=== PATIENT | female | born 1985 ===

== ENCOUNTER 2020-09-16 08:00 | Outpatient (REF) | payer OTHER, SELFPAY ==
[2020-09-17 09:10] LABS: CT PCR NOT DETECTED (Not Detect.); NG PCR NOT DETECTED (Not Detect.)
[2020-09-17 10:28] LABS: BV Int Neg Control Negative (Negative); BV Int Pos Control Positive (Positive)
== END 2020-09-16 08:01 | disposition home or self-care (01) ==
LOC: HO.LAB 08:00
PROVIDERS: Visit Provider Obstetrics & Gynecology
DX: R10.2 Pelvic and perineal pain (principal); Z79.899 Other long term (current) drug therapy
CPT/HCPCS: 81002; 81025; 87480; 87491; 87510; 87591; 87660; 99212

== ENCOUNTER 2020-09-26 11:10 | Outpatient (REF) | payer OTHER, SELFPAY ==
--- NOTE | 2020-09-26 11:16 | US_ITS ---
EXAMINATION: PELVIC ULTRASOUND. CLINICAL INFORMATION: Pelvic and perineal pain COMPARISON: Prior pelvic ultrasound May 2019 and May 2018 TECHNIQUE: Transabdominal and transvaginal pelvic ultrasound performed. FINDINGS: Uterus: 6.55 x 4.4 cm. Endometrial thickness 1.7 cm slightly irregular perhaps related to reported ablation 2 small cystic areas which appear to be communicating with the endometrial canal. 2 x 2 x 2.3 cm with a volume of 8.8 mm. Left ovary: 3 x 1.5 x 2.1 cm with a volume of 4.9 mm. Small amount of fluid anterior to the uterus uncertain significance. This is not seen previously US/US pelvic complete IMPRESSION: Slight irregularity of the endometrial canal with adjacent cystic areas. These changes may be related to the reported recent ablation of uncertain clinical significance Small amount of fluid anterior to the uterus of uncertain significance
--- NOTE | 2020-09-26 11:16 | US_ITS ---
EXAMINATION: PELVIC ULTRASOUND. CLINICAL INFORMATION: Pelvic and perineal pain COMPARISON: Prior pelvic ultrasound May 2019 and May 2018 TECHNIQUE: Transabdominal and transvaginal pelvic ultrasound performed. FINDINGS: Uterus: 6.55 x 4.4 cm. Endometrial thickness 1.7 cm slightly irregular perhaps related to reported ablation 2 small cystic areas which appear to be communicating with the endometrial canal. 2 x 2 x 2.3 cm with a volume of 8.8 mm. Left ovary: 3 x 1.5 x 2.1 cm with a volume of 4.9 mm. Small amount of fluid anterior to the uterus uncertain significance. This is not seen previously US/US transvaginal IMPRESSION: Slight irregularity of the endometrial canal with adjacent cystic areas. These changes may be related to the reported recent ablation of uncertain clinical significance Small amount of fluid anterior to the uterus of uncertain significance
== END 2020-09-26 11:11 | disposition home or self-care (01) ==
LOC: HO.US 11:10
PROVIDERS: Visit Provider Obstetrics & Gynecology
DX: R10.2 Pelvic and perineal pain (principal)
CPT/HCPCS: 76830; 76856

== ENCOUNTER → 2020-10-07 11:46 | Outpatient (BNVA) | payer OTHER, SELFPAY | PROVIDERS: Visit Provider Obstetrics & Gynecology | DX: Z76.89 Persons encountering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 in other specified circumstances (principal) ==

== ENCOUNTER 2020-11-20 14:56 | Emergency (ER) | payer OTHER, SELFPAY ==
[2020-11-20 15:37] VITALS: BP 138/73; PULSE 90; RESP 18; TEMP 36; O2SAT 100; BMI 32.5
[2020-11-20 17:37] VITALS: BP 105/63; PULSE 83; RESP 16; O2SAT 100
--- NOTE | 2020-11-20 17:39 | PC.NURSE ---
patient reports 2 weeks of left rib pain, denies injury. states the pain is worse after eating, sometimes radiates to left shoulder. heart palpitations. denies n/v/d/. skin pwd. resp even and non labored. speaking in full, clear sentences. lungs clear throughout. awaiting initial physician eval
--- NOTE | 2020-11-20 17:47 | XR_ITS ---
EXAMINATION: XR RIBS, LEFT CLINICAL INFORMATION: Left-sided rib pain. COMPARISON: None TECHNIQUE: Frontal view of chest 3 views of the left ribs were obtained. FINDINGS: Lungs are clear. No consolidation, pneumothorax, or pleural effusion. The cardiomediastinal silhouette and pulmonary vasculature are normal. Osseous structures are unremarkable. Ribs are intact. No fractures are identified. XR/XR ribs LT min 3V w CXR1V IMPRESSION: Unremarkable examination.
--- NOTE | 2020-11-20 17:48 | ED.GENADULT ---
HPI - General Adult General Chief complaint: Abdominal Pain Stated complaint: left sided pain Time Seen by Provider: 11/20/20 17:42 Source: patient Mode of arrival: ambulatory Limitations: no limitations History of Present Illness HPI narrative: 35 y/o female presenting with intermittent left sided rib pain for the last 3 weeks. She denies trauma. She denies injury. She states it is worse when she eats candy or drinks alcohol. When the pain occurs it is painful for her to lift her left arm. She denies SOB, cough, fever, chills, abdominal pain, N/V/D. MD complaint: left sided rib pain Onset (ago): week(s) (3) Location: chest and back Radiation: non-radiation Severity: moderate Quality: aching Pain Consistency: intermittent Relieving factors: rest Exacerbating factors: eating and movement Associated symptoms: denies other symptoms Treatments prior to arrival: none Related Data Previous Rx's Medication Instructions Recorded albuterol sulfate 90 mcg/actuation 1 puff INHALATION Q4H PRN 30 Days 08/30/20 aerosol inhaler #8.5 g albuterol sulfate 90 mcg/actuation 2 puff INHALATION Q6H PRN 30 Days 08/30/20 aerosol inhaler #8.5 g cetirizine 10 mg tablet 10 mg PO DAILY 90 Days #90 tab 08/30/20 diphenhydramine HCl 25 mg capsule 25 mg PO BEDTIME PRN 90 Days #90 08/30/20 cap fluticasone 232mcg-salmeterol 1 inh INHALATION Q12H 30 Days #1 ea 08/30/20 14mcg/actuation breath act,powder sensor fluticasone propionate 50 1 spray INTRANASAL DAILY 30 Days 08/30/20 mcg/actuation nasal #9.9 ml spray,suspension ketotifen fumarate 0.025 % (0.035 1 drp OPHTHALMIC (EYE) BID PRN 30 08/30/20 %) eye drops Days #5 ml hydroxyzine HCl 25 mg tablet 25 mg PO TID PRN 30 Days #90 tab 11/07/20 lidocaine [Lidoderm] 1 patch TOPICAL DAILY #15 ea 11/20/20 naproxen 500 mg PO BID PRN #20 tab 11/20/20 Allergies Allergy/AdvReac Type Severity Reaction Status Date / Time morphine [MORPHINE] Allergy Unknown ITCHY Verified 10/07/20 11:47 ENVIRONMENTAL ALLERGIES Allergy Unknown unknown Uncoded 09/16/20 08:16 Review of Systems Review of Systems: Constitutional: No Fever, No Chills ENT/Mouth: No sore throat, No Rhinorrhea, No Swallowing Difficulty Eyes: No Eye Pain, No Swelling, No Redness Cardiovascular: + Chest Pain, No SOB, No Orthopnea, No Edema Respiratory: No Cough, No Sputum, No Wheezing, No dyspnea Gastrointestinal: No Nausea, No Vomiting, No Diarrhea, + abdominal Pain (left flank) Musculoskeletal: No joint pain, No Myalgias Skin: No Skin Lesions, No rash Neuro: No Weakness, No Numbness, No Dizziness, No Headache PMFSH Past Medical History Medical History Allergic rhinitis Constipation Depression Gestational diabetes Surgical History H/O bilateral salpingectomy H/O laparoscopy Family History Family History Father Diabetes HTN (hypertension) Mother Depression Chronic mental illness Maternal Grandmother HTN (hypertension) Paternal Grandmother Alzheimer disease Social History Social History Alcohol intake: never Smoking Status: Never smoker Use of substances other than those prescribed or required for medical reasons: No Advance Directives: No Advance Directives Information Provided: No Sexual orientation: Straight/Heterosexual Gender identity: female Physical Exam Vital Signs: Vital Signs: Last Vital Signs Temp 96.8 F 11/20/20 15:37 Pulse 83 11/20/20 17:37 Resp 16 11/20/20 17:37 BP 105/63 11/20/20 17:37 Pulse Ox 100 11/20/20 17:37 Body Mass Index 32.5 Appearance: Alert. Oriented X3. No acute distress. Eyes: Pupils equal, round and reactive to light. ENT: Pharynx normal. Neck: Normal inspection. Neck supple. CVS: Normal heart rate and rhythm. Pulses normal. Respiratory: No respiratory distress. Breath sounds normal. Lateral lower ribs are tender. Abdomen: Soft and nontender. +BS x4 Skin: Skin warm and dry. Normal skin color. Normal skin turgor. No rashes. Extremities: No lower extremity edema. Negataive Homans signs Neuro: Oriented X 3. No motor deficit. No sensory deficit. Course Course Course Narrative: 35 yo female presenting with left sided rib pain intermittently for the last 3 weeks. Tender left lower ribs laterally without abd tenderness. Possible costochondritis, will get CXR to r/o PNA, PTX. Doubt PE, PERC score 0. No ACS risk factors and pain is re-producible on exam. VSS, no hypoxia. No urinary symptoms. Reevaluation(s) Reevaluation #1: CXR negative. Will treat for costochondritis. Discharge Plan Discharge Clinical Impression: Acute costochondritis Patient Disposition: Home, Self-Care Instructions: Costochondritis (ED) Additional Instructions: Your x-ray today was normal. Your vital signs are normal. Your exam is consistent with inflammation of the muscles in between your ribs. Take the prescribed medications as directed. Follow up with your doctor this week. If you develop worsening pain, shortness of breath, chest pain, abdominal pain or any other concerning symptom, come back to the ER for further evaluation. Prescriptions: New lidocaine [Lidoderm] 5 % adhesive patch,medicated 1 patch topical DAILY Qty: 15 RF: 0 naproxen 500 mg tablet 500 mg PO BID PRN (Reason: pain) Qty: 20 RF: 0 No Action albuterol sulfate 90 mcg/actuation HFA aerosol inhaler 1 puff inhalation Q4H PRN (Reason: shortness of breath or wheezing) 30 Days Qty: 8.5 RF: 5 ketotifen fumarate [Alaway] 0.025 % (0.035 %) drops 1 drp ophthalmic (eye) BID PRN (Reason: allergy symptoms) 30 Days Qty: 5 RF: 6 diphenhydramine HCl [Benadryl] 25 mg capsule 25 mg PO BEDTIME PRN (Reason: sleep) 90 Days Qty: 90 RF: 1 albuterol sulfate [ProAir HFA] 90 mcg/actuation HFA aerosol inhaler 2 puff inhalation Q6H PRN (Reason: shortness of breath or wheezing) 30 Days Qty: 8.5 RF: 6 fluticasone propionate 50 mcg/actuation spray,suspension 1 spray intranasal DAILY 30 Days Qty: 9.9 RF: 6 cetirizine 10 mg tablet 10 mg PO DAILY 90 Days Qty: 90 RF: 1 AirDuo Digihaler 232-14 mcg/actuation aero powdr breath act w/sensor 1 inh inhalation Q12H 30 Days Qty: 1 RF: 6 hydroxyzine HCl 25 mg tablet 25 mg PO TID PRN (Reason: anxiety) 30 Days Qty: 90 RF: 1
== END 2020-11-20 19:29 | disposition home or self-care (01) ==
PROVIDERS: Emergency Provider Internal Medicine
DX: M94.0 Chondrocostal junction syndrome [Tietze] (principal); R07.81 Pleurodynia; M79.602 Pain in left arm; Z79.899 Other long term (current) drug therapy
CPT/HCPCS: 71101; 99283; 99284

== ENCOUNTER 2020-11-21 10:32 | Outpatient (REF) | payer OTHER, SELFPAY ==
[2020-11-21 14:53] LABS: Alanine Aminotransferase 15 U/L (0-31); Albumin Level 4.3 g/dL (3.5-5.0); Alkaline Phosphatase 46 U/L (39-117); Amylase 78 U/L (28-100); Aspartate Amino Transferase 12 U/L (5-31); Bilirubin Direct < 0.2 mg/dL (0.0-0.5); Bilirubin Total 0.4 mg/dL (0.0-1.0); Lipase 32 U/L (8-78); Total Protein 7.4 g/dL (6.5-8.0)
== END 2020-11-21 10:33 | disposition home or self-care (01) ==
LOC: HO.WFDLDS 10:32
PROVIDERS: Visit Provider Hospitalist
DX: R10.9 Unspecified abdominal pain (principal)
CPT/HCPCS: 36415; 80076; 82150; 83690

== ENCOUNTER 2020-11-29 10:30 | Outpatient (REF) | payer OTHER, SELFPAY ==
[2020-11-30 12:26] LABS: BV Int Neg Control Negative (Negative); BV Int Pos Control Positive (Positive)
[2020-11-30 12:52] LABS: C. trachomatis RNA TMA NOT DETECTED (NOT DETECTED); N. gonorrhoeae RNA TMA NOT DETECTED (NOT DETECTED)
== END 2020-11-29 10:31 | disposition home or self-care (01) ==
LOC: HO.LAB 10:30
PROVIDERS: PCP Hospitalist; Visit Provider Obstetrics & Gynecology
DX: Z12.4 Encounter for screening for malignant neoplasm of cervix (principal); N93.0 Postcoital and contact bleeding; B96.89 Other specified bacterial agents as the cause of diseases classified elsewhere; N76.0 Acute vaginitis
CPT/HCPCS: 87480; 87491; 87510; 87591; 87660; 88141; 88142; 88305; 99212

== ENCOUNTER 2020-12-11 13:50 | Outpatient (REF) | payer OTHER, SELFPAY ==
[2020-12-12 10:27] LABS: C. trachomatis RNA TMA NOT DETECTED (NOT DETECTED); N. gonorrhoeae RNA TMA NOT DETECTED (NOT DETECTED)
== END 2020-12-11 13:51 | disposition home or self-care (01) ==
LOC: HO.LAB 13:50
PROVIDERS: Visit Provider Obstetrics & Gynecology
DX: B37.3 Candidiasis of vulva and vagina (principal); R10.2 Pelvic and perineal pain
CPT/HCPCS: 36415; 87491; 87591

== ENCOUNTER 2020-12-17 15:32 | Outpatient (REF) | payer OTHER, SELFPAY ==
[2020-12-19 17:07] LABS: HPV mRNA E6/E7 rflx Not Detected (Not Detected)
== END 2020-12-17 15:33 | disposition home or self-care (01) ==
LOC: HO.LAB 15:32
PROVIDERS: PCP Hospitalist; Visit Provider Obstetrics & Gynecology
DX: R87.615 Unsatisfactory cytologic smear of cervix (principal); N93.0 Postcoital and contact bleeding
CPT/HCPCS: 36415; 87624; 88142; 99212

== ENCOUNTER 2021-01-24 14:29 | Outpatient (REF) | payer OTHER, SELFPAY ==
[2021-01-24 15:32] LABS: Anion Gap 10 (12-20); Blood Urea Nitrogen 16 mg/dL (9-16); Calcium 9.2 mg/dL (8.4-10.2); Carbon Dioxide 29 mmol/L (22-29); Chloride 104 mmol/L (96-108); Estimated Glomerular Filt Rate > 60; Glucose Fasting 69 mg/dL (60-99); Potassium 4.4 mmol/L (3.3-5.1); Rheumatoid Factor < 15.0 IU/mL (<15.0); Sodium 139 mmol/L (135-145)
[2021-01-24 16:03] LABS: Erythrocyte Sedimentation Rate 12 MM/HR (0-20)
[2021-01-25 13:14] LABS: Vitamin B12 566 pg/mL (200-900)
[2021-01-27 21:11] LABS: CRP High Sensitivity 2.1 mg/L
[2021-01-29 01:27] LABS: VITAMIN D (1,25 OH) D3 51 pg/mL; Vit D (1,25-Dihydroxy) Total 51 pg/mL (18-72); Vitamin D (1,25 OH) D2 <8 pg/mL
== END 2021-01-24 14:30 | disposition home or self-care (01) ==
LOC: HO.LAB 14:29
PROVIDERS: PCP Hospitalist; Visit Provider Hospitalist
DX: Z00.00 Encounter for general adult medical examination without abnormal findings (principal); M19.90 Unspecified osteoarthritis, unspecified site; M06.9 Rheumatoid arthritis, unspecified; R41.3 Other amnesia
CPT/HCPCS: 36415; 80048; 82607; 82652; 82746; 85652; 86141; 86431

== ENCOUNTER 2021-02-06 10:37 | Outpatient (REF) | payer OTHER, SELFPAY ==
--- NOTE | ~2021-02-06 | XR_ITS ---
EXAMINATION: XR FOOT, RIGHT XR FOOT, LEFT CLINICAL INFORMATION: Bilateral pain. M25.50 COMPARISON: None TECHNIQUE: Each foot is imaged in 3 views. There are a total of 6 views. FINDINGS: Right: There is no fracture, dislocation, destructive process. Bony mineralization appears normal. There is no periarticular demineralization. Subtalar joint is unremarkable. No visible ankle, capsular effusion. The retrocalcaneal recess is preserved. There is borderline posterior calcaneal spur. The midfoot and MTP joints show no narrowing or erosive change. The interphalangeal joints show no subchondral sclerosis or erosive changes. Left: There is no fracture, dislocation, destructive process. Bony mineralization appears normal. There is no periarticular demineralization. Subtalar joint is unremarkable. No visible ankle, capsular effusion. The retrocalcaneal recess is preserved. The midfoot and MTP joints show no narrowing or erosive change. The interphalangeal joints show no subchondral sclerosis or erosive changes. XR/XR foot LT 2V IMPRESSION: 1. No focal joint narrowing or erosive change. 2. Borderline right posterior calcaneal spur.
--- NOTE | ~2021-02-06 | XR_ITS ---
EXAMINATION: XR HAND WRIST, RIGHT XR HAND WRIST, LEFT CLINICAL INFORMATION: Bilateral pain. M25.50 COMPARISON: Bilateral radiographs hand wrist 08/04/2010 TECHNIQUE: Each hand and wrist are imaged in 3 large [id number] images to include both areas. A navicular view is also included on each side. There are a total of 4 views each side. FINDINGS: Right: There is normal bony mineralization. No fracture, dislocation, destructive process. The ulnar variance is neutral. The pronator quadratus fat pad is normal. The carpus shows no joint narrowing or erosive change or chondrocalcinosis. The MCP and interphalangeal joints are unremarkable. No focal joint narrowing or erosive change. Left: There is normal bony mineralization. No fracture, dislocation, destructive process. The ulnar variance is neutral. The pronator quadratus fat pad is normal. The carpus shows no joint narrowing or erosive change or chondrocalcinosis. The MCP and interphalangeal joints are unremarkable. No focal joint narrowing or erosive change. XR/XR hand wrist LT IMPRESSION: Unremarkable bilateral hands/wrists.
--- NOTE | ~2021-02-06 | XR_ITS ---
EXAMINATION: XR HAND WRIST, RIGHT XR HAND WRIST, LEFT CLINICAL INFORMATION: Bilateral pain. M25.50 COMPARISON: Bilateral radiographs hand wrist 08/04/2010 TECHNIQUE: Each hand and wrist are imaged in 3 large [id number] images to include both areas. A navicular view is also included on each side. There are a total of 4 views each side. FINDINGS: Right: There is normal bony mineralization. No fracture, dislocation, destructive process. The ulnar variance is neutral. The pronator quadratus fat pad is normal. The carpus shows no joint narrowing or erosive change or chondrocalcinosis. The MCP and interphalangeal joints are unremarkable. No focal joint narrowing or erosive change. Left: There is normal bony mineralization. No fracture, dislocation, destructive process. The ulnar variance is neutral. The pronator quadratus fat pad is normal. The carpus shows no joint narrowing or erosive change or chondrocalcinosis. The MCP and interphalangeal joints are unremarkable. No focal joint narrowing or erosive change. XR/XR hand wrist RT IMPRESSION: Unremarkable bilateral hands/wrists.
--- NOTE | ~2021-02-06 | XR_ITS ---
EXAMINATION: XR FOOT, RIGHT XR FOOT, LEFT CLINICAL INFORMATION: Bilateral pain. M25.50 COMPARISON: None TECHNIQUE: Each foot is imaged in 3 views. There are a total of 6 views. FINDINGS: Right: There is no fracture, dislocation, destructive process. Bony mineralization appears normal. There is no periarticular demineralization. Subtalar joint is unremarkable. No visible ankle, capsular effusion. The retrocalcaneal recess is preserved. There is borderline posterior calcaneal spur. The midfoot and MTP joints show no narrowing or erosive change. The interphalangeal joints show no subchondral sclerosis or erosive changes. Left: There is no fracture, dislocation, destructive process. Bony mineralization appears normal. There is no periarticular demineralization. Subtalar joint is unremarkable. No visible ankle, capsular effusion. The retrocalcaneal recess is preserved. The midfoot and MTP joints show no narrowing or erosive change. The interphalangeal joints show no subchondral sclerosis or erosive changes. XR/XR foot RT 2V IMPRESSION: 1. No focal joint narrowing or erosive change. 2. Borderline right posterior calcaneal spur.
[2021-02-06 12:25] LABS: MANUAL DIFF FLAG NO
[2021-02-06 12:32] LABS: Basophils Percent Auto 0.7 % (0-2); Eosinophils Absolute Auto 0.1 X10*3/uL (0.0-0.4); Eosinophils Percent Auto 1.6 % (0-4); Hematocrit 39.5 % (37-47); Hemoglobin 12.8 g/dl (12.0-16.0); Imm Gran Abs Auto 0.01 X10*3/uL (0.00-0.03); Imm Gran Pct Auto 0.2 % (0.0-0.4); Lymphocytes Absolute Auto 1.7 X10*3/uL (1.2-4.9); Lymphocytes Percent Auto 27.3 % (20-40); Mean Corpuscular HGB Conc 32.4 g/dl (31.0-35.0); Mean Corpuscular Hemoglobin 29.8 pg (27.0-33.0); Mean Corpuscular Volume 92.1 fL (80-98); Mean Platelet Volume 10.9 fL (9.4-12.3); Monocytes Absolute Auto 0.4 X10*3/uL (0.1-1.2); Monocytes Percent Auto 6.5 % (2-11); Neutrophils Absolute Auto 3.9 X10*3/uL (2.0-8.3); Neutrophils Percent Auto 63.7 % (45-73); Platelet Count 245 X10*3/uL (160-400); Red Blood Count 4.29 X10*6/uL (4.20-5.50); Red Cell Distribution Width 13.1 % (11.0-16.0); White Blood Count 6.2 X10*3/uL (4.8-10.8)
[2021-02-06 12:51] LABS: Alanine Aminotransferase 13 U/L (0-31); Albumin Level 4.4 g/dL (3.5-5.0); Alkaline Phosphatase 46 U/L (39-117); Anion Gap 13 (12-20); Aspartate Amino Transferase 14 U/L (5-31); Bilirubin Total 0.4 mg/dL (0.0-1.0); Blood Urea Nitrogen 20 mg/dL (9-16); C Reactive Protein 0.36 mg/dL (< or = 0.50); Calcium 9.2 mg/dL (8.4-10.2); Carbon Dioxide 25 mmol/L (22-29); Chloride 104 mmol/L (96-108); Estimated Glomerular Filt Rate > 60; Glucose Random 85 mg/dL (60-115); Potassium 4.5 mmol/L (3.3-5.1); Rheumatoid Factor < 15.0 IU/mL (<15.0); Sodium 137 mmol/L (135-145); Total Protein 7.5 g/dL (6.5-8.0)
[2021-02-06 13:34] LABS: Erythrocyte Sedimentation Rate 16 MM/HR (0-20)
[2021-02-07 04:59] LABS: HBS Num1 54.88 mIU/mL (0-7.99); HBc Num1 0.09 S/CO (0.00-0.79); Hepatitis A Antibody IgM 0.14 Index (0-0.79); Hepatitis B Core Antibody Nonreactive (Nonreactive); ~HepC Num1 0.08 S/CO (0.00-0.79); ~Hepatitis A Antibody IgM Nonreactive (Nonreactive); ~Hepatitis B Surface Antibody REACTIVE (Nonreactive); ~Hepatitis C Antibody Nonreactive (Nonreactive)
[2021-02-07 05:03] LABS: HBsAGNum1 0.15 S/CO (0.00-0.99); Hepatitis B Surface Antigen Negative (Negative)
[2021-02-07 12:12] LABS: Antibody to SS-A Antigen <1.0 NEG AI (<1.0 NEG); Antibody to SS-B Antigen <1.0 NEG AI (<1.0 NEG)
[2021-02-07 13:21] LABS: Anti Nuclear Antibody Screen NEGATIVE (NEGATIVE)
[2021-02-07 22:17] LABS: Cyclic Citrullinated Peptide <16 UNITS
== END 2021-02-06 10:38 | disposition home or self-care (01) ==
LOC: HO.LAB 10:37
PROVIDERS: PCP Internal Medicine; Visit Provider Student in an Organized Health Care Education/Training Program
DX: M25.50 Pain in unspecified joint (principal); M65.4 Radial styloid tenosynovitis [de Quervain]; J30.9 Allergic rhinitis, unspecified; Z88.5 Allergy status to narcotic agent; Z90.79 Acquired absence of other genital organ(s); Z90.722 Acquired absence of ovaries, bilateral; Z79.899 Other long term (current) drug therapy
CPT/HCPCS: 36415; 73110; 73130; 73620; 80053; 85025; 85652; 86038; 86039; 86140; 86200; 86235; 86431; 86704; 86706; 86709; 86803; 87340; 99202

== ENCOUNTER → 2021-02-27 09:29 | Outpatient (BNVA) | payer OTHER, SELFPAY | PROVIDERS: PCP Hospitalist; Visit Provider Student in an Organized Health Care Education/Training Program | DX: M25.50 Pain in unspecified joint (principal) | CPT/HCPCS: 99212 ==

== ENCOUNTER 2021-04-25 09:08 | Outpatient (REF) | payer OTHER, SELFPAY ==
[2021-04-25 10:36] LABS: Glucose Urine UA NEG (NEG); Leukocyte Esterase Urine NEG (NEG); Nitrite Urine NEG (NEG); Specific Gravity - Urine >= 1.030 (1.005-1.025); Urine Blood 3+ (NEG); Urine Ketones NEG (NEG); Urine Protein NEG (NEG-TRACE)
[2021-04-25 10:39] LABS: Appearance Urine CLEAR; Color Urine YELLOW
[2021-04-25 11:24] LABS: Bacteria Urine TRACE /LPF; Mucus Urine 1+ /LPF; Squamous Epithelial Cell Urine 2+ /LPF
[2021-04-25 11:47] LABS: Alanine Aminotransferase 9 U/L (0-31); Albumin Level 4.2 g/dL (3.5-5.0); Alkaline Phosphatase 49 U/L (39-117); Anion Gap 10 (12-20); Aspartate Amino Transferase 12 U/L (5-31); Bilirubin Total 0.4 mg/dL (0.0-1.0); Blood Urea Nitrogen 17 mg/dL (9-16); Calcium 9.1 mg/dL (8.4-10.2); Carbon Dioxide 27 mmol/L (22-29); Chloride 106 mmol/L (96-108); Estimated Glomerular Filt Rate > 60; Glucose Fasting 89 mg/dL (60-99); Potassium 4.3 mmol/L (3.3-5.1); Sodium 139 mmol/L (135-145); Total Protein 7.3 g/dL (6.5-8.0)
[2021-04-25 12:09] LABS: TSH reflex Free T4 1.01 uIU/mL (0.32-4.0)
[2021-05-02 15:26] LABS: Chlorpropamide None Detected; Glimepiride None Detected; Glipizide None Detected; Glyburide None Detected; Nateglinide None Detected; Pioglitazone None Detected; Repaglinide None Detected; Rosiglitazone None Detected; Tolazamide None Detected; Tolbutamide None Detected
== END 2021-04-25 09:09 | disposition home or self-care (01) ==
LOC: HO.WFDLDS 09:08
PROVIDERS: Visit Provider Family Medicine
DX: Z00.00 Encounter for general adult medical examination without abnormal findings (principal); E16.2 Hypoglycemia, unspecified
CPT/HCPCS: 36415; 80053; 80337; 81001; 84443

== ENCOUNTER 2021-06-04 13:40 | Outpatient (REF) | payer OTHER, SELFPAY ==
[2021-06-04 16:49] LABS: Urine Cytology See Pathology rpt
== END 2021-06-04 13:41 | disposition home or self-care (01) ==
LOC: HO.LNP 13:40
PROVIDERS: PCP Internal Medicine
DX: R31.29 Other microscopic hematuria (principal)
CPT/HCPCS: 88112; 99202

== ENCOUNTER → 2021-07-23 14:15 | Outpatient (BNVA) | payer OTHER, SELFPAY | PROVIDERS: PCP Internal Medicine; Referring Provider Family Medicine; Visit Provider Internal Medicine | DX: E16.2 Hypoglycemia, unspecified (principal); E55.9 Vitamin D deficiency, unspecified | CPT/HCPCS: 99202 ==

== ENCOUNTER 2021-07-25 09:09 | Outpatient (REF) | payer OTHER, SELFPAY ==
[2021-07-25 09:57] LABS: Glucose Fasting 97 mg/dL (60-99)
[2021-07-25 10:03] LABS: Alanine Aminotransferase 13 U/L (0-31); Albumin Level 4.6 g/dL (3.5-5.0); Alkaline Phosphatase 56 U/L (39-117); Anion Gap 11 (12-20); Aspartate Amino Transferase 12 U/L (5-31); Bilirubin Direct 0.2 mg/dL (0.0-0.5); Bilirubin Total 0.6 mg/dL (0.0-1.0); Blood Urea Nitrogen 20 mg/dL (9-16); Calcium 9.9 mg/dL (8.4-10.2); Carbon Dioxide 28 mmol/L (22-29); Chloride 105 mmol/L (96-108); Estimated Glomerular Filt Rate > 60; Glucose Fasting 99 mg/dL (60-99); Potassium 4.4 mmol/L (3.3-5.1); Sodium 140 mmol/L (135-145)
[2021-07-25 10:23] LABS: Free T4 (Free Thyroxine) 1.42 ng/dL (0.71-1.85); Vitamin D 25-OH Total 20.1 ng/mL (>30)
[2021-07-25 11:48] LABS: Glucose 1 Hour 111 mg/dL
[2021-07-25 12:11] LABS: Glucose 2 Hour 107 mg/dL
[2021-07-25 13:27] LABS: Glucose 3 Hour 83 mg/dL
[2021-07-25 15:07] LABS: Glucose 4 Hour 57 mg/dL
[2021-07-28 18:42] LABS: DHEA Sulfate 136 mcg/dL (23-266); Insulin Level Total 11.8 uIU/mL
[2021-07-28 22:52] LABS: Adrenocorticotropic Hormone 9 pg/mL (6-50)
[2021-07-30 03:42] LABS: Beta-Hydroxybutyrate 0.07 mmol/L
[2021-07-30 09:12] LABS: C Peptide 2.19 ng/mL (0.80-3.85)
[2021-07-31 03:57] LABS: Proinsulin 5.5 pmol/L (< OR = 18.8)
[2021-08-02 01:22] LABS: Insulin Auto Antibody <0.4 U/mL (<0.4)
[2021-08-04 14:21] LABS: Insulin Growth Factor 2 644 ng/mL (267-616)
[2021-08-06 07:20] LABS: Chlorpropamide None Detected; Glimepiride None Detected; Glipizide None Detected; Glyburide None Detected; Nateglinide None Detected; Pioglitazone None Detected; Repaglinide None Detected; Rosiglitazone None Detected; Tolazamide None Detected; Tolbutamide None Detected
== END 2021-07-25 09:10 | disposition home or self-care (01) ==
LOC: HO.LAB 09:09
PROVIDERS: PCP Internal Medicine; Visit Provider Internal Medicine
DX: E16.2 Hypoglycemia, unspecified (principal); E55.9 Vitamin D deficiency, unspecified
CPT/HCPCS: 36415; 80048; 80076; 80337; 82010; 82024; 82306; 82533; 82627; 82952; 83525; 83789; 84206; 84439; 84443; 84681; 86337

== ENCOUNTER 2021-09-08 12:31 | Outpatient (REF) | payer OTHER, SELFPAY ==
[2021-09-08 13:59] LABS: Hematocrit 41.1 % (37-47); Hemoglobin 13.3 g/dl (12.0-16.0); Mean Corpuscular HGB Conc 32.4 g/dl (31.0-35.0); Mean Corpuscular Volume 92.6 fL (80-98); Mean Platelet Volume 11.7 fL (9.4-12.3); Platelet Count 274 X10*3/uL (160-400); Red Blood Count 4.44 X10*6/uL (4.20-5.50); White Blood Count 7.9 X10*3/uL (4.8-10.8)
[2021-09-08 14:42] LABS: TSH reflex Free T4 1.03 uIU/mL (0.32-4.0)
[2021-09-14 13:11] LABS: Vitamin D 25-OH, D2 5 ng/mL; Vitamin D 25-OH, D3 16 ng/mL; Vitamin D 25-OH, Total 21 ng/mL (30-100)
== END 2021-09-08 12:32 | disposition home or self-care (01) ==
LOC: HO.WFDLDS 12:31
PROVIDERS: Visit Provider Hospitalist
DX: E55.9 Vitamin D deficiency, unspecified (principal); R53.83 Other fatigue
CPT/HCPCS: 36415; 82306; 84443; 85027

== ENCOUNTER → 2021-09-15 08:34 | Outpatient (BNVA) | payer OTHER, SELFPAY | PROVIDERS: PCP Hospitalist; Visit Provider Internal Medicine ==

== ENCOUNTER → 2021-09-17 10:38 | Outpatient (BNVA) | payer OTHER, SELFPAY | PROVIDERS: PCP Hospitalist; Visit Provider Dietitian, Registered | DX: E66.9 Obesity, unspecified (principal); E16.2 Hypoglycemia, unspecified; Z68.32 Body mass index [BMI] 32.0-32.9, adult | CPT/HCPCS: 97802 ==

== ENCOUNTER → 2021-09-24 09:00 | Outpatient (BNVA) | payer OTHER, SELFPAY | PROVIDERS: PCP Hospitalist; Visit Provider Nurse Practitioner Family | DX: M25.50 Pain in unspecified joint (principal); M79.7 Fibromyalgia | CPT/HCPCS: 99212 ==

== ENCOUNTER 2021-12-24 09:18 | Emergency (ER) | payer OTHER, SELFPAY ==
[2021-12-24 09:27] VITALS: BP 107/66; PULSE 73; RESP 19; TEMP 36.6; O2SAT 98; BMI 32.2
--- NOTE | 2021-12-24 10:39 | ED_ITS ---
HPI - General Adult General Chief complaint: Extremity Injury, Lower Stated complaint: L HIP PAIN Time Seen by Provider: 12/24/21 10:12 History of Present Illness HPI narrative: Patient complains of left-sided low back pain without injury without radiation no numbness weakness or tingling no fall no changes to bowel or bladder no burning with urination Related Data Previous Rx's Medication Instructions Recorded pseudoephedrine HCl 30 mg tablet 60 mg PO Q6H PRN 30 Days #24 tab 08/18/21 glucose 4 gram chewable tablet 4 g PO Q15M 30 Days #50 tab 09/05/21 cholecalciferol (vitamin D3) 50 50 mcg PO DAILY 30 Days #30 cap 09/15/21 mcg (2,000 unit) capsule ketotifen fumarate 0.025 % (0.035 1 drp OPHTHALMIC (EYE) BID PRN 30 09/19/21 %) eye drops (Alaway) Days #5 ml fluticasone propionate 50 1 spray INTRANASAL DAILY #16 ml 10/01/21 mcg/actuation nasal spray,suspension cetirizine 10 mg tablet 10 mg PO DAILY 30 Days #30 tab 10/07/21 diphenhydramine HCl 25 mg capsule 25 mg PO BEDTIME PRN 30 Days #30 10/07/21 (Banophen) cap ProAir HFA 90 mcg/actuation 2 puff INHALATION Q6H PRN 30 Days 10/28/21 aerosol inhaler (albuterol sulfate) #8.5 g NS fluticasone 100 mcg-salmeterol 50 1 inh INHALATION BID 30 Days #60 ea 10/28/21 mcg/dose blistr powdr for inhalation (Advair Diskus) naproxen 500 mg tablet 500 mg PO Q12H PRN 30 Days #60 tab 10/28/21 hydroxyzine HCl 25 mg tablet 25 mg PO TID PRN #90 tab 11/17/21 sodium chloride 0.65 % nasal spray 2 spray INTRANASAL Q2H PRN #88 ml 12/01/21 aerosol (Saline Nasal) cyclobenzaprine 5 mg tablet 5 mg PO TID PRN #14 tab 12/24/21 lidocaine 5 % topical patch 1 patch TOPICAL DAILY #15 ea 12/24/21 oxycodone 5 mg tablet 5 mg PO Q6H PRN #10 tab 12/24/21 Allergies Allergy/AdvReac Type Severity Reaction Status Date / Time morphine [MORPHINE] Allergy Intermediate ITCHY Verified 09/24/21 14:35 ENVIRONMENTAL ALLERGIES Allergy Mild congestion Uncoded 09/24/21 09:20 Review of Systems Review of Systems: Positive for left-sided low back pain Negatives are no fever no chills no dizziness weakness no headache no neck pain no chest pain no abdominal pain no numbness weakness or tingling no radiation of pain no changes to bowel or bladder no dysuria no frequency no incontinence Yes all other systems are reviewed and are negative [facility] Past Medical History Source: nursing notes reviewed Medical History Allergic rhinitis Constipation De Quervain's tenosynovitis Depression Gestational diabetes Microscopic hematuria Vitamin D deficiency Surgical History H/O bilateral salpingectomy H/O laparoscopy Family History Family History Father Diabetes HTN (hypertension) Mother Depression Chronic mental illness Diabetes Maternal Grandmother HTN (hypertension) Paternal Grandmother Alzheimer disease Social History Social History Alcohol intake: current Alcohol intake frequency: holidays/special occasions only Patient Tobacco Use Status: Never used Tobacco e-Cigarette/Vaping Use: Never Used Sexual orientation: Straight/Heterosexual Gender identity: Female Physical Exam Vital Signs: Vital Signs: Last Vital Signs Temp 98 F 12/24/21 09:27 Pulse 73 12/24/21 09:27 Resp 19 12/24/21 09:27 BP 107/66 12/24/21 09:27 Pulse Ox 98 12/24/21 09:27 BMI result Body Mass Index 32.2 General appearance is no acute distress Head is normocephalic atraumatic Neck is supple nontender Respiratory no distress Abdomen soft nontender The back had left lower lumbar and gluteal tenderness there is no midline tenderness, skin was normal there was no CVA tenderness Extremities full range of motion x4 Neuro no focal motor or sensory deficits, gait balance are normal patient can walk on toes walk on heels and swelling Course Course Course Narrative: Well-appearing patient without neurologic deficit, no changes to bowel or bladder is discharged Discharge Plan Discharge Clinical Impression: Low back pain Patient Disposition: Home, Self-Care Additional Instructions: Your pain is likely from irritation of muscles or soft tissue in the left side of her low back, the hip had a full range of motion and pain is not likely to be from the hip Use medications as directed, you have Tylenol and Motrin at home so use them and if they are not helpful you can add a narcotic or the muscle relaxer Return any time if worse Follow with primary doctor for physical therapy and further evaluation as the pain has been there months Prescriptions: New lidocaine 5 % adhesive patch,medicated 1 patch topical DAILY Qty: 15 0RF Rx Instructions: leave on most painful area for up to 12 hrs cyclobenzaprine 5 mg tablet 5 mg PO TID PRN (Reason: muscle spasm) Qty: 14 0RF Rx Instructions: This medication may cause drowsiness so no driving for 8 hours after taking oxycodone 5 mg tablet 5 mg PO Q6H PRN (Reason: pain) Qty: 10 0RF Rx Instructions: Narcotic, no driving for 6 hours after taking this medication No Action pseudoephedrine HCl 30 mg tablet 60 mg PO Q6H PRN (Reason: nasal congestion) 30 Days Qty: 24 9RF glucose 4 gram tablet,chewable 4 g PO Q15M 30 Days Qty: 50 3RF ketotifen fumarate [Alaway] 0.025 % (0.035 %) drops 1 drp ophthalmic (eye) BID PRN (Reason: allergy symptoms) 30 Days Qty: 5 6RF Rx Instructions: administer at least 8 hours apart fluticasone propionate 50 mcg/actuation spray,suspension 1 spray intranasal DAILY Qty: 16 6RF diphenhydramine HCl [Banophen] 25 mg capsule 25 mg PO BEDTIME PRN (Reason: for insomnia) 30 Days Qty: 30 5RF cetirizine 10 mg tablet 10 mg PO DAILY 30 Days Qty: 30 5RF fluticasone propion-salmeterol [Advair Diskus] 100-50 mcg/dose blister with device 1 inh inhalation BID 30 Days Qty: 60 1RF albuterol sulfate [ProAir HFA] 90 mcg/actuation HFA aerosol inhaler 2 puff inhalation Q6H PRN (Reason: shortness of breath or wheezing) 30 Days Qty: 8.5 6RF naproxen 500 mg tablet 500 mg PO Q12H PRN (Reason: pain) 30 Days Qty: 60 1RF hydroxyzine HCl 25 mg tablet 25 mg PO TID PRN (Reason: for anxiety) Qty: 90 1RF Saline Nasal 0.65 % aerosol,spray 2 spray intranasal Q2H PRN (Reason: dry nasal passages) Qty: 88 2RF cholecalciferol (vitamin D3) 50 mcg (2,000 unit) capsule 50 mcg PO DAILY 30 Days Qty: 30 11RF Stand Alone Forms: Work/School Release Interventions: ED Discharge Assessment Last Done: 12/24/21 10:50 Discharge Date/Time: 12/24/21 10:51
== END 2021-12-24 10:51 | disposition home or self-care (01) ==
PROVIDERS: Emergency Provider Emergency Medicine; PCP Hospitalist
DX: M54.50 Low back pain, unspecified (principal)
CPT/HCPCS: 99283

== ENCOUNTER 2022-01-30 09:44 | Outpatient (REF) | payer OTHER, SELFPAY ==
[2022-01-30 11:58] LABS: Anion Gap 10 (12-20); Blood Urea Nitrogen 21 mg/dL (9-16); Calcium 9.7 mg/dL (8.4-10.2); Carbon Dioxide 28 mmol/L (22-29); Chloride 104 mmol/L (96-108); Estimated Glomerular Filt Rate > 60; Glucose Random 91 mg/dL (60-115); Potassium 4.4 mmol/L (3.3-5.1); Sodium 138 mmol/L (135-145)
== END 2022-01-30 09:45 | disposition home or self-care (01) ==
LOC: CF 09:44
PROVIDERS: PCP Hospitalist; Visit Provider Obstetrics & Gynecology
DX: Z01.411 Encounter for gynecological examination (general) (routine) with abnormal findings (principal); N93.0 Postcoital and contact bleeding; Z98.51 Tubal ligation status; M25.552 Pain in left hip; M54.42 Lumbago with sciatica, left side
CPT/HCPCS: 36415; 57500; 80048; 87491; 87591; 88305

== ENCOUNTER 2022-01-30 11:08 | Outpatient (REF) | payer OTHER, SELFPAY ==
[2022-01-30 16:51] LABS: CT PCR NOT DETECTED (Not Detect.); NG PCR NOT DETECTED (Not Detect.)
== END 2022-01-30 11:09 | disposition home or self-care (01) ==
LOC: HO.LAB 11:08
PROVIDERS: Visit Provider Obstetrics & Gynecology
DX: N93.0 Postcoital and contact bleeding (principal)
CPT/HCPCS: 87491; 87591; 88305

== ENCOUNTER → 2022-02-16 11:48 | Outpatient (BNVA) | payer OTHER, SELFPAY | PROVIDERS: Visit Provider Obstetrics & Gynecology | DX: N93.0 Postcoital and contact bleeding (principal) | CPT/HCPCS: 99212 ==

== ENCOUNTER 2022-03-14 10:39 | Outpatient (REF) | payer OTHER, SELFPAY ==
[2022-03-14 12:06] LABS: Alanine Aminotransferase 11 U/L (0-31); Albumin Level 4.2 g/dL (3.5-5.0); Alkaline Phosphatase 48 U/L (39-117); Anion Gap 12 (12-20); Aspartate Amino Transferase 12 U/L (5-31); Bilirubin Total 0.6 mg/dL (0.0-1.0); Blood Urea Nitrogen 22 mg/dL (9-16); Calcium 9.6 mg/dL (8.4-10.2); Carbon Dioxide 25 mmol/L (22-29); Chloride 106 mmol/L (96-108); Estimated Glomerular Filt Rate > 60; Glucose Random 82 mg/dL (60-115); Potassium 4.3 mmol/L (3.3-5.1); Sodium 139 mmol/L (135-145); Total Protein 7.3 g/dL (6.5-8.0)
[2022-03-14 12:28] LABS: Vitamin D 25-OH Total 15.5 ng/mL (>30)
== END 2022-03-14 10:40 | disposition home or self-care (01) ==
LOC: HO.LAB 10:39
PROVIDERS: PCP Hospitalist; Visit Provider Internal Medicine
DX: E16.2 Hypoglycemia, unspecified (principal); E55.9 Vitamin D deficiency, unspecified
CPT/HCPCS: 36415; 80053; 82306

== ENCOUNTER → 2022-03-16 08:27 | Outpatient (BNVA) | payer OTHER, SELFPAY | PROVIDERS: PCP Hospitalist; Visit Provider Internal Medicine | DX: Z13.89 Encounter for screening for other disorder (principal) ==

== ENCOUNTER → 2022-08-13 12:56 | Outpatient (BNVA) | payer OTHER, SELFPAY | PROVIDERS: PCP Hospitalist; Visit Provider Dietitian, Registered | DX: E16.2 Hypoglycemia, unspecified (principal); E66.9 Obesity, unspecified; Z71.3 Dietary counseling and surveillance | CPT/HCPCS: 97803 ==

== ENCOUNTER 2022-08-17 09:17 | Outpatient (REF) | payer OTHER, SELFPAY ==
[2022-08-17 10:05] LABS: Alanine Aminotransferase 14 U/L (0-31); Albumin Level 4.3 g/dL (3.5-5.0); Alkaline Phosphatase 47 U/L (39-117); Anion Gap 15 (12-20); Aspartate Amino Transferase 15 U/L (5-31); Bilirubin Total 0.4 mg/dL (0.0-1.0); Blood Urea Nitrogen 19 mg/dL (9-16); Calcium 9.3 mg/dL (8.4-10.2); Carbon Dioxide 26 mmol/L (22-29); Chloride 103 mmol/L (96-108); Estimated Glomerular Filt Rate > 60; Glucose Random 100 mg/dL (60-115); Potassium 4.1 mmol/L (3.3-5.1); Sodium 140 mmol/L (135-145); Total Protein 7.5 g/dL (6.5-8.0)
[2022-08-17 10:27] LABS: Vitamin D 25-OH Total 19.8 ng/mL (>30)
== END 2022-08-17 09:18 | disposition home or self-care (01) ==
LOC: HO.LAB 09:17
PROVIDERS: PCP Hospitalist; Visit Provider Internal Medicine
DX: E55.9 Vitamin D deficiency, unspecified (principal); E16.2 Hypoglycemia, unspecified
CPT/HCPCS: 36415; 80053; 82306

== ENCOUNTER 2022-08-20 12:31 | Outpatient (REF) | payer OTHER, SELFPAY ==
[2022-08-20 13:19] LABS: Influenza A PCR NEGATIVE (Negative); Influenza B PCR NEGATIVE (Negative); Resp Syncy Virus RNA Qual PCR NEGATIVE (Negative); SARS COV2 PCR INHOUSE NEGATIVE (Negative)
== END 2022-08-20 12:32 | disposition home or self-care (01) ==
LOC: HO.LNP 12:31
PROVIDERS: Visit Provider Internal Medicine
DX: Z20.822 Contact with and (suspected) exposure to COVID-19 (principal); R09.89 Other specified symptoms and signs involving the circulatory and respiratory systems
CPT/HCPCS: 0241U

== ENCOUNTER 2022-09-17 08:22 | Outpatient (REF) | payer OTHER, SELFPAY | END 2022-09-17 08:23 | disposition home or self-care (01) | LOC: HO.LNP 08:22 | PROVIDERS: PCP Hospitalist; Visit Provider Obstetrics & Gynecology | DX: N93.9 Abnormal uterine and vaginal bleeding, unspecified (principal) | CPT/HCPCS: 99212 ==

== ENCOUNTER 2022-09-17 09:06 | Outpatient (REF) | payer OTHER, SELFPAY ==
[2022-09-17 09:51] LABS: Hematocrit 38.4 % (37.0-47.0); Hemoglobin 12.5 g/dl (12.0-16.0); Mean Corpuscular HGB Conc 32.6 g/dl (31.0-35.0); Mean Corpuscular Hemoglobin 29.9 pg (27.0-33.0); Mean Corpuscular Volume 91.9 fL (80.0-98.0); Platelet Count 233 X10*3/uL (160-400); Red Blood Count 4.18 X10*6/uL (4.20-5.50); Red Cell Distribution Width 13.2 % (11.0-16.0); White Blood Count 5.4 X10*3/uL (4.8-10.8)
[2022-09-17 09:52] LABS: Hematocrit 39.4 % (37.0-47.0); Hemoglobin 12.6 g/dl (12.0-16.0); Mean Corpuscular Hemoglobin 29.6 pg (27.0-33.0); Mean Corpuscular Volume 92.5 fL (80.0-98.0); Mean Platelet Volume 10.8 fL (9.4-12.3); Platelet Count 235 X10*3/uL (160-400); Red Blood Count 4.26 X10*6/uL (4.20-5.50); Red Cell Distribution Width 13.2 % (11.0-16.0); White Blood Count 5.6 X10*3/uL (4.8-10.8)
[2022-09-17 10:21] LABS: Alanine Aminotransferase 15 U/L (0-31); Albumin Level 4.3 g/dL (3.5-5.0); Alkaline Phosphatase 47 U/L (39-117); Anion Gap 16 (12-20); Aspartate Amino Transferase 12 U/L (5-31); Bilirubin Total 0.2 mg/dL (0.0-1.0); Blood Urea Nitrogen 16 mg/dL (9-16); Calcium 9.4 mg/dL (8.4-10.2); Carbon Dioxide 25 mmol/L (22-29); Chloride 105 mmol/L (96-108); Estimated Glomerular Filt Rate > 60; Glucose Random 94 mg/dL (60-115); Potassium 4.6 mmol/L (3.3-5.1); Sodium 141 mmol/L (135-145); Total Protein 7.3 g/dL (6.5-8.0)
[2022-09-17 10:37] LABS: TSH reflex Free T4 0.71 uIU/mL (0.32-4.0)
[2022-09-17 10:39] LABS: HCG Quantitative < 2 mIU/mL; TSH reflex Free T4 0.75 uIU/mL (0.32-4.0)
[2022-09-17 12:14] LABS: CT PCR NOT DETECTED (Not Detect.); NG PCR NOT DETECTED (Not Detect.)
== END 2022-09-17 09:07 | disposition home or self-care (01) ==
LOC: HO.LAB 09:06
PROVIDERS: Absent Provider Obstetrics & Gynecology; PCP Hospitalist; Visit Provider Hospitalist
DX: Z00.00 Encounter for general adult medical examination without abnormal findings (principal); N93.9 Abnormal uterine and vaginal bleeding, unspecified
CPT/HCPCS: 36415; 80053; 84443; 84702; 85027; 87491; 87591

== ENCOUNTER 2022-09-23 12:03 | Outpatient (REF) | payer OTHER, SELFPAY ==
--- NOTE | ~2022-09-23 | XR_ITS ---
EXAMINATION: XR ABDOMEN KUB CLINICAL INDICATION: Constipation. COMPARISON: 04/27/2014 abdominal radiographs. TECHNIQUE: AP view of the abdomen. FINDINGS: There is a nonobstructive bowel gas pattern. Mild gas and stool are seen within the colon distally to the rectum. No radiopaque renal calculi. The osseous structures are unremarkable. XR/XR KUB IMPRESSION: Nonobstructive bowel gas pattern. Mild colonic stool burden.
== END 2022-09-23 12:04 | disposition home or self-care (01) ==
LOC: HO.XRAY 12:03
PROVIDERS: PCP Hospitalist; Visit Provider Hospitalist
DX: K59.00 Constipation, unspecified (principal)
CPT/HCPCS: 74018; 87086

== ENCOUNTER 2022-09-23 13:40 | Outpatient (REF) | payer OTHER, SELFPAY | END 2022-09-23 13:41 | disposition home or self-care (01) | LOC: HO.LNP 13:40 | PROVIDERS: Visit Provider Hospitalist | DX: Z13.89 Encounter for screening for other disorder (principal) | CPT/HCPCS: 87086 ==

== ENCOUNTER → 2022-11-03 09:44 | Outpatient (BNVA) | payer OTHER, SELFPAY | PROVIDERS: PCP Hospitalist; Visit Provider Dietitian, Registered | DX: E16.2 Hypoglycemia, unspecified (principal); E66.9 Obesity, unspecified | CPT/HCPCS: 97803 ==

== ENCOUNTER 2022-12-02 09:16 | Outpatient (REF) | payer OTHER, SELFPAY | END 2022-12-02 09:17 | disposition home or self-care (01) | LOC: HO.LNP 09:16 | PROVIDERS: PCP Hospitalist; Visit Provider Obstetrics & Gynecology | DX: N93.9 Abnormal uterine and vaginal bleeding, unspecified (principal) | CPT/HCPCS: 58100; 88305 ==

== ENCOUNTER 2022-12-04 09:16 | Outpatient (REF) | payer OTHER, SELFPAY ==
[2022-12-04 12:10] LABS: C Reactive Protein 0.12 mg/dL (< or = 0.50)
[2022-12-04 12:29] LABS: Erythrocyte Sedimentation Rate 12 MM/HR (0-20)
== END 2022-12-04 09:17 | disposition home or self-care (01) ==
LOC: HO.LAB 09:16
PROVIDERS: PCP Hospitalist; Visit Provider Nurse Practitioner Family
DX: M25.50 Pain in unspecified joint (principal); M79.7 Fibromyalgia; M79.674 Pain in right toe(s); M79.675 Pain in left toe(s)
CPT/HCPCS: 36415; 85652; 86140; 99212

== ENCOUNTER 2022-12-25 10:24 | Outpatient (REF) | payer OTHER, SELFPAY ==
--- NOTE | ~2022-12-25 | US_ITS ---
EXAMINATION: US PELVIS COMPLETE CLINICAL INFORMATION: Abnormal uterine and vaginal bleeding COMPARISON: Pelvic ultrasound 09/26/2020 TECHNIQUE: Transabdominal and transvaginal imaging was performed. FINDINGS: The uterus is of normal size and echogenicity measuring 7.8 x 3.7 x 4.8 cm. A regular homogeneous endometrium is identified measuring 0.5 cm. Few echogenic shadowing foci compatible calcification seen in the cervix. Heterogeneous myometrium with a subendometrial cyst in the uterus measuring 0.9 cm, which can be seen in the setting of adenomyosis. Both ovaries are of normal size and echogenicity. The right measures 3.2 x 1.3 x 1.9 cm for a volume of 4.1 mL. The left measures 2.7 x 1.4 x 1.8 cm for a volume of 3.5 mL. Few peripheral echogenic foci in the bilateral ovaries may reflect adnexal vascular calcifications. Prominent left adnexal vessels. There is small physiologic volume simple pelvic free fluid. Urethra is prominent. US/US pelvic and transvaginal IMPRESSION: Heterogeneous myometrium with a subendometrial cyst in the uterus measuring 0.9 cm, which can be seen in the setting of adenomyosis. Prominent left adnexal vessels which could be seen in the setting of pelvic venous congestion syndrome if clinical history is appropriate. Urethra appears prominent of uncertain, of uncertain clinical significance. Recommend correlation with clinical symptoms, if any clinical concern for obstructive etiology, a contrast-enhanced MR pelvis or urologic evaluation could be obtained.
== END 2022-12-25 10:25 | disposition home or self-care (01) ==
LOC: HO.US 10:24
PROVIDERS: Visit Provider Obstetrics & Gynecology
DX: N93.9 Abnormal uterine and vaginal bleeding, unspecified (principal)
CPT/HCPCS: 76830; 76856

== ENCOUNTER → 2023-01-07 13:14 | Outpatient (BNVA) | payer OTHER, SELFPAY | PROVIDERS: Visit Provider Obstetrics & Gynecology | DX: N93.9 Abnormal uterine and vaginal bleeding, unspecified (principal); N84.0 Polyp of corpus uteri | CPT/HCPCS: 99212 ==

== ENCOUNTER 2023-01-20 14:38 | Outpatient (REF) | payer OTHER, SELFPAY ==
[2023-01-20 16:23] LABS: Urine Cytology See Pathology rpt
== END 2023-01-20 14:39 | disposition home or self-care (01) ==
LOC: HO.LAB 14:38
PROVIDERS: PCP Hospitalist; Visit Provider Urology
DX: Z13.89 Encounter for screening for other disorder (principal); R31.29 Other microscopic hematuria
CPT/HCPCS: 51798; 88112; 99202

== ENCOUNTER 2023-01-22 09:43 | Day surgery (SDC) | payer OTHER, SELFPAY ==
[2023-01-18 20:33] VITALS: BMI 30.9
--- NOTE | 2023-01-21 11:09 | HO.ANESPROP2 ---
HPI - Anesthesia Eval Consult details Narrative: 37yo F for D&C Hysteroscopy, poss polypectomy, poss myomectomy and ECC PMFSH Active Problems Active Problems: All Active Problems (Updated 01/20/23 @ 16:28 by Beena Fatima MD) Disorder of urethra (Acute) Asthma, mild intermittent, well-controlled (Acute) Seasonal allergies (Acute) Anxiety (Acute) Female pelvic pain (Acute) PCB (post coital bleeding) (Acute) Left lateral abdominal pain (Acute) Bacterial vaginal infection (Acute) Costochondritis (Acute) Unsatisfactory cervical Papanicolaou smear (Acute) Anxiety and depression (Acute) Generalized arthritis (Acute) Memory impairment (Acute) Elevated rheumatoid factor (Acute) Herpes simplex type 1 infection (Acute) Lumbar radiculopathy (Acute) Hypoglycemia (Acute) Fatigue (Acute) Obesity (Acute) Fibromyalgia (Acute) Left hip pain (Acute) Trochanteric bursitis, left hip (Acute) Low back pain with left-sided sciatica (Acute) Well woman exam (Acute) Acute pharyngitis (Acute) Normal physical exam (Acute) DM type 2, controlled, with complication (Acute) Abnormal uterine bleeding (AUB) (Acute) Dilation of urethra (Acute) Pelvic congestion syndrome (Acute) Constipation (Acute) Vitamin D deficiency (Acute) Microscopic hematuria (Acute) Past Medical History Medical History Allergic rhinitis Constipation De Quervain's tenosynovitis Depression Fibromyalgia Gestational diabetes Hypoglycemia Iron deficiency Microscopic hematuria Migraine headache Vitamin D deficiency Family History Family History Father Diabetes HTN (hypertension) Mother Depression Chronic mental illness Diabetes Maternal Grandmother HTN (hypertension) Paternal Grandmother Alzheimer disease Other No family history of mental disorder Surgical History Surgical History H/O bilateral salpingectomy H/O laparoscopy History of endometrial ablation Social History Social History Alcohol intake: current Alcohol intake frequency: holidays/special occasions only Patient Tobacco Use Status: Never used Tobacco e-Cigarette/Vaping Use: Never Used Second Hand Smoke Exposure: No service: No Current occupational exposures/hazards: No Sexual orientation: Straight/Heterosexual Gender identity: Female Cognitive needs: No Hearing needs: No Vision needs: No Meds Allergies Allergy/AdvReac Type Severity Reaction Status Date / Time morphine [MORPHINE] Allergy Intermediate ITCHY Verified 02/01/23 10:19 oxycodone [From Percocet] Allergy Intermediate rash,upset Verified 02/01/23 10:19 stomach ENVIRONMENTAL ALLERGIES Allergy Mild congestion Uncoded 02/01/23 10:19 Home Medications Medication Instructions Recorded Confirmed Last Taken Type duloxetine 60 mg capsule,delayed 60 mg PO QAM 05/27/22 01/20/23 Unknown History release Exam Exam Date and Time: January 21, 2023 1109 Height,Weight and Vital Signs: Height 5 ft 4 in Weight 81.647 kg Pertinent Lab Results Pertinent Lab Results: Laboratory Tests 09/17/22 09/17/22 09:19 09:19 WBC 5.6 Hgb 12.6 Hct 39.4 Plt Count 235 Sodium 141 Potassium 4.6 Chloride 105 Carbon Dioxide 25 BUN 16 Creatinine 0.71 Assessment and Plan Assessment Anesthesia Assessment: Chart Reviewed
[2023-01-22] VITALS (9 sets, daily range): BP systolic 104–122; BP diastolic 41–66; PULSE 61–79; RESP 14–18; TEMP 36.1–36.9; O2SAT 95–100; BMI 30.9
[2023-01-22 10:09] LABS: UPreg QC Valid YES; Urine Pregnancy NEGATIVE (NEGATIVE)
[2023-01-22] MEDS: Lactated Ringers 1,000 ML 100 ML IVCONT (10:26)
--- NOTE | 2023-01-22 10:49 | HO.ANESPROP2 ---
HPI - Anesthesia Eval Consult details Narrative: vinicio BAY Active Problems Active Problems: All Active Problems (Updated 01/20/23 @ 16:28 by Beena Fatima MD) Disorder of urethra (Acute) Asthma, mild intermittent, well-controlled (Acute) Seasonal allergies (Acute) Anxiety (Acute) Female pelvic pain (Acute) PCB (post coital bleeding) (Acute) Left lateral abdominal pain (Acute) Bacterial vaginal infection (Acute) Costochondritis (Acute) Unsatisfactory cervical Papanicolaou smear (Acute) Anxiety and depression (Acute) Generalized arthritis (Acute) Memory impairment (Acute) Elevated rheumatoid factor (Acute) Herpes simplex type 1 infection (Acute) Lumbar radiculopathy (Acute) Hypoglycemia (Acute) Fatigue (Acute) Obesity (Acute) Fibromyalgia (Acute) Left hip pain (Acute) Trochanteric bursitis, left hip (Acute) Low back pain with left-sided sciatica (Acute) Well woman exam (Acute) Acute pharyngitis (Acute) Normal physical exam (Acute) DM type 2, controlled, with complication (Acute) Abnormal uterine bleeding (AUB) (Acute) Dilation of urethra (Acute) Pelvic congestion syndrome (Acute) Constipation (Acute) Vitamin D deficiency (Acute) Microscopic hematuria (Acute) Past Medical History Medical History Allergic rhinitis Constipation De Quervain's tenosynovitis Depression Fibromyalgia Gestational diabetes Hypoglycemia Iron deficiency Microscopic hematuria Migraine headache Vitamin D deficiency Family History Family History Father Diabetes HTN (hypertension) Mother Depression Chronic mental illness Diabetes Maternal Grandmother HTN (hypertension) Paternal Grandmother Alzheimer disease Other No family history of mental disorder Family history of problems with anesthesia: No Surgical History Surgical History H/O bilateral salpingectomy H/O laparoscopy History of endometrial ablation History of Problems with Anesthesia: Yes (PONV) Social History Social History Alcohol intake: current Alcohol intake frequency: holidays/special occasions only Patient Tobacco Use Status: Never used Tobacco e-Cigarette/Vaping Use: Never Used Second Hand Smoke Exposure: No Use of substances other than those prescribed or required for medical reasons: No Are you DNR?: No Advance Directives: No Advance Directives Information Provided: Yes Advance Directives on File: No Recently lost weight without trying: No Nutrition Risks: No Nutritional Risk Patient : No service: No Current occupational exposures/hazards: No Sexual orientation: Straight/Heterosexual Gender identity: Female Cognitive needs: No Hearing needs: No Vision needs: No Meds Allergies Allergy/AdvReac Type Severity Reaction Status Date / Time morphine [MORPHINE] Allergy Intermediate ITCHY Verified 01/20/23 14:59 oxycodone [From Percocet] Allergy Intermediate rash,upset Verified 01/20/23 14:59 stomach ENVIRONMENTAL ALLERGIES Allergy Mild congestion Uncoded 01/20/23 14:59 Active Medications: Current Medications Lactated Ringer's (Lr) 1,000 mls @ 100 mls/hr IVCONT .Q10H SHAREE Last Admin: 01/22/23 10:26 Dose: 100 mls/hr Home Medications Medication Instructions Recorded Confirmed Last Taken Type duloxetine 60 mg capsule,delayed 60 mg PO QAM 05/27/22 01/20/23 Unknown History release Exam Exam Date and Time: January 22, 2023 1049 Height,Weight and Vital Signs: Height 5 ft 4 in Weight 81.647 kg Last Vital Signs Temp 98.5 F 01/22/23 10:06 Pulse 77 01/22/23 10:06 Resp 16 01/22/23 10:06 BP 122/41 L 01/22/23 10:06 Pulse Ox 97 01/22/23 10:06 O2 Del Method 01/22/23 10:06 Pertinent Lab Results Pertinent Lab Results: Laboratory Tests 01/22/23 09:57 Urine Test NEGATIVE Airway Mallampati Class: I TM Dist: >3cm Neck ROM: Full Heart: rr Lungs: cta Assessment and Plan Assessment Anesthesia Assessment: Anesthesia Plan Discussed and Chart Reviewed Final Anesthetic Review Family History of Problems with Anesthesia: No History of Problems with Anesthesia: Yes (PONV) NPO: Yes ASA Class: II Final Preanesthetic Review: No Changes in Pt Med Stat, Meds/Allgs Chart Reviewed, Consent Obtained/Reviewed and Anes Risks/Benef Reviewed Patient Risk: Low Procedure Risk: Low Anesthetic Plan Anesthetic Plan: GA and MAC: Disposition: Standard PACU
[2023-01-22 10:50] LABS: Glucose, Whole Blood 79 mg/dL (60-115)
--- NOTE | 2023-01-22 10:54 | MHC.SHP ---
Pre-Procedural Eval Section A Date of Service: 01/22/23 The patient is an INPATIENT: No Changes since office visit: No Cold of Flu in the past 2 weeks, No New Medical Problems, No Changes in Medication and No Patient answered all questions The History & Physical has been completed within 30 days and I have reviewed it.: Yes Section B Chief Complaint: Abnormal uterine and vaginal bleeding, unspecified Allergies: Allergies Allergy/AdvReac Type Severity Reaction Status Date / Time morphine [MORPHINE] Allergy Intermediate ITCHY Verified 01/20/23 14:59 oxycodone [From Percocet] Allergy Intermediate rash,upset Verified 01/20/23 14:59 stomach ENVIRONMENTAL ALLERGIES Allergy Mild congestion Uncoded 01/20/23 14:59 Plan Diagnosis/Plan: Unchanged I have reviewed the history and physical and performed a pertinent physical examination on my patient. No changes have occurred unless specified. Time Spent With Patient Time: Total time managing care of this patient today ____ minutes.
--- NOTE | 2023-01-22 11:53 | PM.OP ---
Brief Operative Note Date of Service: 01/22/23 Pre-op diagnosis: Abnormal uterine bleeding with postcoital bleeding Post-op diagnosis: same (Extensive intrauterine adhesions) Procedure: Hysteroscopy D&C/ECC Surgeon: Kilo Sampson MD Anesthesia: GLMA Was an Safety Person used for this Procedure?: No Estimated blood loss (mL): 0 Pathology: other (Endocervical curettage) Condition: stable Disposition: PACU
--- NOTE | 2023-01-22 11:54 | W.PM.OPN ---
Operative Note Operative Note Date of Service: 01/22/23 Narrative: Preop Diagnosis: Abnormal uterine bleeding with postcoital bleeding Operation: Diagnostic Hysteroscopy, Dilataion & Curettage with ECC Post Op Diagnosis: Extensive adhesions in the endometrial cavity from previous endometrial ablation QBL: Minimal Anesthesia: GLMA Surgeon: Kilo Sampson MD Manager Community Development: None Complication: None Pathology: Endocervical curettage Procedure: The patient was put in the dorsal lithotomy position, scrubbed, and draped in the usual manner. A sterile speculum was inserted in the patient's vagina. The anterior lip of the cervix was grasped with a single tooth tenaculum. The cervix was dilated up to 5 mm, then the scope was inserted in the patient's uterus. Inspection revealed extensive intrauterine adhesions from previous endometrial ablation. The scope was taken out of the uterine cavity , then attempt at sharp curetting was carried on with no tissues reach. At the end of the procedure, endocervical curettage was done and all instruments were taken out of the patient uterine and vaginal cavity. The single tooth tenaculum was removed and homeostasis was assured using pressure. The patient tolerated the procedure well and was transferred to the PACU in a stable condition.
[2023-01-22] MEDS: Ketorolac Tromethamine 30 MG/ML VIAL 15 MG IVPUSH (12:49)
[2023-01-22] MEDS: Ketorolac Tromethamine 15 MG/ML VIAL IVPUSH (13:29)
[2023-01-22] MEDS: Acetaminophen 1,000 MG/100 ML PIGGYBACK 400 MG IV (13:32)
== END 2023-01-22 13:51 ==
LOC: HO.SSS 09:44
PROVIDERS: PCP Hospitalist; Visit Provider Obstetrics & Gynecology
PROC: 0UDB8ZZ Extraction of Endometrium, Via Natural or Artificial Opening Endoscopic (ICD-10-PCS; CPT 58558; principal; 2023-01-22 11:30)
DX: N93.9 Abnormal uterine and vaginal bleeding, unspecified (principal); N93.0 Postcoital and contact bleeding; K66.0 Peritoneal adhesions (postprocedural) (postinfection); N94.89 Other specified conditions associated with female genital organs and menstrual cycle; K59.00 Constipation, unspecified; J30.9 Allergic rhinitis, unspecified; E55.9 Vitamin D deficiency, unspecified; M65.4 Radial styloid tenosynovitis [de Quervain]; F32.A Depression, unspecified; Z79.899 Other long term (current) drug therapy; Z88.8 Allergy status to other drugs, medicaments and biological substances
CPT/HCPCS: 58558; 81025; 82947; 88305; J0131; J1885; J2250; J2405; J3010

== ENCOUNTER → 2023-02-01 10:08 | Outpatient (BNVA) | payer OTHER, SELFPAY | PROVIDERS: PCP Hospitalist; Visit Provider Obstetrics & Gynecology | DX: N93.9 Abnormal uterine and vaginal bleeding, unspecified (principal) | CPT/HCPCS: 99212 ==

== ENCOUNTER → 2023-03-22 10:42 | Outpatient (BNVA) | payer OTHER, SELFPAY | PROVIDERS: PCP Hospitalist; Visit Provider Obstetrics & Gynecology ==

== ENCOUNTER 2023-07-01 09:28 | Outpatient (REF) | payer OTHER, SELFPAY ==
--- NOTE | ~2023-07-01 | XR_ITS ---
EXAMINATION: XR SACROILIAC JOINTS CLINICAL INFORMATION: Pain COMPARISON: None available. TECHNIQUE: 3 views of the sacroiliac joints FINDINGS: No acute fracture or dislocation. Joint spaces are maintained. Soft tissues are unremarkable. XR/XR sacroiliac joint min 3V IMPRESSION: Normal sacroiliac joints.
--- NOTE | ~2023-07-01 | XR_ITS ---
EXAMINATION: XR foot RT 2V, XR foot LT 2V CLINICAL INFORMATION: Pain COMPARISON: Radiographs 02/06/2021 TECHNIQUE: 3 views of each foot FINDINGS: RIGHT FOOT: No fracture or dislocation. Joint spaces are maintained. Small Achilles tendon enthesophyte. Mahi deformity. No cortical erosion. No joint effusion. Soft tissues are unremarkable. LEFT FOOT: No fracture or dislocation. Joint spaces are maintained. Mahi deformity No cortical erosion. No joint effusion. Soft tissues are unremarkable. XR/XR foot RT 2V IMPRESSION: No acute osseous abnormality. Bilateral Mahi deformities and small right Achilles tendon enthesophyte.
--- NOTE | ~2023-07-01 | XR_ITS ---
EXAMINATION: XR foot RT 2V, XR foot LT 2V CLINICAL INFORMATION: Pain COMPARISON: Radiographs 02/06/2021 TECHNIQUE: 3 views of each foot FINDINGS: RIGHT FOOT: No fracture or dislocation. Joint spaces are maintained. Small Achilles tendon enthesophyte. Mahi deformity. No cortical erosion. No joint effusion. Soft tissues are unremarkable. LEFT FOOT: No fracture or dislocation. Joint spaces are maintained. Mahi deformity No cortical erosion. No joint effusion. Soft tissues are unremarkable. XR/XR foot LT 2V IMPRESSION: No acute osseous abnormality. Bilateral Mahi deformities and small right Achilles tendon enthesophyte.
== END 2023-07-01 09:29 | disposition home or self-care (01) ==
LOC: HO.LAB 09:28
PROVIDERS: PCP Hospitalist; Visit Provider Nurse Practitioner Family
DX: M79.671 Pain in right foot (principal); M79.672 Pain in left foot; M79.18 Myalgia, other site
CPT/HCPCS: 72202; 73620

== ENCOUNTER 2023-07-06 10:23 | Outpatient (AMB) | payer OTHER, SELFPAY ==
--- NOTE | 2023-07-06 10:24 | A.OFFVIS_ITS ---
Intake Vital Signs 07/06/23 10:25 Height 5 ft 4 in Weight 186 lb 11.704 oz BMI 32.0 BP 116/70 Blood Pressure Location Rt brachial Position Sitting Temp 97.5 F Temp Source Skin Intake Visit Reasons: Knee pain/joint pain Intake Note: Pt seen today for FM follow up and xray results. Press Maintainer Required: No Accompanied by: Self / Same As Patient Allergies morphine [MORPHINE] Allergy (Intermediate, Verified 07/06/23 10:26) ITCHY oxycodone [From Percocet] Allergy (Intermediate, Verified 07/06/23 10:26) rash,upset stomach ENVIRONMENTAL ALLERGIES Allergy (Mild, Uncoded 07/06/23 10:26) congestion Medication List - Last Reconciled 07/06/23 by Astrid Garrett MD acarbose 25 mg PO TID 30 days albuterol sulfate 90 mcg/actuation 2 puffs inhalation Q6H PRN 1 month blood-glucose meter (FreeStyle Troy Lite kit) As directed cetirizine 10 mg PO DAILY 1 month cholecalciferol (vitamin D3) 50 mcg PO DAILY 30 days cyclobenzaprine 10 mg (2 x 5 mg) PO Q8H diphenhydramine HCl (Banophen) 25 mg PO BEDTIME PRN duloxetine 60 mg PO QAM 30 days fluticasone propion-salmeterol 100-50 mcg/dose (Advair Diskus) 1 inh inhalation BID 30 days fluticasone propionate 50 mcg/actuation 1 spray intranasal DAILY gabapentin 300 mg PO Q8H glucose 4 grams PO DIRECTED hydroxyzine HCl 25 mg PO TID PRN ketotifen fumarate 0.025%(0.035%) ([place]) 1 drp ophthalmic (eye) BID PRN 1 month lidocaine 5% 1 patch topical DAILY 3 months naproxen 500 mg PO Q12H PRN pseudoephedrine HCl 60 mg (2 x 30 mg) PO Q6H PRN 30 days sodium chloride 0.65% (Saline Mist) 2 sprays intranasal Q2H PRN valacyclovir (Valtrex) 2,000 mg (2 x 1 gram) PO Q12H 1 day HPI HPI Comments History of Present Illness Details 37yoF present for follow up of fibromyalgia. Last seen by Lynette Neil 12/07 On cyclobenzaprine, duloxetine and gabapentin. Patient states that she has been getting left lower back pain that radiates to her left hip as well as left knee pain. Patient tried different treatments including lidocaine patch, naproxen which are not helpful. Knee pain worse with activity and walking. [facility] Medical History Allergic rhinitis Constipation De Quervain's tenosynovitis Depression Fibromyalgia Gestational diabetes Hypoglycemia Iron deficiency Microscopic hematuria Migraine headache Vitamin D deficiency Surgical History H/O bilateral salpingectomy H/O laparoscopy History of endometrial ablation Hx of dilation and curettage Family History Father Diabetes HTN (hypertension) Mother Depression Chronic mental illness Diabetes Maternal Grandmother HTN (hypertension) Paternal Grandmother Alzheimer disease Other No family history of mental disorder Social History Alcohol intake: current Alcohol intake frequency: holidays/special occasions only Patient Tobacco Use Status: Never used Tobacco e-Cigarette/Vaping Use: Never Used Second Hand Smoke Exposure: No service: No Current occupational status: employed 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 Current occupational exposures/hazards: No Sexual orientation: Straight/Heterosexual Gender identity: Female Cognitive needs: No Hearing needs: No Vision needs: No Female Reproductive History Menstrual Age of Menarche: 10 Review of Systems [facility] [place] Reports back pain and Reports arthralgias Physical Exam Vital Signs: Last Vital Signs Temp 97.5 F 07/06/23 10:25 BP 116/70 07/06/23 10:25 BMI result Body Mass Index 32.0 Const General: cooperative, healthy appearing and comfortable Orientation/consciousness: patient oriented x3 Limitations: no limitations HEENT Head: Yes normocephalic and Yes atraumatic Mouth: moist mucous membranes Resp Effort & Inspection: normal respiratory effort and able to speak in complete sentences Back/Spine/Pelvis Other: Bilateral paraspinal muscle tenderness in the lumbar area Neuro General: patient oriented x3 Extrem Other: Left knee pain with full flexion No knee crepitus bilaterally Left trochanteric bursa area tenderness Negative Vidal's test bilaterally Negative straight leg raise test bilaterally Assessment & Plan Assessment & Plan (1) Fibromyalgia: Code(s): M79.7 - Fibromyalgia Plan: 37-year-old female with fibromyalgia returns for follow-up. She is On duloxetine, cyclobenzaprine and gabapentin Today patient's symptoms are consistent with lumbar paraspinal muscle spasm/degenerative arthritis of her lumbar spine and left trochanteric bursitis. Referred patient for PT of both conditions. Advised patient apply Voltaren gel to her left knee 4 times a day. Will check a left knee x-ray and an L-spine x-ray before next visit. Follow-up in 8 months (2) Greater trochanteric bursitis of left hip: Code(s): M70.62 - Trochanteric bursitis, left hip (3) Degenerative lumbar disc: Code(s): M51.36 - Other intervertebral disc degeneration, lumbar region Plan I spent 26 minutes reviewing patient's chart, evaluating patient, ordering diagnostic workup, counseling patient and documenting in the chart Orders: Orders PT Evaluation and Treatment Today M51.36 - Other intervertebral disc degeneration, lumbar region, M70.62 - Trochanteric bursitis, left hip XR lumbar spine 4V min Today M51.36 - Other intervertebral disc degeneration, lumbar region XR knee LT 3V Today M25.561 - Pain in right knee, M25.562 - Pain in left knee XR knee RT 3V Today M25.561 - Pain in right knee, M25.562 - Pain in left knee XR knee standing BI Today M25.561 - Pain in right knee, M25.562 - Pain in left knee Coding Level of Care Code Est Pt Level 4 (16083) Diagnoses Fibromyalgia M79.7 Greater trochanteric bursitis of left hip M70.62 Degenerative lumbar disc M51.36
[2023-07-06 10:25] VITALS: BP 116/70; TEMP 36.4; BMI 32.0
== END 2023-07-06 10:49 | disposition home or self-care (01) ==
PROVIDERS: PCP Hospitalist; Visit Provider Student in an Organized Health Care Education/Training Program
DX: M79.7 Fibromyalgia (principal); M70.62 Trochanteric bursitis, left hip; M51.36 Other intervertebral disc degeneration, lumbar region
CPT/HCPCS: 99214

== ENCOUNTER → 2023-07-06 10:23 | Outpatient (BNVA) | payer OTHER, SELFPAY | PROVIDERS: Visit Provider Student in an Organized Health Care Education/Training Program | DX: M79.7 Fibromyalgia (principal); M70.62 Trochanteric bursitis, left hip; M51.36 Other intervertebral disc degeneration, lumbar region | CPT/HCPCS: 99212 ==

== ENCOUNTER 2023-07-29 11:31 | Outpatient (AMB) | payer OTHER, SELFPAY ==
--- NOTE | 2023-07-29 11:42 | MHC.PC.OV ---
Vital Signs 07/29/23 11:43 Height 5 ft 4 in Weight 190 lb 4 oz BMI 32.7 BP 110/64 Blood Pressure Location Lt brachial Position Sitting Respiration 12 Pulse 113 H Pulse Source Pulse Oximeter Temp 98.3 F Temp Source Temporal Artery Scan Pulse Oximetry (%) 96 Oxygen Delivery Method Room Air Intake Visit Reasons: Asthma Intake Note: Patient states that she has recently had a fall in the tub and states that her head has been hurting as well as her neck, back and tailbone. Patient states that inhalers are not working and she would like a nebulizer machine. 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 Accompanied by: Self / Same As Patient Allergies morphine [MORPHINE] Allergy (Intermediate, Verified 07/29/23 12:23) ITCHY oxycodone [From Percocet] Allergy (Intermediate, Verified 07/29/23 12:23) rash,upset stomach ENVIRONMENTAL ALLERGIES Allergy (Mild, Uncoded 07/29/23 12:23) congestion Medication List - Last Reconciled 07/29/23 by Astrid Mcelroy CNP acarbose 25 mg PO TID 30 days albuterol sulfate 90 mcg/actuation 2 puffs inhalation Q6H PRN 1 month blood-glucose meter (FreeStyle [place] Lite kit) As directed cetirizine 10 mg PO DAILY 1 month cholecalciferol (vitamin D3) 50 mcg PO DAILY 30 days cyclobenzaprine 10 mg (2 x 5 mg) PO Q8H diphenhydramine HCl (Banophen) 25 mg PO BEDTIME PRN duloxetine 60 mg PO QAM 30 days fluticasone propion-salmeterol 100-50 mcg/dose (Advair Diskus) 1 inh inhalation BID 30 days fluticasone propionate 50 mcg/actuation 1 spray intranasal DAILY gabapentin 300 mg PO Q8H glucose 4 grams PO DIRECTED hydroxyzine HCl 25 mg PO TID PRN ketotifen fumarate 0.025%(0.035%) (Alaway) 1 drp ophthalmic (eye) BID PRN 1 month lidocaine 5% 1 patch topical DAILY 3 months naproxen 500 mg PO Q12H PRN pseudoephedrine HCl 60 mg (2 x 30 mg) PO Q6H PRN 30 days sodium chloride 0.65% (Saline Mist) 2 sprays intranasal Q2H PRN valacyclovir (Valtrex) 2,000 mg (2 x 1 gram) PO Q12H 1 day Tobacco use date assessed: 03/01/23 Dental Screening Dental Screen Date: 07/29/23 Did you have a dental visit in the last 12 months?: No Did you have a dental problem in the last 6 months where you did not have access to dental care?: No Was dental information given to patient?: Patient has dentist HPI HPI Comments History of Present Illness Details 37-year-old female presents of asthma symptoms. She states she usually has an asthma exacerbation once monthly. However, she has been experiencing asthma symptoms such as dry cough, shortness of breath, and wheezing especially at night for the past 1 week. She notes she was referred to pulmonology but she never follow-up to schedule an appointment due to her busy work schedule. She is on albuterol and Advair Diskus inhalers. She notes the inhalers at ineffective. [facility] Medical History Fibromyalgia Hypoglycemia Iron deficiency Migraine headache Vitamin D deficiency Microscopic hematuria De Quervain's tenosynovitis Depression Gestational diabetes Constipation Allergic rhinitis Surgical History Hx of dilation and curettage History of endometrial ablation H/O bilateral salpingectomy H/O laparoscopy Family History Father Diabetes HTN (hypertension) Mother Depression Chronic mental illness Diabetes Maternal Grandmother HTN (hypertension) Paternal Grandmother Alzheimer disease Other No family history of mental disorder Social History Housing: House Alcohol intake: current Alcohol intake frequency: holidays/special occasions only Patient Tobacco Use Status: Never used Tobacco e-Cigarette/Vaping Use: Never Used Second Hand Smoke Exposure: No service: No Current occupational status: employed 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 Sunil Hernandez, Shasha Decker, Gaudencio Villarreal and colleagues, with an educational troy from [employer]. ACT Questionnaire In the past 4 weeks, how much of the time did your asthma keep you from getting as much done at work, school or at home?: Most of the time During the past 4 weeks, how often have you had shortness of breath?: More than once a day During the past 4 weeks, how often did your asthma symptoms wake you up at night or earlier than usual in the morning?: 2-3 nights a week During the past 4 weeks, how often have you had to use your rescue inhaler or nebulizer medication?: 2-3 times a week How would you rate your asthma control during the past 4 weeks?: Poorly controlled ACT Interpretation: Positive ACT Branch: New medication Score: 10 Review of Systems Const Details: Const Denies chills, Denies fatigue, Denies fever(s), Denies headache(s) and Denies weakness ENT Denies dizziness and Denies headache(s) Card Denies chest pain, Denies lightheadedness, Reports dyspnea and Denies other (Palpitations) Resp Reports cough, Denies dyspnea, Denies wheezing and Reports shortness of breath GI Denies abdominal pain, Denies melena, Denies hematochezia, Denies change in bowel habits, Denies dyspepsia and Denies nausea Denies hematuria and Denies dysuria Musc Denies abnormal gait, Denies myalgias, Denies arthralgias, Denies numbness and Denies tingling Skin/Breast Denies rash, Denies unusual bruising and Denies wounds Neuro Denies abnormal gait, Denies dizziness, Denies headache(s), Denies memory loss, Denies numbness, Denies Sensory deficit (Neuro), Denies tingling and Denies weakness Psych Denies anxiety, Denies depression, Denies memory loss Endo Denies cold intolerance, Denies fatigue, Denies heat intolerance, Denies polydipsia and Denies polyuria Aller/Immun Denies wheezing Physical exam (Primary Care) Vital Signs: Last Vital Signs Temp 98.3 F 07/29/23 11:43 Pulse 113 H 07/29/23 11:43 Resp 12 07/29/23 11:43 BP 110/64 07/29/23 11:43 Pulse Ox 96 07/29/23 11:43 Oxygen Delivery Method Room Air 07/29/23 11:43 BMI result Body Mass Index 32.7 Tobacco/Smoking Status: Tobacco use Status Tobacco use date assessed 03/01/23 07/29/23 11:43 Patient Tobacco Use Status Never used Tobacco 07/29/23 11:43 e-Cigarette/Vaping Use Never Used 07/29/23 11:43 Thrive Assessment: Date of Thrive Assessment Date Thrive assessed 05/27/22 07/29/23 11:43 Const Other: General: no acute distress and well developed Nutritional Appearance: well nourished Orientation/consciousness: patient oriented x3 HENMT Head: Yes normocephalic and Yes atraumatic Eyes General: appearance normal, both eyes and all related structures Pupils: Equal, round and reactive pupils present EOM: EOMs intact bilaterally Resp Effort & Inspection: normal respiratory effort Auscultation: clear to auscultation bilaterally Cardio Rate: regular rate Rhythm: regular rhythm Heart sounds: S1 normal heart sound present, S2 normal heart sound present, no gallops, no murmurs and no rubs GI Palpation (GI): No Abdominal aortic bruit present, Soft to palpation, nontender, No hepatosplenomegaly present and No Rebound tenderness present Auscultation: normal bowel sounds General: Yes no CVA tenderness Back/Spine/Pelvis Back: no CVA tenderness Cervical Spine: cervical ROM normal and No Cervical spine tenderness Thoracic/Lumbar Spine: thoraco-lumbar ROM normal, No pain with thoraco-lumbar ROM, No thoracic spinal tenderness and No lumbar spinal tenderness Extrem General: Yes normal to inspection, No edema and No calf tenderness Skin General: warm and dry. Normal skin color. Normal skin turgor Lesions: no lesions Rashes: no rashes Trauma: no lacerations or abrasions Wounds: no wounds Nails: normal Neuro General: patient oriented x3, gait normal and no focal neuro deficit Cranial nerves: Yes Equal, round and reactive pupils present Cognition (Neuro): normal cognition Gait exam (Neuro): Normal gait present Sensory Exam: No Sensory deficit (Neuro) Psych Appearance: grossly normal Affect: normal affect Attitude: cooperative Thought process: Normal thought process present Assessment and Plan Assessment & Plan (1) Asthma, moderate persistent, poorly-controlled: Code(s): J45.40 - Moderate persistent asthma, uncomplicated Plan: She reports asthma symptoms for the past 1 week, refractory to current treatment regimen ACT score is 10, poorly control asthma Allergies may also be attributing factor Advair Diskus discontinued Budesonide-formoterol and singular ordered. Take as prescribed Continue use albuterol inhaler as prescribed Pulmonology referral made. Advised to follow-up to schedule an appointment Return with worsening or new symptoms Verbalized understanding and agreed with treatment plan. Orders: Referrals Pulmonology Referral J45.40 - Moderate persistent asthma, uncomplicated Medications: New budesonide-formoterol 80-4.5 mcg/actuation 2 puffs inhalation BID 10.2 grams 2RF 30 days montelukast (Singulair) 10 mg PO DAILY 30 tabs 2RF 30 days Discontinued fluticasone propion-salmeterol 100-50 mcg/dose (Advair Diskus) Discontinued Reason: Doctor's Order 1 inh inhalation BID 30 days 60 ea 1RF Coding Level of Care Code Est Pt Level 3 (49551) Diagnoses Asthma, moderate persistent, poorly-controlled J45.40
[2023-07-29 11:43] VITALS: BP 110/64; PULSE 113; RESP 12; TEMP 36.8; O2SAT 96; BMI 32.7
== END 2023-07-29 12:48 | disposition home or self-care (01) ==
PROVIDERS: PCP Hospitalist; Visit Provider Nurse Practitioner Family
DX: J45.40 Moderate persistent asthma, uncomplicated (principal)
CPT/HCPCS: 99213

== ENCOUNTER 2023-08-09 | Outpatient (REF) | payer OTHER, SELFPAY | END 2023-08-09 00:01 | disposition home or self-care (01) | LOC: CF | PROVIDERS: Visit Provider Nurse Practitioner Family | DX: J45.40 Moderate persistent asthma, uncomplicated (principal); Z91.09 Other allergy status, other than to drugs and biological substances | CPT/HCPCS: 94640; 99212 ==

== ENCOUNTER 2023-08-09 14:57 | Outpatient (AMB) | payer OTHER, SELFPAY ==
[2023-08-09 15:10] VITALS: BP 110/62; PULSE 78; O2SAT 99; BMI 32.8
--- NOTE | 2023-08-09 15:10 | MHC.OFFVIS ---
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 [place] Required: No Sales Support Advisor: Sales Support Advisor offered & declined Accompanied by: grandson Allergies morphine [MORPHINE] Allergy (Intermediate, Verified 08/09/23 15:14) ITCHY oxycodone [From Percocet] Allergy (Intermediate, Verified 08/09/23 15:14) rash,upset stomach ENVIRONMENTAL ALLERGIES Allergy (Mild, Uncoded 08/09/23 15:14) congestion Medication List - Last Reconciled 08/09/23 by Radha Altman LPN acarbose 25 mg PO TID 30 days albuterol sulfate 90 mcg/actuation 2 puffs inhalation Q6H PRN 1 month blood-glucose meter (FreeStyle [place] Lite kit) As directed budesonide-formoterol 80-4.5 mcg/actuation 2 puffs inhalation BID 30 days cetirizine 10 mg PO DAILY 1 month cholecalciferol (vitamin D3) 50 mcg PO DAILY 30 days cyclobenzaprine 10 mg (2 x 5 mg) PO Q8H diphenhydramine HCl (Banophen) 25 mg PO BEDTIME PRN duloxetine 60 mg PO QAM 30 days fluticasone propionate 50 mcg/actuation 1 spray intranasal DAILY gabapentin 300 mg PO Q8H glucose 4 grams PO DIRECTED hydroxyzine HCl 25 mg PO TID PRN ketotifen fumarate 0.025%(0.035%) (Alaway) 1 drp ophthalmic (eye) BID PRN 1 month lidocaine 5% 1 patch topical DAILY 3 months montelukast (Singulair) 10 mg PO DAILY 30 days naproxen 500 mg PO Q12H PRN pseudoephedrine HCl 60 mg (2 x 30 mg) PO Q6H PRN 30 days sodium chloride 0.65% (Saline Mist) 2 sprays intranasal Q2H PRN valacyclovir (Valtrex) 2,000 mg (2 x 1 gram) PO Q12H 1 day HPI Asthma HPI Details Leslie is a very pleasant 37 year old female, never smoker, with underlying asthma. She was referred by PCP for pulmonary evaluation. She reports symptoms began to worsen after having COVID in October 2021. She has been suboptimally controlled on Advair with persistent chest tightness, dry cough, dyspnea on exertion and wheezing. She uses albuterol MDI infrequently and does not have a nebulizer. She recently started singulair and was switched to symbicort but has not started yet. She also reports increased sneezing and rhinorrhea. Denies allergy testing. She denies any history of childhood asthma or intubations. She reports multiple family members with asthma. She denies any occupational exposures. [facility] Medical History Fibromyalgia Hypoglycemia Iron deficiency Migraine headache Vitamin D deficiency Microscopic hematuria De Quervain's tenosynovitis Depression Gestational diabetes Constipation Allergic rhinitis Surgical History Hx of dilation and curettage History of endometrial ablation H/O bilateral salpingectomy H/O laparoscopy Family History Father Diabetes HTN (hypertension) Mother Depression Chronic mental illness Diabetes Maternal Grandmother HTN (hypertension) Paternal Grandmother Alzheimer disease Other No family history of mental disorder Social History Housing: House Alcohol intake: current Alcohol intake frequency: holidays/special occasions only Patient Tobacco Use Status: Never used Tobacco e-Cigarette/Vaping Use: Never Used Second Hand Smoke Exposure: No service: No Current occupational status: employed 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 Current occupational exposures/hazards: No Sexual orientation: Straight/Heterosexual Gender identity: Female Cognitive needs: No Hearing needs: No Vision needs: Yes Female Reproductive History Menstrual Age of Menarche: 10 Review of Systems Const Denies chills, Denies excessive sweating, Denies fever(s), Denies headache(s) and Denies night sweats Eyes Denies dry eyes, Denies irritation and Denies itchy eyes ENT Reports Normal hearing present, Denies headache(s), Denies post nasal drip and Denies sore throat Card Denies chest pain, Denies chest pain at rest, Denies chest pain with activity, Denies claudication, Denies leg edema, Denies orthopnea and Denies paroxysmal nocturnal dyspnea Resp Denies chest congestion, Denies excessive phlegm production, Denies pain on inspiration, Denies pain with cough and Denies stridor Musc Denies myalgias Neuro Reports Normal hearing present and Denies headache(s) Endo Denies excessive sweating Toro/Lymph Denies lymphadenopathy Aller/Immun Denies itchy eyes Physical Exam Vital Signs: Last Vital Signs Pulse 78 08/09/23 15:10 BP 110/62 08/09/23 15:10 Pulse Ox 99 08/09/23 15:10 Oxygen Delivery Method Room Air 08/09/23 15:10 BMI result Body Mass Index 32.8 Const General: cooperative, healthy appearing, comfortable, no acute distress, well developed and alert Orientation/consciousness: patient oriented x3 Limitations: no limitations HEENT Head: Yes normal to inspection, Yes normocephalic and Yes atraumatic Ears: hearing grossly normal bilaterally and external ears normal Eyes General: appearance normal, both eyes and all related structures Eyelids: Yes eyelids normal Sclerae: sclerae normal EOM: EOMs intact bilaterally Neck Neck: Yes normal visual inspection and Yes no lymphadenopathy Lymphatic: no lymphadenopathy noted Chest Chest palpation & inspection: normal inspection of the chest Resp Other: lung sounds diminished, improved after duoneb Effort & Inspection: normal respiratory effort, able to speak in complete sentences, no audible wheezes, no cough, no stridor, not tachypneic, no tripod positioning and no use of accessory muscles Auscultation: no rhonchi, no wheezes and lung sounds not diminished Cardio Jugular venous distension: no JVD Rate: regular rate Rhythm: regular rhythm Skin Other: warm, dry General skin exam: no rashes or lesions noted Neuro General: patient oriented x3 Cranial nerves: Yes Normal hearing present Cognition (Neuro): normal cognition Gait exam (Neuro): Normal gait present Extrem General: Yes normal to inspection, Yes capillary refill normal, Yes no clubbing, cyanosis or edema and Yes no pedal edema Psych Appearance: grossly normal and well kempt Speech and movement: Normal speech and movement present and Clear speech present Affect: normal affect Attitude: cooperative Thought process: Normal thought process present Thought content: Normal thought content present Insight: Good insight present (Psych) Judgement: Good judgement present (Psych) Office Procedures Nebulizer Treatment Nebulizer Treatment [id number] RX initial, or Nebulizer Subsequent Treatment Office Meds ipratropium 0.5 mg-albuterol 3 mg (2.5 mg base)/3 mL nebulization soln Performing Provider: Donna Goldberg NP Performing Location: 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 Will send for PFT and labs to thoroughly evaluate. On exam, lung sounds diminished, gave duoneb in office with improvement. Advised patient to start symbicort, continue singulair and gave nebulizer machine in office to use PRN. Educated on importance of oral hygeiene with ICS/LABA. Will follow up in 6 weeks to review results and response to inhaler, or sooner if needed. All questions were answered and patient is in agreement of plan. Orders: Orders AMB Nebulizer Treatment Today J45.40 - Moderate persistent asthma, uncomplicated Rast Allergen Today J45.40 - Moderate persistent asthma, uncomplicated, Z91.09 - Other allergy status, other than to drugs and biological substances Complete Blood Count Auto Diff Today J45.40 - Moderate persistent asthma, uncomplicated, Z91.09 - Other allergy status, other than to drugs and biological substances PFT pulmonary function test Today J45.40 - Moderate persistent asthma, uncomplicated Medications: New albuterol sulfate 2.5 mg (3 mL) inhalation Q4-6H PRN 180 mL 3RF shortness of breath or wheezing Coding Level of Care Code New Pt Level 4 (20880) Diagnoses Asthma, moderate persistent, poorly-controlled J45.40 Environmental allergies Z91.09 CPT Codes Nebulizer Treatment - Nebulizer Treatment, initial or subsequent: [id number] RX initial, or Nebulizer Subsequent Treatment ([id number])
== END 2023-08-09 21:28 | disposition home or self-care (01) ==
LOC: HO.HPSW 14:57
PROVIDERS: PCP Family Medicine; Referring Provider Family Medicine; Visit Provider Nurse Practitioner Family
DX: J45.40 Moderate persistent asthma, uncomplicated (principal)
CPT/HCPCS: 99204

== ENCOUNTER 2023-08-25 10:22 | Outpatient (REF) | payer OTHER, SELFPAY ==
[2023-08-25 10:58] LABS: MANUAL DIFF FLAG NO
[2023-08-25 11:04] LABS: Basophils Absolute Auto 0.1 X10*3/uL (0.0-0.2); Basophils Percent Auto 0.7 % (0-2); Eosinophils Absolute Auto 0.1 X10*3/uL (0.0-0.4); Eosinophils Percent Auto 1.1 % (0-4); Hematocrit 39.9 % (37.0-47.0); Hemoglobin 12.9 g/dl (12.0-16.0); Imm Gran Abs Auto 0.02 X10*3/uL (0.00-0.03); Imm Gran Pct Auto 0.3 % (0.0-0.4); Lymphocytes Absolute Auto 1.9 X10*3/uL (1.2-4.9); Lymphocytes Percent Auto 26.6 % (20-40); Mean Corpuscular HGB Conc 32.3 g/dl (31.0-35.0); Mean Corpuscular Hemoglobin 30.1 pg (27.0-33.0); Mean Platelet Volume 10.4 fL (9.4-12.3); Monocytes Absolute Auto 0.4 X10*3/uL (0.1-1.2); Neutrophils Absolute Auto 4.8 x10*3/uL (2.0-8.3); Neutrophils Percent Auto 65.3 % (45-73); Platelet Count 258 X10*3/uL (160-400); Red Blood Count 4.29 X10*6/uL (4.20-5.50); Red Cell Distribution Width 13.3 % (11.0-16.0); White Blood Count 7.3 X10*3/uL (4.8-10.8)
== END 2023-08-25 10:23 | disposition home or self-care (01) ==
LOC: HO.LAB 10:22
PROVIDERS: Visit Provider Nurse Practitioner Family
DX: J45.40 Moderate persistent asthma, uncomplicated (principal); Z91.09 Other allergy status, other than to drugs and biological substances
CPT/HCPCS: 36415; 82785; 85025; 86003

== ENCOUNTER 2023-12-06 11:47 | Outpatient (AMB) | payer OTHER, SELFPAY ==
--- NOTE | 2023-12-06 11:52 | A.OFFPC_ITS ---
Vital Signs 12/06/23 11:54 Height 5 ft 4 in Weight 201 lb BMI 34.5 Respiration 13 Pulse 79 Pulse Source Pulse Oximeter Pulse Oximetry (%) 99 Oxygen Delivery Method Room Air Intake Visit Reasons: Annual PE, transfer of care Intake Note: Patient is here for her physical today. Patient is transferring care from to . Education Trainer Required: No Accompanied by: Self / Same As Patient Allergies morphine [MORPHINE] Allergy (Intermediate, Verified 12/06/23 12:29) ITCHY oxycodone [From Percocet] Allergy (Intermediate, Verified 12/06/23 12:29) rash,upset stomach ENVIRONMENTAL ALLERGIES Allergy (Mild, Uncoded 12/06/23 11:58) congestion Medication List - Last Reconciled 12/06/23 by CATALINO GonzalezP- acarbose 25 mg PO TID 30 days albuterol sulfate 90 mcg/actuation 2 puffs inhalation Q6H PRN 1 month albuterol sulfate 2.5 mg (3 mL) inhalation Q4-6H PRN blood-glucose meter (FreeStyle [place] Lite kit) As directed budesonide-formoterol 80-4.5 mcg/actuation 2 puffs inhalation BID 30 days cetirizine 10 mg PO DAILY 1 month cholecalciferol (vitamin D3) 50 mcg PO DAILY 30 days cyclobenzaprine 10 mg (2 x 5 mg) PO Q8H diphenhydramine HCl (Banophen) 25 mg PO BEDTIME PRN duloxetine 60 mg PO QAM 30 days fluticasone propionate 50 mcg/actuation 1 spray intranasal DAILY gabapentin 300 mg PO Q8H glucose 4 grams PO DIRECTED hydroxyzine HCl 25 mg PO TID PRN ketotifen fumarate 0.025%(0.035%) ([place]) 1 drp ophthalmic (eye) BID PRN 1 month lidocaine 5% 1 patch topical DAILY 3 months montelukast (Singulair) 10 mg PO DAILY 30 days naproxen 500 mg PO Q12H PRN pseudoephedrine HCl 60 mg (2 x 30 mg) PO Q6H PRN 30 days sodium chloride 0.65% (Saline Mist) 2 sprays intranasal Q2H PRN valacyclovir (Valtrex) 2,000 mg (2 x 1 gram) PO Q12H 1 day Tobacco use date assessed: 12/06/23 Dental Screening Dental Screen Date: 12/06/23 Did you have a dental visit in the last 12 months?: Yes Did you have a dental problem in the last 6 months where you did not have access to dental care?: No Was dental information given to patient?: Patient has dentist HPI HPI Comments History of Present Illness Details Here today c/o anxiety, distracted, hard time sleeping; eye twitch occurs when anxious; has episodes that sound like panic attacks (cry until i feel like i cannot breath). Had a counselor in the past; admits falling out of care as she forgets appts, not so good at following through w/ appts. Denies SI, HI. Reason for living - my kids at home. DANIEL and PHQ + Was Rxd hydroxyzine but stopped taking as it made her tired and have foggy memory. Also stopped taking Cymbalta. HSV - with increased stress and anxiety has outbreaks. Using Valtrex in the past [facility] Medical History Asthma, moderate persistent, poorly-controlled Environmental allergies DM type 2, controlled, with complication Fibromyalgia Iron deficiency Vitamin D deficiency Migraine headache Microscopic hematuria De Quervain's tenosynovitis Anxiety and depression Surgical History History of cervical biopsy History of bilateral salpingectomy History of endometrial ablation History of dilatation and curettage History of laparoscopy Family History Father Diabetes HTN (hypertension) Mother Depression Chronic mental illness Diabetes Maternal Grandmother HTN (hypertension) Paternal Grandmother Alzheimer disease Other No family history of mental disorder Social History (Updated 12/06/23 @ 12:04 by Cristel Morales CMA) Household Members: Children Housing: House Are you a primary neonatal intensive care unit nurse to a significant other at home: No Do you presently have visiting nurse or other home services: No 75 years or older and lives alone: No Alcohol intake: current Alcohol intake frequency: holidays/special occasions only Patient Tobacco Use Status: Never used Tobacco e-Cigarette/Vaping Use: Currently Using Second Hand Smoke Exposure: No service: No Current occupational status: employed 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 1. Little interest or pleasure in doing things: several days 2. Feeling down, depressed, or hopeless: several days 3. Trouble falling or staying asleep, or sleeping too much: several days 4. Feeling tired or having little energy: several days 5. Poor appetite or overeating: several days 6. Feeling bad about yourself - or that you are a failure or have let yourself or your family down: not at all 7. Trouble concentrating on things, such as reading the newspaper or watching television: several days 8. Moving or speaking so slowly that other people could have noticed. Or the opposite - being so fidgety or restless that you have been moving around a lot more than usual: not at all 9. Thoughts that you would be better off or of hurting yourself in some way: not at all Total score: 6 Depression Screening Interpretation: Positive Depression Screening Done: Yes 15125 - PHQ-9 Billing: Yes Source: Developed by Drs. Sunil Hernandez, Shasha Decker, Gaudencio Villarreal and colleagues, with an educational troy from [employer]. Thrive Questionnaire Date Thrive assessed: 12/06/23 I am a: Patient What is your living situation today?: I have a steady place to live Within the past 12 months, did the food you bought not last and you didn't have the money to get more?: Never true Within the past 12 months, did you worry whether your food would run out before you got money to buy more?: Never true Do you have trouble paying for medicines?: No Do you have trouble getting transportation to medical appointments?: No Do you have trouble paying your heating and electricity bill?: No Do you have trouble taking care of your child, family member or friend?: No Do you have trouble with day-to-day activities such as bathing, preparing meals, shopping, managing finances, etc.?: No Are you currently unemployed and looking for a job?: No Are you interested in more education?: No Please select the resources that you would like help with: None Currently or been in a relationship where the following occur: no concerns reported THRIVE Score: 0 AUDIT C Alcohol Use Questionnaire (AUDIT-C) 1. How often do you have a drink containing alcohol?: Never 3. How often do you have six or more drinks on one occasion?: Never Total Score: 0 DANIEL-7 AMB Questionnaire DANIEL-7 Date DANIEL - 7 assessed: 12/06/23 Feeling nervous, anxious, or on edge: 1 = Several days Not being able to stop or control worryin = Several days Worrying too much about different things: 1 = Several days Trouble relaxin = Several days Being so restless that it is hard to sit still: 0 = Not at all Becoming easily annoyed or irritable: 1 = Several days Feeling afraid as if something awful might happen: 1 = Several days Total DANIEL-7 score (0-4 normal; 5-9 mild; 10-14 moderate; 15-21 severe): 6 Source: Developed by Drs. Sunil Hernandez, Shasha Decker, Gaudencio Villarreal and colleagues, with an educational troy from [employer]. DANIEL-7 Assessment Billing DANIEL-7 Assessment Tool: DANIEL-7 Assessment 06157 Physical exam (Primary Care) Vital Signs: Last Vital Signs Pulse 79 12/06/23 11:54 Resp 13 12/06/23 11:54 Pulse Ox 99 12/06/23 11:54 Oxygen Delivery Method Room Air 12/06/23 11:54 BMI result Body Mass Index 34.5 Tobacco/Smoking Status: Tobacco use Status Tobacco use date assessed 12/06/23 12/06/23 12:07 Patient Tobacco Use Status Never used Tobacco 12/06/23 12:07 e-Cigarette/Vaping Use Currently Using 12/06/23 12:07 PHQ-9: PHQ-9 Score PHQ-9: Total score 6 12/06/23 12:31 Depression Screening Interpretation: Positive Thrive Assessment: Date of Thrive Assessment Date Thrive assessed 12/06/23 12/06/23 12:07 Currently or been in a relationship where the following occur: no concerns reported Const Other: awake alert NAD MMM - no lesions no thyromegaly LS CTAB RRR Tearful at times, appropriate and engaging. Assessment and Plan Assessment & Plan (1) Anxiety and depression: Code(s): F41.9 - Anxiety disorder, unspecified; F32.9 - Major depressive disorder, single episode, unspecified Plan: on several medications in the past most recently taking gabapentin and flexeril together; advised to stop flexeril. Will check labs and f/u once resulted. Referral to counselor and medication mgmt from there as appropriate (2) Vitamin D deficiency: Code(s): E55.9 - Vitamin D deficiency, unspecified Plan: takes supplements most of the time, but admits to forgetting. check levels today as this could be playing apart in her mood. (3) Primary herpes simplex infection of lips: Code(s): B00.1 - Herpesviral vesicular dermatitis Plan: refill Valtrex Plan Total time spent caring for the patient today was 45 minutes. This includes time spent before the visit reviewing the chart, time spent during the visit, and time spent after the visit on documentation Orders: Orders TSH reflex Free T4 Today E55.9 - Vitamin D deficiency, unspecified, F32.9 - Major depressive disorder, single episode, unspecified, F41.9 - Anxiety disorder, unspecified Comprehensive Met. Panel Today E55.9 - Vitamin D deficiency, unspecified, F32.9 - Major depressive disorder, single episode, unspecified, F41.9 - Anxiety disorder, unspecified Hemoglobin and Hematocrit Today E55.9 - Vitamin D deficiency, unspecified, F32.9 - Major depressive disorder, single episode, unspecified, F41.9 - Anxiety disor nora, unspecified Vitamin D 1,25 dihydroxy Today E55.9 - Vitamin D deficiency, unspecified, F32.9 - Major depressive disorder, single episode, unspecified, F41.9 - Anxiety di sorder, unspecified Medications: Refilled valacyclovir (Valtrex) 2,000 mg (2 x 1 gram) PO Q12H 4 tabs 3RF 1 day B00.1 - Herpesviral vesicular dermatitis Discontinued cyclobenzaprine Discontinued Reason: Doctor's Order 10 mg (2 x 5 mg) PO Q8H 180 tabs 1RF pseudoephedrine HCl Discontinued Reason: Patient Completed Course 60 mg (2 x 30 mg) PO Q6H 30 days PRN 24 tabs 9RF nasal congestion diphenhydramine HCl (Banophen) Discontinued Reason: Doctor's Order 25 mg PO BEDTIME PRN 30 caps 5RF for insomnia J30.2 - Other seasonal allergic rhinitis hydroxyzine HCl Discontinued Reason: Doctor's Order 25 mg PO TID PRN 90 tabs 1RF for anxiety F41.9 - Anxiety disorder, unspecified duloxetine Discontinued Reason: Doctor's Order 60 mg PO QAM 30 days 30 caps 1RF Patient Instructions: Labs today, phone f/u next week to discuss next steps Coding Level of Care Code Est Pt Level 4 (90758) Diagnoses Anxiety and depression F41.9; F32.9 Vitamin D deficiency E55.9 Primary herpes simplex infection of lips B00.1 Additional Codes DANIEL-7 Assessment Billing - DANIEL-7 Assessment Tool: DANIEL-7 Assessment 22422 ([id number])
[2023-12-06 11:54] VITALS: PULSE 79; RESP 13; O2SAT 99; BMI 34.5
== END 2023-12-06 12:51 | disposition home or self-care (01) ==
PROVIDERS: PCP Hospitalist; Visit Provider Nurse Practitioner Family
DX: F41.9 Anxiety disorder, unspecified (principal); F32.9 Major depressive disorder, single episode, unspecified; E55.9 Vitamin D deficiency, unspecified; B00.1 Herpesviral vesicular dermatitis
CPT/HCPCS: 96127; 99214

== ENCOUNTER 2023-12-06 12:42 | Outpatient (REF) | payer OTHER, SELFPAY ==
[2023-12-06 14:19] LABS: Hematocrit 38.4 % (37.0-47.0); Hemoglobin 12.6 g/dl (12.0-16.0)
[2023-12-06 15:37] LABS: Alanine Aminotransferase 26 U/L (0-31); Albumin Level 4.2 g/dL (3.5-5.0); Alkaline Phosphatase 50 U/L (39-117); Anion Gap 11 (12-20); Aspartate Amino Transferase 16 U/L (5-31); Bilirubin Total 0.3 mg/dL (0.0-1.0); Blood Urea Nitrogen 20 mg/dL (9-16); Calcium 9.2 mg/dL (8.4-10.2); Carbon Dioxide 29 mmol/L (22-29); Chloride 103 mmol/L (96-108); Estimated Glomerular Filt Rate > 60; Glucose Random 77 mg/dL (60-115); Potassium 3.9 mmol/L (3.3-5.1); Sodium 139 mmol/L (135-145); Total Protein 7.8 g/dL (6.5-8.0)
[2023-12-06 15:40] LABS: TSH reflex Free T4 1.01 uIU/mL (0.32-4.0)
[2023-12-10 19:07] LABS: VITAMIN D (1,25 OH) D3 55 pg/mL; Vit D (1,25-Dihydroxy) Total 55 pg/mL (18-72); Vitamin D (1,25 OH) D2 <8 pg/mL
== END 2023-12-06 12:43 | disposition home or self-care (01) ==
LOC: HO.WFDLDS 12:42
PROVIDERS: Visit Provider Nurse Practitioner Family
DX: E55.9 Vitamin D deficiency, unspecified (principal); F41.9 Anxiety disorder, unspecified; F32.9 Major depressive disorder, single episode, unspecified
CPT/HCPCS: 36415; 80053; 82652; 84443; 85014; 85018

== ENCOUNTER 2023-12-10 15:07 | Outpatient (AMB) | payer OTHER, SELFPAY ==
--- NOTE | 2023-12-10 14:58 | MHC.PC.OV ---
Intake Visit Reasons: follow up labs Intake Note: Patient is calling for lab results today. Allergies morphine [MORPHINE] Allergy (Intermediate, Verified 12/10/23 15:43) ITCHY oxycodone [From Percocet] Allergy (Intermediate, Verified 12/10/23 15:43) rash,upset stomach ENVIRONMENTAL ALLERGIES Allergy (Mild, Uncoded 12/10/23 15:00) congestion Tobacco use date assessed: 12/10/23 HPI HPI Comments History of Present Illness Details Given the COVID-19 pandemic, the patient was offered and has consented to a telemedicine visit with Rashmi Ortiz on 11/30/23 at 4pm. in lieu of a traditional in-office visit. Patient understands the risks, alternatives and benefits of a telemedicine visit. The patient has been informed of the limitations of a telemedicine visit, including the quality of self-reported information (e.g. vital signs and symptoms) as well as the inability to perform a hands-on physical exam by a healthcare provider. Patient understands that a traditional in-office visit may be required based on the findings of today's telemedicine visit. Patient also understands that their insurance will be billed for services rendered and that a copayment may be required. Visit today via telephone to follow-up on labs that were drawn to evaluate complaints of anxiety, distraction, hard time sleeping, eye twitching that occurs when she is anxious and panic attacks in the setting of fibromyalgia. All of her labs reviewed with her today and are within normal limits. Her vitamin-D remains pending. She does have a history of vitamin-D deficiency. She was prescribed vitamin-D supplement but does not take regularly. Be that as it may she has no new symptoms since we talked last. Unfortunately she did not stop taking the Flexeril as recommended. She continues to take that along with the gabapentin at bedtime and this continues to make her feel groggy in the morning. She has not yet heard from the nurse navigation team about a referral to a counselor. She continues to deny SI and HI. [facility] Medical History Asthma, moderate persistent, poorly-controlled Environmental allergies DM type 2, controlled, with complication Fibromyalgia Iron deficiency Vitamin D deficiency Migraine headache Microscopic hematuria De Quervain's tenosynovitis Anxiety and depression Surgical History History of cervical biopsy History of bilateral salpingectomy History of endometrial ablation History of dilatation and curettage History of laparoscopy Family History Father Diabetes HTN (hypertension) Mother Depression Chronic mental illness Diabetes Maternal Grandmother HTN (hypertension) Paternal Grandmother Alzheimer disease Other No family history of mental disorder Social History Household Members: Children Housing: House Are you a primary animal caretaker to a significant other at home: No Do you presently have visiting nurse or other home services: No 75 years or older and lives alone: No Alcohol intake: current Alcohol intake frequency: holidays/special occasions only Patient Tobacco Use Status: Never used Tobacco e-Cigarette/Vaping Use: Currently Using Second Hand Smoke Exposure: No service: No Current occupational status: employed 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 Sunil Hernandez, Shasha Decker, Gaudencio Villarreal and colleagues, with an educational troy from [employer]. Physical exam (Primary Care) Tobacco/Smoking Status: Tobacco use Status Tobacco use date assessed 12/10/23 12/10/23 15:02 Patient Tobacco Use Status Never used Tobacco 12/10/23 14:59 e-Cigarette/Vaping Use Currently Using 12/10/23 14:59 Thrive Assessment: Date of Thrive Assessment Date Thrive assessed 12/06/23 12/10/23 14:59 Telehealth Telehealth Location of provider rendering services: practice address Location of patient: address on file Patient Identification confirmed using: Name, : Yes Telehealth method: voice only Patient verbally consented to treatment: Yes Patient verbally consented to billing insurance company: Yes Patient informed of any privacy concerns related to visit: Yes Minutes spent on Phone/Video with Pt.: 10 Assessment and Plan Assessment & Plan (1) Vitamin D deficiency: Code(s): E55.9 - Vitamin D deficiency, unspecified (2) Anxiety and depression: Code(s): F41.9 - Anxiety disorder, unspecified; F32.9 - Major depressive disorder, single episode, unspecified (3) Fibromyalgia: Code(s): M79.7 - Fibromyalgia Plan I reviewed with her some treatment options. She reports that she has Cymbalta at home. While she was taking she weaned herself off. She really is not sure why. She does not remember any adverse side effects. And can not recall if it was helpful or not. Other than hydroxyzine she has not tried anything else to help her mood or her fibromyalgia. I do recommend starting her on sertraline or restarting her on Cymbalta. Shared decision-making done. Patient wishes to start on sertraline 50 mg daily. She should start half the dose for 2 weeks take at the same time of day every day do not skip any doses and then increase to 1 tab daily. Made aware that this will not take effect immediately and she needs to give it a few weeks before the effectiveness is noticed. If she has any adverse events and can not take it I asked that she send me a message on the portal or contact me directly. I would like to follow up with her in 6 weeks' time. She wishes to do this by telephone. I have sent a message to my office staff to arrange this. Reminded her again to stop the Flexeril as this can worsen her anxiety and depressive symptoms. Medications: New sertraline take 1/2 tab daily x 2 weeks, then increase to 1 tab daily 50 mg PO DAILY 30 tabs 0RF 30 days Coding Level of Care Code Tele Est Pt Level 3 (18982) Diagnoses Vitamin D deficiency E55.9 Anxiety and depression F41.9; F32.9 Fibromyalgia M79.7
== END 2023-12-10 16:10 | disposition home or self-care (01) ==
LOC: HO.HMGFM 15:08
PROVIDERS: PCP Nurse Practitioner Family; Visit Provider Nurse Practitioner Family
DX: E55.9 Vitamin D deficiency, unspecified (principal); F41.9 Anxiety disorder, unspecified; M79.7 Fibromyalgia; F32.9 Major depressive disorder, single episode, unspecified
CPT/HCPCS: 99213

== ENCOUNTER 2024-01-14 13:36 | Outpatient (AMB) | payer OTHER, SELFPAY ==
--- NOTE | 2024-01-14 13:16 | MHC.PC.OV ---
Intake Visit Reasons: FU MDD/DANIEL Allergies morphine [MORPHINE] Allergy (Intermediate, Verified 01/14/24 13:21) ITCHY oxycodone [From Percocet] Allergy (Intermediate, Verified 01/14/24 13:21) rash,upset stomach ENVIRONMENTAL ALLERGIES Allergy (Mild, Uncoded 12/10/23 15:00) congestion Medication List - Last Reconciled 01/14/24 by Rashmi Dobbs, [facility]- acarbose 25 mg PO TID 30 days albuterol sulfate 90 mcg/actuation 2 puffs inhalation Q6H PRN 1 month albuterol sulfate 2.5 mg (3 mL) inhalation Q4-6H PRN blood-glucose meter (SenicStyle Capron Lite kit) As directed budesonide-formoterol 80-4.5 mcg/actuation 2 puffs inhalation BID 30 days cetirizine 10 mg PO DAILY 1 month cholecalciferol (vitamin D3) 50 mcg PO DAILY 30 days fluticasone propionate 50 mcg/actuation 1 spray intranasal DAILY gabapentin 300 mg PO Q8H glucose 4 grams PO DIRECTED ketotifen fumarate 0.025%(0.035%) (Alaway) 1 drp ophthalmic (eye) BID PRN 1 month lidocaine 5% 1 patch topical DAILY 3 months montelukast (Singulair) 10 mg PO DAILY 30 days naproxen 500 mg PO Q12H PRN sertraline 50 mg PO DAILY 30 days sodium chloride 0.65% (Saline Mist) 2 sprays intranasal Q2H PRN valacyclovir (Valtrex) 2,000 mg (2 x 1 gram) PO Q12H 1 day Tobacco use date assessed: 12/10/23 HPI HPI Comments History of Present Illness Details Given the COVID-19 pandemic, the patient was offered and has consented to a telemedicine visit with Rashmi Ortiz on 01/14/24 at 1315 in lieu of a traditional in-office visit. Patient understands the risks, alternatives and benefits of a telemedicine visit. The patient has been informed of the limitations of a telemedicine visit, including the quality of self-reported information (e.g. vital signs and symptoms) as well as the inability to perform a hands-on physical exam by a healthcare provider. Patient understands that a traditional in-office visit may be required based on the findings of today's telemedicine visit. Patient also understands that their insurance will be billed for services rendered and that a copayment may be required. Visit today via telephone to follow-up: At visit 2 weeks ago labs that were drawn to evaluate complaints of anxiety, distraction, hard time sleeping, eye twitching that occurs when she is anxious and panic attacks in the setting of fibromyalgia. All of her labs reviewed with her today and are within normal limits. Her vitamin-D remains normal. She does have a history of vitamin-D deficiency. She was prescribed vitamin-D supplement but does not take regularly. Today she reports: been ok. more pain. feels her joints are swollen. Did start sertraline., however Only half tablet at this time. Cont to take Gabapentin 300 mg at HS. Did stop taking Flexeril. Reports dtr moved in w/ her recently. ADmits more stress d/t this. Wonders if this affects her. Denies SI/HI NN referral in place for counseling. [facility] Medical History (Updated 01/14/24 @ 13:31 by Rashmi Dobbs, [facility]) Asthma, moderate persistent, poorly-controlled Environmental allergies DM type 2, controlled, with complication Fibromyalgia Iron deficiency Vitamin D deficiency Migraine headache Microscopic hematuria De Quervain's tenosynovitis Anxiety and depression Surgical History History of cervical biopsy History of bilateral salpingectomy History of endometrial ablation History of dilatation and curettage History of laparoscopy Family History Father Diabetes HTN (hypertension) Mother Depression Chronic mental illness Diabetes Maternal Grandmother HTN (hypertension) Paternal Grandmother Alzheimer disease Other No family history of mental disorder Social History Household Members: Children Housing: House Are you a primary vp care management to a significant other at home: No Do you presently have visiting nurse or other home services: No 75 years or older and lives alone: No Alcohol intake: current Alcohol intake frequency: holidays/special occasions only Patient Tobacco Use Status: Never used Tobacco e-Cigarette/Vaping Use: Currently Using Second Hand Smoke Exposure: No service: No Current occupational status: employed 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 Sunil Hernandez, Shasha Decker, Gaudencio Villarreal and colleagues, with an educational troy from [employer]. Physical exam (Primary Care) Tobacco/Smoking Status: Tobacco use Status Tobacco use date assessed 12/10/23 12/10/23 15:02 Patient Tobacco Use Status Never used Tobacco 12/10/23 14:59 e-Cigarette/Vaping Use Currently Using 12/10/23 14:59 Thrive Assessment: Date of Thrive Assessment Date Thrive assessed 12/06/23 12/10/23 14:59 Telehealth Telehealth Location of provider rendering services: practice address Location of patient: address on file Patient Identification confirmed using: Name, : Yes Telehealth method: voice only Patient verbally consented to treatment: Yes Patient verbally consented to billing insurance company: Yes Patient informed of any privacy concerns related to visit: Yes Minutes spent on Phone/Video with Pt.: 9 Assessment and Plan Assessment & Plan (1) Vitamin D deficiency: Comment: Most recent vitamin-D level within normal limits obtained November of 2023. This is was sporadic use of the vitamin D3 50 mcg. There was no clinical need for her to take this. Therefore can be discontinued. Code(s): E55.9 - Vitamin D deficiency, unspecified (2) Fibromyalgia: Comment: Affecting multiple joints. Currently on sertraline. She is only taking a half a tablet at this time. Encouraged increase to 1 whole tablet. Follow up again with me in 1 month. She is also taking gabapentin 3 times a day. Continues to report breakthrough pain. In addition she does have lidocaine topical as well as naproxen. Code(s): M79.7 - Fibromyalgia (3) MDD (major depressive disorder), recurrent episode: Comment: Currently on sertraline. She is only taking a half a tablet at this time. Encouraged increase to 1 whole tablet. Follow up again with me in 1 month. Of note she was on Vistaril in the past and this made her feel groggy so she stopped. She was on Cymbalta in the past and stopped but she has really not sure why. Nurse navigation referral active to help her establish care with a counselor Code(s): F33.9 - Major depressive disorder, recurrent, unspecified Qualifiers: Major depression episode severity: moderate Qualified Code(s): F33.1 - Major depressive disorder, recurrent, moderate (4) DANIEL (generalized anxiety disorder): Comment: Currently on sertraline. She is only taking a half a tablet at this time. Encouraged increase to 1 whole tablet. Follow up again with me in 1 month. Of note she was on Vistaril in the past and this made her feel groggy so she stopped. She was on Cymbalta in the past and stopped but she has really not sure why. Nurse navigation referral active to help her establish care with a counselor Code(s): F41.1 - Generalized anxiety disorder Plan I have sent a referral to the front office to schedule an appointment with me in 1 month. Patient would like an in office appointment rather than a telehealth appointment. Medications: Changed From sertraline take 1/2 tab daily x 2 weeks, then increase to 1 tab daily 50 mg PO DAILY 30 days 30 tabs 0RF To sertraline 50 mg PO DAILY 30 tabs 0RF 30 days Coding Level of Care Code Tele Est Pt Level 2 (04290) Diagnoses Vitamin D deficiency E55.9 Fibromyalgia M79.7 Moderate episode of recurrent major depressive disorder F33.1 Major depression episode severity: moderate DANIEL (generalized anxiety disorder) F41.1
== END 2024-01-14 13:49 | disposition home or self-care (01) ==
LOC: HO.HMGFM 13:37
PROVIDERS: PCP Nurse Practitioner Family; Visit Provider Nurse Practitioner Family
DX: F33.1 Major depressive disorder, recurrent, moderate (principal); E55.9 Vitamin D deficiency, unspecified; M79.7 Fibromyalgia; F41.1 Generalized anxiety disorder
CPT/HCPCS: 99212

== ENCOUNTER 2024-02-16 15:40 | Outpatient (REF) | payer OTHER, SELFPAY | END 2024-02-16 15:41 | disposition home or self-care (01) | LOC: HO.LNP 15:40 | PROVIDERS: PCP Nurse Practitioner Family; Visit Provider Obstetrics & Gynecology | DX: N94.6 Dysmenorrhea, unspecified (principal); R10.2 Pelvic and perineal pain | CPT/HCPCS: 0353U; 81002; 81025; 99212 ==

== ENCOUNTER 2024-02-16 15:40 | Outpatient (AMB) | payer OTHER, SELFPAY ==
--- NOTE | 2024-02-16 15:56 | MHC.OFFVIS ---
Intake Vital Signs 02/16/24 16:03 Height 5 ft 4 in Weight 200 lb 9.93 oz BMI 34.4 Intake Visit Reasons: ER follow up Allergies morphine [MORPHINE] Allergy (Intermediate, Verified 01/14/24 13:21) ITCHY oxycodone [From Percocet] Allergy (Intermediate, Verified 01/14/24 13:21) rash,upset stomach ENVIRONMENTAL ALLERGIES Allergy (Mild, Uncoded 12/10/23 15:00) congestion HPI HPI Comments History of Present Illness Details Presenting complaining of dysmenorrhea during her menstrual cycles over the last 2 months no other associated GI or symptoms, no vaginal discharge, abnormal uterine bleeding , fever or chills or nausea or vomiting. [facility] Medical History Asthma, moderate persistent, poorly-controlled Environmental allergies DM type 2, controlled, with complication Fibromyalgia Iron deficiency Vitamin D deficiency Migraine headache Microscopic hematuria De Quervain's tenosynovitis Anxiety and depression Surgical History History of cervical biopsy History of bilateral salpingectomy History of endometrial ablation History of dilatation and curettage History of laparoscopy Family History Father Diabetes HTN (hypertension) Mother Depression Chronic mental illness Diabetes Maternal Grandmother HTN (hypertension) Paternal Grandmother Alzheimer disease Other No family history of mental disorder Social History Household Members: Children Housing: House Are you a primary home care chaplain to a significant other at home: No Do you presently have visiting nurse or other home services: No 75 years or older and lives alone: No Alcohol intake: current Alcohol intake frequency: holidays/special occasions only Patient Tobacco Use Status: Never used Tobacco e-Cigarette/Vaping Use: Currently Using Second Hand Smoke Exposure: No service: No Current occupational status: employed 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, 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 Current occupational exposures/hazards: No Sexual orientation: Unable to collect Gender identity: Female and Unable to collect Cognitive needs: Yes (Forgetful, foggy memory) Hearing needs: No Vision needs: Yes Female Reproductive History Menstrual Age of Menarche: 10 Review of Systems Const All systems reviewed & are unremarkable except as noted in HPI and below Physical Exam General: Yes no CVA tenderness External Female Exam: normal external appearance and normal appearance of the urethra Speculum Exam - Vagina: normal appearance of the vagina, normal palpation, no lesions and no masses Speculum Exam - Cervix: normal appearance of the cervix, normal palpation, no lesions, no masses and nontender Bimanual exam- vagina & uterus: normal bimanual exam, normal palpation, uterine size normal, normal palpation, uterine shape normal, No Cervical tenderness present and non-tender Bimanual Exam- Adnexa, other: normal adnexae Back/Spine/Pelvis Back: no CVA tenderness Assessment & Plan Assessment & Plan (1) Dysmenorrhea: Code(s): N94.6 - Dysmenorrhea, unspecified Plan: Urine dip and test done in the office were both negative. GC and chlamydia taken and pelvic ultrasound ordered. Discussed with the patient the differential diagnosis of dysmenorrhea including but not limited to adnexal, uterine masses, pelvic infections (PID), GI the (Irritable bowel syndrome, diverticulitis, others), postablation syndrome, musculoskeletal, myofascial pain abdominal wall , adhesions, endometriosis, psychological and others causes. Will check results and treat accordingly. All questions answered, the patient verbalized understanding. Instructed the patient to schedule follow-up appointment in 2 weeks Orders: Orders US pelvic and transvaginal Today R10.2 - Pelvic and perineal pain Coding Level of Care Code Est Pt Level 3 (71987) Diagnoses Dysmenorrhea N94.6
[2024-02-16 16:03] VITALS: BMI 34.4
== END 2024-02-16 16:10 | disposition home or self-care (01) ==
LOC: HO.HWS 15:40
PROVIDERS: PCP Nurse Practitioner Family; Visit Provider Obstetrics & Gynecology
DX: Z32.02 Encounter for pregnancy test, result negative (principal); N94.6 Dysmenorrhea, unspecified
CPT/HCPCS: 99213

== ENCOUNTER 2024-02-17 12:36 | Outpatient (AMB) | payer OTHER, SELFPAY ==
--- NOTE | 2024-02-17 12:32 | A.OFFPC_ITS ---
Intake Visit Reasons: Follow up [phone] Intake Note: Patient is available to have a telehealth now, would like to discuss hospital visit for 2-3 weeks ago. Soil Checker Required: No Accompanied by: Self / Same As Patient Allergies morphine [MORPHINE] Allergy (Intermediate, Verified 02/17/24 12:36) ITCHY oxycodone [From Percocet] Allergy (Intermediate, Verified 02/17/24 12:36) rash,upset stomach ENVIRONMENTAL ALLERGIES Allergy (Mild, Uncoded 02/17/24 12:34) congestion Medication List - Last Reconciled 02/17/24 by Rashmi Dobbs, [facility]- acarbose 25 mg PO TID 30 days albuterol sulfate 90 mcg/actuation 2 puffs inhalation Q6H PRN 1 month albuterol sulfate 2.5 mg (3 mL) inhalation Q4-6H PRN blood-glucose meter (FreeStyle Alexis Lite kit) As directed budesonide-formoterol 80-4.5 mcg/actuation 2 puffs inhalation BID 30 days cetirizine 10 mg PO DAILY 1 month fluticasone propionate 50 mcg/actuation 1 spray intranasal DAILY gabapentin 300 mg PO Q8H glucose 4 grams PO DIRECTED ketotifen fumarate 0.025%(0.035%) (Alaway) 1 drp ophthalmic (eye) BID PRN 1 month lidocaine 5% 1 patch topical DAILY 3 months montelukast (Singulair) 10 mg PO DAILY 90 days naproxen 500 mg PO Q12H PRN sertraline 50 mg PO DAILY 30 days sodium chloride 0.65% (Saline Mist) 2 sprays intranasal Q2H PRN valacyclovir 2,000 mg (2 x 1 gram) PO Q12H Tobacco use date assessed: 12/10/23 Dental Screening Dental Screen Date: 12/06/23 HPI HPI Comments History of Present Illness Details Telephone hospital discharge follow up. She was seen at [facility]'s Emergency room on 01/21/2024. Workup reviewed. The chief complaint was of abdominal/pelvic pain. Labs showed mildly elevated LFTs, she had an ultrasound which showed Adenomyosis with a small left-sided ovarian cyst. She was discharged home with instructions to follow up with her news production supervisor. She was seen by [facility] news production supervisor on 02/16/2024. This note was reviewed and workup in progress with a follow up in 2 weeks. Today that she reports that she continues to have left upper and lower quadrant abdominal pain, pain when she sits causes rectal pain, pain with radiation to her back, feels bloated, having diarrhea. Reports diarrhea is nonbloody. Hurts to pass gas. No vomiting. was ruled out. She is really worried about an abdominal pathology. She denies fever, chills. In regards to her MDD, Fibromyalgia she stopped taking the sertraline about 2 weeks ago when her abdominal pain started. The abdominal pain has not changed since stopping. She has not used establish care with a counselor. So waiting on a phone call. [facility] Medical History Asthma, moderate persistent, poorly-controlled Environmental allergies DM type 2, controlled, with complication Fibromyalgia Iron deficiency Vitamin D deficiency Migraine headache Microscopic hematuria De Quervain's tenosynovitis Anxiety and depression Surgical History History of cervical biopsy History of bilateral salpingectomy History of endometrial ablation History of dilatation and curettage History of laparoscopy Family History Father Diabetes HTN (hypertension) Mother Depression Chronic mental illness Diabetes Maternal Grandmother HTN (hypertension) Paternal Grandmother Alzheimer disease Other No family history of mental disorder Social History Household Members: Children Housing: House Are you a primary menagerie caretaker to a significant other at home: No Do you presently have visiting nurse or other home services: No 75 years or older and lives alone: No Alcohol intake: current Alcohol intake frequency: holidays/special occasions only Patient Tobacco Use Status: Never used Tobacco e-Cigarette/Vaping Use: Currently Using Second Hand Smoke Exposure: No service: No Current occupational status: employed 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 Sunil Hernandez, Shasha Decker, Gaudencio Villarreal and colleagues, with an educational troy from [employer]. Physical exam (Primary Care) Tobacco/Smoking Status: Tobacco use Status Tobacco use date assessed 12/10/23 02/17/24 12:35 Patient Tobacco Use Status Never used Tobacco 02/17/24 12:35 e-Cigarette/Vaping Use Currently Using 02/17/24 12:35 Thrive Assessment: Date of Thrive Assessment Date Thrive assessed 12/06/23 02/17/24 12:35 Telehealth Telehealth Location of provider rendering services: practice address Location of patient: address on file Patient Identification confirmed using: Name, : Yes Telehealth method: voice only Patient verbally consented to treatment: Yes Patient verbally consented to billing insurance company: Yes Patient informed of any privacy concerns related to visit: Yes Minutes spent on Phone/Video with Pt.: 18 Assessment and Plan Assessment & Plan (1) Hospital discharge follow-up: Code(s): Z09 - Encounter for follow-up examination after completed treatment for conditions other than malignant neoplasm Plan: Ordered a CT of the abdomen and pelvis with oral contrast for abdominal pain, bloating and diarrhea. I have sent the prescription for readi-caT oral contrast to [facility] pharmacy. Advised her to follow up with testing and office visits with her news production supervisor. Asked her to schedule a visit with me after she gets her CT scan done to discuss the results. (2) MDD (major depressive disorder), recurrent episode: Comment: Was on sertraline however she stopped taking this about 2 weeks ago when she developed abdominal pain. No interest in starting any new medications given the current state of health. New referral placed for counseling as she continues to wait. Code(s): F33.9 - Major depressive disorder, recurrent, unspecified Qualifiers: Major depression episode severity: moderate Qualified Code(s): F33.1 - Major depressive disorder, recurrent, moderate (3) DANIEL (generalized anxiety disorder): Comment: Was on sertraline however she stopped taking this about 2 weeks ago when she developed abdominal pain. No interest in starting any new medications given the current state of health. New referral placed for counseling as she continues to wait. Code(s): F41.1 - Generalized anxiety disorder Orders: Orders CT abdomen pelvis w IV con Today R10.9 - Unspecified abdominal pain, R14.0 - Abdominal distension (gaseous), R19.7 - Diarrhea, unspecified Referrals Counseling Referral F33.1 - Major depressive disorder, recurrent, moderate, F41.1 - Generalized anxiety disorder Medications: New barium sulfate 2%(w/v) (Readi-Cat 2) TAKE DIRECTED. 450 mL PO DIRECTED 900 mL 0RF Patient Instructions: Schedule an appointment with me once her CT scan is done so that we can discuss the results. Message sent to front office staff to help arrange Coding Level of Care Code Tele Est Pt Level 3 (05192) Diagnoses Hospital discharge follow-up Z09 Moderate episode of recurrent major depressive disorder F33.1 Major depression episode severity: moderate DANIEL (generalized anxiety disorder) F41.1
== END 2024-02-17 12:52 | disposition home or self-care (01) ==
LOC: HO.HMGFM 12:36
PROVIDERS: PCP Nurse Practitioner Family; Visit Provider Nurse Practitioner Family
DX: F33.1 Major depressive disorder, recurrent, moderate (principal); F41.1 Generalized anxiety disorder; Z09 Encounter for follow-up examination after completed treatment for conditions other than malignant neoplasm
CPT/HCPCS: 99213

== ENCOUNTER 2024-02-23 15:50 | Outpatient (REF) | payer OTHER, SELFPAY ==
--- NOTE | ~2024-02-23 | US_ITS ---
EXAMINATION: US PELVIS CLINICAL INFORMATION: Pelvic and perineal pain. COMPARISON: Pelvic ultrasound 12/25/2022. TECHNIQUE: Ultrasound of the pelvis is performed using both transabdominal and transvaginal transducers along with Doppler. Transvaginal imaging is performed due to inadequate visualization transabdominally. FINDINGS: Uterus: The uterus is anteverted and measures 7.6 x 3.2 x 3.0 cm. No discrete solid uterine mass. Endometrial stripe measures 7 mm. There are subendometrial/myometrial cysts in the uterine fundus measuring up to 1.3 cm. This may represent adenomyosis or be secondary to reported endometrial ablation. Adnexa: The right ovary measures 2.8 x 1.0 x 1.5 cm, volume 2.2 mL. The left ovary measures 2.8 x 1.3 x 1.0 cm, volume 1.9 mL. Again seen are scattered echogenic foci within the ovaries which may represent vascular calcifications. Trace free fluid in the pelvis is likely physiologic. US/US pelvic and transvaginal IMPRESSION: Subendometrial/myometrial cysts in the uterine fundus may reflect underlying adenomyosis or be secondary to reported endometrial ablation. No acute findings to correlate with pelvic and perineal pain.
== END 2024-02-23 15:51 | disposition home or self-care (01) ==
LOC: HO.US 15:50
PROVIDERS: PCP Nurse Practitioner Family; Visit Provider Obstetrics & Gynecology
DX: R10.2 Pelvic and perineal pain (principal)
CPT/HCPCS: 76830; 76856

== ENCOUNTER 2024-03-01 10:00 | Outpatient (REF) | payer OTHER, SELFPAY ==
--- NOTE | ~2024-03-01 | XR_ITS ---
EXAMINATION: XR KNEE, RIGHT CLINICAL INFORMATION: Pain. COMPARISON: Radiographs dated 08/04/2010. TECHNIQUE: AP, lateral, tunnel, and sunrise views of the right knee. FINDINGS: No fracture or joint effusion. Alignment is anatomic. Joint spaces are maintained. No abnormal soft tissue calcification. XR/XR knee LT 4V IMPRESSION: Normal right knee. EXAMINATION: XR KNEE, LEFT CLINICAL INFORMATION: Pain. COMPARISON: Radiographs dated 08/04/2010. TECHNIQUE: AP, lateral, tunnel, and sunrise views of the left knee. FINDINGS: No fracture or joint effusion. Alignment is anatomic. Joint spaces are maintained. No abnormal soft tissue calcification. IMPRESSION: Normal left knee.
--- NOTE | ~2024-03-01 | XR_ITS ---
EXAMINATION: XR LUMBOSACRAL SPINE WITH OBLIQUES CLINICAL INFORMATION: Lumbar disc degeneration. COMPARISON: None available. TECHNIQUE: AP, both oblique, and lateral views of the lumbar spine. Lateral view of the lumbosacral junction. FINDINGS: The vertebral bodies and posterior elements are normal. The disc spaces are preserved and the vertebral alignment is normal. No acute fracture or spondylolisthesis is seen. There is no spondylolysis defect on the oblique views. There is mild arthropathy of the anterior margins of the L2 and L4 upper endplates. The paraspinal soft tissues are normal. XR/XR lumbar spine 4V min IMPRESSION: 1. No acute fracture or spondylolisthesis is seen. There is no spondylolysis defect. 2. The lumbar disc spaces are well-maintained. 3. There is mild arthropathy of the L2 and L4 upper endplates.
--- NOTE | ~2024-03-01 | XR_ITS ---
EXAMINATION: XR KNEE, RIGHT CLINICAL INFORMATION: Pain. COMPARISON: Radiographs dated 08/04/2010. TECHNIQUE: AP, lateral, tunnel, and sunrise views of the right knee. FINDINGS: No fracture or joint effusion. Alignment is anatomic. Joint spaces are maintained. No abnormal soft tissue calcification. XR/XR knee RT 4V IMPRESSION: Normal right knee. EXAMINATION: XR KNEE, LEFT CLINICAL INFORMATION: Pain. COMPARISON: Radiographs dated 08/04/2010. TECHNIQUE: AP, lateral, tunnel, and sunrise views of the left knee. FINDINGS: No fracture or joint effusion. Alignment is anatomic. Joint spaces are maintained. No abnormal soft tissue calcification. IMPRESSION: Normal left knee.
== END 2024-03-01 10:01 | disposition home or self-care (01) ==
LOC: HO.XRAY 10:00
PROVIDERS: Visit Provider Student in an Organized Health Care Education/Training Program
DX: M25.561 Pain in right knee (principal); M51.36 Other intervertebral disc degeneration, lumbar region; M25.562 Pain in left knee
CPT/HCPCS: 72110; 73564

== ENCOUNTER 2024-03-06 11:02 | Outpatient (AMB) | payer OTHER, SELFPAY ==
--- NOTE | 2024-03-06 11:06 | A.OFFVIS_ITS ---
Vital Signs 03/06/24 11:07 Height 5 ft 4 in Weight 210 lb 8.663 oz BMI 36.1 BP 108/66 Blood Pressure Location Rt brachial Position Sitting Pulse 94 Pulse Source Pulse Oximeter Pulse Oximetry (%) 97 Oxygen Delivery Method Room Air Intake Visit Reasons: FMS Intake Note: Patient last seen 07/06/23 presents today for follow up and test results. Reports lots of pain, having problems at work calling out due to pain. Mornings are really hard, pain progresses as day goes on. Cymbalta was replaced by sertraline, pt has not started it yet. 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: No Accompanied by: Self / Same As Patient Allergies morphine [MORPHINE] Allergy (Intermediate, Verified 03/06/24 11:11) ITCHY oxycodone [From Percocet] Allergy (Intermediate, Verified 03/06/24 11:11) rash,upset stomach ENVIRONMENTAL ALLERGIES Allergy (Mild, Uncoded 03/06/24 11:11) congestion Medication List - Last Reconciled 03/06/24 by Astrid Garrett MD acarbose 25 mg PO TID 30 days albuterol sulfate 90 mcg/actuation 2 puffs inhalation Q6H PRN 1 month albuterol sulfate 2.5 mg (3 mL) inhalation Q4-6H PRN barium sulfate 2%(w/v) (Readi-Cat 2) 450 mL PO DIRECTED blood-glucose meter (FreeStyle [place] Lite kit) As directed budesonide-formoterol 80-4.5 mcg/actuation 2 puffs inhalation BID 30 days cetirizine 10 mg PO DAILY 1 month fluticasone propionate 50 mcg/actuation 1 spray intranasal DAILY gabapentin 300 mg PO BEDTIME glucose 4 grams PO DIRECTED ketotifen fumarate 0.025%(0.035%) (Alaway) 1 drp ophthalmic (eye) BID PRN 1 month lidocaine 5% 1 patch topical DAILY 3 months montelukast (Singulair) 10 mg PO DAILY 90 days naproxen 500 mg PO Q12H PRN sertraline 50 mg PO DAILY 30 days sodium chloride 0.65% (Saline Mist) 2 sprays intranasal Q2H PRN valacyclovir 2,000 mg (2 x 1 gram) PO Q12H HPI Comments Details: 38yoF present for follow up of fibromyalgia. Patient stated that her brother from cancer last fall and she was taking care of him. She stated that she stopped all her medications for fibromyalgia such as gabapentin, duloxetine and cyclobenzaprine as she felt that she needed to have as much energy as possible. Since then she has been having more pain as well as more fatigue and depression. She restarted her gabapentin 300 mg nightly. She was recently started on sertraline by her PCP but she never started it. Today she is complaining of lower back and left hip pain. [facility] Medical History Asthma, moderate persistent, poorly-controlled Environmental allergies DM type 2, controlled, with complication Fibromyalgia Iron deficiency Vitamin D deficiency Migraine headache Microscopic hematuria De Quervain's tenosynovitis Anxiety and depression Surgical History History of cervical biopsy History of bilateral salpingectomy History of endometrial ablation History of dilatation and curettage History of laparoscopy Family History Father Diabetes HTN (hypertension) Mother Depression Chronic mental illness Diabetes Maternal Grandmother HTN (hypertension) Paternal Grandmother Alzheimer disease Other No family history of mental disorder Social History Household Members: Children Housing: House Are you a primary critical care unit nurse to a significant other at home: No Do you presently have visiting nurse or other home services: No 75 years or older and lives alone: No Alcohol intake: current Alcohol intake frequency: holidays/special occasions only Patient Tobacco Use Status: Never used Tobacco e-Cigarette/Vaping Use: Currently Using Second Hand Smoke Exposure: No service: No Current occupational status: employed 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, [employer]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 Current occupational exposures/hazards: No Sexual orientation: Unable to collect Gender identity: Female and Unable to collect Cognitive needs: Yes (Forgetful, foggy memory) Hearing needs: No Vision needs: Yes Female Reproductive History Menstrual Age of Menarche: 10 Review of Systems Const Reports fatigue and Reports lethargy Musc Reports back pain and Reports arthralgias Endo Reports fatigue Physical Exam Vital Signs: Last Vital Signs Pulse 94 03/06/24 11:07 BP 108/66 03/06/24 11:07 Pulse Ox 97 03/06/24 11:07 Oxygen Delivery Method Room Air 03/06/24 11:07 BMI result Body Mass Index 36.1 Const General: cooperative, healthy appearing and comfortable Orientation/consciousness: patient oriented x3 Limitations: no limitations HEENT Head: Yes normocephalic and Yes atraumatic Mouth: moist mucous membranes Resp Effort & Inspection: normal respiratory effort and able to speak in complete sentences Neuro General: patient oriented x3 Extrem Other: Left trochanteric bursa area tenderness with negative Vidal's test Negative Vidal's test bilaterally Negative straight leg raise test bilaterally Assessment & Plan Assessment & Plan (1) Fibromyalgia: Code(s): M79.7 - Fibromyalgia Category: Medical Plan: 38-year-old female with fibromyalgia returns for follow-up. Back in the fall, patient stopped her duloxetine, cyclobenzaprine and gabapentin due to to take care of her her brother who of cancer. She wants to have more energy. Since she has been having worsening depression, increased fatigue generalized pain and weakness. She recently restarted her gabapentin 300 mg nightly. Sertraline was prescribed by her PCP but patient never started it. Advised patient to restart her duloxetine. Gave one-month supply. If helpful, she can request further refills from her PCP. Follow-up in 6 months (2) Greater trochanteric bursitis of left hip: Code(s): M70.62 - Trochanteric bursitis, left hip Category: Medical Plan: I provided patient with a printout of home exercises Plan I spent 26 minutes reviewing patient's chart, evaluating patient, placing orders, counseling patient and documenting in the chart Medications: Changed From gabapentin 300 mg PO Q8H 90 caps 3RF To gabapentin 300 mg PO BEDTIME Leandro Garcia MD From duloxetine 60 mg PO QAM To duloxetine 60 mg PO DAILY 30 caps 0RF Astrid Garrett MD Discontinued sertraline Discontinued Reason: Doctor's Order 50 mg PO DAILY 30 days 30 tabs 0RF
[2024-03-06 11:07] VITALS: BP 108/66; PULSE 94; O2SAT 97; BMI 36.1
== END 2024-03-06 11:33 | disposition home or self-care (01) ==
LOC: HO.RHE 11:03
PROVIDERS: PCP Nurse Practitioner Family; Visit Provider Student in an Organized Health Care Education/Training Program
DX: M79.7 Fibromyalgia (principal); M70.62 Trochanteric bursitis, left hip
CPT/HCPCS: 99214

== ENCOUNTER → 2024-03-06 11:03 | Outpatient (BNVA) | payer OTHER, SELFPAY | PROVIDERS: PCP Nurse Practitioner Family; Visit Provider Student in an Organized Health Care Education/Training Program | DX: M79.7 Fibromyalgia (principal); M70.62 Trochanteric bursitis, left hip | CPT/HCPCS: 99212 ==

== ENCOUNTER 2024-03-27 10:21 | Outpatient (AMB) | payer OTHER, SELFPAY ==
--- NOTE | 2024-03-27 10:29 | MHC.OFFVIS ---
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 No complaints. Last Pap/HPV was negative in 01/05 [facility] Medical History Asthma, moderate persistent, poorly-controlled Environmental allergies DM type 2, controlled, with complication Fibromyalgia Iron deficiency Vitamin D deficiency Migraine headache Microscopic hematuria De Quervain's tenosynovitis Anxiety and depression Surgical History History of cervical biopsy History of bilateral salpingectomy History of endometrial ablation History of dilatation and curettage History of laparoscopy Family History Father Diabetes HTN (hypertension) Mother Depression Chronic mental illness Diabetes Maternal Grandmother HTN (hypertension) Paternal Grandmother Alzheimer disease Other No family history of mental disorder Social History Household Members: Children Housing: House Are you a primary hearing care professional to a significant other at home: No Do you presently have visiting nurse or other home services: No 75 years or older and lives alone: No Alcohol intake: current Alcohol intake frequency: holidays/special occasions only Patient Tobacco Use Status: Never used Tobacco e-Cigarette/Vaping Use: Currently Using Second Hand Smoke Exposure: No service: No Current occupational status: employed 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, 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 Current occupational exposures/hazards: No Sexual orientation: Unable to collect Gender identity: Female and Unable to collect Cognitive needs: Yes (Forgetful, foggy memory) Hearing needs: No Vision needs: Yes Female Reproductive History Menstrual Age of Menarche: 10 Date of last menstrual period: 03/13/24 Date of last pap smear: 01/04/21 Review of Systems Const All systems reviewed & are unremarkable except as noted in HPI and below Card Reports as per HPI Resp Reports as per HPI GI Reports as per HPI and Reports no additional complaints Reports as per HPI Physical Exam Vital Signs: Last Vital Signs BP 110/68 03/27/24 10:30 BMI result Body Mass Index 35.4 Const General: cooperative, healthy appearing and comfortable Chest Chest palpation & inspection: normal inspection of the chest and normal palpation of entire chest wall Breast/axilla inspection: normal inspection of the breasts and normal inspection of the axillae Breast/axilla palpation: normal palpation of the breasts, normal palpation of the axillae and no axillary lymphadenopathy Resp Effort & Inspection: normal respiratory effort Auscultation: clear to auscultation bilaterally Percussion: percussion normal Cardio Palpation: normal PMI Rate: regular rate Rhythm: regular rhythm Heart sounds: no murmurs and no rubs Peripheral pulses: Peripheral pulses 2+ throughout GI Inspection: Yes normal to inspection Palpation (GI): Soft to palpation, nontender, no guarding, not rigid and No hepatosplenomegaly present Percussion: Yes normal to percussion Auscultation: normal bowel sounds Rectal Exam - Female: deferred General: Yes bladder normal to palpation External Female Exam: No lesion Speculum Exam - Vagina: normal appearance of the vagina, normal palpation, normal vaginal discharge and not erythematous Speculum Exam - Cervix: normal appearance of the cervix and normal palpation Bimanual exam- vagina & uterus: normal bimanual exam, normal palpation, uterine size normal, bladder normal to palpation, consistency normal and normal palpation Bimanual Exam- Adnexa, other: normal adnexae, no masses and no tenderness Assessment & Plan Assessment & Plan (1) Well woman exam: Code(s): Z01.419 - Encounter for gynecological examination (general) (routine) without abnormal findings Category: Medical Plan: Cotesting not indicated this year. Counseled the patient about the recommended dietary allowance of 1000 mg of Calcium & 600 IU of vitamin D. The patient was instructed to perform monthly self-breast exams and to schedule an annual exam in a year; All questions answered and the patient verbalized understanding. Instructed the patient to schedule annual exam in a year Coding Level of Care Code Est Pt Prev Care 18-39y(72688) Diagnoses Well woman exam Z01.419
[2024-03-27 10:30] VITALS: BP 110/68; BMI 35.4
== END 2024-03-27 10:49 | disposition home or self-care (01) ==
PROVIDERS: Visit Provider Obstetrics & Gynecology
DX: Z01.419 Encounter for gynecological examination (general) (routine) without abnormal findings (principal)
CPT/HCPCS: 99395

== ENCOUNTER → 2024-03-27 10:21 | Outpatient (BNVA) | payer OTHER, SELFPAY | PROVIDERS: Visit Provider Obstetrics & Gynecology | DX: Z01.419 Encounter for gynecological examination (general) (routine) without abnormal findings (principal); E55.9 Vitamin D deficiency, unspecified | CPT/HCPCS: 99395 ==

== ENCOUNTER 2024-04-11 11:37 | Outpatient (AMB) | payer OTHER, SELFPAY ==
[2024-04-11 11:49] VITALS: BMI 35.2
--- NOTE | 2024-04-11 11:49 | A.OFFVIS_ITS ---
Vital Signs 04/11/24 11:49 Height 5 ft 4 in Weight 205 lb 0.478 oz BMI 35.2 Intake Visit Reasons: Pelvic pain Allergies morphine [MORPHINE] Allergy (Intermediate, Verified 03/06/24 11:11) ITCHY oxycodone [From Percocet] Allergy (Intermediate, Verified 03/06/24 11:11) rash,upset stomach ENVIRONMENTAL ALLERGIES Allergy (Mild, Uncoded 03/06/24 11:11) congestion HPI Comments Details: The patient is presenting with bilateral lower pelvic pain started few months ago. It's cyclic in nature lasting few seconds and occurs during her menstrual cycle. it is not associated with any constipation, no dysuria, no frequency incontinence, no n/v, no feverishness. Pelvic pain done on 02/23/2024 showed the following: Uterus: The uterus is anteverted and measures 7.6 x 3.2 x 3.0 cm. No discrete solid uterine mass. Endometrial stripe measures 7 mm. There are subendometrial/myometrial cysts in the uterine fundus measuring up to 1.3 cm. This may represent adenomyosis or be secondary to reported endometrial ablation. Adnexa: The right ovary measures 2.8 x 1.0 x 1.5 cm, volume 2.2 mL. The left ovary measures 2.8 x 1.3 x 1.0 cm, volume 1.9 mL. Again seen are scattered echogenic foci within the ovaries which may represent vascular calcifications. Trace free fluid in the pelvis is likely physiologic. [facility] Medical History Asthma, moderate persistent, poorly-controlled Environmental allergies DM type 2, controlled, with complication Fibromyalgia Iron deficiency Vitamin D deficiency Migraine headache Microscopic hematuria De Quervain's tenosynovitis Anxiety and depression Surgical History History of cervical biopsy History of bilateral salpingectomy History of endometrial ablation History of dilatation and curettage History of laparoscopy Family History Father Diabetes HTN (hypertension) Mother Depression Chronic mental illness Diabetes Maternal Grandmother HTN (hypertension) Paternal Grandmother Alzheimer disease Other No family history of mental disorder Social History Household Members: Children Housing: House Are you a primary healthcare project manager to a significant other at home: No Do you presently have visiting nurse or other home services: No 75 years or older and lives alone: No Alcohol intake: current Alcohol intake frequency: holidays/special occasions only Patient Tobacco Use Status: Never used Tobacco e-Cigarette/Vaping Use: Currently Using Second Hand Smoke Exposure: No service: No Current occupational status: employed 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, [employer] 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 occupational exposures/hazards: No Sexual orientation: Unable to collect Gender identity: Female and Unable to collect Cognitive needs: Yes (Forgetful, foggy memory) Hearing needs: No Vision needs: Yes Female Reproductive History Menstrual Age of Menarche: 10 Review of Systems Const All systems reviewed & are unremarkable except as noted in HPI and below Physical Exam Vital Signs: BMI result Body Mass Index 35.2 General: Yes no CVA tenderness External Female Exam: normal external appearance and normal appearance of the urethra Speculum Exam - Vagina: normal appearance of the vagina, normal palpation, no lesions and no masses Speculum Exam - Cervix: normal appearance of the cervix, normal palpation, no lesions, no masses and nontender Bimanual exam- vagina & uterus: normal bimanual exam, normal palpation, uterine size normal, normal palpation, uterine shape normal, No Cervical tenderness present and non-tender Bimanual Exam- Adnexa, other: normal adnexae Back/Spine/Pelvis Back: no CVA tenderness Assessment & Plan Assessment & Plan (1) Female pelvic pain: Comment: Status post ablation Code(s): R10.2 - Pelvic and perineal pain Category: Medical Plan: Urine dip done in the office showed microscopic hematuria and urine test was negative. GC and chlamydia taken . Discussed with the patient the differential diagnosis of pelvic pain including but not limited to adnexal, uterine masses, pelvic infections (PID), GI the (Irritable bowel syndrome, diverticulitis, others), musculoskeletal, myofascial pain abdominal wall , adhesions, endometriosis, post ablation syndrome, psychological and others causes. Will check results and treat accordingly. All questions answered, the patient verbalized understanding. Instructed the patient to schedule follow-up appointment in 2 weeks (2) Microscopic hematuria: Code(s): R31.29 - Other microscopic hematuria Category: Medical Plan: Urine dip showed microscopic hematuria, urine culture sent. Will repeat urine dip in 2 weeks. Discussed with the patient the possible causes of microscopic hematuria including but not limited to: interstitial cystitis, polyps, stones, masses, urethral inflammatory processes and others. If Urine Culture is negative and repeat urine dip in 2 weeks shows persistent microscopic hematuria, will proceed with CT abdomen/pelvis and urology referral. Instructions given the patient to schedule a 2 week urine dip follow-up appointment. All questions answered and the patient verbalized understanding. Orders: Orders Urine Culture Today R31.29 - Other microscopic hematuria Coding Level of Care Code Est Pt Level 3 (34220) Diagnoses Female pelvic pain R10.2 Microscopic hematuria R31.29
== END 2024-04-11 12:39 | disposition home or self-care (01) ==
PROVIDERS: PCP Nurse Practitioner Family; Visit Provider Obstetrics & Gynecology
DX: R10.2 Pelvic and perineal pain (principal); R31.29 Other microscopic hematuria; Z32.02 Encounter for pregnancy test, result negative
CPT/HCPCS: 99213

== ENCOUNTER 2024-04-11 11:37 | Outpatient (REF) | payer OTHER, SELFPAY ==
[2024-04-12 04:44] LABS: CT PCR NOT DETECTED (Not Detect.); NG PCR NOT DETECTED (Not Detect.)
== END 2024-04-11 11:38 | disposition home or self-care (01) ==
LOC: HO.LNP 11:37
PROVIDERS: PCP Nurse Practitioner Family; Visit Provider Obstetrics & Gynecology
DX: R10.2 Pelvic and perineal pain (principal); R31.29 Other microscopic hematuria
CPT/HCPCS: 0353U; 81002; 81025; 87086; 99212

== ENCOUNTER 2024-04-19 11:24 | Outpatient (AMB) | payer OTHER, SELFPAY ==
[2024-04-19 11:37] VITALS: BP 114/70; PULSE 83; RESP 14; TEMP 36.4; O2SAT 99; BMI 36.2
--- NOTE | 2024-04-19 11:37 | AM.OFFWIN_ITS ---
Intake Vital Signs 04/19/24 11:37 Height 5 ft 4 in Weight 211 lb BMI 36.2 BP 114/70 Blood Pressure Location Rt brachial Position Sitting Respiration 14 Pulse 83 Pulse Source Pulse Oximeter Temp 97.6 F Temp Source Temporal Artery Scan Pulse Oximetry (%) 99 Oxygen Delivery Method Room Air Intake Visit Reasons: Pain everywhere Patient Tobacco Use Status: Never used Tobacco Exterminator Required: No Accompanied by: Self / Same As Patient Allergies morphine [MORPHINE] Allergy (Intermediate, Verified 04/19/24 11:46) ITCHY oxycodone [From Percocet] Allergy (Intermediate, Verified 04/19/24 11:46) rash,upset stomach ENVIRONMENTAL ALLERGIES Allergy (Mild, Uncoded 03/06/24 11:11) congestion Medication List - Last Reconciled 04/19/24 by Rashmi Dobbs, INORGANIC CHEMICAL TECHNICIAN- acarbose 25 mg PO TID 30 days albuterol sulfate 90 mcg/actuation 2 puffs inhalation Q6H PRN 1 month albuterol sulfate 2.5 mg (3 mL) inhalation Q4-6H PRN barium sulfate 2%(w/v) (Readi-Cat 2) 450 mL PO DIRECTED blood-glucose meter (FreeStyle [place] Lite kit) As directed budesonide-formoterol 80-4.5 mcg/actuation 2 puffs inhalation BID 30 days cetirizine 10 mg PO DAILY 1 month duloxetine 60 mg PO DAILY fluticasone propionate 50 mcg/actuation 1 spray intranasal DAILY gabapentin 300 mg PO BEDTIME glucose 4 grams PO DIRECTED ketotifen fumarate 0.025%(0.035%) (Alaway) 1 drp ophthalmic (eye) BID PRN 1 month lidocaine 5% 1 patch topical DAILY montelukast (Singulair) 10 mg PO DAILY 90 days naproxen 500 mg PO Q12H PRN sodium chloride 0.65% (Saline Mist) 2 sprays intranasal Q2H PRN valacyclovir 2,000 mg (2 x 1 gram) PO Q12H Do you need a note to return to daycare/school/sports/work: Yes Return to daycare/school/sports/work/other note: work HPI HPI Comments History of Present Illness Details Here today with chronic generalized pain not following through with her meds or counseling going to ED for chronic pain Missing work - at risk for being fired from job Chart reviewed Has seen several specialists most recently [facility] Medical History Asthma, moderate persistent, poorly-controlled Environmental allergies DM type 2, controlled, with complication Fibromyalgia Iron deficiency Vitamin D deficiency Migraine headache Microscopic hematuria De Quervain's tenosynovitis Anxiety and depression Surgical History History of cervical biopsy History of bilateral salpingectomy History of endometrial ablation History of dilatation and curettage History of laparoscopy Family History Father Diabetes HTN (hypertension) Mother Depression Chronic mental illness Diabetes Maternal Grandmother HTN (hypertension) Paternal Grandmother Alzheimer disease Other No family history of mental disorder Social History Household Members: Children Housing: House Are you a primary nurse healthcare manager to a significant other at home: No Do you presently have visiting nurse or other home services: No 75 years or older and lives alone: No Alcohol intake: current Alcohol intake frequency: holidays/special occasions only Patient Tobacco Use Status: Never used Tobacco e-Cigarette/Vaping Use: Currently Using Second Hand Smoke Exposure: No service: No Current occupational status: employed 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, [employer]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 Current occupational exposures/hazards: No Sexual orientation: Unable to collect Gender identity: Female and Unable to collect Cognitive needs: Yes (Forgetful, foggy memory) Hearing needs: No Vision needs: Yes Female Reproductive History Menstrual Age of Menarche: 10 Review of Systems Const All systems reviewed & are unremarkable except as noted in HPI and below Physical Exam Vital Signs: Last Vital Signs Temp 97.6 F 04/19/24 11:37 Pulse 83 04/19/24 11:37 Resp 14 04/19/24 11:37 BP 114/70 04/19/24 11:37 Pulse Ox 99 04/19/24 11:37 Oxygen Delivery Method Room Air 04/19/24 11:37 BMI result Body Mass Index 36.2 Const Other: awake alert tearful Speaking in full sentences PARKER x 4 Assessment & Plan Assessment & Plan (1) Generalized arthritis: Code(s): M19.90 - Unspecified osteoarthritis, unspecified site (2) Fibromyalgia: Code(s): M79.7 - Fibromyalgia (3) Degenerative lumbar disc: Code(s): M51.36 - Other intervertebral disc degeneration, lumbar region (4) Bilateral knee pain: Code(s): M25.561 - Pain in right knee; M25.562 - Pain in left knee Qualifiers: Chronicity: chronic Qualified Code(s): M25.561 - Pain in right knee; M25.562 - Pain in left knee; G89.29 - Other chronic pain Plan This note is constructed using voice recognition software. While every effort has been made to ensure accuracy in insurance agents supervisor, still errors may have been included Sometimes, these errors may affect the content or meaning of the given sentence . Total time spent caring for the patient today was 40 minutes. This includes time spent before the visit reviewing the chart, time spent during the visit, and time spent after the visit on documentation Orders: Referrals Pain Management Referral M19.90 - Unspecified osteoarthritis, unspecified site, M25.561 - Pain in right knee, M25.562 - Pain in left knee, M51.36 - Other intervertebral disc degeneration, lumbar region, M79.7 - Fibromyalgia Patient Instructions: please call your therapist and f/u take meds as directed work hard on getting back on top of your health care refer to [facility] [place] pain mgmt to help eval and tx your chronic and ongoing pain Make fu appt to complete FMLA paperwork - this should be done with PCP Coding Level of Care Code Est Pt Level 5 (78778) Diagnoses Generalized arthritis M19.90 Fibromyalgia M79.7 Degenerative lumbar disc M51.36 Chronic pain of both knees M25.561; M25.562; G89.29 Chronicity: chronic
== END 2024-04-19 11:58 | disposition home or self-care (01) ==
PROVIDERS: PCP Nurse Practitioner Family; Visit Provider Nurse Practitioner Family
DX: M25.561 Pain in right knee (principal); M25.562 Pain in left knee; M19.90 Unspecified osteoarthritis, unspecified site; M79.7 Fibromyalgia; M51.36 Other intervertebral disc degeneration, lumbar region; G89.29 Other chronic pain
CPT/HCPCS: 99215

== ENCOUNTER 2024-04-28 12:59 | Outpatient (AMB) | payer OTHER, SELFPAY ==
--- NOTE | 2024-04-28 13:06 | A.OFFPC_ITS ---
Vital Signs 04/28/24 13:13 Height 5 ft 4 in Weight 211 lb 6 oz BMI 36.3 BP 116/78 Blood Pressure Location Lt brachial Position Sitting Pulse 82 Pulse Source Pulse Oximeter Pulse Oximetry (%) 99 Oxygen Delivery Method Room Air Intake Visit Reasons: 30 min w/ me in 1-2 weeks FMLA ppw completion Intake Note: Emergency room follow up, FMLA paperwork, requesting muscle relaxer. 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 Will send referral to [facility] Has intial consult at [facility] on Wednesday. ObGyn appt on Wednesday This leave will need to be re-cert before 06/19/24 She is aware she will need to bring ppw w/ her to next office visit ppw was completed during visit and returned to patient [facility] Medical History Asthma, moderate persistent, poorly-controlled Environmental allergies DM type 2, controlled, with complication Fibromyalgia Iron deficiency Vitamin D deficiency Migraine headache Microscopic hematuria De Quervain's tenosynovitis Anxiety and depression Surgical History History of cervical biopsy History of bilateral salpingectomy History of endometrial ablation History of dilatation and curettage History of laparoscopy Family History Father Diabetes HTN (hypertension) Mother Depression Chronic mental illness Diabetes Maternal Grandmother HTN (hypertension) Paternal Grandmother Alzheimer disease Other No family history of mental disorder Social History Household Members: Children Housing: House Are you a primary floor care technician to a significant other at home: No Do you presently have visiting nurse or other home services: No 75 years or older and lives alone: No Alcohol intake: current Alcohol intake frequency: holidays/special occasions only Patient Tobacco Use Status: Never used Tobacco e-Cigarette/Vaping Use: Currently Using Second Hand Smoke Exposure: No service: No Current occupational status: employed 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 Sunil Hernandez, Shasha Decker, Gaudencio Villarreal and colleagues, with an educational troy from [employer]. Physical exam (Primary Care) Vital Signs: Last Vital Signs Pulse 82 04/28/24 13:13 BP 116/78 04/28/24 13:13 Pulse Ox 99 04/28/24 13:13 Oxygen Delivery Method Room Air 04/28/24 13:13 BMI result Body Mass Index 36.3 Tobacco/Smoking Status: Tobacco use Status Tobacco use date assessed 12/10/23 04/28/24 13:10 Patient Tobacco Use Status Never used Tobacco 04/28/24 13:10 e-Cigarette/Vaping Use Currently Using 04/28/24 13:10 Thrive Assessment: Date of Thrive Assessment Date Thrive assessed 12/06/23 04/28/24 13:10 Assessment and Plan Assessment & Plan (1) Encounter for screening involving social determinants of health (SDoH): Code(s): Z13.9 - Encounter for screening, unspecified (2) MDD (major depressive disorder), recurrent episode: Comment: Code(s): F33.9 - Major depressive disorder, recurrent, unspecified Qualifiers: Major depression episode severity: moderate Qualified Code(s): F33.1 - Major depressive disorder, recurrent, moderate (3) DANIEL (generalized anxiety disorder): Comment: Code(s): F41.1 - Generalized anxiety disorder (4) Fibromyalgia: Code(s): M79.7 - Fibromyalgia Plan This note is constructed using voice recognition software. While every effort has been made to ensure accuracy in nursing education consultant, still errors may have been included Sometimes, these errors may affect the content or meaning of the given sentence . Total time spent caring for the patient today was 20 minutes. This includes time spent before the visit reviewing the chart, time spent during the visit, and time spent after the visit on documentation Orders: Referrals Nurse Navigator Referral Z13.9 - Encounter for screening, unspecified Patient Instructions: RTO end of May 30 min for re-cert of leave sooner as needed Coding Level of Care Code Est Pt Level 3 (48228) Diagnoses Encounter for screening involving social determinants of health (SDoH) Z13.9 Moderate episode of recurrent major depressive disorder F33.1 Major depression episode severity: moderate DANIEL (generalized anxiety disorder) F41.1 Fibromyalgia M79.7
[2024-04-28 13:13] VITALS: BP 116/78; PULSE 82; O2SAT 99; BMI 36.3
== END 2024-04-28 13:38 | disposition home or self-care (01) ==
PROVIDERS: PCP Nurse Practitioner Family; Visit Provider Nurse Practitioner Family
DX: M79.7 Fibromyalgia (principal); F33.1 Major depressive disorder, recurrent, moderate; F41.1 Generalized anxiety disorder
CPT/HCPCS: 99213

== ENCOUNTER 2024-05-01 12:47 | Outpatient (AMB) | payer OTHER, SELFPAY ==
--- NOTE | 2024-05-01 13:02 | MHC.OFFVIS ---
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 Urine culture grew lactobacillus species in 10-50 K. No urinary symptoms. The patient had microscopic hematuria a year ago was referred to Urology, the plan was renal ultrasound and schedule cystoscopy but the patient did not follow-up since then PENDING SALE TO [facility] Medical History Asthma, moderate persistent, poorly-controlled Environmental allergies DM type 2, controlled, with complication Fibromyalgia Iron deficiency Vitamin D deficiency Migraine headache Microscopic hematuria De Quervain's tenosynovitis Anxiety and depression Surgical History History of cervical biopsy History of bilateral salpingectomy History of endometrial ablation History of dilatation and curettage History of laparoscopy Family History Father Diabetes HTN (hypertension) Mother Depression Chronic mental illness Diabetes Maternal Grandmother HTN (hypertension) Paternal Grandmother Alzheimer disease Other No family history of mental disorder Social History Household Members: Children Housing: House Are you a primary ambulatory care nurse to a significant other at home: No Do you presently have visiting nurse or other home services: No 75 years or older and lives alone: No Alcohol intake: current Alcohol intake frequency: holidays/special occasions only Patient Tobacco Use Status: Never used Tobacco e-Cigarette/Vaping Use: Currently Using Second Hand Smoke Exposure: No service: No Current occupational status: employed 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, 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 Current occupational exposures/hazards: No Sexual orientation: Unable to collect Gender identity: Female and Unable to collect Cognitive needs: Yes (Forgetful, foggy memory) Hearing needs: No Vision needs: Yes Female Reproductive History Menstrual Age of Menarche: 10 Review of Systems Const All systems reviewed & are unremarkable except as noted in HPI and below Reports as per HPI and Reports no additional complaints GI Reports no additional complaints Reports no additional complaints Results AMB Urinalysis Dipstick UR Leukocytes Negative Last Edit by Aletha Weiner CMA on 05/01/24 13:13 UR Nitrite Negative Last Edit by Aletha Weiner, GOVERNMENT OPERATIONS CONSULTANT on 05/01/24 13:13 UR Urobilinogen Normal Last Edit by Aletha Weiner, GOVERNMENT OPERATIONS CONSULTANT on 05/01/24 13:13 UR Protein Negative Last Edit by Aletha Weiner, GOVERNMENT OPERATIONS CONSULTANT on 05/01/24 13:13 UR Ph 5.5 Last Edit by Aletha Weiner, GOVERNMENT OPERATIONS CONSULTANT on 05/01/24 13:13 UR Blood Large Last Edit by Aletha Weiner, GOVERNMENT OPERATIONS CONSULTANT on 05/01/24 13:13 UR Specific [place] 1.020 Last Edit by Aletha Weiner, GOVERNMENT OPERATIONS CONSULTANT on 05/01/24 13:13 UR Ketone Negative Last Edit by Aletha Weiner CMA on 05/01/24 13:13 UR Bilirubin Negative Last Edit by Aletha Weiner, GOVERNMENT OPERATIONS CONSULTANT on 05/01/24 13:13 UR Glucose Last Edit by Aletha Weiner GOVERNMENT OPERATIONS CONSULTANT on 05/01/24 13:13 Assessment & Plan Assessment & Plan (1) Microscopic hematuria: Code(s): R31.29 - Other microscopic hematuria Category: Medical Plan: Discussed with the patient the possible causes of microscopic hematuria including but not limited to: interstitial cystitis, polyps, stones, masses, urethral inflammatory processes and others. If Urine Culture is negative and repeat urine dip in 2 weeks shows persistent microscopic hematuria, will proceed with urology referral. All questions answered and the patient verbalized understanding. Orders: Orders AMB Urinalysis Dipstick Today R31.29 - Other microscopic hematuria Referrals Urology Referral R31.29 - Other microscopic hematuria Coding Level of Care Code Est Pt Level 3 (71417) Diagnoses Microscopic hematuria R31.29
[2024-05-01 13:10] VITALS: BMI 35.9
== END 2024-05-01 13:17 | disposition home or self-care (01) ==
PROVIDERS: PCP Nurse Practitioner Family; Visit Provider Obstetrics & Gynecology
DX: R31.29 Other microscopic hematuria (principal)
CPT/HCPCS: 99213

== ENCOUNTER → 2024-05-01 12:47 | Outpatient (BNVA) | payer OTHER, SELFPAY | PROVIDERS: PCP Nurse Practitioner Family; Visit Provider Obstetrics & Gynecology | DX: R31.29 Other microscopic hematuria (principal) | CPT/HCPCS: 81002; 99212 ==

== ENCOUNTER 2024-05-05 09:48 | Outpatient (AMB) | payer OTHER, SELFPAY ==
--- NOTE | 2024-05-05 09:51 | MHC.OFFVIS ---
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 She is followed by Rheumatology for polyarthralgia and fibromyalgia. Today we focused our visit on low back and left hip pain. Patient denies any past or recent trauma, injury or falls. 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 Back pain is axial and also radiates into her sacral areas and left lateral hip. She has multiple localized tenderness throughout her upper and lower extremities and torso consistent with fibromyalgia. Pain affects her daily activities, functioning, mobility, mood, sleep, social interactions and quality of life. Pain is rated 8-10/10 on average for the past month, with most severe pain at 10/10 and least severe at 4/10. Pain is constant and worse during mornings, evenings and middle of the night. To this point, patient has not tried any dedicated conservative treatment in the forms of physical therapy, chiropractic, acupuncture, weight loss, or injections. Denies any fever, chills, weight loss, abdominal or groin pain, weakness, foot drop, bladder or bowel dysfunction or saddle anesthesia. Oswestry Low Back Disabiltiy Score=31 (severe disability) Location: Low back, left hip, knees, hands, widespread body pain Duration: Chronic pain, worsening for past 2 years Characteristics of symptom or complaint: Burning, tingling, shooting, squeezing, tiring, sharp, stabbing, aching, Aggravating or associated factors: Movement, stress, long drives, work,house chores, sitting, standing, walk Relieving factors: Resting, hot bath, gabapentin, Tylenol, NSAIDs Treatment: None PFSH Medical History Asthma, moderate persistent, poorly-controlled Environmental allergies DM type 2, controlled, with complication Fibromyalgia Iron deficiency Vitamin D deficiency Migraine headache Microscopic hematuria De Quervain's tenosynovitis Anxiety and depression Surgical History History of cervical biopsy History of bilateral salpingectomy History of endometrial ablation History of dilatation and curettage History of laparoscopy Family History Father Diabetes HTN (hypertension) Mother Depression Chronic mental illness Diabetes Maternal Grandmother HTN (hypertension) Paternal Grandmother Alzheimer disease Other No family history of mental disorder Social History Household Members: Children Housing: House Are you a primary summer child caregiver to a significant other at home: No Do you presently have visiting nurse or other home services: No 75 years or older and lives alone: No Alcohol intake: current Alcohol intake frequency: holidays/special occasions only Patient Tobacco Use Status: Never used Tobacco e-Cigarette/Vaping Use: Currently Using Second Hand Smoke Exposure: No service: No Current occupational status: employed 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, 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 Current occupational exposures/hazards: No Sexual orientation: Unable to collect Gender identity: Female and Unable to collect Cognitive needs: Yes (Forgetful, foggy memory) Hearing needs: No Vision needs: Yes Female Reproductive History Menstrual Age of Menarche: 10 Review of Systems Const All systems reviewed & are unremarkable except as noted in HPI and below Physical Exam Vital Signs: Last Vital Signs Pulse 83 05/05/24 09:56 BP 122/66 05/05/24 09:56 Pulse Ox 99 05/05/24 09:56 Oxygen Delivery Method Room Air 05/05/24 09:56 BMI result Body Mass Index 36.0 General: Appears afebrile. Alert and oriented. Mood and affect appropriate. Follows and participates in conversation appropriately. Respiratory effort is unlabored. No cough. Able to transition from sit to stand unassisted. Ambulates with bilaterally normal heel strike and toe off. General: Yes no CVA tenderness Back/Spine/Pelvis Other: Patient is able to walk and stand on heels and tip toes with no difficulties demonstrating good motor tone. Normal gait. No limping. Can flex forward to 70-75 degrees and extend to 5-10 degrees before experiencing lumbar pain. Demonstrates 5/5 strength of quadriceps bilaterally as well as flexion/dorsiflexion of bilateral feet against resistance. 2+ pedal pulses bilaterally. Seated straight leg rise with dorsiflexion negative bilaterally. +2 patellar and achilles reflexes bilaterally. Facet loading test positive bilaterally. Dylan sign positive bilaterally. Yeison?s, Pelvic compression and Stinchfield tests reproduce lateral hip but not back pain bilaterally. No groin pain with I/E hip rotations. Moderate left GTB. Significant paraspinals tenderness mid and lower back. Valsalva maneuver negative. Back: no CVA tenderness Cervical Spine: cervical ROM normal, cervical muscular tenderness, No Cervical spine scars present, No Cervical spine tenderness and No step off deformity Thoracic/Lumbar Spine: thoracic and lumbar spine normal to inspection, No Thoracic/lumbar spine scar(s), Lasegue's sign negative, straight leg raise negative bilaterally, pain with thoraco-lumbar ROM, paraspinal muscle tenderness, thoraco-lumbar ROM limited, No thoracic spinal tenderness and lumbar spinal tenderness at L2, at L3, at L4 and at L5 Pelvis: buttock tenderness bilaterally Sacroiliac joints: bilaterally tender to palpation Skin General skin exam: no rashes or lesions noted and other (BLE varicose veins with lymphedema in medial aspects right lower legs) Extrem General: Yes capillary refill normal, Yes no clubbing, cyanosis or edema and Yes no calf tenderness Right lower extremity: knee Details: normal to inspection, tenderness Location: of the medial joint line and normal ROM; no swelling, no ecchymosis, no crepitus and no unusual warmth Left lower extremity: knee Details: normal to inspection, tenderness Location: of the medial joint line and normal ROM; no swelling, no ecchymosis, no crepitus and no unusual warmth Results Reviewed Results Reviewed: XR LUMBOSACRAL SPINE WITH OBLIQUES 03/01/24 CLINICAL INFORMATION: Lumbar disc degeneration. FINDINGS: The vertebral bodies and posterior elements are normal. The disc spaces are preserved and the vertebral alignment is normal. No acute fracture or spondylolisthesis is seen. There is no spondylolysis defect on the oblique views. There is mild arthropathy of the anterior margins of the L2 and L4 upper endplates. The paraspinal soft tissues are normal. IMPRESSION: 1. No acute fracture or spondylolisthesis is seen. There is no spondylolysis defect. 2. The lumbar disc spaces are well-maintained. 3. There is mild arthropathy of the L2 and L4 upper endplates. US PELVIS 02/23/24 CLINICAL INFORMATION: Pelvic and perineal pain. COMPARISON: Pelvic ultrasound 12/25/2022. IMPRESSION: Subendometrial/myometrial cysts in the uterine fundus may reflect underlying adenomyosis or be secondary to reported endometrial ablation. No acute findings to correlate with pelvic and perineal pain. XR KNEE, RIGHT 03/01/24 CLINICAL INFORMATION: Pain. COMPARISON: Radiographs dated 08/04/2010. FINDINGS: No fracture or joint effusion. Alignment is anatomic. Joint spaces are maintained. No abnormal soft tissue calcification. IMPRESSION: Normal right knee. XR KNEE, LEFT 03/01/24 CLINICAL INFORMATION: Pain. COMPARISON: Radiographs dated 08/04/2010. FINDINGS: No fracture or joint effusion. Alignment is anatomic. Joint spaces are maintained. No abnormal soft tissue calcification. IMPRESSION: Normal left knee. Assessment & Plan Assessment & Plan (1) Left hip pain: Code(s): M25.552 - Pain in left hip Category: Medical (2) Low back pain: Code(s): M54.50 - Low back pain, unspecified Category: Medical (3) Degenerative lumbar disc: Code(s): M51.36 - Other intervertebral disc degeneration, lumbar region Category: Medical (4) Greater trochanteric bursitis of left hip: Code(s): M70.62 - Trochanteric bursitis, left hip Category: Medical (5) Fibromyalgia: Code(s): M79.7 - Fibromyalgia Category: Medical (6) Degenerative lumbar disc: Code(s): M51.36 - Other intervertebral disc degeneration, lumbar region Category: Medical (7) Greater trochanteric bursitis of left hip: Code(s): M70.62 - Trochanteric bursitis, left hip Category: Medical (8) Bilateral knee pain: Code(s): M25.561 - Pain in right knee; M25.562 - Pain in left knee Category: Medical Qualifiers: Chronicity: chronic Qualified Code(s): M25.561 - Pain in right knee; M25.562 - Pain in left knee; G89.29 - Other chronic pain (9) Varicose veins of both lower extremities: Code(s): I83.93 - Asymptomatic varicose veins of bilateral lower extremities Category: Medical Plan Recommend formal physical therapy for low back and left hip pain. Script provided today.? Script provided for diclofenac potassium for knee, back and left hip/GTB pain. Stop naproxen and other NSAIDs. Side effects and precautions were discussed with patient. For fibromyalgia management recommend to continue daily physical activity as tolerated, gentle stretching exercises, walking, aerobic exercise, sleep hygiene, adequate hydration, well balance diet, weight optimization, consider Cognitive Behavioral Therapy for sleep and coping with fibromyalgia with psychotherapist. Sheron Frankel., Alejandro Vidales, Giulia Su, Esperanza Hammond, Dallas Kwok, & ?Sheron Ku (2017). Effectiveness of Therapeutic Exercise in Fibromyalgia Syndrome: A Systematic Review and Pella-Analysis of Randomized Clinical Trials. [employer], 2017, [id number]. [email or web address] Vascular referral for further evaluation and treatment of BLE varicose veins with lymphedema in lower leg medial aspects. Follow-up in 1-2 months to see response to physical therapy, if no response to physical therapy will consider further interventional strategy. Orders: Orders PT Evaluation and Treatment Today M25.552 - Pain in left hip, M51.36 - Other intervertebral disc degeneration, lumbar region, M54.50 - Low back pain, unspecified, M70.62 - Trochanteric bursitis, left hip, M79.7 - Fibromyalgia Referrals Vascular Surgery Referral I83.93 - Asymptomatic varicose veins of bilateral lower extremities Medications: New diclofenac potassium Take it with food and full glass of water. Avoid other NSAIDs. 50 mg PO BID 30 days PRN 60 tabs 0RF pain G89.29 - Other chronic pain, M25.561 - Pain in right knee, M25.562 - Pain in left knee, M51.36 - Other intervertebral disc degeneration, lumbar region, M70.62 - Trochanteric bursitis, left hip Coding Level of Care Code New Pt Level 4 (63364) Diagnoses Left hip pain M25.552 Low back pain M54.50 Degenerative lumbar disc M51.36 Greater trochanteric bursitis of left hip M70.62 Fibromyalgia M79.7 Chronic pain of both knees M25.561; M25.562; G89.29 Chronicity: chronic Varicose veins of both lower extremities I83.93
[2024-05-05 09:56] VITALS: BP 122/66; PULSE 83; O2SAT 99; BMI 36.0
== END 2024-05-05 10:50 | disposition home or self-care (01) ==
PROVIDERS: PCP Nurse Practitioner Family; Visit Provider Nurse Practitioner Family
DX: M25.552 Pain in left hip (principal); M54.50 Low back pain, unspecified; M51.36 Other intervertebral disc degeneration, lumbar region; M70.62 Trochanteric bursitis, left hip; M79.7 Fibromyalgia; M25.561 Pain in right knee; M25.562 Pain in left knee; G89.29 Other chronic pain; I83.93 Asymptomatic varicose veins of bilateral lower extremities
CPT/HCPCS: 99204

== ENCOUNTER → 2024-05-05 09:48 | Outpatient (BNVA) | payer OTHER, SELFPAY | PROVIDERS: PCP Nurse Practitioner Family; Visit Provider Nurse Practitioner Family | DX: M79.7 Fibromyalgia (principal); M25.552 Pain in left hip; M54.50 Low back pain, unspecified; M51.36 Other intervertebral disc degeneration, lumbar region; M70.62 Trochanteric bursitis, left hip; M25.561 Pain in right knee; M25.562 Pain in left knee; I83.93 Asymptomatic varicose veins of bilateral lower extremities; G89.29 Other chronic pain | CPT/HCPCS: 99202 ==

== ENCOUNTER 2024-07-25 13:35 | Outpatient (AMB) | payer OTHER, SELFPAY ==
--- NOTE | 2024-07-25 13:49 | MHC.PC.OV ---
Vital Signs 07/25/24 13:52 Height 5 ft 4 in Weight 210 lb 4 oz BMI 36.1 BP 98/62 Blood Pressure Location Lt brachial Position Sitting Respiration 14 Pulse 82 Pulse Source Pulse Oximeter Pulse Oximetry (%) 100 Oxygen Delivery Method Room Air Intake Visit Reasons: follow up medical leave Intake Note: follow up on medical leave Allergies morphine [MORPHINE] Allergy (Intermediate, Verified 07/25/24 14:25) ITCHY oxycodone [From Percocet] Allergy (Intermediate, Verified 07/25/24 14:25) rash,upset stomach ENVIRONMENTAL ALLERGIES Allergy (Mild, Uncoded 05/01/24 13:11) congestion Medication List - Last Reconciled 07/25/24 by Rashmi Dobbs, FINISHER [employer]USH- acarbose 25 mg PO TID 30 days albuterol sulfate 2.5 mg (3 mL) inhalation Q4-6H PRN albuterol sulfate 90 mcg/actuation 2 puffs inhalation Q6H PRN 1 month blood-glucose meter ([employer] [place] Lite kit) As directed budesonide-formoterol 80-4.5 mcg/actuation 2 puffs inhalation BID 30 days cetirizine 10 mg PO DAILY 1 month diclofenac potassium 50 mg PO BID PRN duloxetine 60 mg PO DAILY fluticasone propionate 50 mcg/actuation 1 spray intranasal DAILY gabapentin 300 mg PO BEDTIME glucose 4 grams PO DIRECTED ketotifen fumarate 0.025%(0.035%) ([place]) 1 drp ophthalmic (eye) BID PRN 1 month lidocaine 5% 1 patch topical DAILY montelukast (Singulair) 10 mg PO DAILY 90 days pseudoephedrine HCl mg PO sodium chloride 0.65% (Saline Mist) 2 sprays intranasal Q2H PRN valacyclovir 2,000 mg (2 x 1 gram) PO Q12H Tobacco use date assessed: 07/25/24 Dental Screening Dental Screen Date: 07/25/24 Did you have a dental visit in the last 12 months?: Yes Did you have a dental problem in the last 6 months where you did not have access to dental care?: No Was dental information given to patient?: Patient has dentist HPI HPI Comments History of Present Illness Details 38-year-old female with vitamin-D deficiency, diabetes type 2, generalized anxiety disorder, major depressive disorder, microscopic hematuria, fibromyalgia, moderate persistent asthma, varicose veins of the lower extremities, the iron-deficiency anemia, morbid obesity Social: lives w/ dtr. Unemployed Health Maintenance Declines flu, pcv Tdap 2014 Pap UTD Diabetic eye exam done in 2023 Dr Yoder Specialists: Counselor HOOK AND EYE SEWING MACHINE OPERATOR [facility] Here today for complete physical exam. She had COVID in June. She still has a cough. Other than that she reports that her asthma is well controlled on the current therapies. In regards to her diabetes she is overdue for labs. She states that she is having hypoglycemic episodes in the morning. Occasionally during the day as well. She feels like she is gaining weight as she is having to eat more during these episodes. She is prescribed acarbose 25 mg PO TID however she is only taking this once per day. She was followed by endocrinology but is no longer following with them. She feels like her pain is generally well controlled with the diclofenac prescribed by pain management. She is currently enrolled our nurse navigation program. She states that she needs help with her ADLs and held looking for a job. She would like a call from the nurse navigator to help her with this. Overall her mood is anxious and depressed. She follows with a counselor. She does report having some pain in her chest during acute anxiety episodes that resolves with time. She was referred to urology for microscopic hematuria noted by her extra hand. Plan Check screening labs At the current time continue all medications as prescribed. We will likely need to dose her diabetic medication given the reports of hypoglycemia. Continue follow up in appointments with your care team Return to the office in a few months for routine follow up, sooner as needed. This note is constructed using voice recognition software. While every effort has been made to ensure accuracy in firefighting equipment specialist, still errors may have been included Sometimes, these errors may affect the content or meaning of the given sentence . [facility] Medical History (Updated 07/25/24 @ 17:13 by CARLTON Gonzalez-RIGO) Asthma, moderate persistent, poorly-controlled Environmental allergies DM type 2, controlled, with complication Fibromyalgia Iron deficiency Vitamin D deficiency Migraine headache Microscopic hematuria De Quervain's tenosynovitis Anxiety and depression Surgical History History of cervical biopsy History of bilateral salpingectomy History of endometrial ablation History of dilatation and curettage History of laparoscopy Family History Father Diabetes HTN (hypertension) Mother Depression Chronic mental illness Diabetes Maternal Grandmother HTN (hypertension) Paternal Grandmother Alzheimer disease Other No family history of mental disorder Social History Household Members: Children Housing: House Are you a primary rn care transition to a significant other at home: No Do you presently have visiting nurse or other home services: No 75 years or older and lives alone: No Alcohol intake: current Alcohol intake frequency: holidays/special occasions only Patient Tobacco Use Status: Never used Tobacco e-Cigarette/Vaping Use: Currently Using Second Hand Smoke Exposure: No service: No Current occupational status: employed 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 1. Little interest or pleasure in doing things: nearly every day 2. Feeling down, depressed, or hopeless: more than half the days 3. Trouble falling or staying asleep, or sleeping too much: more than half the days 4. Feeling tired or having little energy: nearly every day 5. Poor appetite or overeating: nearly every day 6. Feeling bad about yourself - or that you are a failure or have let yourself or your family down: not at all 7. Trouble concentrating on things, such as reading the newspaper or watching television: several days 8. Moving or speaking so slowly that other people could have noticed. Or the opposite - being so fidgety or restless that you have been moving around a lot more than usual: several days 9. Thoughts that you would be better off or of hurting yourself in some way: not at all Total score: 15 Depression Screening Interpretation: Positive Depression Screening Done: Yes 01996 - PHQ-9 Billing: Yes Source: Developed by Drs. Sunil Hernandez, Shasha B.Gaudencio Franks and colleagues, with an educational troy from [employer]. Thrive Questionnaire Date Thrive assessed: 07/25/24 I am a: Patient What is your living situation today?: I have a steady place to live Within the past 12 months, did the food you bought not last and you didn't have the money to get more?: Never true Within the past 12 months, did you worry whether your food would run out before you got money to buy more?: Sometimes True Do you have trouble paying for medicines?: No Do you have trouble getting transportation to medical appointments?: No Do you have trouble paying your heating and electricity bill?: Yes Do you have trouble taking care of your child, family member or friend?: No Do you have trouble with day-to-day activities such as bathing, preparing meals, shopping, managing finances, etc.?: Yes Are you currently unemployed and looking for a job?: Yes Are you interested in more education?: Yes Please select the resources that you would like help with: None THRIVE Score: 2 DANIEL-7 AMB Questionnaire DANIEL-7 Date DANIEL - 7 assessed: 07/25/24 Feeling nervous, anxious, or on edge: 3 = Nearly every day Not being able to stop or control worryin = More than half the days Worrying too much about different things: 2 = More than half the days Trouble relaxin = More than half the days Being so restless that it is hard to sit still: 0 = Not at all Becoming easily annoyed or irritable: 1 = Several days Feeling afraid as if something awful might happen: 0 = Not at all Total DANIEL-7 score (0-4 normal; 5-9 mild; 10-14 moderate; 15-21 severe): 10 Source: Developed by Drs. Sunil Hernandez, Gaudencio Khan and colleagues, with an educational troy from [employer]. DANIEL-7 Assessment Billing DANIEL-7 Assessment Tool: DANIEL-7 Assessment 32114 ACT Questionnaire In the past 4 weeks, how much of the time did your asthma keep you from getting as much done at work, school or at home?: A little of the time During the past 4 weeks, how often have you had shortness of breath?: 1-2 times a week During the past 4 weeks, how often did your asthma symptoms wake you up at night or earlier than usual in the morning?: Once or twice per week During the past 4 weeks, how often have you had to use your rescue inhaler or nebulizer medication?: Once a week or less How would you rate your asthma control during the past 4 weeks?: Well controlled ACT Interpretation: Negative Score: 20 Review of Systems Const Details: Constitutional: Denies fever. Skin: Denies rash. Eye: Denies eye pain. ENMT: Denies sore throat and nasal congestion. Respiratory: Denies shortness of breath and cough. Gastrointestinal: Denies nausea, vomiting or abdominal pain. Cardiovascular: Denies chest pain and syncope. Genitourinary: Denies dysuria. Musculoskeletal: Complain of generalized joint pain Neurologic: Denies headaches, confusion, and weakness. Psychiatric: Denies suicidal thoughts and substance abuse. Allergy/ Immunologic: Denies impaired immunity. Physical exam (Primary Care) Vital Signs: Last Vital Signs Pulse 82 07/25/24 13:52 Resp 14 07/25/24 13:52 BP 98/62 07/25/24 13:52 Pulse Ox 100 07/25/24 13:52 Oxygen Delivery Method Room Air 07/25/24 13:52 BMI result Body Mass Index 36.1 BMI Assessment/Plan discussion: High BMI High, discussed plan: lifestyle Tobacco/Smoking Status: Tobacco use Status Tobacco use date assessed 07/25/24 07/25/24 13:54 Patient Tobacco Use Status Never used Tobacco 07/25/24 13:54 e-Cigarette/Vaping Use Currently Using 07/25/24 13:54 PHQ-9: PHQ-9 Score PHQ-9: Total score 15 07/25/24 14:25 Depression Screening Interpretation: Positive Thrive Assessment: Date of Thrive Assessment Date Thrive assessed 07/25/24 07/25/24 14:00 Const Other: General: Well developed, well nourished, in no acute distress. Appears stated age. Head: Normocephalic, atraumatic. Eyes: Pupils are equal, round and reactive to light and accommodation. Conjunctivae are clear. Vision grossly normal. Ears: TMs clear AU, EACS WNL Nose: Patent, without discharge. Mouth: There are no ulcers or lesions noted. No inflammation, no post nasal drip, no plaques nor exudates. Neck: Supple, no adenopathy or thyromegaly. Lungs: Clear to auscultation bilaterally. No rales, rhonchi or wheeze noted. Good air flow in all gupta. Heart: Regular rate and rhythm. No murmurs, click, rubs or gallops are noted. Abdomen: Bowel sounds present in all quadrants. The abdomen is soft, nontender, with no masses or organomegaly noted. No hernias are noted. Musculoskeletal: Joints are nontender, without swelling, redness, or effusions. Range of motion is observed to be normal. Pulses: Peripheral pulses are equal and palpable bilaterally. Extremities: No clubbing, cyanosis nor edema is noted. Neurologic: Gait and station normal. Cranial Nerves 2-12 intact. Motor strength grossly symmetrical and intact. No sensory loss. Balance normal. Skin: No rashes, ulcers, or lesions noted. Turgor is good. Skin color is good. Hair and nails are without abnormalities. Psych: Normal eye contact, affect and mood appropriate, and normal interactions. Patient is alert and appropriate to context. Assessment and Plan Assessment & Plan (1) Encounter for general adult medical examination without abnormal findings: Code(s): Z00.00 - Encounter for general adult medical examination without abnormal findings (2) Vitamin D deficiency: Comment: Most recent vitamin-D level within normal limits obtained November of 2023. This is was sporadic use of the vitamin D3 50 mcg. There was no clinical need for her to take this. Therefore can be discontinued. Code(s): E55.9 - Vitamin D deficiency, unspecified (3) DM type 2, controlled, with complication: Code(s): E11.8 - Type 2 diabetes mellitus with unspecified complications (4) DANIEL (generalized anxiety disorder): Comment: Code(s): F41.1 - Generalized anxiety disorder (5) MDD (major depressive disorder), recurrent episode: Comment: Code(s): F33.9 - Major depressive disorder, recurrent, unspecified Qualifiers: Major depression episode severity: moderate Qualified Code(s): F33.1 - Major depressive disorder, recurrent, moderate (6) Microscopic hematuria: Code(s): R31.29 - Other microscopic hematuria (7) Fibromyalgia: Code(s): M79.7 - Fibromyalgia (8) Moderate persistent asthma: Code(s): J45.40 - Moderate persistent asthma, uncomplicated Qualifiers: Asthma complication type: uncomplicated Qualified Code(s): J45.40 - Moderate persistent asthma, uncomplicated (9) Varicose veins of both lower extremities: Code(s): I83.93 - Asymptomatic varicose veins of bilateral lower extremities Qualifiers: Varicose vein complication: pain Qualified Code(s): I83.813 - Varicose veins of bilateral lower extremities with pain (10) Iron deficiency: Code(s): E61.1 - Iron deficiency (11) Severe obesity with body mass index (BMI) of 36.0 to 36.9 with serious comorbidity: Comment: with asthma and diabetes, bmi > 36 Code(s): E66.01 - Morbid (severe) obesity due to excess calories; Z68.36 - Body mass index [BMI] 36.0-36.9, adult Orders: Orders Comprehensive Met. Panel Today E11.8 - Type 2 diabetes mellitus with unspecified complications, E55.9 - Vitamin D deficiency, unspecified Hemoglobin A1c Today E11.8 - Type 2 diabetes mellitus with unspecified complications, E55.9 - Vitamin D deficiency, unspecified Microalbumin, Random (w Creat) Today E11.8 - Type 2 diabetes mellitus with unspecified complications, E55.9 - Vitamin D deficiency, unspecified Vitamin B12 and Folate Today E11.8 - Type 2 diabetes mellitus with unspecified complications, E55.9 - Vitamin D deficiency, unspecified LDL Cholesterol Direct Today E11.8 - Type 2 diabetes mellitus with unspecified complications, E55.9 - Vitamin D deficiency, unspecified Vitamin D 25-OH Total Today E11.8 - Type 2 diabetes mellitus with unspecified complications, E55.9 - Vitamin D deficiency, unspecified Complete Blood Count no Diff Today E11.8 - Type 2 diabetes mellitus with unspecified complications, E55.9 - Vitamin D deficiency, unspecified IRON PROFILE Today E11.8 - Type 2 diabetes mellitus with unspecified complications, E55.9 - Vitamin D deficiency, unspecified TSH reflex Free T4 Today E11.8 - Type 2 diabetes mellitus with unspecified complications, E55.9 - Vitamin D deficiency, unspecified Patient Instructions: Health screenings for women You should visit your health care provider from time to time, even if you are healthy. The purpose of these visits is to: Screen for medical issues Assess your risk for future medical problems Encourage a healthy lifestyle Update vaccinations and other preventive care services Help you get to know your provider in case of an illness Information Even if you feel fine, you should still see your provider for regular checkups. These visits can help you avoid problems in the future. For example, the only way to find out if you have high blood pressure is to have it checked regularly. High blood sugar and high cholesterol levels also may not have any symptoms in the early stages. A simple blood test can check for these conditions. There are specific times when you should see your provider or receive specific health screenings. The [place] Preventive Services Task Force publishes a list of recommended screenings. Below are screening guidelines for women ages 18 to 39. BLOOD PRESSURE SCREENING Your blood pressure should be checked at least once every 3 to 5 years if: Your blood pressure is in the normal range (top number less than 120 mm Hg and bottom number less than 80 mm Hg) You don't have risk factors for high blood pressure Ask your provider if you need your blood pressure checked more often if: The top number is 120 to 129 mm Hg or the bottom number is 70 to 79 mm Hg You have diabetes, heart disease, kidney problems, are overweight, or have certain other health conditions You have a first-degree relative with high blood pressure You are Black You had high blood pressure during a If the top number is 130 mm Hg or greater or the bottom number is 80 mm Hg or greater, this is considered stage 1 hypertension. Schedule an appointment with your provider to learn how you can reduce your blood pressure. Watch for blood pressure screenings in your area. Ask your provider if you can stop in to have your blood pressure checked. BREAST CANCER SCREENING Experts do not agree about the benefits of breast self-exams in finding breast cancer or saving lives. Talk to your provider about what is best for you. A screening mammogram is not recommended for most women under age 40. Your provider may discuss and recommend mammograms, MRI scans, or ultrasounds if you have an increased risk for breast cancer, such as: A mother or sister who had breast cancer at a young age (most often starting screening earlier than the age the close relative was diagnosed) You carry a high-risk genetic marker CERVICAL CANCER SCREENING Cervical cancer screening should start at age 21 years unless your provider advises otherwise. After the first test: Women ages 21 through 29 should have a Pap test every 3 years. Exoprts do not agree on whether HPV testing is recommended for this age group. Women ages 30 through 65 should be screened with either a Pap test every 3 years or the HPV test every 5 years or both tests every 5 years (called cotesting ). Women who have been treated for precancer (cervical dysplasia) should continue to have Pap tests for 20 years after treatment or until age 65, whichever is longer. If you have had your uterus and cervix removed (total hysterectomy), and you have not been diagnosed with cervical cancer or precancer (high grade cervical neoplasia), you do not need cervical cancer screening. CHOLESTEROL SCREENING Cholesterol screening should begin at: Age 45 for women with no known risk factors for coronary heart disease Age 20 for women with known risk factors for coronary heart disease Repeat cholesterol screening should take place: Every 5 years for women with normal cholesterol levels More often if changes occur in lifestyle (including weight gain and diet) More often if you have diabetes, heart disease, kidney problems, or certain other conditions DIABETES SCREENING You should be screened for diabetes starting at age 35 and then repeated every 3 years if you have no risk factors for diabetes. Screening may need to start earlier and be repeated more often if you have other risk factors for diabetes, such as: You have a first degree relative with diabetes. You are overweight or have obesity. You have high blood pressure, prediabetes, or a history of heart disease. Screening for diabetes should be done if you are planning to become and you are overweight and have other risk factors such as high blood pressure. DENTAL EXAM Go to the dentist once or twice every year for an exam and cleaning. Your dentist will evaluate if you need more frequent visits. EYE EXAM Have an eye exam every 5 to 10 years before age 40. If you have vision problems, have an eye exam every 2 years or more often if recommended by your provider. You should have an eye exam that includes an examination of your retina (back of your eye) at least every year if you have diabetes. IMMUNIZATIONS Commonly needed vaccines include: Flu shot: get one every year. COVID-19 vaccine: ask your provider what is best for you. Tetanus-diphtheria and acellular pertussis (Tdap) vaccine: have one at or after age 19 as one of your tetanus-diphtheria vaccines if you did not receive it as an adolescent. Tetanus-diphtheria: have a booster (or Tdap) every 10 years. Varicella vaccine: receive 2 doses if you never had chickenpox or the varicella vaccine. Hepatitis B vaccine: receive 2, 3, or 4 doses, depending on your exact circumstances. Measles, mumps, and rubella (MMR) vaccine: receive 1 to 2 doses if you are not already immune to MMR. Your provider can tell you if you are immune. Ask your provider about the human papillomavirus (HPV) vaccine if: You have not received the HPV vaccine in the past You have not completed the full vaccine series (you should catch up on this shot) Ask your provider if you should receive other immunizations if you have certain health problems that increase your risk for some diseases such as pneumonia. INFECTIOUS DISEASE SCREENING Women who are sexually active should be screened for chlamydia and gonorrhea up until age 25. Women 25 years and older should be screened for chlamydia and gonorrhea if at high risk. Screening for hepatitis C: All adults ages 18 to 79 should get a one-time test for hepatitis C. people should be screened at every . Screening for human immunodeficiency virus (HIV): All people ages 15 to 65 should get a one-time test for HIV. Depending on your lifestyle and medical history, you may also need to be screened for infections such as syphilis and HIV, as well as other infections. PHYSICAL EXAM All adults should visit their provider from time to time, even if they are healthy. The purpose of these visits is to: Screen for disease Assess your risk of future medical problems Encourage a healthy lifestyle Update your vaccinations and other preventive care services Maintain a relationship with a provider in case of an illness Your height, weight, and BMI should be checked at every exam. During your exam, your provider may ask you about: Depression and anxiety Diet and exercise Alcohol and tobacco use Safety issues, such as using seat belts, smoke detectors, and intimate partner violence Your medicines and risk for interactions SKIN SELF-EXAM Your provider may check your skin for signs of skin cancer, especially if you're at high risk, such as if you: Have had skin cancer before Have close relatives with skin cancer Have a weakened immune system OTHER SCREENING Talk with your provider about colon cancer screening if you have a strong family history of colon cancer or polyps, or if you have had inflammatory bowel disease or polyps yourself. Routine bone density screening of women under 40 is not recommended. Review Patient declined Pneumococcal Vaccine: 07/25/24 Flu Vaccine not done: patient reason Coding Level of Care Code Est Pt Prev Care 18-39y(19410) Diagnoses Encounter for general adult medical examination without abnormal findings Z00.00 Vitamin D deficiency E55.9 DM type 2, controlled, with complication E11.8 DANIEL (generalized anxiety disorder) F41.1 Moderate episode of recurrent major depressive disorder F33.1 Major depression episode severity: moderate Microscopic hematuria R31.29 Fibromyalgia M79.7 Moderate persistent asthma without complication J45.40 Asthma complication type: uncomplicated Varicose veins of both lower extremities with pain I83.813 Varicose vein complication: pain Iron deficiency E61.1 Severe obesity with body mass index (BMI) of 36.0 to 36.9 with serious comorbidity E66.01; Z68.36 Additional Codes DANIEL-7 Assessment Billing - DANIEL-7 Assessment Tool: DANIEL-7 Assessment [id number] ([id number])
[2024-07-25 13:52] VITALS: BP 98/62; PULSE 82; RESP 14; O2SAT 100; BMI 36.1
== END 2024-07-25 15:00 | disposition home or self-care (01) ==
PROVIDERS: PCP Nurse Practitioner Family; Visit Provider Nurse Practitioner Family
DX: Z00.00 Encounter for general adult medical examination without abnormal findings (principal); E11.8 Type 2 diabetes mellitus with unspecified complications; F33.1 Major depressive disorder, recurrent, moderate; E66.01 Morbid (severe) obesity due to excess calories; Z68.36 Body mass index [BMI] 36.0-36.9, adult; E55.9 Vitamin D deficiency, unspecified; F41.1 Generalized anxiety disorder; R31.29 Other microscopic hematuria; M79.7 Fibromyalgia; J45.40 Moderate persistent asthma, uncomplicated; I83.813 Varicose veins of bilateral lower extremities with pain; E61.1 Iron deficiency
CPT/HCPCS: 99395

== ENCOUNTER 2024-07-25 14:44 | Outpatient (REF) | payer OTHER, SELFPAY ==
[2024-07-25 18:01] LABS: Hematocrit 36.8 % (37.0-47.0); Mean Corpuscular HGB Conc 32.6 g/dl (31.0-35.0); Mean Corpuscular Hemoglobin 29.9 pg (27.0-33.0); Mean Corpuscular Volume 91.5 fL (80.0-98.0); Mean Platelet Volume 10.9 fL (9.4-12.3); Platelet Count 267 X10*3/uL (160-400); Red Blood Count 4.02 X10*6/uL (4.20-5.50); White Blood Count 6.6 X10*3/uL (4.8-10.8)
[2024-07-25 18:45] LABS: Alanine Aminotransferase 17 U/L (0-31); Alkaline Phosphatase 46 U/L (39-117); Anion Gap 11 (12-20); Aspartate Amino Transferase 13 U/L (5-31); Bilirubin Total 0.3 mg/dL (0.0-1.0); Blood Urea Nitrogen 21 mg/dL (9-16); Calcium 8.9 mg/dL (8.4-10.2); Carbon Dioxide 26 mmol/L (22-29); Chloride 105 mmol/L (96-108); Estimated Glomerular Filt Rate > 60; Glucose Random 108 mg/dL (60-115); Iron 71 mcg/dL (30-160); Percent Iron Saturation 25 % (15-50); Potassium 3.5 mmol/L (3.3-5.1); Sodium 138 mmol/L (135-145); Total Iron Binding Capacity 286 mcg/dL (228-428); Total Protein 7.2 g/dL (6.5-8.0); Unsaturated Iron Binding 215 ug/dL
[2024-07-25 18:48] LABS: TSH reflex Free T4 0.81 uIU/mL (0.32-4.0)
[2024-07-25 18:49] LABS: Microalbum/Creatinine Ratio Ur 11.6 ug/mg cr (<30)
[2024-07-25 20:16] LABS: Folate 9.4 ng/mL (> or = 4.0); Vitamin B12 631 pg/mL (200-900)
[2024-07-26 05:20] LABS: Estimated Average Glucose 114 mg/dL; Hemoglobin A1C 112.5891 umol/L; Hemoglobin A1c % 5.6 % (<6.0)
[2024-07-26 07:22] LABS: CT PCR NOT DETECTED (Not Detect.); NG PCR NOT DETECTED (Not Detect.)
[2024-07-26 11:54] LABS: LDL Cholesterol Direct 120 mg/dL (<100)
== END 2024-07-25 14:45 | disposition home or self-care (01) ==
LOC: HO.WFDLDS 14:44
PROVIDERS: Referring Provider Obstetrics & Gynecology; Visit Provider Nurse Practitioner Family
DX: R10.2 Pelvic and perineal pain (principal); E11.8 Type 2 diabetes mellitus with unspecified complications; E55.9 Vitamin D deficiency, unspecified
CPT/HCPCS: 36415; 80053; 82043; 82306; 82570; 82607; 82746; 83036; 83540; 83721; 84443; 85027; 87491; 87591

== ENCOUNTER 2024-09-06 10:32 | Outpatient (AMB) | payer OTHER, SELFPAY ==
--- NOTE | 2024-09-06 10:42 | A.OFFVIS_ITS ---
Vital Signs 09/06/24 10:47 Height 5 ft 4 in Weight 206 lb 9.17 oz BMI 35.5 BP 98/60 Blood Pressure Location Lt brachial Position Sitting Pulse 75 Pulse Source Pulse Oximeter Pulse Oximetry (%) 97 Oxygen Delivery Method Room Air Intake Visit Reasons: FMS Intake Note: Patient presents for FMS. Allergies morphine [MORPHINE] Allergy (Intermediate, Verified 09/06/24 10:45) ITCHY oxycodone [From Percocet] Allergy (Intermediate, Verified 09/06/24 10:45) rash,upset stomach ENVIRONMENTAL ALLERGIES Allergy (Mild, Uncoded 05/01/24 13:11) congestion Medication List - Last Reconciled 09/06/24 by Astrid Garrett MD albuterol sulfate 2.5 mg (3 mL) inhalation Q4-6H PRN albuterol sulfate 90 mcg/actuation 2 puffs inhalation Q6H PRN 1 month blood-glucose meter (FreeStyle [place] Lite kit) As directed budesonide-formoterol 80-4.5 mcg/actuation 2 puffs inhalation BID 30 days cetirizine 10 mg PO DAILY 1 month cholecalciferol (vitamin D3) 50 mcg PO DAILY diclofenac potassium 50 mg PO BID PRN duloxetine 60 mg PO DAILY fluticasone propionate 50 mcg/actuation 1 spray intranasal DAILY gabapentin 300 mg PO BEDTIME glucose 4 grams PO DIRECTED ketotifen fumarate 0.025%(0.035%) (Alaway) 1 drp ophthalmic (eye) BID PRN 1 month lidocaine 5% 1 patch topical DAILY montelukast (Singulair) 10 mg PO DAILY 90 days pseudoephedrine HCl mg PO sodium chloride 0.65% (Saline Mist) 2 sprays intranasal Q2H PRN valacyclovir 2,000 mg (2 x 1 gram) PO Q12H HPI Comments Details: 39yoF present for follow up of fibromyalgia. She states that she is doing much better overall now. She is taking her duloxetine 60 mg daily. She was started on diclofenac by Pain Management. She takes it only once a day. She states since she started taking diclofenac she no longer needs the gabapentin as much. She takes it only once daily. She has noticed painful swelling in both her soles. It hurts when she walks. [facility] Medical History Asthma, moderate persistent, poorly-controlled Environmental allergies DM type 2, controlled, with complication Fibromyalgia Iron deficiency Vitamin D deficiency Migraine headache Microscopic hematuria De Quervain's tenosynovitis Anxiety and depression Surgical History History of cervical biopsy History of bilateral salpingectomy History of endometrial ablation History of dilatation and curettage History of laparoscopy Family History Father Diabetes HTN (hypertension) Mother Depression Chronic mental illness Diabetes Maternal Grandmother HTN (hypertension) Paternal Grandmother Alzheimer disease Brother Cancer Other No family history of mental disorder Social History Household Members: Children Housing: House Are you a primary critical care clinical nurse specialist to a significant other at home: No Do you presently have visiting nurse or other home services: No 75 years or older and lives alone: No Alcohol intake: current Alcohol intake frequency: holidays/special occasions only Patient Tobacco Use Status: Never used Tobacco e-Cigarette/Vaping Use: Currently Using Second Hand Smoke Exposure: No service: No Current occupational status: employed 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, [employer]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 Current occupational exposures/hazards: No Sexual orientation: Unable to collect Gender identity: Female and Unable to collect Cognitive needs: Yes (Forgetful, foggy memory) Hearing needs: No Vision needs: Yes Female Reproductive History Menstrual Age of Menarche: 10 Review of Systems Const Reports fatigue Musc Reports arthralgias Endo Reports fatigue Physical Exam Vital Signs: Last Vital Signs Pulse 75 09/06/24 10:47 BP 98/60 09/06/24 10:47 Pulse Ox 97 09/06/24 10:47 Oxygen Delivery Method Room Air 09/06/24 10:47 BMI result Body Mass Index 35.5 Const General: cooperative, healthy appearing and comfortable Orientation/consciousness: patient oriented x3 Limitations: no limitations HEENT Head: Yes normocephalic and Yes atraumatic Mouth: moist mucous membranes Resp Effort & Inspection: normal respiratory effort and able to speak in complete sentences Auscultation: clear to auscultation bilaterally Neuro General: patient oriented x3 Extrem Other: No active synovitis Few fibromyalgia tender points Negative straight leg raise test bilaterally No knee pain with flexion-extension bilaterally Early callus formation at the soles of both feet anteromedial to the heel Assessment & Plan Assessment & Plan (1) Fibromyalgia: Code(s): M79.7 - Fibromyalgia Category: Medical Plan: 39-year-old female with fibromyalgia returns for follow-up. She is on duloxetine 60 mg daily and gabapentin 300 mg daily. She also started taking diclofenac 50 mg daily prescribed Pain Management which is helping. Overall patient is doing better overall. Follow-up in 6 months (2) Callus of foot: Code(s): L84 - Corns and callosities Category: Medical Plan: Discussed with PCP. Consider evaluation by geothermal operating engineer Plan I spent 26 minutes reviewing patient's chart, evaluating patient, counseling patient and documenting in the chart Coding Level of Care Code Est Pt Level 3 (17502) Diagnoses Fibromyalgia M79.7 Callus of foot L84
[2024-09-06 10:47] VITALS: BP 98/60; PULSE 75; O2SAT 97; BMI 35.5
== END 2024-09-06 10:57 | disposition home or self-care (01) ==
PROVIDERS: PCP Nurse Practitioner Family; Visit Provider Student in an Organized Health Care Education/Training Program
DX: M79.7 Fibromyalgia (principal); L84 Corns and callosities
CPT/HCPCS: 99213

== ENCOUNTER → 2024-09-06 10:32 | Outpatient (BNVA) | payer OTHER, SELFPAY | PROVIDERS: PCP Nurse Practitioner Family; Visit Provider Student in an Organized Health Care Education/Training Program | DX: M79.7 Fibromyalgia (principal); L84 Corns and callosities | CPT/HCPCS: 99212 ==

== ENCOUNTER 2024-09-12 09:47 | Outpatient (REF) | payer OTHER, SELFPAY | END 2024-09-12 09:48 | disposition home or self-care (01) | LOC: HO.US 09:47 | PROVIDERS: PCP Nurse Practitioner Family; Visit Provider Urology | DX: R10.2 Pelvic and perineal pain (principal); N36.9 Urethral disorder, unspecified; R31.29 Other microscopic hematuria | CPT/HCPCS: 76770 ==

== ENCOUNTER 2024-09-21 13:11 | Outpatient (AMB) | payer OTHER, SELFPAY ==
--- NOTE | 2024-09-21 13:26 | MHC.OFFVIS ---
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 States it is bilateral. She has pain , swelling and cramps. Patient states it has been bothersome for about 4-6 months. 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 Complaints include pain over varicosities, swelling of lower extremities, cramping, fatigue, and heaviness of the lower extremities. 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 It is noted more so in right leg. Patient denies any previous venous surgery or injections. Patient denies any history of DVT/ PE. Patient denies any history of phlebitis. Trial of compression includes - [id number] They now present for vascular evaluation regarding their varicose veins. [facility] Medical History Asthma, moderate persistent, poorly-controlled Environmental allergies DM type 2, controlled, with complication Fibromyalgia Iron deficiency Vitamin D deficiency Migraine headache Microscopic hematuria De Quervain's tenosynovitis Anxiety and depression Surgical History History of cervical biopsy History of bilateral salpingectomy History of endometrial ablation History of dilatation and curettage History of laparoscopy Family History Father Diabetes HTN (hypertension) Mother Depression Chronic mental illness Diabetes Maternal Grandmother HTN (hypertension) Paternal Grandmother Alzheimer disease Brother Cancer Other No family history of mental disorder Social History Household Members: Children Housing: House Are you a primary healthcare economics consultant to a significant other at home: No Do you presently have visiting nurse or other home services: No 75 years or older and lives alone: No Alcohol intake: current Alcohol intake frequency: holidays/special occasions only Patient Tobacco Use Status: Never used Tobacco e-Cigarette/Vaping Use: Currently Using Second Hand Smoke Exposure: No service: No Current occupational status: employed 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, [email or web address]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 Current occupational exposures/hazards: No Sexual orientation: Unable to collect Gender identity: Female and Unable to collect Cognitive needs: Yes (Forgetful, foggy memory) Hearing needs: No Vision needs: Yes Female Reproductive History Menstrual Age of Menarche: 10 Review of Systems Const Reports as per HPI ENT Reports no additional complaints Card Denies chest pain, Denies chest pain at rest and Denies chest pain with activity Resp Denies chest congestion and Denies cough GI Reports no additional complaints Musc Details: pain over varicosities, aching of lower extremities, swelling, cramping, heaviness and tiredness, itching Denies abnormal gait Skin/Breast Reports pruritus and Denies wounds Neuro Reports no additional complaints and Denies abnormal gait Psych Denies no additional complaints Physical Exam Const General: cooperative, healthy appearing and comfortable Orientation/consciousness: oriented to person, oriented to place and oriented to time Neck Carotids: no bruits Chest Chest palpation & inspection: normal inspection of the chest and normal palpation of entire chest wall Resp Effort & Inspection: normal respiratory effort and able to speak in complete sentences Cardio Rate: regular rate Heart sounds: S1 normal heart sound present and S2 normal heart sound present Peripheral pulses: Peripheral pulses 2+ throughout GI Inspection: Yes normal to inspection Skin Other: +2 edema, large rope-like varicosities greater than 4 mm CEAP Classification C4 - skin color changes Ep - Etiology Primary As - superficial veins P - reflux General skin exam: dry skin Neuro General: oriented to person, oriented to place and oriented to time Extrem Right lower extremity: full ROM, normal capillary refill and edema Left lower extremity: full ROM, normal capillary refill and edema Psych Mental Status: mental status grossly normal Assessment & Plan Assessment & Plan (1) Varicose veins of right lower extremity with inflammation: Code(s): I83.11 - Varicose veins of right lower extremity with inflammation Category: Medical Plan: In short, the patient has evidence of venous insufficiency. I have discussed the pathophysiology with the patient. In addition I have provided informational material regarding venous disease to the patient. We have discussed conservative measures including compression, elevation, and exercise. I have also provided a handout regarding appropriate use of compression stockings and where to purchase good compression stockings as well. I have taken the liberty of ordering venous insufficiency testing with the patient. They will follow up with me after testing. The patient had an opportunity to ask questions regarding the treatment plan. All questions were answered. Imaging studies, laboratory studies and physical exam results were discussed and reviewed in detail. No major barriers to understanding were identified. The patient expressed understanding and agreement with the above treatment plan. The patient is aware they should contact our office by phone for worsening of the current condition or the appearance of new symptoms. Thank you for allowing me to participate in the vascular care of this patient. If you have any questions or concerns regarding the treatment for the above condition please do not hesitate to contact me. The office telephone contact is [phone]. This note is constructed using voice recognition software. While every effort has been made to ensure accuracy, flue dust laborer errors may have been included. Thank you for allowing me to participate in the care of your patient. Yours sincerely, Ángel Marrero MD, FACS, R.P.V.I. Orders: Orders US venous duplex LE BI 1 Week I83.11 - Varicose veins of right lower extremity with inflammation Coding Level of Care Code Est Pt Level 4 (50791) Diagnoses Varicose veins of right lower extremity with inflammation I83.11
== END 2024-09-21 14:14 | disposition home or self-care (01) ==
LOC: HO.HVS 13:12
PROVIDERS: PCP Nurse Practitioner Family; Visit Provider Surgery Vascular Surgery
DX: I83.11 Varicose veins of right lower extremity with inflammation (principal)
CPT/HCPCS: 99214

== ENCOUNTER 2024-09-21 13:11 | Outpatient (REF) | payer OTHER, SELFPAY ==
[2024-09-21 17:10] LABS: Urine Cytology See Pathology rpt
== END 2024-09-21 13:12 | disposition home or self-care (01) ==
LOC: HO.LAB 13:11
PROVIDERS: Urology; PCP Nurse Practitioner Family; Visit Provider Surgery Vascular Surgery
DX: R31.29 Other microscopic hematuria (principal); N36.9 Urethral disorder, unspecified; R35.0 Frequency of micturition; I83.11 Varicose veins of right lower extremity with inflammation
CPT/HCPCS: 51798; 81003; 88112; 99212

== ENCOUNTER 2024-09-21 14:06 | Outpatient (AMB) | payer OTHER, SELFPAY ==
--- NOTE | 2024-09-21 14:37 | MHC.OFFVIS ---
Intake Visit Reasons: microscopic hematuria Intake Note: Patient is present for MICROSCOPIC HEAMTURIA Urology Medication:NONE Antibiotic Allergy:NONE Blood Thinner:NONE TODAY'S PVR: 0ML'S Building Contractor Required: No Allergies morphine [MORPHINE] Allergy (Intermediate, Verified 09/21/24 14:38) ITCHY oxycodone [From Percocet] Allergy (Intermediate, Verified 09/21/24 14:38) rash,upset stomach ENVIRONMENTAL ALLERGIES Allergy (Mild, Uncoded 09/21/24 14:38) congestion Medication List - Last Reconciled 09/21/24 by Beena Fatima MD albuterol sulfate 2.5 mg (3 mL) inhalation Q4-6H PRN albuterol sulfate 90 mcg/actuation 2 puffs inhalation Q6H PRN 1 month blood-glucose meter (FreeStyle [place] Lite kit) As directed budesonide-formoterol 80-4.5 mcg/actuation 2 puffs inhalation BID 30 days cetirizine 10 mg PO DAILY 1 month cholecalciferol (vitamin D3) 50 mcg PO DAILY diclofenac potassium 50 mg PO BID PRN duloxetine 60 mg PO DAILY fluticasone propionate 50 mcg/actuation 1 spray intranasal DAILY gabapentin 300 mg PO BEDTIME glucose 4 grams PO DIRECTED ketotifen fumarate 0.025%(0.035%) (Alaway) 1 drp ophthalmic (eye) BID PRN 1 month lidocaine 5% 1 patch topical DAILY montelukast (Singulair) 10 mg PO DAILY 90 days pseudoephedrine HCl mg PO sodium chloride 0.65% (Saline Mist) 2 sprays intranasal Q2H PRN valacyclovir 2,000 mg (2 x 1 gram) PO Q12H HPI Comments Details: 09/21/24--Sherri is a 39-year-old female who is here for evaluation for microscopic hematuria. The patient denies cigarette use but states she has been exposed to secondhand smoke as her mother's smokes cigarettes in the house when she was growing up. She has intermittent urinary urgency and dysuria. I have discussed reasons for blood in the urine may include but are not limited to kidney stones, cancer in the urinary tract, BPH, or inflammatory conditions of the urinary tract. She had a renal ultrasound done on 09/12 24 which I have reviewed the imaging. Kidneys and bladder are within normal limits. Will send urine for cytology. I have discussed workup to include cystoscopy, pelvic exam at that time. [facility] Medical History Asthma, moderate persistent, poorly-controlled Environmental allergies DM type 2, controlled, with complication Fibromyalgia Iron deficiency Vitamin D deficiency Migraine headache Microscopic hematuria De Quervain's tenosynovitis Anxiety and depression Surgical History History of cervical biopsy History of bilateral salpingectomy History of endometrial ablation History of dilatation and curettage History of laparoscopy Family History Father Diabetes HTN (hypertension) Mother Depression Chronic mental illness Diabetes Maternal Grandmother HTN (hypertension) Paternal Grandmother Alzheimer disease Brother Cancer Other No family history of mental disorder Social History Household Members: Children Housing: House Are you a primary healthcare administrator to a significant other at home: No Do you presently have visiting nurse or other home services: No 75 years or older and lives alone: No Alcohol intake: current Alcohol intake frequency: holidays/special occasions only Patient Tobacco Use Status: Never used Tobacco e-Cigarette/Vaping Use: Currently Using Second Hand Smoke Exposure: No service: No Current occupational status: employed 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, [employer]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 Current occupational exposures/hazards: No Sexual orientation: Unable to collect Gender identity: Female and Unable to collect Cognitive needs: Yes (Forgetful, foggy memory) Hearing needs: No Vision needs: Yes Female Reproductive History Menstrual Age of Menarche: 10 Review of Systems Const All systems reviewed & are unremarkable except as noted in HPI and below Reports no additional complaints Eyes Reports no additional complaints ENT Reports no additional complaints Card Reports no additional complaints Resp Reports no additional complaints GI Reports no additional complaints Reports as per HPI Musc Reports no additional complaints Skin/Breast Reports system reviewed and no additional complaints, except as documented Neuro Reports no additional complaints Psych Reports no additional complaints Endo Reports no additional complaints Toro/Lymph Reports no additional complaints Aller/Immun Reports no additional complaints Physical Exam Const General: cooperative, healthy appearing and no acute distress Orientation/consciousness: patient oriented x3 HEENT Head: Yes normal to inspection, Yes normocephalic and Yes atraumatic Eyes Conjunctivae: conjunctivae normal Neck Neck: Yes normal visual inspection and Yes trachea midline Chest Chest palpation & inspection: normal inspection of the chest Resp Effort & Inspection: normal respiratory effort Cardio Rate: regular rate GI Inspection: Yes normal to inspection Palpation (GI): Soft to palpation Skin General skin exam: no rashes or lesions noted Neuro General: patient oriented x3 Extrem General: No edema Psych Appearance: grossly normal Office Procedures Post Void Residual Post Residual Void Post Void Residual (PVR): 0 [id number] Void Residual by ultrasound Results AMB Urinalysis, Automated UA Leukoctes 0 Jm/uL Last Edit by DEEPTI Bosch on 09/21/24 14:57 UA Nitrite Negative Last Edit by Sandy Dennis CCM on 09/21/24 14:57 UA Urobilinogen 0.2 mg/dL Last Edit by Sandy Dennis CCM on 09/21/24 14:57 UA Protein 15 mg/dL Last Edit by Sandy Dennis CCM on 09/21/24 14:57 UA pH 5.5 Last Edit by Sandy Dennis [facility] on 09/21/24 14:57 UA Blood 200 Cecil/uL Last Edit by Sandy Dennis CCM on 09/21/24 14:57 UA Specific Ferdinand 1.030 Last Edit by Sandy Dennis CCM on 09/21/24 14:57 UA Ketone Negative Last Edit by Sandy Dennis CCM on 09/21/24 14:57 UA Bilirubin 0 mg/dL Last Edit by Sandy Dennis [facility] on 09/21/24 14:57 UA Glucose 0 mg/dL Last Edit by Sandy Dennis [facility] on 09/21/24 14:57 Results Reviewed Results Reviewed: Laboratory Last Values Urine pH (Auto) 5.5 09/21/24 14:56 Specific Ferdinand (Auto) 1.030 09/21/24 14:56 Urine Protein (Auto) 15 mg/dL 09/21/24 14:56 Glucose (UA)(Auto) 0 mg/dL 09/21/24 14:56 Urine Ketones (Auto) Negative 09/21/24 14:56 Urine Blood (Auto) 200 Cecil/uL 09/21/24 14:56 Urine Nitrite (Auto) Negative 09/21/24 14:56 Urine Bilirubin (Auto) 0 mg/dL 09/21/24 14:56 Urine Urobilinogen (Auto) 0.2 mg/dL 09/21/24 14:56 Leukocyte Esterase (Auto) 0 Jm/uL 09/21/24 14:56 Reviewed renal ultrasound imaging 09/12/2024--kidneys no parenchymal lesions or calculi, bladder within normal limits. Assessment & Plan Assessment & Plan (1) Microscopic hematuria: Code(s): R31.29 - Other microscopic hematuria Category: Medical (2) Disorder of urethra: Code(s): N36.9 - Urethral disorder, unspecified Category: Medical (3) Urinary frequency: Code(s): R35.0 - Frequency of micturition Category: Medical Plan Renal ultrasound done on 09/12 24 which I have reviewed the imaging. Kidneys and bladder are within normal limits. Will send urine for cytology. I have discussed workup to include cystoscopy, pelvic exam at that time. Orders: Orders AMB Urinalysis Automated Today Z13.9 - Encounter for screening, unspecified Patient Instructions: The patient had an opportunity to ask questions regarding treatment plan. The patient expressed understanding and agreement with the above treatment plan. The patient is aware they should contact our office by phone for worsening of their current condition or the appearance of new symptoms. Compliance is encouraged with any medications and followup testing that is ordered. It is a privilege to be allowed the opportunity to participate in the urologic care of your patient. If you have any questions or concerns regarding treatment for the above conditions please do not hesitate to contact me. The office telephone contact is [phone]. This note is constructed in part using voice recognition software. While every effort has been made to ensure accuracy hr internship errors may have been included. Yours sincerely, Beena Fatima MD Coding Level of Care Code New Pt Level 4 (25606) Diagnoses Microscopic hematuria R31.29 Disorder of urethra N36.9 Urinary frequency R35.0 CPT Codes Post Residual Void - PVR CPT Code: 89909-[id number] Void Residual by ultrasound ([id number])
== END 2024-09-21 15:39 | disposition home or self-care (01) ==
LOC: HO.HUSH 14:06
PROVIDERS: PCP Nurse Practitioner Family; Visit Provider Urology
DX: R31.29 Other microscopic hematuria (principal); N36.9 Urethral disorder, unspecified; R35.0 Frequency of micturition; Z13.9 Encounter for screening, unspecified
CPT/HCPCS: 99214

== ENCOUNTER 2024-10-05 12:53 | Outpatient (REF) | payer OTHER, SELFPAY ==
--- NOTE | ~2024-10-05 | US_ITS ---
EXAMINATION: US VENOUS BILATERAL LOWER EXTREMITIES (REFLUX EXAM) CLINICAL INDICATION: Leg pain and varicose veins. COMPARISON: None available. TECHNIQUE: Color-flow triplex imaging and compression Doppler was performed to evaluate both the deep and the superficial systems bilaterally. To evaluate the superficial system, the examination was performed in the upright position. Color-flow Doppler ultrasound and compression ultrasound were utilized. In addition, maneuvers were utilized to demonstrate reflux. FINDINGS: 1. DEEP VENOUS ULTRASOUND OF THE RIGHT LOWER EXTREMITY: Respiratory variation, normal compression and augmented flow are noted in the right common femoral vein as well as the right popliteal vein and there is no evidence of deep venous thrombosis at these locations. There is no evidence of reflux in the deep system in either the common femoral vein or the popliteal vein. There is no evidence of a Shah's cyst. 2. SUPERFICIAL ULTRASOUND WITH DOPPLER OF RIGHT LOWER EXTREMITY: The right great saphenous vein at the saphenofemoral junction measures 8 mm, at the proximal thigh 7 mm, at the mid thigh 3 mm, above the knee 4 mm, at the knee 4 mm, [id number] 4 mm, midcalf 2 mm and at the ankle measures 2 mm. There is no reflux demonstrated in the right great saphenous vein. Duplicated Right Great Saphenous Vein: There is a lateral accessory saphenous that does not reflux. The right small saphenous vein measures 3 mm and shows no reflux. Accessory Vein of Giacomini: None. Incompetent Perforators: None. Varices Present: 3 mm varix is present in the mid thigh without reflux. Additional Findings: There is a right groin lymph node measuring 2.2 x 0.6 x 2.8 cm. 3. DEEP VENOUS ULTRASOUND OF THE LEFT LOWER EXTREMITY: Respiratory variation, normal compression and augmented flow are noted in the left common femoral vein as well as the left popliteal vein and there is no evidence of deep venous thrombosis at these locations. There is no evidence of reflux in the deep system in either the common femoral vein or the popliteal vein. There is no evidence of a Shah's cyst. 4. SUPERFICIAL ULTRASOUND WITH DOPPLER OF LEFT LOWER EXTREMITY: Left great saphenous vein at the saphenofemoral junction measures 9 mm, at the proximal thigh 4 mm, at the mid thigh 2 mm, above the knee 3 mm, at the knee 3 mm, [id number] 3 mm, midcalf 2 mm and at the ankle measures 2 mm. There is no reflux demonstrated in the left great saphenous vein. Duplicated Left Great Saphenous Vein: There is a 6 mm lateral accessory saphenous that does not reflux. The left small saphenous vein measures 3 mm and shows no reflux. Accessory Vein of Giacomini: None. Incompetent Perforators: None. Varices Present: A few 3 mm varices are present in the thigh without reflux. US/US venous insuf bilat IMPRESSION: 1. No evidence of reflux or thrombus in the common femoral veins or popliteal veins bilaterally. 2. No evidence of reflux or thrombus in the great or small saphenous veins bilaterally. 3. Bilateral small varices without reflux. Electronically signed by: Burak Alonso MD 10/16/2024 12:41 PM TIA TAVERAS
== END 2024-10-05 12:54 | disposition home or self-care (01) ==
LOC: HO.US 12:53
PROVIDERS: PCP Nurse Practitioner Family; Visit Provider Surgery Vascular Surgery
DX: I83.11 Varicose veins of right lower extremity with inflammation (principal)
CPT/HCPCS: 93970

== ENCOUNTER 2024-10-23 14:44 | Outpatient (AMB) | payer OTHER, SELFPAY ==
--- NOTE | 2024-10-23 15:18 | MHC.PC.OV ---
Vital Signs 10/23/24 15:21 Height 5 ft 4 in Weight 210 lb BMI 36.0 BP 110/66 Blood Pressure Location Lt brachial Position Sitting Respiration 12 Pulse 74 Pulse Source Pulse Oximeter Pulse Oximetry (%) 99 Oxygen Delivery Method Room Air Intake Visit Reasons: Dec 30 min routine fu Intake Note: routine follow up Mask Former Required: No Allergies morphine [MORPHINE] Allergy (Intermediate, Verified 10/23/24 15:37) ITCHY oxycodone [From Percocet] Allergy (Intermediate, Verified 10/23/24 15:37) rash,upset stomach ENVIRONMENTAL ALLERGIES Allergy (Mild, Uncoded 10/23/24 15:37) congestion Medication List - Last Reconciled 10/23/24 by Rashmi Dobbs, RETIREMENT CONSULTANT-BC albuterol sulfate 2.5 mg (3 mL) inhalation Q4-6H PRN albuterol sulfate 90 mcg/actuation 2 puffs inhalation Q6H PRN 1 month blood-glucose meter (ReTargeterStyle [place] Lite kit) As directed budesonide-formoterol 80-4.5 mcg/actuation 2 puffs inhalation BID 30 days cetirizine 10 mg PO DAILY 1 month cholecalciferol (vitamin D3) 50 mcg PO DAILY diclofenac potassium 50 mg PO BID PRN duloxetine 60 mg PO DAILY fluticasone propionate 50 mcg/actuation 1 spray intranasal DAILY gabapentin 300 mg PO BEDTIME glucose 4 grams PO DIRECTED ketotifen fumarate 0.025%(0.035%) ([place]) 1 drp ophthalmic (eye) BID PRN 1 month lidocaine 5% 1 patch topical DAILY montelukast (Singulair) 10 mg PO DAILY 90 days pseudoephedrine HCl mg PO sodium chloride 0.65% (Saline Mist) 2 sprays intranasal Q2H PRN valacyclovir 2,000 mg (2 x 1 gram) PO Q12H Tobacco use date assessed: 07/25/24 Dental Screening Dental Screen Date: 07/25/24 HPI HPI Comments History of Present Illness Details 39-year-old female with vitamin-D deficiency, diabetes type 2, generalized anxiety disorder, major depressive disorder, microscopic hematuria, fibromyalgia, moderate persistent asthma, varicose veins of the lower extremities, the iron-deficiency anemia, morbid obesity Social: lives w/ dtr. 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 She has a history of vitamin D deficiency, identified in July; she has been advised to continue supplementation. Asthma management has been ongoing with the use of an inhaler, which currently controls her breathing well. She was previously experiencing hypoglycemia due to a medication, which has since been discontinued, and her blood glucose levels postprandially are currently stable. A1c done today 5.4%. Chronic pain is managed on an as-needed basis with diclofenac, which has provided relief. Additional conditions include varicose veins, for which she is seeing a vascular specialist, and hematuria monitored by a urologist. Seborrheic dermatitis has worsened to her scalp, causing significant dandruff and hair loss, despite the use of dandruff-specific shampoo. 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 - Family: Recently experienced the passing of a brother and has caring responsibilities for her mother. - Exercise and Activity Level: Limited physical activity due to chronic pain. - Nutrition and Weight: Maintains a stable weight, though has recently gained some weight, making pain management challenging. Results: Labs from 07/26/2024 show mild decrease in her RBCs 4.02, hematocrit 36.8, otherwise normal CBC, normal electrolytes, BUN 21, creatinine 0.64, normal GFR, random glucose 1 awake, hemoglobin A1c 5.6%, normal iron profile, normal LFTs, LDL 120, normal B12, vitamin-D low 24, normal TSH and folate, normal urine microalbumin creatinine ratio Physical Exam General: Awake, alert. No apparent distress Eyes: Sclera and conjunctiva clear bilaterally Throat: Moist mucosa membrane, pharynx within normal limits Cardiovascular: Regular rate and rhythm Respiratory: Clear to auscultation bilaterally, breathing is good with the inhaler Mood and affect appropriate Plan - Vitamin D Deficiency: Continue vitamin D supplementation and re-evaluate levels as needed. - Asthma: Continue current inhaler therapy - Type 2 Diabetes Mellitus: Diet controlled, monitor blood glucose levels and adjust management as required. - Chronic Pain: Continue as-needed use of diclofenac for pain relief; further evaluation by highway painter helper. - Varicose Veins: Follow-up as per vascular specialist recommendations. - Hematuria: Managed by urologist; monitor as per recommendations. - Seborrheic Dermatitis: Prescribe topical hair oil treatment for scalp as per recommended application regimen. - Overweight: Discussed concerns regarding recent weight gain; encourage weight management strategies focusing on potential lifestyle modifications. Patient was informed and verbally consented to the use of an ambient scribe for clinic note documentation during this visit. Discussion Notes We discussed the ongoing management of her chronic conditions, particularly her vitamin D deficiency and its supplementation, asthmatic symptom control with the inhaler, and the management of diabetes following the removal of medication leading to hypoglycemia. We plan to assess her glycemic control with an A1c test today. The importance of continuing pain management strategies for chronic pain with diclofenac was emphasized, and she will follow up with her specialists as necessary. For seborrheic dermatitis, we discussed starting a topical hair oil treatment, understanding its greasy nature but potential efficacy. Patient Instructions - Continue taking vitamin D supplements as prescribed. - Monitor blood glucose levels and report any significant changes. - Use inhalers as directed and request a refill if needed. - Apply prescribed hair oil treatment for dandruff, adhering to instructions for optimal effectiveness. - Follow-up with specialists for varicose veins and hematuria as advised. - Implement lifestyle modifications targeting weight management. - Return for A1c testing and further evaluation today. - Report any significant changes in health status or management effectiveness. RTO 6 months CPE, sooner PRN This note is constructed using voice recognition software. While every effort has been made to ensure accuracy in field insurance sales manager, still errors may have been included Sometimes, these errors may affect the content or meaning of the given sentence . Total time spent caring for the patient today was 30 minutes. This includes time spent before the visit reviewing the chart, time spent during the visit, and time spent after the visit on documentation [facility] Medical History Asthma, moderate persistent, poorly-controlled Environmental allergies DM type 2, controlled, with complication Fibromyalgia Iron deficiency Vitamin D deficiency Migraine headache Microscopic hematuria De Quervain's tenosynovitis Anxiety and depression Surgical History History of cervical biopsy History of bilateral salpingectomy History of endometrial ablation History of dilatation and curettage History of laparoscopy Family History Father Diabetes HTN (hypertension) Mother Depression Chronic mental illness Diabetes Maternal Grandmother HTN (hypertension) Paternal Grandmother Alzheimer disease Brother Cancer Other No family history of mental disorder Social History Household Members: Children Housing: House Are you a primary patient care technician to a significant other at home: No Do you presently have visiting nurse or other home services: No 75 years or older and lives alone: No Alcohol intake: current Alcohol intake frequency: holidays/special occasions only Patient Tobacco Use Status: Never used Tobacco e-Cigarette/Vaping Use: Currently Using Second Hand Smoke Exposure: No service: No Current occupational status: employed 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 02941 - PHQ-9 Billing: Patient declined-do not bill Source: Developed by Drs. Sunil Hernandez, Shasha Decker, Gaudencio Villarreal and colleagues, with an educational troy from [employer] Thrive Questionnaire Date Thrive assessed: 10/23/24 I am a: Patient What is your living situation today?: I have a steady place to live Within the past 12 months, did the food you bought not last and you didn't have the money to get more?: I choose not to answer this question Within the past 12 months, did you worry whether your food would run out before you got money to buy more?: Sometimes True Do you have trouble paying for medicines?: No Do you have trouble getting transportation to medical appointments?: No Do you have trouble paying your heating and electricity bill?: Yes Do you have trouble taking care of your child, family member or friend?: No Do you have trouble with day-to-day activities such as bathing, preparing meals, shopping, managing finances, etc.?: I choose not to answer this question Are you currently unemployed and looking for a job?: Yes Are you interested in more education?: Yes Please select the resources that you would like help with: None Currently or been in a relationship where the following occur: I choose not to answer THRIVE Score: 2 AUDIT C Alcohol Use Questionnaire (AUDIT-C) 1. How often do you have a drink containing alcohol?: Never 2. How many drinks containing alcohol do you have on a typical day when you are drinking?: 1 or 2 3. How often do you have six or more drinks on one occasion?: Never Total Score: 0 DANIEL-7 AMB Questionnaire DANIEL-7 Date DANIEL - 7 assessed: 10/23/24 Feeling nervous, anxious, or on edge: 1 = Several days Not being able to stop or control worryin = Several days Worrying too much about different things: 1 = Several days Trouble relaxin = Several days Being so restless that it is hard to sit still: 0 = Not at all Becoming easily annoyed or irritable: 1 = Several days Feeling afraid as if something awful might happen: 0 = Not at all Total DANIEL-7 score (0-4 normal; 5-9 mild; 10-14 moderate; 15-21 severe): 5 Source: Developed by Drs. Sunil Hernandez, Shasha Decker, Gaudencio Villarreal and colleagues, with an educational troy from [employer]. DANIEL-7 Assessment Billing DANIEL-7 Assessment Tool: DANIEL-7 Assessment 54741 Physical exam (Primary Care) Vital Signs: Last Vital Signs Pulse 74 10/23/24 15:21 Resp 12 10/23/24 15:21 BP 110/66 10/23/24 15:21 Pulse Ox 99 10/23/24 15:21 Oxygen Delivery Method Room Air 10/23/24 15:21 BMI result Body Mass Index 36.0 Tobacco/Smoking Status: Tobacco use Status Tobacco use date assessed 07/25/24 10/23/24 15:20 Patient Tobacco Use Status Never used Tobacco 10/23/24 15:20 e-Cigarette/Vaping Use Currently Using 10/23/24 15:20 Thrive Assessment: Date of Thrive Assessment Date Thrive assessed 10/23/24 10/23/24 15:20 Currently or been in a relationship where the following occur: I choose not to answer Results AMB Hemoglobin A1c AMB Hemoglobin A1c 5.4 % Last Edit by Kamilla Rivera MA on 10/23/24 15:59 Coding Level of Care Code Est Pt Level 4 (68308) Complex EM visit Add On G2211 Diagnoses DM type 2, controlled, with complication E11.8 Moderate persistent asthma without complication J45.40 Asthma complication type: uncomplicated Dandruff L21.0 Severe obesity with body mass index (BMI) of 36.0 to 36.9 with serious comorbidity E66.01; Z68.36 Fibromyalgia M79.7 Varicose veins of both lower extremities with pain I83.813 Varicose vein complication: pain Additional Codes DANIEL-7 Assessment Billing - DANIEL-7 Assessment Tool: DANIEL-7 Assessment [id number] ([id number]) Assessment & Plan Assessment & Plan (1) DM type 2, controlled, with complication: Code(s): E11.8 - Type 2 diabetes mellitus with unspecified complications Category: Medical (2) Moderate persistent asthma: Code(s): J45.40 - Moderate persistent asthma, uncomplicated Category: Medical Qualifiers: Asthma complication type: uncomplicated Qualified Code(s): J45.40 - Moderate persistent asthma, uncomplicated (3) Dandruff: Code(s): L21.0 - Seborrhea capitis Category: Medical (4) Severe obesity with body mass index (BMI) of 36.0 to 36.9 with serious comorbidity: Comment: with asthma and diabetes, bmi > 36 Code(s): E66.01 - Morbid (severe) obesity due to excess calories; Z68.36 - Body mass index [BMI] 36.0-36.9, adult Category: Medical (5) Fibromyalgia: Code(s): M79.7 - Fibromyalgia Category: Medical (6) Varicose veins of both lower extremities: Code(s): I83.93 - Asymptomatic varicose veins of bilateral lower extremities Category: Medical Qualifiers: Varicose vein complication: pain Qualified Code(s): I83.813 - Varicose veins of bilateral lower extremities with pain Plan . Orders: Orders AMB Hemoglobin A1c Today Z13.9 - Encounter for screening, unspecified Medications: New fluocinolone 0.01% 1 appl topical DAILY 60 mL 2RF
[2024-10-23 15:21] VITALS: BP 110/66; PULSE 74; RESP 12; O2SAT 99; BMI 36.0
== END 2024-10-23 16:02 | disposition home or self-care (01) ==
PROVIDERS: PCP Nurse Practitioner Family; Visit Provider Nurse Practitioner Family
DX: E11.8 Type 2 diabetes mellitus with unspecified complications (principal); J45.40 Moderate persistent asthma, uncomplicated; L21.0 Seborrhea capitis; E66.01 Morbid (severe) obesity due to excess calories; Z68.36 Body mass index [BMI] 36.0-36.9, adult; M79.7 Fibromyalgia; I83.813 Varicose veins of bilateral lower extremities with pain; Z13.9 Encounter for screening, unspecified

== ENCOUNTER → 2024-10-23 14:44 | Outpatient (BNVA) | payer OTHER, SELFPAY | PROVIDERS: PCP Nurse Practitioner Family; Visit Provider Nurse Practitioner Family | DX: E11.8 Type 2 diabetes mellitus with unspecified complications (principal); J45.40 Moderate persistent asthma, uncomplicated; L21.0 Seborrhea capitis; E66.01 Morbid (severe) obesity due to excess calories; Z68.36 Body mass index [BMI] 36.0-36.9, adult; M79.7 Fibromyalgia; I83.813 Varicose veins of bilateral lower extremities with pain; Z71.3 Dietary counseling and surveillance | CPT/HCPCS: 83036; 96127; 99212 ==

== ENCOUNTER 2024-11-06 10:13 | Outpatient (AMB) | payer OTHER, SELFPAY ==
--- NOTE | 2024-11-06 10:31 | A.OFFVIS_ITS ---
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: No Allergies morphine [MORPHINE] Allergy (Intermediate, Verified 11/06/24 10:33) ITCHY oxycodone [From Percocet] Allergy (Intermediate, Verified 11/06/24 10:33) rash,upset stomach ENVIRONMENTAL ALLERGIES Allergy (Mild, Uncoded 11/06/24 10:33) congestion Medication List - Last Reconciled 11/06/24 by Beena Fatima MD albuterol sulfate 2.5 mg (3 mL) inhalation Q4-6H PRN albuterol sulfate 90 mcg/actuation 2 puffs inhalation Q6H PRN 1 month blood-glucose meter (FreeStyle [place] Lite kit) As directed budesonide-formoterol 80-4.5 mcg/actuation 2 puffs inhalation BID 30 days cetirizine 10 mg PO DAILY 1 month cholecalciferol (vitamin D3) 50 mcg PO DAILY diclofenac potassium 50 mg PO BID PRN duloxetine 60 mg PO DAILY fluocinolone 0.01% 1 appl topical DAILY fluticasone propionate 50 mcg/actuation 1 spray intranasal DAILY gabapentin 300 mg PO BEDTIME glucose 4 grams PO DIRECTED ketotifen fumarate 0.025%(0.035%) ([place]) 1 drp ophthalmic (eye) BID PRN 1 month lidocaine 5% 1 patch topical DAILY montelukast (Singulair) 10 mg PO DAILY 90 days pseudoephedrine HCl mg PO sodium chloride 0.65% (Saline Mist) 2 sprays intranasal Q2H PRN valacyclovir 2,000 mg (2 x 1 gram) PO Q12H HPI Comments Details: 11/06/24--here for office cystoscopy. Sherri is a 39-year-old female here for follow-up microscopic hematuria. Occasionally leakage associated with urgency if she waits too long, not significantly bothersome at this time. Pelvic exam-no urethral tenderness or bladder prolapse. Cystoscopy findings-no suspicious bladder lesions. Urine Cytology--Collected: 09/21/24--: Negative for high-grade urothelial carcinoma. UA 3+ blood. Will continue to monitor. Follow-up in 9 months repeat renal bladder ultrasound at that time Review of chart: 09/21/24--Sherri is a 39-year-old female who is here for evaluation for microscopic hematuria. The patient denies cigarette use but states she has been exposed to secondhand smoke as her mother's smokes cigarettes in the house when she was growing up. She has intermittent urinary urgency and dysuria. I have discussed reasons for blood in the urine may include but are not limited to kidney stones, cancer in the urinary tract, BPH, or inflammatory conditions of the urinary tract. She had a renal ultrasound done on 09/12 24 which I have reviewed the imaging. Kidneys and bladder are within normal limits. Will send urine for cytology. I have discussed workup to include cystoscopy, pelvic exam at that time. [facility] Medical History Asthma, moderate persistent, poorly-controlled Environmental allergies DM type 2, controlled, with complication Fibromyalgia Iron deficiency Vitamin D deficiency Migraine headache Microscopic hematuria De Quervain's tenosynovitis Anxiety and depression Surgical History History of cervical biopsy History of bilateral salpingectomy History of endometrial ablation History of dilatation and curettage History of laparoscopy Family History Father Diabetes HTN (hypertension) Mother Depression Chronic mental illness Diabetes Maternal Grandmother HTN (hypertension) Paternal Grandmother Alzheimer disease Brother Cancer Other No family history of mental disorder Social History Household Members: Children Housing: House Are you a primary nonfarm animal caretaker to a significant other at home: No Do you presently have visiting nurse or other home services: No 75 years or older and lives alone: No Alcohol intake: current Alcohol intake frequency: holidays/special occasions only Patient Tobacco Use Status: Never used Tobacco e-Cigarette/Vaping Use: Currently Using Second Hand Smoke Exposure: No service: No Current occupational status: employed 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, 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 Current occupational exposures/hazards: No Sexual orientation: Unable to collect Gender identity: Female and Unable to collect Cognitive needs: Yes (Forgetful, foggy memory) Hearing needs: No Vision needs: Yes Female Reproductive History Menstrual Age of Menarche: 10 Review of Systems Const All systems reviewed & are unremarkable except as noted in HPI and below Reports no additional complaints Eyes Reports no additional complaints ENT Reports no additional complaints Card Reports no additional complaints Resp Reports no additional complaints GI Reports no additional complaints Reports as per HPI Musc Reports no additional complaints Skin/Breast Reports system reviewed and no additional complaints, except as documented Neuro Reports no additional complaints Psych Reports no additional complaints Endo Reports no additional complaints Toro/Lymph Reports no additional complaints Aller/Immun Reports no additional complaints Physical Exam Const General: cooperative, healthy appearing and no acute distress Orientation/consciousness: patient oriented x3 HEENT Head: Yes normal to inspection, Yes normocephalic and Yes atraumatic Eyes Conjunctivae: conjunctivae normal Neck Neck: Yes normal visual inspection Chest Chest palpation & inspection: normal inspection of the chest Resp Effort & Inspection: normal respiratory effort GI Inspection: Yes normal to inspection Palpation (GI): Soft to palpation General: No no CVA tenderness External Female Exam: normal external appearance Speculum Exam - Vagina: normal appearance of the vagina Back/Spine/Pelvis Back: No no CVA tenderness Neuro General: patient oriented x3 Extrem General: No edema Psych Appearance: grossly normal Office Procedures Cystoscopy Consent Discussed risk and benefit or proposed procedure with the patient. Information consent for procedure given to the patient. Discussed technical aspects, risks, benefits and alternatives in full. Addressed all of the patient's questions and concerns regarding the procedure. The patient demonstrated knowledge and understanding. They wish to proceed with this procedure. Preparation The patient was prepped in the usual manner. A knot picker cloth was present and in the room. Genitalia was prepped with betadine solution in a sterile manner. Lidocaine Jelly 2% was placed into the urethra and 16Fr flexible Olympus cystoscope was inserted into the meatus after adequate lubrication. Procedure Time out per protocol performed. Bladder Inspection Bladder Inspection: The bladder was inspected in its entirety with utilization retroflexion displaying: Tumor(s): no suspicious bladder lesions visualized Trabeculation: NA Mucosal Erthema: NA Orifices: normal shape and position Urethra: normal Cystoscopy findings: Bilateral ureteral orifice long trigone, no suspicious bladder lesions visualized [id number] DISPOSABLE SCOPE URO-G FLEXIBLE SCOPE Procedure code (CPT) selection complete Office Meds lidocaine HCl 2 % mucosal jelly in applicator Performing Provider: Beena Fatima MD [place] [facility] [place] [facility] Documented (not given) by: Beena Fatima MD on 11/06/24 11:26 Dose Route Admin Location Dispensed Lot Number Expiration Date NDC Software Validation Engineer 10 mL intra-urethral mL naproxen 500 mg tablet Performing Provider: Beena Fatima MD [place] [facility] [facility] Documented (not given) by: Beena Fatima MD on 11/06/24 11:26 Dose Route Admin Location Dispensed Lot Number Expiration Date NDC Software Validation Engineer 500 mg PO tab ciprofloxacin HCl 500 mg tablet Performing Provider: Beena Fatima MD [place]forming [place] [facility] [place] [facility] Documented (not given) by: Beena Fatima MD on 11/06/24 11:26 Dose Route Admin Location Dispensed Lot Number Expiration Date NDC Software Validation Engineer 500 mg PO tab Results AMB Urinalysis, Automated UA Leukoctes 0 Jm/uL Last Edit by Alexia Villalpando CMA on 11/06/24 10:53 UA Nitrite Negative Last Edit by Alexia Villalpando CMA on 11/06/24 10:53 UA Urobilinogen 0.2 mg/dL Last Edit by Alexia Villalpando CMA on 11/06/24 10:5 3 UA Protein 15 mg/dL Last Edit by Alexia Villalpando CMA on 11/06/24 10:53 UA pH 6.0 Last Edit by Alexia Villalpando CMA on 11/06/24 10:53 UA Blood 200 [place]/uL Last Edit by Alexia Villalpando CMA on 11/06/24 10:53 UA Specific [place] 1.025 Last Edit by Alexia Villalpando CMA on 11/06/24 10: 53 UA Ketone Negative Last Edit by Alexia Villalpando CMA on 11/06/24 10:53 UA Bilirubin 0 mg/dL Last Edit by Alexia Villalpando CMA on 11/06/24 10:53 UA Glucose 0 mg/dL Last Edit by Alexia Villalpando CMA on 11/06/24 10:53 Results Reviewed Results Reviewed: Reviewed renal ultrasound imaging 09/12/2024--kidneys no parenchymal lesions or calculi, bladder within normal limits. Urine Cytology--Collected: 09/21/24 Location: .LAB Received: 09/22/24 Diagnosis Urine, cytology: Negative for high-grade urothelial carcinoma. COMMENT: Review of the cytology preparation demonstrates a mildly cellular specimen composed of benign squames and urothelial cells. Red blood cells and debris noted. There is no significant atypia seen. Clinical History Other microscopic hematuria Material Received Urine Gross Description Received is 58 cc of cloudy yellow fluid from which a ThinPrep slide is prepared. Assessment & Plan Assessment & Plan (1) Microscopic hematuria: Code(s): R31.29 - Other microscopic hematuria Category: Medical (2) Urinary frequency: Code(s): R35.0 - Frequency of micturition Category: Medical Plan Cystoscopy findings-no suspicious bladder lesions. Urine Cytology--Collected: 09/21/24--: Negative for high-grade urothelial carcinoma. UA 3+ blood. Will continue to monitor. Follow-up in 9 months repeat renal bladder ultrasound at that time Orders: Orders AMB Cystoscopy Today R31.29 - Other microscopic hematuria AMB Urinalysis Automated Today Z13.9 - Encounter for screening, unspecified US retroperitoneal comp 8 Months R31.29 - Other microscopic hematuria Medications: New ciprofloxacin HCl 500 mg PO ONCE 1 tab 0RF R31.29 - Other microscopic hematuria lidocaine HCl 2% 10 mL intra-urethral ONCE 10 mL 0RF R31.29 - Other microscopic hematuria naproxen 500 mg PO ONCE 1 tab 0RF R31.29 - Other microscopic hematuria Patient Instructions: The patient had an opportunity to ask questions regarding treatment plan. The patient expressed understanding and agreement with the above treatment plan. The patient is aware they should contact our office by phone for worsening of their current condition or the appearance of new symptoms. Compliance is encouraged with any medications and followup testing that is ordered. It is a privilege to be allowed the opportunity to participate in the urologic care of your patient. If you have any questions or concerns regarding treatment for the above conditions please do not hesitate to contact me. The office telephone contact is [phone]. This note is constructed in part using voice recognition software. While every effort has been made to ensure accuracy change consultant errors may have been included. Yours sincerely, Beena Fatima MD Coding Level of Care Code Procedure Only Diagnoses Microscopic hematuria R31.29 Urinary frequency R35.0 CPT Codes Cystoscopy - CPT: [id number] ([id number])
== END 2024-11-06 11:21 | disposition home or self-care (01) ==
PROVIDERS: PCP Nurse Practitioner Family; Visit Provider Urology
DX: R31.29 Other microscopic hematuria (principal); R35.0 Frequency of micturition
CPT/HCPCS: 52000

== ENCOUNTER → 2024-11-06 10:13 | Outpatient (BNVA) | payer OTHER, SELFPAY | PROVIDERS: PCP Nurse Practitioner Family; Visit Provider Urology | DX: R31.29 Other microscopic hematuria (principal); R35.0 Frequency of micturition | CPT/HCPCS: 52000; 81003 ==

== ENCOUNTER 2025-01-29 15:20 | Outpatient (AMB) | payer OTHER, SELFPAY ==
--- NOTE | 2025-01-29 15:20 | MHC.OFFVIS ---
Vital Signs 01/29/25 15:21 Height 5 ft 4 in Weight 210 lb BMI 36.0 Intake Visit Reasons: increased pain Allergies morphine [MORPHINE] Allergy (Intermediate, Verified 01/29/25 15:23) ITCHY oxycodone [From Percocet] Allergy (Intermediate, Verified 01/29/25 15:23) rash,upset stomach ENVIRONMENTAL ALLERGIES Allergy (Mild, Uncoded 11/06/24 10:33) congestion HPI Comments Details: The patient is a 39-year-old female presenting via telehealth encounter with worsening chronic pain, notably in her lower back and joints, along with more frequent fibromyalgia flare-ups. Her chronic lower back pain has been compounded by mild lumbar spondylosis, mainly at L2 and L4 upper endplates. . Despite a prior referral for physical therapy in April last year, the patient did not complete the sessions due to work constraints. Her pain is constant, described as stabbing or tightness, mainly impacting her ability to work and leading to early leave from her workplace. Currently, her treatment includes diclofenac potassium, which she takes twice a day as needed, and lidocaine 5% patches, which offer limited relief. The patient used to take duloxetine for fibromyalgia but discontinued since ceasing psychiatric consultations. She reports experiencing numbness and tingling in hands, feet, and arms, and denies any diabetes but reports episodes of hypoglycemia. Most recent A1C=5.4 on 10/23/24. Denies any recent cough, cold, infection, fever or any significant changes in medical history since last office visit. Denies any changes to medications, medical history or recent hospitalizations. - Onset and Timing: Chronic pain, now more frequent with fibromyalgia flare-ups occurring monthly. - Quality and Character: Constant, stabbing, cold, tight sensation. - Primary Location: Back and hip. - Areas of Radiation: Occasional numbness and tingling in hands, feet, and arms. - Exacerbating Factors: Work activities, lack of effective previous physical therapy completion. - Relieving Factors: None effectively noted, diclofenac potassium provides limited relief. - Activity Interference: Significant impact on work, requiring early leave due to severity. - Affect: Pain keeps the patient away from work and significantly impacts her daily function and psychological well-being. - Analgesia: Currently using diclofenac potassium twice daily, limited relief from lidocaine patches. No gabapentin or duloxetine usage. - Adverse Effects: Potential concerns about prolonged NSAID use; no specific adverse effects noted. - Activities of Daily Living: Pain interferes with work activities and long-term functionality. - Aberrant Drug Related Behaviors: None reported; adherence to prescribed diclofenac regimen. PRIOR 05/05/24: Patient is a pleasant 38 years old female with history of fibromyalgia and lumbar generative disc disease, presents today for initial evaluation of multiple pain generations, including low back pain, left hip, bilateral knee and hand pain. She is followed by Rheumatology for polyarthralgia and fibromyalgia. Today we focused our visit on low back and left hip pain. Patient denies any past or recent trauma, injury or falls. 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 Back pain is axial and also radiates into her sacral areas and left lateral hip. She has multiple localized tenderness throughout her upper and lower extremities and torso consistent with fibromyalgia. Pain affects her daily activities, functioning, mobility, mood, sleep, social interactions and quality of life. Pain is rated 8-10/10 on average for the past month, with most severe pain at 10/10 and least severe at 4/10. Pain is constant and worse during mornings, evenings and middle of the night. To this point, patient has not tried any dedicated conservative treatment in the forms of physical therapy, chiropractic, acupuncture, weight loss, or injections. Denies any fever, chills, weight loss, abdominal or groin pain, weakness, foot drop, bladder or bowel dysfunction or saddle anesthesia. Oswestry Low Back Disabiltiy Score=31 (severe disability) Location: Low back, left hip, knees, hands, widespread body pain Duration: Chronic pain, worsening for past 2 years Characteristics of symptom or complaint: Burning, tingling, shooting, squeezing, tiring, sharp, stabbing, aching, Aggravating or associated factors: Movement, stress, long drives, work,house chores, sitting, standing, walk Relieving factors: Resting, hot bath, gabapentin, Tylenol, NSAIDs Treatment: None PFSH Medical History Asthma, moderate persistent, poorly-controlled Environmental allergies DM type 2, controlled, with complication Fibromyalgia Iron deficiency Vitamin D deficiency Migraine headache Microscopic hematuria De Quervain's tenosynovitis Anxiety and depression Surgical History History of cervical biopsy History of bilateral salpingectomy History of endometrial ablation History of dilatation and curettage History of laparoscopy Family History Father Diabetes HTN (hypertension) Mother Depression Chronic mental illness Diabetes Maternal Grandmother HTN (hypertension) Paternal Grandmother Alzheimer disease Brother Cancer Other No family history of mental disorder Social History Household Members: Children Housing: House Are you a primary gericare aide teacher to a significant other at home: No Do you presently have visiting nurse or other home services: No 75 years or older and lives alone: No Alcohol intake: current Alcohol intake frequency: holidays/special occasions only Patient Tobacco Use Status: Never used Tobacco e-Cigarette/Vaping Use: Currently Using Second Hand Smoke Exposure: No service: No Current occupational status: employed 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 - Neurological: Reports intermittent numbness and tingling in hands, feet, and arms. - Psychiatric: Denies ongoing psychiatric care, stopped duloxetine. All systems reviewed & are unremarkable except as noted in HPI and below ENT Reports Normal hearing present Neuro Reports Normal hearing present and Denies confusion Psych Denies confusion Physical Exam Vital Signs: BMI result Body Mass Index 36.0 Const General: cooperative, alert and awake; No confusion Orientation/consciousness: patient oriented x3 and No confusion Resp Effort & Inspection: able to speak in complete sentences, no audible wheezes and no cough Neuro General: patient oriented x3 and No confusion Cranial nerves: Yes Normal hearing present Cognition (Neuro): normal cognition Psych Mental Status: mental status grossly normal Speech and movement: Clear speech present Affect: normal affect Attitude: cooperative Thought process: Normal thought process present Thought content: Normal thought content present and No Depressive thoughts present Insight: Good insight present (Psych) Judgement: Good judgement present (Psych) Telehealth Telehealth Telehealth Platform: Telephone Location of provider rendering services: practice address Location of patient: address on file Patient Identification confirmed using: Name, : Yes Telehealth method: voice only Patient verbally consented to treatment: Yes Patient verbally consented to billing insurance company: Yes Patient informed of any privacy concerns related to visit: Yes Minutes spent on Phone/Video with Pt.: 16 Results Reviewed Results Reviewed: XR LUMBOSACRAL SPINE WITH OBLIQUES 03/01/24 CLINICAL INFORMATION: Lumbar disc degeneration. FINDINGS: The vertebral bodies and posterior elements are normal. The disc spaces are preserved and the vertebral alignment is normal. No acute fracture or spondylolisthesis is seen. There is no spondylolysis defect on the oblique views. There is mild arthropathy of the anterior margins of the L2 and L4 upper endplates. The paraspinal soft tissues are normal. IMPRESSION: 1. No acute fracture or spondylolisthesis is seen. There is no spondylolysis defect. 2. The lumbar disc spaces are well-maintained. 3. There is mild arthropathy of the L2 and L4 upper endplates. US PELVIS 02/23/24 CLINICAL INFORMATION: Pelvic and perineal pain. COMPARISON: Pelvic ultrasound 12/25/2022. IMPRESSION: Subendometrial/myometrial cysts in the uterine fundus may reflect underlying adenomyosis or be secondary to reported endometrial ablation. No acute findings to correlate with pelvic and perineal pain. XR KNEE, RIGHT 03/01/24 CLINICAL INFORMATION: Pain. COMPARISON: Radiographs dated 08/04/2010. FINDINGS: No fracture or joint effusion. Alignment is anatomic. Joint spaces are maintained. No abnormal soft tissue calcification. IMPRESSION: Normal right knee. XR KNEE, LEFT 03/01/24 CLINICAL INFORMATION: Pain. COMPARISON: Radiographs dated 08/04/2010. FINDINGS: No fracture or joint effusion. Alignment is anatomic. Joint spaces are maintained. No abnormal soft tissue calcification. IMPRESSION: Normal left knee. Assessment & Plan Assessment & Plan (1) Fibromyalgia: Code(s): M79.7 - Fibromyalgia Category: Medical (2) Left hip pain: Code(s): M25.552 - Pain in left hip Category: Medical (3) Low back pain: Code(s): M54.50 - Low back pain, unspecified Category: Medical (4) Degenerative lumbar disc: Code(s): M51.36 - Other intervertebral disc degeneration, lumbar region Category: Medical (5) Greater trochanteric bursitis of left hip: Code(s): M70.62 - Trochanteric bursitis, left hip Category: Medical (6) Degenerative lumbar disc: Code(s): M51.36 - Other intervertebral disc degeneration, lumbar region Category: Medical (7) Greater trochanteric bursitis of left hip: Code(s): M70.62 - Trochanteric bursitis, left hip Category: Medical (8) Bilateral knee pain: Code(s): M25.561 - Pain in right knee; M25.562 - Pain in left knee Category: Medical Qualifiers: Chronicity: chronic Qualified Code(s): M25.561 - Pain in right knee; M25.562 - Pain in left knee; G89.29 - Other chronic pain Plan I will resubmit a referral for [facility], assuring the patient of weekend scheduling options. For fibromyalgia management, I will initiate Savella with a cautious escalation to avoid adverse effects. Patient has stopped duloxetine and is aware of drug interactions with Savella. Diclofenac potassium will be reserved for severe pain episodes only. The patient is instructed to report back in 5-6 weeks following physical therapy to reassess and modify treatment as necessary. Patient was informed and verbally consented to the use of an ambient scribe for clinic note documentation during this visit. I hereby testify that I spent 16 minutes in conversation with this patient as well as with planning and coordinating care for this patient and organizing this note. Medications: New milnacipran (Savella) 12.5 mg PO DAILY 30 days 30 tabs 0RF pain M79.7 - Fibromyalgia Discontinued duloxetine Discontinued Reason: Patient Completed Course 60 mg PO DAILY 30 caps 0RF Patient Instructions: I discussed the complexities of her chronic pain symptoms with the patient, emphasizing the importance of completing physical therapy to maximize functional improvement and reduce pain levels. I advised against the chronic use of NSAIDs due to potential renal and cardiovascular side effects, explaining the intended use of diclofenac only for acute situations. As for managing her fibromyalgia, we agreed on trialing Savella, discussing potential side effects and the gradual titration schedule to minimize risks. We also covered the importance of avoiding caffeine and energy drinks during the medication trial. I encouraged her to follow up after completing five to six weeks of physical therapy for a comprehensive re-evaluation. - Proceed with the physical therapy sessions at [facility], starting once or twice a week. - Use diclofenac potassium for severe pain episodes only, not daily. - Start Savella as directed, monitoring for side effects. - Avoid alcohol and minimize or avoid caffeine while taking Savella. - Call office or notify me through the patient portal to report the response to treatment. - Follow up after 5-6 weeks of physical therapy for a re-evaluation. Coding Level of Care Code Tele Est Pt Level 4 (34764) Complex EM visit Add On G2211 Diagnoses Fibromyalgia M79.7 Left hip pain M25.552 Low back pain M54.50 Degenerative lumbar disc M51.36 Greater trochanteric bursitis of left hip M70.62 Chronic pain of both knees M25.561; M25.562; G89.29 Chronicity: chronic
[2025-01-29 15:21] VITALS: BMI 36.0
--- OUTSIDE RECORDS SUMMARY | 2025-01-29 17:50 | XMS_ITS | Clinical Summary ---
Author Organization [address] [place] [address] [place] [id number] Phone Care Team Providers Care Gutter Installer Name Role Phone EdwarHumble Vilchisalton VINCENT Primary Care Provider [phone] Allergies No known active allergies Medications No known medications Active Problems No known active problems Encounters Date Type Department Care Team Description 12/14/2024 6:00 PM EST Office Visit Walk-In [address] [id number] Trav Mon MD Acute pain of right shoulder (Primary Dx) 12/14/2024 2:17 PM EST - 12/14/2024 11:59 PM EST Hospital Encounter [facility] [address] [id number] Discharge Disposition: Home or Self Care from Last 3 Months Social History Tobacco Use Types Packs/Day Years Used Date Smoking Tobacco: Never Assessed Comments Unknown Sex and Gender Information Value Date Recorded Sex Assigned at Not on file Legal Sex Female 6:18 PM EST Gender Identity Not on file Sexual Orientation Not on file Last Filed Vital Signs Vital Sign Reading Time Taken Comments Blood Pressure 106/72 12/14/2024 9:30 AM EST Pulse 90 12/14/2024 9:30 AM EST Temperature 36.8 ??C (98.2 ??F) 12/14/2024 9:30 AM ES T Respiratory Rate - - Oxygen Saturation 98% 12/14/2024 9:30 AM EST Inhaled Oxygen Concentration - - Weight - - Height - - Body Mass Index - - Plan of Treatment Health Maintenance Due Date Last Done Comments DTaP,Tdap,and Td Vaccines (1 - Tdap) 2004 Hepatitis B Vaccines (1 of 3 - 19+ 3-dose series) 2004 Cervical Cancer Screening: P ap Smear 2006 Depression Screening 10/17/2022 HIV Screening 10/17/2022 Hepatitis C Screening 10/17/2022 Social Influencers of Health Screening 10/17/2022 COVID-19 Vaccine ( - 2023-2 5 season) 2024 Influenza Vaccine (#1) 2024 HIB Vaccines Aged Out No longer eligi ble based on patient's age to complete this topic HPV Vaccines Aged Out No longer eligi ble based on patient's age to complete this topic Hepatitis A Vaccines Aged Out No long er eligible based on patient's age to complete this topic IPV Vaccines Aged Out No longer eligi ble based on patient's age to complete this topic MMR Vaccines Aged Out No longer eligi ble based on patient's age to complete this topic Meningococcal ACWY Vaccine Aged Out N o longer eligible based on patient's age to complete this topic Meningococcal B Vacine Aged Out No lo nger eligible based on patient's age to complete this topic Pneumococcal Vaccine: Pediat rics (0 to 5 Years) and At-Risk Patients (6 to 64 Years) Aged Out No longer eligible b ased on patient's age to complete this topic RSV Immunization Patients Un nora 20 months Aged Out No longer eligible b ased on patient's age to complete this topic Varicella Vaccines Aged Out No longer eligible based on patient's age to complete this topic Procedures Procedure Name Priority Date/Time Associated Diagnosis Comments XR SHOULDER 2+ VIEWS RIGHT STAT 12/14/2024 2:28 PM EST Acute pain of right shoulder from Last 3 Months Results * XR Shoulder 2+ Views Right (12/14/2024 2:28 PM EST) Anatomical Region Laterality Modality Upper Extremities, Shoulder Right Radi ographic Imaging 12/14/2024 2:38 PM EST Impressions 12/14/2024 2:40 PM EST No acute fracture or dislocation. -------- FINAL REPORT -------- Dictated By: Mahesh Montaño Dictated Date: 12/14/2024 14:38 ET Assigned Physician: Mahesh Montaño Reviewed and Electronically Signed By: Mahesh Montaño Signed Date: 12/14/2024 14:40 ET Workstation ID: [id number] Transcribed By: Self Edit Transcribed Date: 12/14/2024 14:38 ET Narrative 12/14/2024 2:40 PM EST XR SHOULDER 2+ VIEWS RIGHT Reason: acute pain Comparison: None FINDINGS: No fracture. Normal alignment. Normal joint spaces. No abnormal soft tissue calcification. Procedure Note Mahesh Montaño MD - 12/14/2024 XR SHOULDER 2+ VIEWS RIGHT Reason: acute pain Comparison: None FINDINGS: No fracture. Normal alignment. Normal joint spaces. No abnormal softtissue calcification. IMPRESSION: No acute fracture or dislocation. -------- FINAL REPORT -------- Dictated By: Mahesh Montaño Dictated Date: 12/14/2024 14:38 ET Assigned Physician: Mahesh Montaño Reviewed and Electronically Signed By: Mahesh Montaño Signed Date: 12/14/2024 14:40 ET Workstation ID: [id number] Transcribed By: Self Edit Transcribed Date: 12/14/2024 14:38 ET Trav Mon MD IMG XR PROCEDURES Final Result from Last 3 Months Insurance [facility] Care Teams Gutter Installer Relationship Specialty Start Date End Date O'Narendra, Rashmi, WAREHOUSE FORKLIFT OPERATOR [address] [place] [address] PCP - General Nurse Practitioner 12/14/24
== END 2025-01-29 15:39 | disposition home or self-care (01) ==
LOC: HO.PMC 15:20
PROVIDERS: PCP Nurse Practitioner Family; Visit Provider Nurse Practitioner Family
DX: M79.7 Fibromyalgia (principal); M25.552 Pain in left hip; M54.50 Low back pain, unspecified; M51.369 Other intervertebral disc degeneration, lumbar region without mention of lumbar back pain or lower extremity pain; M70.62 Trochanteric bursitis, left hip; M25.561 Pain in right knee; M25.562 Pain in left knee; G89.29 Other chronic pain
CPT/HCPCS: 99214; G2211

== ENCOUNTER 2025-03-01 12:33 | Outpatient (AMB) | payer OTHER, SELFPAY ==
--- NOTE | 2025-03-01 12:33 | MHC.PC.OV ---
Intake Visit Reasons: Cold Sores & Body Pain Intake Note: Telehealth follow up on uti and she finished all her antibiotics for the uti last week. Jig Hand Required: No Allergies morphine [MORPHINE] Allergy (Intermediate, Verified 03/01/25 14:25) ITCHY oxycodone [From Percocet] Allergy (Intermediate, Verified 03/01/25 14:25) rash,upset stomach ENVIRONMENTAL ALLERGIES Allergy (Mild, Uncoded 03/01/25 14:25) congestion Medication List - Last Reconciled 03/01/25 by Rashmi Dobbs, [facility]- albuterol sulfate 2.5 mg (3 mL) inhalation Q4-6H PRN albuterol sulfate 90 mcg/actuation 2 puffs inhalation Q6H PRN 1 month blood-glucose meter (Blockchain [place] Lite kit) As directed budesonide-formoterol 80-4.5 mcg/actuation 2 puffs inhalation BID 30 days cetirizine 10 mg PO DAILY 1 month cholecalciferol (vitamin D3) 50 mcg PO DAILY diclofenac potassium 50 mg PO BID PRN fluocinolone 0.01% 1 appl topical DAILY fluticasone propionate 50 mcg/actuation 1 spray intranasal DAILY glucose 4 grams PO DIRECTED ketotifen fumarate 0.025%(0.035%) ([place]) 1 drp ophthalmic (eye) BID PRN 1 month lidocaine 5% 1 patch topical DAILY milnacipran (Savella) 12.5 mg PO DAILY 30 days montelukast (Singulair) 10 mg PO DAILY 90 days pseudoephedrine HCl mg PO sodium chloride 0.65% (Saline Mist) 2 sprays intranasal Q2H PRN valacyclovir 2,000 mg (2 x 1 gram) PO Q12H Tobacco use date assessed: 03/01/25 Dental Screening Dental Screen Date: 03/01/25 Did you have a dental visit in the last 12 months?: Yes Did you have a dental problem in the last 6 months where you did not have access to dental care?: No Was dental information given to patient?: Patient has dentist HPI HPI Comments History of Present Illness Details Telehealth visit for this 39 y/o F with CC: I keep getting UTI over the last few months She started to have UTI type sx around the time of her menses a few months ago She did not undergo any tx; The sx would improve after her menses however about 1 mo ago she started again w/ the sx. 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 Plan Chart reviewed She is active w/ [facility] and [facility]. Next scheduled [facility] 03/2025 and [facility] 07/2025 She is unsure if she contacted [facility] w/ this issue or not. I have advised for her to call them and schedule an appt for eval and tx. If she runs into any troubles, i asked she send me a message on the portal For COVID/Flu recommend cont tx and Supportive Care RTO prn Time spent 15 minutes [facility] Medical History Asthma, moderate persistent, poorly-controlled Environmental allergies DM type 2, controlled, with complication Fibromyalgia Iron deficiency Vitamin D deficiency Migraine headache Microscopic hematuria De Quervain's tenosynovitis Anxiety and depression Surgical History History of cervical biopsy History of bilateral salpingectomy History of endometrial ablation History of dilatation and curettage History of laparoscopy Family History Father Diabetes HTN (hypertension) Mother Depression Chronic mental illness Diabetes Maternal Grandmother HTN (hypertension) Paternal Grandmother Alzheimer disease Brother Cancer Other No family history of mental disorder Social History Household Members: Children Housing: House Are you a primary critical care cns to a significant other at home: No Do you presently have visiting nurse or other home services: No 75 years or older and lives alone: No Alcohol intake: current Alcohol intake frequency: holidays/special occasions only Patient Tobacco Use Status: Never used Tobacco e-Cigarette/Vaping Use: Currently Using Second Hand Smoke Exposure: No service: No Current occupational status: employed 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 Sunil Hernandez, Shasha Decker, Gaudencio Villarreal and colleagues, with an educational troy from [employer]. Physical exam (Primary Care) Tobacco/Smoking Status: Tobacco use Status Tobacco use date assessed 03/01/25 03/01/25 12:36 Patient Tobacco Use Status Never used Tobacco 03/01/25 12:36 e-Cigarette/Vaping Use Currently Using 03/01/25 12:36 Thrive Assessment: Date of Thrive Assessment Date Thrive assessed 10/20/24 03/01/25 12:36 Telehealth Telehealth Telehealth Platform: [facility] Location of provider rendering services: practice address Location of patient: address on file Patient Identification confirmed using: Name, : Yes Telehealth method: voice only Patient verbally consented to treatment: Yes Patient verbally consented to billing insurance company: Yes Patient informed of any privacy concerns related to visit: Yes Minutes spent on Phone/Video with Pt.: 8 Coding Level of Care Code Tele Est Pt Level 2 (61198) Complex EM visit Add On G2211 Diagnoses UTI symptoms R39.9 Influenza J11.1 COVID U07.1 Assessment & Plan Assessment & Plan (1) UTI symptoms: Code(s): R39.9 - Unspecified symptoms and signs involving the genitourinary system (2) Influenza: Code(s): J11.1 - Influenza due to unidentified influenza virus with other respiratory manifestations (3) COVID: Code(s): U07.1 - COVID-19 Plan .
--- OUTSIDE RECORDS SUMMARY | 2025-03-01 15:21 | XMS_ITS | Encounter Summary ---
Author Organization [employer] Address [address] [place] [address] Care Team Providers Care Boatwright Name Role Phone EdwarKamRashmi Mackey Primary Care Provider [phone] Reason for Visit * Reason Comments URI BROTHERS, ST, congestion, body aches, diarrhea, fever.Onset late yesterday Encounter Details Date Type Department Care Team (Late st Contact Info) Description 02/27/2025 5:15 PM EDT Office Visit Walk-In Clinic - [address] [phone] Trav Mon MD [address] [place] [phone] COVID (Primary Dx); Influenza Social History Tobacco Use Types Packs/Day Years Used Date Smoking Tobacco: Never Assessed Comments Unknown Sex and Gender Information Value Date Recorded Sex Assigned at Not on file Legal Sex Female 6:18 PM EST Gender Identity Not on file Sexual Orientation Not on file documented as of this encounter Last Filed Vital Signs Vital Sign Reading Time Taken Comments Blood Pressure 124/62 02/27/2025 11:08 AM EDT Pulse 95 02/27/2025 11:08 AM EDT Temperature 36.9 ??C (98.4 ??F) 02/27/2025 11:08 AM E DT Respiratory Rate - - Oxygen Saturation 99% 02/27/2025 11:08 AM EDT Inhaled Oxygen Concentration - - Weight - - Height - - Body Mass Index - - documented in this encounter Ordered Prescriptions Prescription Sig Dispense Quantity Refills Last Filled Start Date End Date oseltamivir (TAMIFLU) 75 mg capsule Take 1 capsule (75 mg total) by mouth 2 (two) times a day for 5 days. 10 each 02/27/2025 documented in this encounter Progress Notes * Trav Mon MD - 02/27/2025 5:15 PM EDT CHIEF COMPLAINT: URI (BROTHERS, ST, congestion, body aches, diarrhea, fever./Onset late yesterday) HPI: Leslie Huitron is a 39 y.o. old female who has been ill since yesterday evening. Patient has had malaise, myalgias, headache, sore throat, congestion, nausea, diarrhea and fever. Patient did not haveseasonal flu vaccine. Patient's last COVID vaccine was a couple years ago. Patient's mother [place]from [place] recently. Mother has been ill recently but testing done this past weekend was negative for COVID. ROS: Review of Systems Constitutional: Positive for fatigue and fever. HENT: Positive for congestion and sore throat. Gastrointestinal: Positive for diarrhea. Musculoskeletal: Positive for myalgias. PAST MEDICAL HISTORY: There are no active problems to display for this patient. No past surgical history on file. SOCIAL HISTORY: Social History Tobacco Use Smoking status: Not on file Smokeless tobacco: Not on file Substance Use Topics Alcohol use: Not on file FAMILY HISTORY: No family history on file. No family status information on file. MEDICATIONS DISCONTINUED/REORDERED: There are no discontinued medications. ACTIVE MEDICATIONS: Outpatient Medications Marked as Taking for the 02/27/25 encounter (Office Visit) with Trav Mon MD Medication Sig Dispense Refill cetirizine (ZyrTEC) 10 mg tablet Take 1 tablet (10 mg total) by mouth 1 (one) time each day. 30 each 0 gabapentin (NEURONTIN) 300 mg capsule Take 1 capsule (300 mg total) by mouth every 8 (eight) hours. ALLERGIES: Allergies Allergen Reactions Hydrocodone Itching and Nausea And Vomiting Morphine Oxycodone Itching and GI intolerance PHYSICAL EXAM: Vitals: 02/27/25 1108 BP: 124/62 Pulse: 95 Temp: 36.9 ??C (98.4 ??F) SpO2: 99% Physical Exam LABS/IMAGING: COVID test was positive. Rapid flu test was positive. IMPRESSION: 1. COVID 2. Influenza PLAN: 1. Patient was advised to isolate for 5 days. Patient to stay well-hydrated. Acetaminophen or ibuprofen. At the end of 5 days if symptoms are improving and no fever without the assistance of antipyretics patient may end isolation. Patient should wear a mask whenever around people for the next 5 days. Tamiflu was prescribed. Patient was advised to follow-up with PCP. Advised the patient to call pcp if any problems. Patient understands the plan. Patient is in agreement with the plan. Trav Mon MD on 02/27/2025 at 11:23 AM EDT Today's documentation was made using voice recognition software. This note may contain grammatical errors secondary to this software. documented in this encounter Plan of Treatment Not on file documented as of this encounter Procedures Procedure Name Priority Date/Time Associated Diagnosis Comments POC RAPID [id number], MOLECULAR Routine 02/27/2025 11:13 AM EDT COVID POC INFLUENZA A/B Routine 02/27/2025 11: 13 AM EDT Influenza documented in this encounter Results * (ABNORMAL) POC Influenza A/B manually resulted (02/27/2025 11:13 AM EDT) Pathologist [facility] Rapid Influenza A AGN POC Negative Negative Rapid Influenza B AGN POC Positive(A) Negative Swab 02/27/2025 11:1 3 AM EDT Trav Mon MD POINT OF CARE TEST ENTER/EDIT OR DERABLES Final Result * (ABNORMAL) Poc Rapid [id number], MOLECULAR (02/27/2025 11:13 AM EDT) Pathologist [facility] COVID-19/SARS- COV-2 Rapid POC Positive(A ) Negative Swab Nasopharyngeal structure / Unknown 02/27/2025 11:13 AM EDT Trav Mon MD POINT OF CARE TEST ENTER/EDIT OR DERABLES Final Result documented in this encounter Visit Diagnoses Diagnosis COVID- Primary Influenza Influenza with other respiratory manifestations documented in this encounter Historical Medications * This list may reflect changes made after this encounter. gabapentin (NEURONTIN) 300 mg capsule Take 1 capsule (300 mg total) by mouth every 8 (eight) hours. 04/14/2024 added in this encounter Additional Health Concerns Infection Onset Date Last Indicated Resolved Time COVID-19 02/27/2025 02/27/2025 Influenza 02/27/2025 02/27/2025 documented as of this encounter Care Teams Boatwright Relationship Specialty Start Date End Date Rashmi Dobbs FNP [address] [place] [address] PCP - General Nurse Practitioner 12/14/24 documented as of this encounter
--- OUTSIDE RECORDS SUMMARY | 2025-03-01 15:21 | XMS_ITS | Clinical Summary ---
Author Organization [address] [place] [address] [place] [phone] Phone Care Team Providers Care Iuss Master Analyst Name Role Phone EdwarKamNarendra, Rashmi VINCENT Primary Care Provider Allergies Active Allergy Reactions Criticality Noted Date Comments Hydrocodone Itching,Nausea And Vomiting 025 Morphine 02/14/2025 Oxycodone Itching,GI intolerance 02/14/2025 Medications cetirizine (ZyrTEC) 10 mg tablet Take 1 tablet (10 mg total) by mouth 1 (one) time each day. 30 each 5 03/18/20 25 Active gabapentin (NEURONTIN) 300 mg capsule Take 1 capsule (300 mg total) by mouth every 8 (eight) hours. 4 Active oseltamivir (TAMIFLU) 75 mg capsule Take 1 capsule (75 mg total) by mouth 2 (two) times a day for 5 days. 10 each 5 03/04/20 25 Active nitrofurantoin, macrocrystal-mo nohydrate, (MACROBID) 100 mg capsule Take 1 capsule (100 mg total) by mouth 2 (two) times a day for 5 days. 10 each 5 02/20/20 25 amoxicillin-cla vulanate (AUGMENTIN) 875-125 mg per tablet Take 1 tablet by mouth 2 (two) times a day for 10 days. 20 each 5 02/27/20 25 doxycycline (VIBRAMYCIN) 100 mg capsule Take 1 capsule (100 mg total) by mouth 2 (two) times a day for 10 days. Take with at least 8 ounces (large glass) of water, do not lie down for 30 minutes after. Administer 2 hours before or after multivitamins, antacids, or other products containing polyvalent cations (i.e., calcium, iron, magnesium, selenium, zinc). 20 each 5 02/27/20 25 Active Problems No known active problems Encounters Date Type Department Care Team Description 02/27/2025 5:15 PM EDT Office Visit Walk-In [address] [phone] Trav Mon MD COVID (Primary Dx); Influenza 02/16/2025 9:30 AM EDT Office Visit Walk-In [address] [phone] Trav Buenrostro NP Cellulitis of face (Primary Dx) 02/14/2025 6:00 PM EDT Office Visit Walk-In [address] [address] Tatianna Kovacs NP Dysuria (Primary Dx) 12/14/2024 6:00 PM EST Office Visit Walk-In [address] [address] Trav Mon MD Acute pain of right shoulder (Primary Dx) 12/14/2024 2:17 PM EST - 12/14/2024 11:59 PM EST Hospital Encounter Walk-In Clinic [facility] [address] [place] [phone] Discharge Disposition: Home or Self Care from Last 3 Months Social History Tobacco Use Types Packs/Day Years Used Date Smoking Tobacco: Never Assessed Comments Unknown Sex and Gender Information Value Date Recorded Sex Assigned at Not on file Legal Sex Female 6:18 PM EST Gender Identity Not on file Sexual Orientation Not on file Obstetrics History Last Filed Vital Signs Vital Sign Reading [...] - 2023-2 5 season) 2024 Influenza Vaccine (Season Ended) 2025 HIB Vaccines Aged Out No longer eligi [...] age to complete this topic Meningococcal B Vaccine Aged Out No l onger eligible based on patient's age to complete [...] Name Priority Date/Time Associated Diagnosis Comments POC INFLUENZA A/B Routine 02/27/2025 11: 13 AM EDT Influenza POC RAPID [id number], MOLECULAR Routine 02/27/2025 11:13 AM EDT COVID CULTURE URINE Routine 02/14/2025 6:00 PM EDT Dysuria POC URINE NON-AUTO W/O MICRO Routine 02/14/2025 1:45 PM EDT Dysuria XR SHOULDER 2+ VIEWS RIGHT STAT 12/14/2024 2:28 PM EST Acute pain of right shoulder from Last 3 Months Results * (ABNORMAL) Poc Rapid [id number], MOLECULAR (02/27/2025 11:13 AM EDT) [facility] COVID-19/SARS- COV-2 Rapid POC Positive(A ) Negative Swab Nasopharyngeal structure / Unknown 02/27/2025 11:13 AM EDT Trav Mon MD POINT OF CARE TEST ENTER/EDIT OR DERABLES Final Result * (ABNORMAL) POC Influenza A/B manually resulted (02/27/2025 11:13 AM EDT) [facility] Rapid Influenza A AGN POC Negative Negative Rapid Influenza B AGN POC Positive(A) Negative Swab 02/27/2025 11:1 3 AM EDT Trav Mon MD POINT OF CARE TEST ENTER/EDIT OR DERABLES Final Result * Culture urine (02/14/2025 6:00 PM EDT) Pathologist [facility] Culture, Urine No growth 02/16/2025 10:41 AM EDT [facility] Urine Urine specimen obtained by clean catch procedure / Unknown Non-blood Collection / Unknown 02/14/2025 6:00 PM EDT 02/15/2025 9:23 AM EDT Tatianna Kovacs NP LAB MICROBIOLOGY - GENERAL ORD ERABLES Final Result [facility] [address] [place] [address], [place] [phone] * (ABNORMAL) POC Urine Non-Auto W/O Micro (02/14/2025 1:45 PM EDT) GLUCOSE POC Negative Negative, Trace mg/dL Leukocytes UA POC 1+(A) Negative mg/dL Nitrite UA POC Positive Urobilinogen UA POC 0.2 E.U./dL mg/dL Protein UA POC Positive Positive, Negative PH UA POC 8.0 TRA/HM UA POC 250(A) Negative Specific [place] UA POC 1.010 Ketones UA POC Negative Negative Bilirubin UA POC Negative Negative Urine Urine specimen obtained by clean catch procedure / Unknown 02/14/2025 1:45 PM EDT Tatianna Kovacs NP POINT OF CARE TEST ENTER/EDIT ORDERABLES Final Result * XR Shoulder 2+ Views Right (12/14/2024 [...] Signed Date: 12/14/2024 14:40 ET Workstation ID: [id number] Transcribed By: Self Edit Transcribed Date: 12/14/2024 [...] Signed Date: 12/14/2024 14:40 ET Workstation ID: [id number] Transcribed By: Self Edit Transcribed Date: 12/14/2024 14:38 ET Trva Mon MD IMG XR PROCEDURES Final Result from Last 3 Months Additional Health Concerns Infection Onset Date Last Indicated COVID-19 02/27/2025 02/27/2025 Influenza 02/27/2025 02/27/2025 Insurance PLAN Care Teams Iuss Master Analyst Relationship Specialty Start Date End Date Rashmi Dobbs FNP [address] [place] [phone] PCP - General Nurse Practitioner 12/14/24
== END 2025-03-01 14:30 | disposition home or self-care (01) ==
LOC: HO.HMCFM 12:33
PROVIDERS: PCP Nurse Practitioner Family; Visit Provider Nurse Practitioner Family
DX: R39.9 Unspecified symptoms and signs involving the genitourinary system (principal); J11.1 Influenza due to unidentified influenza virus with other respiratory manifestations; U07.1 COVID-19

== ENCOUNTER → 2025-03-01 12:33 | Outpatient (BNVA) | payer OTHER, SELFPAY | PROVIDERS: PCP Nurse Practitioner Family; Visit Provider Nurse Practitioner Family ==

== ENCOUNTER 2025-03-29 09:16 | Outpatient (AMB) | payer OTHER, SELFPAY ==
--- NOTE | 2025-03-29 09:25 | A.OFFVIS_ITS ---
Vital Signs 03/29/25 09:29 Height 5 ft 4 in Weight 212 lb 1.355 oz BMI 36.4 BP 120/62 Blood Pressure Location Lt brachial Position Sitting Respiration 12 Pulse 74 Pulse Source Pulse Oximeter Pulse Oximetry (%) 98 Oxygen Delivery Method Room Air Intake Visit Reasons: FMS Intake Note: Patient presents for FMS follow up. Allergies morphine [MORPHINE] Allergy (Intermediate, Verified 03/29/25 09:28) ITCHY oxycodone [From Percocet] Allergy (Intermediate, Verified 03/29/25 09:28) rash,upset stomach ENVIRONMENTAL ALLERGIES Allergy (Mild, Uncoded 03/01/25 14:25) congestion HPI HPI FMS: Details: R wrist swelling with pain for the last 2 weeks. Takes diclofenac 50mg qhs with benefit. Lidocaine and diclofenac topical is ineffective. She is not able to do the things that she used to. She has sevella rx but has not started it due to fear of side effects. Fatigue. SHe has not taken duloxetin in a while since she has not seen psychiatrist. 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 She does not see well. She snores. [facility] Medical History Asthma, moderate persistent, poorly-controlled Environmental allergies DM type 2, controlled, with complication Fibromyalgia Iron deficiency Vitamin D deficiency Migraine headache Microscopic hematuria De Quervain's tenosynovitis Anxiety and depression Surgical History History of cervical biopsy History of bilateral salpingectomy History of endometrial ablation History of dilatation and curettage History of laparoscopy Family History Father Diabetes HTN (hypertension) Mother Depression Chronic mental illness Diabetes Maternal Grandmother HTN (hypertension) Paternal Grandmother Alzheimer disease Brother Cancer Other No family history of mental disorder Social History Household Members: Children Housing: House Are you a primary insurance healthcare representative to a significant other at home: No Do you presently have visiting nurse or other home services: No 75 years or older and lives alone: No Alcohol intake: current Alcohol intake frequency: holidays/special occasions only Patient Tobacco Use Status: Never used Tobacco e-Cigarette/Vaping Use: Currently Using Second Hand Smoke Exposure: No service: No Current occupational status: employed 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, 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 Current occupational exposures/hazards: No Sexual orientation: Unable to collect Gender identity: Female and Unable to collect Cognitive needs: Yes (Forgetful, foggy memory) Hearing needs: No Vision needs: Yes Female Reproductive History Menstrual Age of Menarche: 10 Physical Exam Vital Signs: Last Vital Signs Pulse 74 03/29/25 09:29 Resp 12 03/29/25 09:29 BP 120/62 03/29/25 09:29 Pulse Ox 98 03/29/25 09:29 Oxygen Delivery Method Room Air 03/29/25 09:29 BMI result Body Mass Index 36.4 Const Other: General: Comfortable CVS: RRR Respiratory: clear to auscultation bilaterally. Good respiratory effort Skin: No lesions seen MSK: Right dorsal wrist ganglion cyst present with tenderness on palpation. No synovitis of any joint. Normal range of motion of upper extremities and lower extremities. Diffuse allodynia. Assessment & Plan Assessment & Plan (1) Ganglion cyst of dorsum of right wrist: Comment: Improving with diclofenac 50 mg q.h.s.. Code(s): M67.431 - Ganglion, right wrist Category: Medical Plan: She will continue to use diclofenac 50 mg q.h.s.. If ganglion cyst does not resolve and continues to be painful, I recommend that she see hand surgery for further evaluation. She will call office if she needs hand surgery referral. Return to clinic PRN (2) Fibromyalgia: Comment: Uncontrolled. Code(s): M79.7 - Fibromyalgia Category: Medical Plan: I recommend that she follow up with PCP for further management of fibromyalgia. She has been prescribed Savella. She is afraid of side effects. We discussed side effect profile of Savella. I encouraged her to try Savella to help control her pain from fibromyalgia as it is affecting her at work and she has to leave early sometimes. We also discussed the importance of having a daily exercise routine such as aquatic therapy at the [facility]. She will look into it. She has fatigue and snores. I recommend discussing LISA workup with sleep study with PCP. Information on fibromyalgia given to patient. She should continue psychiatric care and schedule follow up with psychiatrist. Coding Level of Care Code Est Pt Level 4 (44103) Complex EM visit Add On G2211 Diagnoses Ganglion cyst of dorsum of right wrist M67.431 Fibromyalgia M79.7
[2025-03-29 09:29] VITALS: BP 120/62; PULSE 74; RESP 12; O2SAT 98; BMI 36.4
--- OUTSIDE RECORDS SUMMARY | 2025-03-29 09:51 | XMS_ITS | Clinical Summary ---
Author Organization [address] [place] [address] [place] [phone] Phone Care Team Providers Care Part Time Flexible Clerk Name Role Phone Rashmi Dobbs CARLTON Primary Care Provider Allergies Active Allergy Reactions Criticality Noted Date Comments Hydrocodone Itching,Nausea And Vomiting 025 Morphine 02/14/2025 Oxycodone Itching,GI intolerance 02/14/2025 Medications cetirizine (ZyrTEC) 10 mg tablet Take 1 tablet (10 mg total) by mouth 1 (one) time each day. 30 each 02/16/2025 Active gabapentin (NEURONTIN) 300 mg capsule Take 1 capsule (300 mg total) by mouth every 8 (eight) hours. 04/14/2024 Active oseltamivir (TAMIFLU) 75 mg capsule Take 1 capsule (75 mg total) by mouth 2 (two) times a day for 5 days. 10 each 02/27/2025 03/04/20 25 naproxen (NAPROSYN) 500 mg tablet Take 1 tablet (500 mg total) by mouth 2 (two) times a day with meals for 10 days. 20 tablet 03/14/2025 03/24/20 25 Active Problems No known active problems Encounters Date Type Department Care Team Description 03/14/2025 9:45 AM EDT Office Visit Walk-In Clinic - [address] [phone] Asif Silva PA Right wrist tendonitis (Primary Dx) 02/27/2025 5:15 PM EDT Office Visit Walk-In [facility] - [address] [phone] Trav Mon MD COVID (Primary Dx); Influenza 02/16/2025 9:30 AM EDT Office Visit Walk-In [facility] - [address] [phone] Trav Buenrostro NP Cellulitis of face (Primary Dx) 02/14/2025 6:00 PM EDT Office Visit Walk-In [facility] - [address] [phone] Tatianna Kovacs NP Dysuria (Primary Dx) from Last 3 Months Social History Tobacco Use Types Packs/Day Years Used Date Smoking Tobacco: Never Assessed Housing Instability Answer Date Recorde d Are you worried that in the next 2 months you may not have stable housing? Unable to respond 03/14/2025 Food Access & Nutrition Answer Date Rec orded Do you have access to a vari ety of food including fruits and vegetables? Unable to respond 03/14/2025 Health Literacy Answer Date Recorded How often do you need to hav e someone help you when you read instructions, pamphlets, or other written material from your doctor or pharmacy? Unable to respond 03/14/2025 Caregiver: How often do you need to have someone help you when you read instructions, pamphlets, or other written material from your doctor or pharmacy? Not on file 025 Financial Risk Answer Date Recorded How hard is it for you to pa y for the very basics like food, housing, medical care, and air conditioning / heating? Unable to respond 03/14/2025 Transportation Answer Date Recorded Has the lack of transportati on kept you from meetings, work, or from getting things needed for daily living? Unable to respond 03/14/2025 Has the lack of transportati on kept you from medical appointments or from getting medications? Unable to respond 03/14/2025 Social Isolation Answer Date Recorded How often do you feel lonely or isolated from those around you? Unable to respond 03/14/2025 Food Risk Answer Date Recorded Within the past 12 months we worried whether our food would run out before we got money to buy more. Unable to respond 025 Within the past 12 months th e food we bought just didn't last and we didn't have money to get more. Unable to respond 02/15 Dependent Care Answer Date Recorded Do you need help finding or paying for care for your loved ones. For example, childbirth educator or elderly care for an older adult? Unable to respond 03/14/2025 Education Answer Date Recorded Do you think completing more education or training, like finishing a GED, going to college, or learning a trade, would be helpful for you? Unable to respond 03/14/2025 Employment and Income Answer Date Recor ded During the last four weeks, have you been actively looking for work? Unable to respond 03/14/2025 Living Situation Answer Date Recorded What is your living situation? 0 03/14/2025 Comments Unknown Sex and Gender Information Value Date Recorded Sex Assigned at Not on file Legal Sex Female 6:18 PM EST Gender Identity Not on file Sexual Orientation Not on file Obstetrics History Last Filed Vital Signs Vital Sign Reading Time Taken Comments Blood Pressure 115/70 03/14/2025 9:44 AM EDT Pulse 81 03/14/2025 9:44 AM EDT Temperature 36.7 ??C (98 ??F) 03/14/2025 9:44 AM EDT Respiratory Rate - - Oxygen Saturation 98% 03/14/2025 9:44 AM EDT Inhaled Oxygen Concentration - - Weight - - Height - - Body Mass Index - - Plan of Treatment Health Maintenance Due Date Last Done Comments DTaP,Tdap,and Td Vaccines (1 - Tdap) 2004 Hepatitis B Vaccines (1 of 3 - 19+ 3-dose series) 2004 Cervical Cancer Screening: P ap Smear 2006 Depression Screening 10/17/2022 HIV Screening 10/17/2022 Hepatitis C Screening 10/17/2022 COVID-19 Vaccine (1 - 2023-2 5 season) 2024 Influenza Vaccine (Season Ended) 2025 Social Influencers of Health Screening 03/14/2026 03/14/2025 HIB Vaccines Aged Out No longer eligi [...] to 64 Years) Aged Out No longer eligi ble based [...] 11: 13 AM EDT Influenza POC RAPID [id number], MOLECULAR Routine 02/27/2025 11:13 AM EDT COVID CULTURE URINE Routine 02/14/2025 6:00 PM EDT Dysuria POC URINE NON-AUTO W/O MICRO Routine 02/14/2025 1:45 PM EDT Dysuria from Last 3 Months Results * (ABNORMAL) Poc Rapid [id number], MOLECULAR (02/27/2025 11:13 AM EDT) COVID-19/SARS- COV-2 Rapid POC Positive(A ) Negative Swab Nasopharyngeal structure / Unknown 02/27/2025 11:13 AM EDT Trav Mon MD POINT OF CARE TEST ENTER/EDIT OR DERABLES Final Result * (ABNORMAL) POC Influenza A/B manually resulted (02/27/2025 11:13 AM EDT) [facility] Rapid Influenza A AGN POC Negative Negative Rapid Influenza B AGN POC Positive(A) Negative Swab 02/27/2025 11:1 3 AM EDT Trav Mon MD POINT OF CARE TEST ENTER/EDIT OR DERABLES Final Result * Culture urine (02/14/2025 6:00 PM EDT) [facility] Culture, Urine No growth 02/16/2025 10:41 AM EDT [facility] Urine Urine specimen obtained by clean catch procedure / Unknown Non-blood Collection / Unknown 02/14/2025 6:00 PM EDT 02/15/2025 9:23 AM EDT Tatianna Kovacs NP LAB MICROBIOLOGY - GENERAL ORD ERABLES Final Result [facility] [address] [place] [address], [place] [phone] * (ABNORMAL) POC Urine Non-Auto W/O Micro (02/14/2025 1:45 PM EDT) [facility] GLUCOSE POC Negative Negative, Trace mg/dL Leukocytes UA POC 1+(A) Negative mg/dL Nitrite UA POC Positive Urobilinogen UA POC 0.2 E.U./dL mg/dL Protein UA POC Positive Positive, Negative PH UA POC 8.0 TRA/HM UA POC 250(A) Negative Specific [place] UA POC 1.010 Ketones UA POC Negative Negative Bilirubin UA POC Negative Negative Urine Urine specimen obtained by clean catch procedure / Unknown 02/14/2025 1:45 PM EDT us Tatianna Kovacs NP POINT OF CARE TEST ENTER/EDIT ORDERABLES Final Result from Last 3 Months Additional Health Concerns Infection Onset Date Last Indicated COVID-19 02/27/2025 02/27/2025 Insurance [employer] Care Teams Part Time Flexible Clerk Relationship Specialty Start Date End Date Rashmi Dobbs FNP [address] [place] [phone] PCP - General Nurse Practitioner 12/14/24
== END 2025-03-29 10:20 | disposition home or self-care (01) ==
LOC: HO.RHES 09:16
PROVIDERS: PCP Nurse Practitioner Family; Visit Provider Internal Medicine Rheumatology
DX: M67.431 Ganglion, right wrist (principal); M79.7 Fibromyalgia
CPT/HCPCS: 99214; G2211

== ENCOUNTER → 2025-03-29 09:16 | Outpatient (BNVA) | payer OTHER, SELFPAY | PROVIDERS: PCP Nurse Practitioner Family; Visit Provider Internal Medicine Rheumatology | DX: M67.431 Ganglion, right wrist (principal); M79.7 Fibromyalgia | CPT/HCPCS: 99212 ==

== ENCOUNTER 2025-04-17 15:37 | Outpatient (AMB) | payer OTHER, SELFPAY ==
--- NOTE | 2025-04-17 15:39 | A.OFFPC_ITS ---
Vital Signs 04/17/25 16:31 Height 5 ft 4 in Weight 210 lb BMI 36.0 Intake Visit Reasons: referral for a wet pour supervisor/dose upage Intake Note: Telehealth for a referral to a wet pour supervisor. Board Hammer Operator Required: No Allergies morphine [MORPHINE] Allergy (Intermediate, Verified 04/17/25 15:39) ITCHY oxycodone [From Percocet] Allergy (Intermediate, Verified 04/17/25 15:39) rash,upset stomach ENVIRONMENTAL ALLERGIES Allergy (Mild, Uncoded 04/17/25 15:39) congestion Medication List - Last Reconciled 04/17/25 by Rashmi Dobbs, [facility]- albuterol sulfate 2.5 mg (3 mL) inhalation Q4-6H PRN albuterol sulfate 90 mcg/actuation 2 puffs inhalation Q6H PRN 1 month blood-glucose meter (FreeStyle [place] Lite kit) As directed budesonide-formoterol 80-4.5 mcg/actuation 2 puffs inhalation BID 30 days cetirizine 10 mg PO DAILY 1 month cholecalciferol (vitamin D3) 50 mcg PO DAILY diclofenac potassium 50 mg PO BID PRN fluocinolone 0.01% 1 appl topical DAILY fluticasone propionate 50 mcg/actuation 1 spray intranasal DAILY gabapentin 300 mg PO TID glucose 4 grams PO DIRECTED ketotifen fumarate 0.025%(0.035%) (Alaway) 1 drp ophthalmic (eye) BID PRN 1 month lidocaine 5% 1 patch topical DAILY milnacipran (Savella) 12.5 mg PO BID 30 days montelukast (Singulair) 10 mg PO DAILY 90 days pseudoephedrine HCl mg PO sodium chloride 0.65% (Saline Mist) 2 sprays intranasal Q2H PRN valacyclovir 2,000 mg (2 x 1 gram) PO Q12H Tobacco use date assessed: 03/01/25 Dental Screening Dental Screen Date: 04/17/25 Did you have a dental visit in the last 12 months?: Yes Did you have a dental problem in the last 6 months where you did not have access to dental care?: No Was dental information given to patient?: Patient has dentist HPI HPI Comments History of Present Illness Details 39-year-old female with vitamin-D defici ency, diabetes type 2, generalized anxiety disorder, major depressive disorder, microscopic hematuria, fibromyalgia, moderate persistent asthma, varicose veins of the lower extremities, the iron-deficiency anemia, morbid obesity Social: lives w/ dtr. 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 FORM WORKER Rheum Pulm * Vasc PaIN MGMT Urology History of Present Illness - The patient is a 39-year-old female pr esenting with chronic fatigue and chronic pain. - Persistent fatigue impacts daily activ ities significantly. - Current weight is 210 pounds; ideal we ight range is 170-180 pounds. - Gabapentin 300 mg is insufficient for pain management, taking in the afternoon and at bedtime; it is TID but she cannot take while working - Reports mood disturbances related to p ain and fatigue. 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 - She feels her weight is contributing t o her mood and pain, wonders about interventions Review of Systems - General: Reports fatigue and tiredness . - Musculoskeletal: Reports chronic pain. - Neurological: Denies mood disturbances as a primary issue, but links moodiness to fatigue and pain. - Hand: Recurrence of a ganglion cyst on the right hand. Assessment and Plan 1. Chronic Fatigue - Recognize fatigue's impact. - Discussed weight management as potenti al aid. - Referred to weight management clinic. 2. Chronic Pain - Gabapentin dose increased to 600 mg at HS for better control. - Close monitoring of the response to ne w dosage planned. 3. Obesity - Weight management referral made for no n-surgical intervention. - Target range of weight loss discussed. 4. Ganglion Cyst, R - Recurrence noted and patient to follow up with specialist. Telehealth Attestation The documentation for this telehealth visit accurately represents the conversation and care provided during the session via phone. The patient has been explained that this is an interactive (audio/video) telehealth encounter and what that consists of. The patient understands and wishes to proceed. [employer] platform was used. Total time spent caring for the patient today was 15 minutes. This includes time spent before the visit reviewing the chart, time spent during the visit, and time spent after the visit on documentation, reviewing laboratory results, diagnostic imaging, medications, performing a medically necessary evaluation, counseling on diagnoses, care coordination, ordering appropriate tests, ordering appropriate medications, review of tests performed by other providers, reporting test results with the patient, communication with other healthcare providers. [facility] Medical History Asthma, moderate persistent, poorly-controlled Environmental allergies DM type 2, controlled, with complication Fibromyalgia Iron deficiency Vitamin D deficiency Migraine headache Microscopic hematuria De Quervain's tenosynovitis Anxiety and depression Surgical History History of cervical biopsy History of bilateral salpingectomy History of endometrial ablation History of dilatation and curettage History of laparoscopy Family History Father Diabetes HTN (hypertension) Mother Depression Chronic mental illness Diabetes Maternal Grandmother HTN (hypertension) Paternal Grandmother Alzheimer disease Brother Cancer Other No family history of mental disorder Social History Household Members: Children Housing: House Are you a primary career development coordinator to a significant other at home: No Do you presently have visiting nurse or other home services: No 75 years or older and lives alone: No Alcohol intake: current Alcohol intake frequency: holidays/special occasions only Patient Tobacco Use Status: Never used Tobacco e-Cigarette/Vaping Use: Currently Using Second Hand Smoke Exposure: No service: No Current occupational status: employed 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 Sunil Hernandez, Shasha Decker, Gaudencio Villarreal and colleagues, with an educational troy from [employer]. Physical exam (Primary Care) BMI Assessment/Plan discussion: High BMI High, discussed plan: lifestyle and weight reduction Tobacco/Smoking Status: Tobacco use Status Tobacco use date assessed 03/01/25 04/17/25 15:40 Patient Tobacco Use Status Never used Tobacco 04/17/25 15:40 e-Cigarette/Vaping Use Currently Using 04/17/25 15:40 Thrive Assessment: Date of Thrive Assessment Date Thrive assessed 10/20/24 04/17/25 15:40 Telehealth Telehealth [facility]health [facility] Location of provider rendering services: practice address Location of patient: address on file Patient Identification confirmed using: Name, : Yes Telehealth method: voice only Patient verbally consented to treatment: Yes Patient verbally consented to billing insurance company: Yes Patient informed of any privacy concerns related to visit: Yes Minutes spent on Phone/Video with Pt.: 8 Coding Level of Care Code Tele Est Pt Level 2 (37024) Complex EM visit Add On G2211 Diagnoses Obesity (BMI 30-39.9) E66.9 Ganglion cyst of dorsum of right wrist M67.431 Fibromyalgia M79.7 Fatigue R53.83 Assessment & Plan Assessment & Plan (1) Obesity (BMI 30-39.9): Code(s): E66.9 - Obesity, unspecified Category: Medical (2) Ganglion cyst of dorsum of right wrist: Comment: Improving with diclofenac 50 mg q.h.s.. Code(s): M67.431 - Ganglion, right wrist Category: Medical (3) Fibromyalgia: Comment: Uncontrolled. Code(s): M79.7 - Fibromyalgia Category: Medical (4) Fatigue: Code(s): R53.83 - Other fatigue Category: Medical Plan . Orders: Referrals Medical Weight Management Referral E66.9 - Obesity, unspecified Medications: Changed From gabapentin 300 mg PO TID To gabapentin 600 mg (2 x 300 mg) PO BEDTIME 60 caps 2RF
[2025-04-17 16:31] VITALS: BMI 36.0
--- OUTSIDE RECORDS SUMMARY | 2025-04-17 16:59 | XMS_ITS | Clinical Summary ---
Author Organization [address] [place] [address] [place] [phone] Phone Care Team Providers Care Fiberglass Finisher Name Role Phone Rashmi Dobbs CARLTON Primary [...] mouth every 8 (eight) hours. 04/14/2024 Active naproxen (NAPROSYN) 500 mg tablet Take 1 tablet (500 mg total) by mouth 2 (two) times a day with meals for 10 days. 20 tablet 03/14/2025 03/24/20 25 Active Problems No known active problems Encounters Date Type Department Care Team Description 03/14/2025 9:45 AM EDT Office Visit [facility] - [address] [phone] Asif Silva PA Right wrist tendonitis (Primary Dx) 02/27/2025 5:15 PM EDT Office Visit [facility] - [address] [phone] Trav Mon MD COVID (Primary Dx); Influenza 02/16/2025 9:30 AM EDT Office Visit Walk[facility] - [address] [phone] Trav Buenrostro, KELLY Cellulitis of face (Primary Dx) 02/14/2025 6:00 PM EDT Office Visit Walk-In [facility] - [address] [phone] Tatianna Kovacs NP Dysuria (Primary Dx) from [...] care for your loved ones. For example, child care sitter or elderly care for an older adult? [...] 10/17/2022 Hepatitis C Screening 10/17/2022 COVID-19 Vaccine ( - 2023-2 [...] 11: 13 AM EDT Influenza POC RAPID [id number], MOLECULAR Routine 02/27/2025 11:13 AM EDT COVID CULTURE URINE Routine 02/14/2025 6:00 PM EDT Dysuria POC URINE NON-AUTO W/O MICRO Routine 02/14/2025 1:45 PM EDT Dysuria from Last 3 Months Results * (ABNORMAL) Poc Rapid [id number], MOLECULAR (02/27/2025 11:13 AM EDT) Pathologist [facility] COVID-19/SARS- COV-2 Rapid POC Positive(A ) Negative Swab Nasopharyngeal structure / Unknown 02/27/2025 11:13 AM EDT Trav Mon MD POINT OF CARE TEST ENTER/EDIT OR DERABLES Final Result * (ABNORMAL) POC Influenza A/B manually resulted (02/27/2025 11:13 AM EDT) Rapid Influenza A AGN POC Negative Negative Rapid Influenza B AGN POC Positive(A) Negative Swab 02/27/2025 11:1 3 AM EDT Trav Mon MD POINT OF CARE TEST ENTER/EDIT OR DERABLES Final Result * Culture urine (02/14/2025 6:00 PM EDT) Culture, Urine No growth 02/16/2025 10:[address] [facility] Urine Urine specimen obtained by clean catch procedure / Unknown Non-blood Collection / Unknown 02/14/2025 6:00 PM EDT 02/15/2025 9:23 AM EDT Tatianna Kovacs NP LAB MICROBIOLOGY - GENERAL ORD ERABLES Final Result [facility] [address] [place] [address], [place] [phone] * (ABNORMAL) POC Urine Non-Auto W/O Micro (02/14/2025 1:45 PM EDT) GLUCOSE POC Negative Negative, Trace mg/dL Leukocytes UA POC 1+(A) Negative mg/dL Nitrite UA POC Positive Urobilinogen UA POC 0.2 E.U./dL mg/dL Protein UA POC Positive Positive, Negative PH UA POC 8.0 TRA/HM UA POC 250(A) Negative Specific [place] UA POC 1.010 Ketones UA POC Negative Negative Bilirubin UA POC Negative Negative Urine Urine specimen obtained by clean catch procedure / Unknown 02/14/2025 1:45 PM EDT Tatianna Kovacs NP POINT OF CARE TEST ENTER/EDIT ORDERABLES Final Result from Last [address] [facility] Care Teams Fiberglass Finisher Relationship Specialty Start Date End Date Rashmi Dobbs FNP [address] [place] [address] PCP - General Nurse Practitioner 12/14/24
== END 2025-04-17 16:40 | disposition home or self-care (01) ==
LOC: HO.HMCFM 15:37
PROVIDERS: PCP Nurse Practitioner Family; Visit Provider Nurse Practitioner Family
DX: E66.9 Obesity, unspecified (principal); M67.431 Ganglion, right wrist; M79.7 Fibromyalgia; R53.83 Other fatigue

== ENCOUNTER → 2025-04-17 15:37 | Outpatient (BNVA) | payer OTHER, SELFPAY | PROVIDERS: PCP Nurse Practitioner Family; Visit Provider Nurse Practitioner Family ==

== ENCOUNTER 2025-05-23 15:38 | Outpatient (AMB) | payer OTHER, SELFPAY ==
--- NOTE | 2025-05-23 15:32 | MHC.PC.OV ---
Intake Visit Reasons: Migraine for two days Intake Note: Migraines Alliance Manager Required: No Allergies morphine (MORPHINE) Allergy (Intermediate, Verified 05/23/25 16:45) ITCHY oxycodone (From Percocet) Allergy (Intermediate, Verified 05/23/25 16:45) rash,upset stomach ENVIRONMENTAL ALLERGIES Allergy (Mild, Uncoded 05/23/25 15:34) congestion Medication List - Last Reconciled 05/23/25 by Rashmi Dobbs, [facility]- albuterol sulfate 2.5 mg (3 mL) inhalation Q4-6H PRN albuterol sulfate 90 mcg/actuation 2 puffs inhalation Q6H PRN 1 month blood-glucose meter (FreeStyle [place] Lite kit) As directed budesonide-formoterol 80-4.5 mcg/actuation 2 puffs inhalation BID 30 days cetirizine 10 mg PO DAILY cholecalciferol (vitamin D3) 50 mcg PO DAILY diclofenac potassium 50 mg PO BID PRN fluocinolone 0.01% 1 appl topical DAILY fluticasone propionate 50 mcg/actuation 1 spray intranasal DAILY gabapentin 600 mg (2 x 300 mg) PO BEDTIME glucose 4 grams PO DIRECTED ketotifen fumarate 0.025%(0.035%) (Alaway) 1 drp ophthalmic (eye) BID PRN 1 month lidocaine 5% 1 patch topical DAILY milnacipran (Savella) 12.5 mg PO BID 30 days montelukast (Singulair) 10 mg PO DAILY 90 days pseudoephedrine HCl mg PO sodium chloride 0.65% (Saline Mist) 2 sprays intranasal Q2H PRN valacyclovir 2,000 mg (2 x 1 gram) PO Q12H Tobacco use date assessed: 05/23/25 Dental Screening Dental Screen Date: 04/17/25 HPI HPI Comments History of Present Illness Details 39-year-old female with vitamin-D deficiency, diabetes type 2, generalized anxiety disorder, major depressive disorder, microscopic hematuria, fibromyalgia, moderate persistent asthma, varicose veins of the lower extremities, the iron-deficiency anemia, morbid obesity, migrain e headache Social: lives w/ dtr. 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 MAJOR GIFTS MANAGER Rheum Pulm * Vasc PaIN MGMT Urology History of Present Illness - The patient is a 39-year-old female presenting with a headache. - Reports severe headache lasting two days, affects work. - Spontaneous onset, no trauma or head injury noted. - Headache radiates from the middle of the head to both sides and affects eyes and forehead. - Accompanied by blurred vision bilaterally. - Attempts at relief with Tylenol and ibuprofen unsuccessful. - low blood sugar ruled out. - Self-administered COVID-19 test negative. - Migraine exacerbated by light and noise. - Avoids sunlight and laptop usage due to sensitivity. - Sleep disturbed, waking with headache. - History of fibromyalgia and painful ganglion cyst present but not primary concern. Review of Systems - Neurological: Reports headache with blurred vision, sensitivity to light and noise, denies loss of consciousness or trauma. Denies red flag sx. - Ophthalmologic: Reports bilateral blurred vision. - Musculoskeletal: Reports existing fibromyalgia and ganglion cyst pain. Assessment and Plan 1. Migraine - Prescribed Excedrin Migraine: take two pills every six hours as needed. - Advised to hydrate and avoid triggers (light, noise). - Provided work excuse note. - Edu provided along w/ reasons to seek additional care. Telehealth Attestation The encounter was conducted via telehealth, and the documentation accurately reflects the nature of the video visit. The patient has been explained that this is an interactive (audio/video) telehealth encounter and what that consists of. The patient understands and wishes to proceed. [email or web address] platform was used. Total time spent caring for the patient today was 15 minutes. This includes time spent before the visit reviewing the chart, time spent during the visit, and time spent after the visit on documentation, reviewing laboratory results, diagnostic imaging, medications, performing a medically necessary evaluation, counseling on diagnoses, care coordination, ordering appropriate tests, ordering appropriate medications, review of tests performed by other providers, reporting test results with the patient, communication with other healthcare providers. [facility] Medical History Asthma, moderate persistent, poorly-controlled Environmental allergies DM type 2, controlled, with complication Fibromyalgia Iron deficiency Vitamin D deficiency Migraine headache Microscopic hematuria De Quervain's tenosynovitis Anxiety and depression Surgical History History of cervical biopsy History of bilateral salpingectomy History of endometrial ablation History of dilatation and curettage History of laparoscopy Family History Father Diabetes HTN (hypertension) Mother Depression Chronic mental illness Diabetes Maternal Grandmother HTN (hypertension) Paternal Grandmother Alzheimer disease Brother Cancer Other No family history of mental disorder Social History (Updated 05/23/25 @ 15:44 by Arabella Souza CMA) Household Members: Children Housing: House Are you a primary health care consultant to a significant other at home: No Do you presently have visiting nurse or other home services: No 75 years or older and lives alone: No Alcohol intake: current Alcohol intake frequency: holidays/special occasions only Patient Tobacco Use Status: Never used Tobacco e-Cigarette/Vaping Use: Currently Using Second Hand Smoke Exposure: No Use of substances other than those prescribed or required for medical reasons: No service: No Current occupational status: employed 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 Current occupational exposures/hazards: No Sexual orientation: Unable to collect Gender identity: Female and Unable to collect Cognitive needs: Yes (Forgetful, foggy memory) Hearing needs: No Vision needs: Yes Female Reproductive History Menstrual Age of Menarche: 10 Questionnaire Thrive Questionnaire Date Thrive assessed: 10/20/24 I am a: Patient What is your living situation today?: I have a steady place to live Within the past 12 months, did the food you bought not last and you didn't have the money to get more?: I choose not to answer this question Within the past 12 months, did you worry whether your food would run out before you got money to buy more?: Sometimes True Do you have trouble paying for medicines?: No Do you have trouble getting transportation to medical appointments?: No Do you have trouble paying your heating and electricity bill?: Yes Do you have trouble taking care of your child, family member or friend?: No Do you have trouble with day-to-day activities such as bathing, preparing meals, shopping, managing finances, etc.?: I choose not to answer this question Are you currently unemployed and looking for a job?: Yes Are you interested in more education?: Yes Please select the resources that you would like help with: None Currently or been in a relationship where the following occur: I choose not to answer THRIVE Score: 2 AUDIT C Alcohol Use Questionnaire (AUDIT-C) 1. How often do you have a drink containing alcohol?: Never 3. How often do you have six or more drinks on one occasion?: Never Total Score: 0 DANIEL-7 AMB Questionnaire DANIEL-7 Date DANIEL - 7 assessed: 10/23/24 Source: Developed by Drs. Sunil Hernandez, Shasha Decker, Gaudencio Villarreal and colleagues, with an educational troy from [employer]. Physical exam (Primary Care) Tobacco/Smoking Status: Tobacco use Status Tobacco use date assessed 05/23/25 05/23/25 15:35 Patient Tobacco Use Status Never used Tobacco 05/23/25 15:44 e-Cigarette/Vaping Use Currently Using 05/23/25 15:44 Thrive Assessment: Date of Thrive Assessment Date Thrive assessed 10/20/24 05/23/25 15:35 Currently or been in a relationship where the following occur: I choose not to answer Telehealth Telehealth Telehealth Platform: [facility] Location of provider rendering services: practice address Location of patient: address on file Patient Identification confirmed using: Name, : Yes Telehealth method: voice only Patient verbally consented to treatment: Yes Patient verbally consented to billing insurance company: Yes Patient informed of any privacy concerns related to visit: Yes Minutes spent on Phone/Video with Pt.: 10 Coding Level of Care Code Tele Est Pt Level 2 (98734) Complex EM visit Add On G2211 Diagnoses Nonintractable episodic headache, unspecified headache type R51.9 Headache type: unspecified Headache chronicity pattern: episodic headache Intractability: not intractable Assessment & Plan Assessment & Plan (1) Headache: Code(s): R51.9 - Headache, unspecified Category: Medical Qualifiers: Headache type: unspecified Headache chronicity pattern: episodic headache Intractability: not intractable Qualified Code(s): R51.9 - Headache, unspecified Plan . Medications: New [id number] 250-250-65 mg (Excedrin Migraine) 2 tabs PO Q6H PRN 30 tabs 2RF pain Patient Instructions: Is there anything I can do to feel better when I have a headache? .... Yes. Some people feel better if they: -----Lie down in a cool, dark, quiet room (this works best for migraine headaches) ------Take non-prescription pain medicines (but check with your doctor before taking any new medicines if you have a health condition or already take prescription medicines) ____Is there anything I can do to keep from getting headaches? Yes....... Some people find that their headaches are triggered by certain foods or things they do. To keep from getting headaches in the future, you can keep a _ headache calendar. _ In the calendar, write down every time you have a headache and what you ate and did before it started. That way you can find out if there is anything you should avoid eating or doing. You can also write down what medicine you took for the headache and whether or not it helped. ___Some common headache triggers include: ....Stress .....Skipping meals or eating too little ....Having too little or too much caffeine ....Sleeping too much or too little .....Drinking alcohol ....Certain drinks or foods, such as red wine, aged cheese, and hot dogs ____Some women get migraine headaches just before they get their period. If that happens to you, mention it to your doctor or nurse. There are medicines that can help.
--- OUTSIDE RECORDS SUMMARY | 2025-05-23 15:40 | XMS_ITS | Clinical Summary ---
Author Organization [address] [place] [address] [place] [phone] Phone Care Team Providers Care Entry Analyst Name Role Phone Rashmi Dobbs CARLTON Primary Care Provider [phone]- [phone] Allergies Active Allergy Reactions Criticality Noted Date Comments Hydrocodone Itching,Nausea And Vomiting 025 Morphine 02/14/2025 Oxycodone Itching,GI intolerance 02/14/2025 Medications cetirizine (ZyrTEC) 10 mg tablet Take 1 tablet (10 mg total) by mouth 1 (one) time each day. 30 each 02/16/2025 Active gabapentin (NEURONTIN) 300 mg capsule Take 1 capsule (300 mg total) by mouth every 8 (eight) hours. 04/14/2024 Active Active Problems No known active problems Encounters Date Type Department Care Team Description 03/14/2025 9:45 AM EDT Office Visit [facility] - [address] [phone] Asif Silva PA Right wrist tendonitis (Primary Dx) 02/27/2025 5:15 PM EDT Office Visit [facility] - [address] [phone] Trav Mon MD COVID (Primary Dx); Influenza from Last 3 Months Social History Tobacco [...] your loved ones. For example, child care lead teacher or elderly care for an older adult? [...] 81 03/14/2025 9:44 AM EDT Temperature 36.7 C (98 F) 03/14/2025 9:44 AM EDT Respiratory Rate - [...] 2023-2 5 season) 2024 Influenza Vaccine (#1) 2025 Social Influencers of Health Screening 03/14/2026 [...] 5 Years) and At-Risk Patients (6 to 49 Years) Aged Out No longer eligi ble [...] 11: 13 AM EDT Influenza POC RAPID [id number], MOLECULAR Routine 02/27/2025 11:13 AM EDT COVID from Last 3 Months Results * (ABNORMAL) Poc Rapid [id number], MOLECULAR (02/27/2025 11:13 AM EDT) Pathologist [facility] COVID-19/SARS- COV-2 Rapid POC Positive(A ) Negative Swab Nasopharyngeal structure / Unknown 02/27/2025 11:13 AM EDT us Trav Mon MD POINT OF CARE TEST ENTER/EDIT OR DERABLES Final Result * (ABNORMAL) POC Influenza A/B manually resulted (02/27/2025 11:13 AM EDT) [facility] Rapid Influenza A AGN POC Negative Negative Rapid Influenza B AGN POC Positive(A) Negative Swab 02/27/2025 11:1 3 AM EDT us Trav Mon MD POINT OF CARE TEST ENTER/EDIT OR DERABLES Final Result from Last 3 Months Insurance PLAN Care Teams Entry Analyst Relationship Specialty Start Date End Date Rashmi Dobbs FNP [address] [place] [phone] PCP - General Nurse Practitioner 12/14/24
== END 2025-05-23 16:52 | disposition home or self-care (01) ==
LOC: HO.HMCFM 15:38
PROVIDERS: PCP Nurse Practitioner Family; Visit Provider Nurse Practitioner Family
DX: R51.9 Headache, unspecified (principal)

== ENCOUNTER 2025-07-04 13:30 | Outpatient (AMB) | payer OTHER, SELFPAY ==
--- NOTE | 2025-07-04 13:37 | MHC.OFFVIS ---
Vital Signs 07/04/25 13:38 Height 5 ft 4 in Weight 208 lb BMI 35.7 Intake Visit Reasons: Vaginal discharge Metal Furrer Required: No Information Interpreted: non-clinical & clinical Medical Radiation Dosimetrist: Medical Radiation Dosimetrist Present (Rolanda) Accompanied by: Self / Same As Patient Allergies morphine (MORPHINE) Allergy (Intermediate, Verified 07/04/25 13:38) ITCHY oxycodone (From Percocet) Allergy (Intermediate, Verified 07/04/25 13:38) rash,upset stomach ENVIRONMENTAL ALLERGIES Allergy (Mild, Uncoded 07/04/25 13:38) congestion HPI Comments Details: The patient is presenting complaining of vaginal discharge associated with foul odor, no other associated symptoms, vaginal itching or any other complaint [facility] Medical History Asthma, moderate persistent, poorly-controlled Environmental allergies DM type 2, controlled, with complication Fibromyalgia Iron deficiency Vitamin D deficiency Migraine headache Microscopic hematuria De Quervain's tenosynovitis Anxiety and depression Surgical History History of cervical biopsy History of bilateral salpingectomy History of endometrial ablation History of dilatation and curettage History of laparoscopy Family History Father Diabetes HTN (hypertension) Mother Depression Chronic mental illness Diabetes Maternal Grandmother HTN (hypertension) Paternal Grandmother Alzheimer disease Brother Cancer Other No family history of mental disorder Social History Household Members: Children Housing: House Are you a primary inpatient care manager rn to a significant other at home: No Do you presently have visiting nurse or other home services: No 75 years or older and lives alone: No Alcohol intake: current Alcohol intake frequency: holidays/special occasions only Patient Tobacco Use Status: Never used Tobacco e-Cigarette/Vaping Use: Currently Using Second Hand Smoke Exposure: No service: No Current occupational status: employed 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, 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 Current occupational exposures/hazards: No Sexual orientation: Unable to collect Gender identity: Female and Unable to collect Cognitive needs: Yes (Forgetful, foggy memory) Hearing needs: No Vision needs: Yes Female Reproductive History Menstrual Age of Menarche: 10 Review of Systems Const All systems reviewed & are unremarkable except as noted in HPI and below Reports as per HPI and Reports no additional complaints GI Reports no additional complaints Reports no additional complaints Physical Exam Vital Signs: BMI result Body Mass Index 35.7 General: Yes no CVA tenderness External Female Exam: normal external appearance and normal appearance of the urethra Speculum Exam - Vagina: normal appearance of the vagina, normal palpation, no lesions and no masses Speculum Exam - Cervix: normal appearance of the cervix, normal palpation, no lesions, no masses and nontender Bimanual exam- vagina & uterus: normal bimanual exam, normal palpation, uterine size normal, normal palpation, uterine shape normal, No Cervical tenderness present and non-tender Bimanual Exam- Adnexa, other: normal adnexae Back/Spine/Pelvis Back: no CVA tenderness Assessment & Plan Assessment & Plan (1) Bacterial vaginal infection: Code(s): N76.0 - Acute vaginitis; B96.89 - Other specified bacterial agents as the cause of diseases classified elsewhere Category: Medical Plan: GC and chlamydia cultures with BV panel taken. Will treat with Flagyl 500 mg p.o. b.i.d. x 7 days, Instructions given to the patient to refrain from sexual activity or to use condoms consistently and correctly during the BV treatment regimen, not to douch, it might increase the risk for relapse, and to call if symptoms persist or recur. Medications: New metronidazole 500 mg PO BID 14 tabs 0RF 7 days Coding Level of Care Code Est Pt Level 3 (12065) Diagnoses Bacterial vaginal infection N76.0; B96.89
[2025-07-04 13:38] VITALS: BMI 35.7
--- OUTSIDE RECORDS SUMMARY | 2025-07-04 14:24 | XMS_ITS | Clinical Summary ---
Author Organization [address] [place] [address] [place] [phone] Phone Care Team Providers Care Linen Room Supervisor Name Role Phone EdwarKamNarendra Rashmi VINCENT Primary Care Provider [phone] Allergies Active Allergy Reactions Criticality Noted Date [...] Active Active Problems No known active problems Social History Tobacco Use Types Packs/Day Years [...] for your loved ones. For example, child adolescent psychiatrist or elderly care for an older adult? [...] Cervical Cancer Screening: P ap Smear 2006 HIV Screening 10/17/2022 Hepatitis C Screening 10/17/2022 COVID-19 Vaccine (1 - 2023-2 5 season) 2024 Depression Screening 11/15/2024 Influenza Vaccine (#1) 2025 Social Influencers of [...] on patient's age to complete this topic [place] [address] [place] [address] PLAN Care Teams Linen Room Supervisor Relationship Specialty Start Date End Date Rashmi Dobbs FNP [address] [place] [phone] PCP - General Nurse Practitioner 12/14/24
== END 2025-07-04 13:49 | disposition home or self-care (01) ==
PROVIDERS: PCP Nurse Practitioner Family; Visit Provider Obstetrics & Gynecology
DX: N76.0 Acute vaginitis (principal); B96.89 Other specified bacterial agents as the cause of diseases classified elsewhere
CPT/HCPCS: 99213

== ENCOUNTER 2025-07-04 13:30 | Outpatient (REF) | payer OTHER, SELFPAY ==
[2025-07-04 21:16] LABS: Bacterial Vaginosis PCR NEGATIVE (Negative); Candida Group PCR NOT DETECTED (Not Detect); Candida glab krusei PCR NOT DETECTED (Not Detect); Trichomonas vaginalis PCR NOT DETECTED (Not Detect)
[2025-07-04 22:10] LABS: CT PCR NOT DETECTED (Not Detect.); NG PCR NOT DETECTED (Not Detect.)
== END 2025-07-04 13:31 | disposition home or self-care (01) ==
LOC: HO.LNP 13:30
PROVIDERS: PCP Nurse Practitioner Family; Visit Provider Obstetrics & Gynecology
DX: N76.0 Acute vaginitis (principal); B96.89 Other specified bacterial agents as the cause of diseases classified elsewhere; Z11.3 Encounter for screening for infections with a predominantly sexual mode of transmission; Z11.8 Encounter for screening for other infectious and parasitic diseases; Z98.890 Other specified postprocedural states
CPT/HCPCS: 81515; 87491; 87591; 99212

== ENCOUNTER 2025-08-02 09:15 | Outpatient (REF) | payer OTHER, SELFPAY ==
--- NOTE | ~2025-08-02 | US_ITS ---
CLINICAL HISTORY: R31.29 - Other microscopic hematuria US Renal Comparison: US/NV/SR - US RETROPERITONEUM - 09/12/24 10:06 EDT Findings: Right kidney normal size and echotexture, 13.5 cm length. Left kidney normal size and echotexture, 12.5 cm length. No collecting system dilatation of either kidney. Normal color Doppler. Urinary bladder is unremarkable. Prevoid volume 178 mL. Postvoid volume 23 mL. Bilateral ureteral jets are visualized. IMPRESSION: 1. Normal kidneys. No sonographically apparent stones or hydronephrosis. 2. No significant postvoid residual within the bladder. This document has been electronically signed by: Yuridia Mcgarry MD on 08/03/2025 08:57:56
--- OUTSIDE RECORDS SUMMARY | 2025-08-02 10:45 | XMS_ITS | Clinical Summary ---
Author Organization [address] [place] [address] [place] [phone] Phone Care Team Providers Care Questioned Documents Examiner Name Role Phone EdwarKamNarendra Rashmi VINCENT Primary Care Provider [phone]- [phone] Allergies Active Allergy Reactions Criticality Noted Date [...] for your loved ones. For example, child welfare manager or elderly care for an older adult? [...] HIV Screening 10/17/2022 Hepatitis C Screening 10/17/2022 Depression Screening 11/15/2024 COVID-19 Vaccine (1 - 2023-2 5 season) 2025 Influenza Vaccine (#1) 2025 Social Influencers of Health Screening 03/14/2026 03/14/2025 RSV Immunization Adult Patie nts (1 - 1-dose 75+ series) 2060 HIB Vaccines Aged Out No longer eligi [...] patient's age to complete this topic Insurance HEALTH PLAN Care Teams Questioned Documents Examiner Relationship Specialty Start Date End Date Rashmi Dobbs FNP [address] [place] [phone] PCP - General Nurse Practitioner 12/14/24
== END 2025-08-02 09:16 | disposition home or self-care (01) ==
LOC: HO.US 09:15
PROVIDERS: PCP Nurse Practitioner Family; Visit Provider Urology
DX: R31.29 Other microscopic hematuria (principal)
CPT/HCPCS: 76770

== ENCOUNTER → 2025-08-02 09:16 | Outpatient (BNV) | payer OTHER, SELFPAY | PROVIDERS: PCP Nurse Practitioner Family; Visit Provider Radiology Diagnostic Radiology | DX: R31.29 Other microscopic hematuria (principal) | CPT/HCPCS: 76770 ==

== ENCOUNTER 2025-08-03 13:31 | Outpatient (AMB) | payer OTHER, SELFPAY ==
--- NOTE | 2025-08-03 13:33 | MHC.OFFVIS ---
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 The cyst is located on the dorsal aspect of the right wrist and now she feels one coming in the same area on the left wrist dorsal aspect. She describes pain with movement of the wrist and even at rest. She is also experiencing tingling in the right hand 3rd and 4th digits. Her 1st, 2nd and 3rd right hand digits also locks on her, she has been dropping objects so she avoids holding things in the right hand. Hx of low blood sugar in past, not on insulin or on any prescribed medications for this. Her sugars lower if she does not eat. 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 The cyst is located on the dorsal aspect of the right wrist and now she feels one coming in the same area on the left wrist dorsal aspect. She describes pain with movement of the wrist and even at rest. She is also experiencing tingling in the right hand 3rd and 4th digits. Her 1st, 2nd and 3rd right hand digits also locks on her, she has been dropping objects so she avoids holding things in the right hand. Hx of low blood sugar in past, not on insulin or on any prescribed medications for this. Her sugars lower if she does not eat. [facility] Medical History Asthma, moderate persistent, poorly-controlled Environmental allergies DM type 2, controlled, with complication Fibromyalgia Iron deficiency Vitamin D deficiency Migraine headache Microscopic hematuria De Quervain's tenosynovitis Anxiety and depression Surgical History History of cervical biopsy History of bilateral salpingectomy History of endometrial ablation History of dilatation and curettage History of laparoscopy Family History Father Diabetes HTN (hypertension) Mother Depression Chronic mental illness Diabetes Maternal Grandmother HTN (hypertension) Paternal Grandmother Alzheimer disease Brother Cancer Other No family history of mental disorder Social History Household Members: Children Housing: House Are you a primary primary care md to a significant other at home: No Do you presently have visiting nurse or other home services: No 75 years or older and lives alone: No Alcohol intake: current Alcohol intake frequency: holidays/special occasions only Patient Tobacco Use Status: Never used Tobacco e-Cigarette/Vaping Use: Currently Using Second Hand Smoke Exposure: No service: No Current occupational status: employed 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 Neuro: Normal sensation of the tips of all digits of the right hand at this time Vascular: Cap refill brisk Pain: Mild tenderness to palpation noted of mass on dorsal right wrist ROM: Patient is able to make a closed fist and extend all digits of the right hand fully and without difficulty Skin: No lacerations or abrasions. General: There was an approximately 1 cm in diameter mass noted on the central and dorsal aspect of the right wrist No ecchymosis, erythema, or evidence of infection. Psych: Appears grossly normal Affect normal Attitude cooperative Assessment & Plan Assessment & Plan (1) Ganglion cyst of dorsum of right wrist: Comment: Improving with diclofenac 50 mg q.h.s.. Code(s): M67.431 - Ganglion, right wrist Category: Medical (2) Numbness and tingling of right hand: Code(s): R20.0 - Anesthesia of skin; R20.2 - Paresthesia of skin Category: Medical Plan 1. Right dorsal wrist ganglion cyst 2. Numbness and tingling of right hand Patient is educated about this condition Patient is educated about the typical treatment course At this time, patient would like to proceed with operative excision of the ganglion cyst However, as the patient is still experiencing numbness and tingling, I feel it is most prudent to get an EMG and nerve conduction study to rule out carpal tunnel syndrome, as if this is present we can perform operative intervention on this at that time Patient understands this, and would like to avoid multiple surgeries if possible Patient will follow-up after EMG and nerve conduction study to discuss surgical intervention, sooner with any acute concerns Orders: Orders NE electromyogram (EMG) 08/03/25 R20.0 - Anesthesia of skin, R20.2 - Paresthesia of skin NE nerve conduction velocity 08/03/25 R20.0 - Anesthesia of skin, R20.2 - Paresthesia of skin Coding Level of Care Code New Pt Level 3 (02649) Diagnoses Ganglion cyst of dorsum of right wrist M67.431 Numbness and tingling of right hand R20.0; R20.2
--- OUTSIDE RECORDS SUMMARY | 2025-08-03 13:45 | XMS_ITS | Clinical Summary ---
Author Organization [address] [place] [address] [place] [phone] Phone Care Team Providers Care Metal Numerical Tool Programmer Name Role Phone EdwarKamNarendra Rashmi VINCENT Primary Care Provider [phone]- [phone] Allergies Active Allergy Reactions Criticality Noted Date [...] care for your loved ones. For example, early childhood worker or elderly care for an older adult? [...] this topic Insurance HEALTH PLAN Care Teams Metal Numerical Tool Programmer Relationship Specialty Start Date End Date Rashmi Dobbs FNP [address] [place] [phone] PCP - General Nurse Practitioner 12/14/24
== END 2025-08-03 14:13 | disposition home or self-care (01) ==
LOC: HO.HOS 13:31
PROVIDERS: PCP Nurse Practitioner Family
DX: M67.431 Ganglion, right wrist (principal); R20.0 Anesthesia of skin; R20.2 Paresthesia of skin
CPT/HCPCS: 99203

== ENCOUNTER → 2025-08-03 13:31 | Outpatient (BNVA) | payer OTHER, SELFPAY | PROVIDERS: PCP Nurse Practitioner Family | DX: M67.431 Ganglion, right wrist (principal); R20.0 Anesthesia of skin; R20.2 Paresthesia of skin | CPT/HCPCS: 99202 ==

== ENCOUNTER 2025-08-06 09:48 | Outpatient (AMB) | payer OTHER, SELFPAY ==
--- NOTE | 2025-08-06 09:56 | MHC.OFFVIS ---
Intake Visit Reasons: 9m/US/micro hematuria Intake Note: Patient is present for 9m/US/Micro hematuria 08/03 Retroperitoneal US Urology Med: None Antibiotic Allergy: None Blood Thinner: None Security Incident Response Specialist Required: No Allergies morphine (MORPHINE) Allergy (Intermediate, Verified 08/06/25 09:57) ITCHY oxycodone (From Percocet) Allergy (Intermediate, Verified 08/06/25 09:57) rash,upset stomach metronidazole Adverse Reaction (Intermediate, Verified 08/06/25 09:57) Headache and weakness ENVIRONMENTAL ALLERGIES Allergy (Mild, Uncoded 08/03/25 13:38) congestion Medication List - Last Reconciled 08/06/25 by Beena Fatima MD albuterol sulfate 2.5 mg (3 mL) inhalation Q4-6H PRN albuterol sulfate 90 mcg/actuation 2 puffs inhalation Q6H PRN 1 month isswmwz-ygmbkbyjwemnw-gfparqmf 250-250-65 mg (Excedrin Migraine) 2 tabs PO Q6H PRN blood-glucose meter (FreeStyle [place] Lite kit) As directed budesonide-formoterol 80-4.5 mcg/actuation 2 puffs inhalation BID 30 days cetirizine 10 mg PO DAILY cholecalciferol (vitamin D3) 50 mcg PO DAILY diclofenac potassium 50 mg PO BID PRN fluocinolone 0.01% 1 appl topical DAILY fluticasone propionate 50 mcg/actuation 1 spray intranasal DAILY gabapentin 600 mg (2 x 300 mg) PO BEDTIME glucose 4 grams PO DIRECTED ketotifen fumarate 0.025%(0.035%) ([place]) 1 drp ophthalmic (eye) BID PRN 1 month lidocaine 5% 1 patch topical DAILY milnacipran (Savella) 12.5 mg PO BID 30 days montelukast (Singulair) 10 mg PO DAILY 90 days pseudoephedrine HCl mg PO sodium chloride 0.65% (Saline Mist) 2 sprays intranasal Q2H PRN solifenacin (Vesicare) 10 mg PO DAILY valacyclovir 2,000 mg (2 x 1 gram) PO Q12H HPI Comments Details: 08/06/25--Leslie is a 39-year-old female who has had persistent microscopic hematuria. Urinalysis today 3+ blood leukocytes negative. The patient denies any irritative voiding symptoms. Previous workup-office cystoscopy 11/06/2024 no suspicious bladder lesions. Renal ultrasound 09/12/2024-within normal limits. Here for follow-up. Repeat renal ultrasound on 08/03/24. Kidneys within normal limits. History of Present Illness The patient is a 39-year-old female presenting with persistent microscopic hematuria. The hematuria has been persistent, and a urinalysis today showed 3+ blood with negative leukocytes. The patient denies any irritative voiding symptoms. The patient denies cigarette use but states she has been exposed to secondhand smoke as her mother's smokes cigarettes in the house when she was growing up. Previous workup included an office cystoscopy on November 06, 2024, which showed no suspicious lesions. A renal ultrasound conducted on September 12, 2024, was within normal limits, and a repeat ultrasound on August 03, 2024, also showed normal findings. The patient reports experiencing bladder spasms, which cause urgency and discomfort if she does not reach the bathroom quickly. She has been advised to reduce caffeine intake to manage these symptoms. Will also trial an anticholinergic,Vesicare 10 mg daily. The patient is currently on gabapentin for fibromyalgia. Results - Urinalysis: 3+ blood, leukocytes negative - Office cystoscopy (11/06/24): No suspicious lesions - Renal ultrasound (09/12/24): Within normal limits - Repeat renal ultrasound (08/03/24): Normal findings Plan 1. Microscopic Hematuria - Continue monitoring with urinalysis and follow-up renal ultrasound as needed. - Send urine for cytology and pathologist review to ensure normal urine cells. 2. Bladder Spasms - Prescribe Vesicare to manage bladder spasms and reduce urgency. - Advise reduction of caffeine intake to one cup per day to alleviate symptoms. [facility] Medical History Asthma, moderate persistent, poorly-controlled Environmental allergies DM type 2, controlled, with complication Fibromyalgia Iron deficiency Vitamin D deficiency Migraine headache Microscopic hematuria De Quervain's tenosynovitis Anxiety and depression Surgical History History of cervical biopsy History of bilateral salpingectomy History of endometrial ablation History of dilatation and curettage History of laparoscopy Family History Father Diabetes HTN (hypertension) Mother Depression Chronic mental illness Diabetes Maternal Grandmother HTN (hypertension) Paternal Grandmother Alzheimer disease Brother Cancer Other No family history of mental disorder Social History Household Members: Children Housing: House Are you a primary long term care administrator to a significant other at home: No Do you presently have visiting nurse or other home services: No 75 years or older and lives alone: No Alcohol intake: current Alcohol intake frequency: holidays/special occasions only Patient Tobacco Use Status: Never used Tobacco e-Cigarette/Vaping Use: Currently Using Second Hand Smoke Exposure: No service: No Current occupational status: employed 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, [employer] Current occupational exposures/hazards: No Sexual orientation: Unable to collect Gender identity: Female and Unable to collect Cognitive needs: Yes (Forgetful, foggy memory) Hearing needs: No Vision needs: Yes Female Reproductive History Menstrual Age of Menarche: 10 Review of Systems Const All systems reviewed & are unremarkable except as noted in HPI and below Reports no additional complaints Eyes Reports no additional complaints ENT Reports no additional complaints Card Reports no additional complaints Resp Reports no additional complaints GI Reports no additional complaints Reports as per HPI Musc Reports no additional complaints Skin/Breast Reports system reviewed and no additional complaints, except as documented Neuro Reports no additional complaints Psych Reports no additional complaints Endo Reports no additional complaints Toro/Lymph Reports no additional complaints Aller/Immun Reports no additional complaints Results Reviewed Results Reviewed: Date of Service: 08/02/25 CLINICAL HISTORY: R31.29 - Other microscopic hematuria US Renal Comparison: US/KS/SR - US RETROPERITONEUM - 09/12/24 10:06 EDT Findings: Right kidney normal size and echotexture, 13.5 cm length. Left kidney normal size and echotexture, 12.5 cm length. No collecting system dilatation of either kidney. Normal color Doppler. Urinary bladder is unremarkable. Prevoid volume 178 mL. Postvoid volume 23 mL. Bilateral ureteral jets are visualized. IMPRESSION: 1. Normal kidneys. No sonographically apparent stones or hydronephrosis. 2. No significant postvoid residual within the bladder. Reviewed renal ultrasound imaging 09/12/2024--kidneys no parenchymal lesions or calculi, bladder within normal limits. Urine Cytology--Collected: 09/21/24 Location: .LAB Received: 09/22/24 Diagnosis Urine, cytology: Negative for high-grade urothelial carcinoma. COMMENT: Review of the cytology preparation demonstrates a mildly cellular specimen composed of benign squames and urothelial cells. Red blood cells and debris noted. There is no significant atypia seen. Clinical History Other microscopic hematuria Material Received Urine Gross Description Received is 58 cc of cloudy yellow fluid from which a ThinPrep slide is prepared. Assessment & Plan Assessment & Plan (1) Microscopic hematuria: Code(s): R31.29 - Other microscopic hematuria Category: Medical (2) Urinary frequency: Code(s): R35.0 - Frequency of micturition Category: Medical Plan Plan 1. Microscopic Hematuria - Continue monitoring with urinalysis and follow-up renal ultrasound as needed. - Send urine for cytology and pathologist review to ensure normal urine cells. 2. Bladder Spasms - Prescribe Vesicare to manage bladder spasms and reduce urgency. - Advise reduction of caffeine intake to one cup per day to alleviate symptoms. Medications: New solifenacin (Vesicare) 10 mg PO DAILY 30 tabs 5RF Patient Instructions: The patient had an opportunity to ask questions regarding treatment plan. The patient expressed understanding and agreement with the above treatment plan. The patient is aware they should contact our office by phone for worsening of their current condition or the appearance of new symptoms. Compliance is encouraged with any medications and followup testing that is ordered. It is a privilege to be allowed the opportunity to participate in the urologic care of your patient. If you have any questions or concerns regarding treatment for the above conditions please do not hesitate to contact me. The office telephone contact is [phone]. This note is constructed in part using voice recognition software. While every effort has been made to ensure accuracy service planner errors may have been included. Yours sincerely, Beena Fatima MD Scribe Plan - Not visible on output: Patient was informed and verbally consented to the use of an ambient scribe for clinic note documentation during this visit. Coding Level of Care Code Est Pt Level 4 (33019) Diagnoses Microscopic hematuria R31.29 Urinary frequency R35.0
--- OUTSIDE RECORDS SUMMARY | 2025-08-06 11:58 | XMS_ITS | Clinical Summary ---
Author Organization [address] [place] [address] [place] [phone] Phone Care Team Providers Care Director Of Revenue Name Role Phone EdwarKamNarendra Rashmi VINCENT Primary Care Provider [phone] Allergies Active Allergy Reactions Criticality Noted Date [...] for your loved ones. For example, child development assistant or elderly care for an older adult? [...] this topic Insurance HEALTH PLAN Care Teams Director Of Revenue Relationship Specialty Start Date End Date Rashmi Dobbs FNP [address] [place] [phone] PCP - General Nurse Practitioner 12/14/24
== END 2025-08-06 10:20 | disposition home or self-care (01) ==
LOC: HO.HUSH 09:49
PROVIDERS: PCP Nurse Practitioner Family; Visit Provider Urology
DX: R31.29 Other microscopic hematuria (principal); R35.0 Frequency of micturition
CPT/HCPCS: 99214

== ENCOUNTER 2025-08-06 09:48 | Outpatient (REF) | payer OTHER, SELFPAY | END 2025-08-06 09:49 | disposition home or self-care (01) | LOC: HO.LAB 09:48 | PROVIDERS: PCP Nurse Practitioner Family; Visit Provider Urology | DX: R31.29 Other microscopic hematuria (principal); R35.0 Frequency of micturition | CPT/HCPCS: 81003; 88112; 99212 ==

== ENCOUNTER 2025-08-27 13:30 | Outpatient (REF) | payer OTHER, SELFPAY ==
[2025-08-27 18:01] LABS: Alanine Aminotransferase 15 U/L (0-31); Albumin Level 4.4 g/dL (3.5-5.0); Alkaline Phosphatase 60 U/L (39-117); Anion Gap 10 (12-20); Aspartate Amino Transferase 35 U/L (5-31); Blood Urea Nitrogen 16 mg/dL (9-16); Calcium 9.0 mg/dL (8.4-10.2); Carbon Dioxide 26 mmol/L (22-29); Chloride 106 mmol/L (96-108); Cholesterol 167 mg/dL (<200); Estimated Glomerular Filt Rate > 60; HDL Cholesterol 42 mg/dL (>40); Iron 89 mcg/dL (30-160); Percent Iron Saturation 30 % (15-50); Potassium 4.0 mmol/L (3.3-5.1); Sodium 138 mmol/L (135-145); Total Iron Binding Capacity 300 mcg/dL (228-428); Total Protein 7.7 g/dL (6.5-8.0); Triglycerides 171 mg/dL (<150); Unsaturated Iron Binding 211 ug/dL
[2025-08-27 18:07] LABS: Microalbum/Creatinine Ratio Ur 11.4 ug/mg cr (<30)
[2025-08-27 18:33] LABS: Folate 11.2 ng/mL (> or = 4.0); Vitamin B12 989 pg/mL (200-900)
[2025-08-28 05:42] LABS: Total Hemoglobin (HGBA1C) 3338.6887 umol/L
== END 2025-08-27 13:31 | disposition home or self-care (01) ==
LOC: HO.LAB 13:30
PROVIDERS: PCP Nurse Practitioner Family; Visit Provider Nurse Practitioner Family
DX: Z00.00 Encounter for general adult medical examination without abnormal findings (principal); Z23 Encounter for immunization; E11.8 Type 2 diabetes mellitus with unspecified complications; E55.9 Vitamin D deficiency, unspecified; E66.9 Obesity, unspecified; E61.1 Iron deficiency; F33.1 Major depressive disorder, recurrent, moderate; F41.1 Generalized anxiety disorder; L02.91 Cutaneous abscess, unspecified; K59.01 Slow transit constipation; R35.0 Frequency of micturition; B00.1 Herpesviral vesicular dermatitis; M79.7 Fibromyalgia; R51.9 Headache, unspecified; J45.40 Moderate persistent asthma, uncomplicated; Z79.82 Long term (current) use of aspirin; Z79.2 Long term (current) use of antibiotics; Z79.899 Other long term (current) drug therapy
CPT/HCPCS: 36415; 80053; 80061; 82043; 82306; 82570; 82607; 82746; 83036; 83540; 84443; 90471; 90715; 96127; 96160; 99212; 99396

== ENCOUNTER 2025-08-27 13:30 | Outpatient (AMB) | payer OTHER, SELFPAY ==
--- NOTE | 2025-08-27 13:31 | MHC.PC.OV ---
Vital Signs 08/27/25 13:37 Height 5 ft 4 in Weight 210 lb 2 oz BMI 36.1 BP 98/66 Blood Pressure Location Lt brachial Position Sitting Respiration 12 Pulse 68 Pulse Source Pulse Oximeter Temp 97.2 F Temp Source Oral Pulse Oximetry (%) 99 Oxygen Delivery Method Room Air Intake Visit Reasons: cpe/painful cyst on right underarm Intake Note: Patient c/o cyst under left arm x 1 week and it started draining last night. CPE Fisher Spear Required: No Allergies morphine (MORPHINE) Allergy (Intermediate, Verified 08/27/25 14:03) ITCHY oxycodone (From Percocet) Allergy (Intermediate, Verified 08/27/25 14:03) rash,upset stomach metronidazole Adverse Reaction (Intermediate, Verified 08/27/25 14:03) Headache and weakness ENVIRONMENTAL ALLERGIES Allergy (Mild, Uncoded 08/27/25 13:33) congestion Medication List - Last Reconciled 08/27/25 by Rashmi Dobbs, FAMILY CONSULTANT- albuterol sulfate 2.5 mg (3 mL) inhalation Q4-6H PRN albuterol sulfate 90 mcg/actuation 2 puffs inhalation Q6H PRN 1 month hxizvlq-wzkbzxxgrndcm-nrfqmwap 250-250-65 mg (Excedrin Migraine) 2 tabs PO Q6H PRN blood-glucose meter (FreeStyle [place] Lite kit) As directed budesonide-formoterol 80-4.5 mcg/actuation 2 puffs inhalation BID 30 days cetirizine 10 mg PO DAILY cholecalciferol (vitamin D3) 50 mcg PO DAILY diclofenac potassium 50 mg PO BID PRN fluocinolone 0.01% 1 appl topical DAILY fluticasone propionate 50 mcg/actuation 1 spray intranasal DAILY gabapentin 600 mg (2 x 300 mg) PO BEDTIME glucose 4 grams PO DIRECTED ketotifen fumarate 0.025%(0.035%) ([place]) 1 drp ophthalmic (eye) BID PRN 1 month lidocaine 5% 1 patch topical DAILY milnacipran (Savella) 12.5 mg PO BID 30 days montelukast (Singulair) 10 mg PO DAILY 90 days pseudoephedrine HCl mg PO sodium chloride 0.65% (Saline Mist) 2 sprays intranasal Q2H PRN solifenacin (Vesicare) 10 mg PO DAILY valacyclovir 2,000 mg (2 x 1 gram) PO Q12H Tobacco use date assessed: 08/27/25 Dental Screening Dental Screen Date: 08/27/25 Did you have a dental visit in the last 12 months?: Yes Did you have a dental problem in the last 6 months where you did not have access to dental care?: No Was dental information given to patient?: Patient has dentist HPI HPI Comments History of Present Illness Details 40 year-old female with vitamin-D deficiency, diabetes type 2, generalized anxiety disorder, major depressive disorder, microscopic hematuria, fibromyalgia, moderate persistent asthma, varicose veins of the lower extremities, the iron-deficiency anemia, morbid obesity, migrain e headache Social: lives w/ dtr. Unemployed Fhx: No changes Surgery: No changes Health Maintenance Declines flu, pcv Tdap 08/27/25 Pap UTD Diabetic eye exam done in 2023 Dr Paresh Peralta ordered first one today Specialists: Counselor - not currently ff'd declined @ this time. 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 Armpit Cyst with drainage, R - Initially small, now painful and febrile, started self-draining last night. Due for Tdap Abd pain - Left-side pain, linked to diet or menstrual period. - Comes and goes. - Denies red flag sx Constipation: - Chronic, bowel movement every 2-3 days, uses tea for relief. Type 2 Diabetes Mellitus (controlled): - A1c at 5.5%, managed by diet. Blurred Vision: - Increased blurriness, eye exam next year. Asthma: - Taking inhalers as prescribed; declined flu shot - Issues with exertion, related to recent stair climbing. Herpes Simplex Virus: - Managed with Valacyclovir PRN. Overactive Bladder: - Prescribed Vesicare, inconsistent use. Active w/ Uro at [facility] Headaches - doing ok at the current time Obesity first appt w/ bariatrics scheduled 09/2025 Family History - Aunt passed from pancreatic cancer - Brother passed from liver cancer Review of Systems - Musculoskeletal: Reports intermittent pain on the left side. - Respiratory: Reports dyspnea on exertion. - Genitourinary: Reports cyst in the armpit area with drainage, denies consistent use of Vesicare. - Gastrointestinal: Reports constipation. - Neurological: Denies recent severe headaches, reports monthly occurrences. - Vision: Reports blurred vision. Physical Exam General: Well developed, well nourished, in no acute distress. Appears stated age. Head: Normocephalic, atraumatic. Eyes: Pupils are equal, round and reactive to light and accommodation. Conjunctivae are clear. Scleras nonicteric bilat. Ears: TMs clear AU, EACS WNL Nose: Patent, without discharge. Neck: No carotid bruit bilat. Supple, no adenopathy or thyromegaly. Breast: Edu on SBE Lungs: Clear to auscultation bilaterally. No rales, rhonchi or wheeze noted. Good air flow in all gupta. Heart: Regular rate and rhythm. No murmurs, click, rubs or gallops are noted. Abdomen: Bowel sounds present in all quadrants. The abdomen is soft, nontender, with no masses or organomegaly noted. No hernias are noted. : Deferred. Reviewed recommendations for routine APPLICATIONS SYSTEMS ENGINEER Pulses: Peripheral pulses are equal and palpable bilaterally. Extremities: No clubbing, cyanosis nor edema is noted. Normal DM foot exam. Neurologic: Gait and station normal. Cranial Nerves 2-12 intact. Motor strength grossly symmetrical and intact. No sensory loss. Balance normal. Skin: No rashes, ulcers, or lesions noted. Turgor is good. Skin color is good. Hair and nails are without abnormalities. Large cyst to R anterior chest/axilla, skin red, indurated, TTP, no fluctuance, several small pimple like areas surrounding the larger abcessed area. Psych: Normal eye contact, affect and mood appropriate, and normal interactions. Patient is alert and appropriate to context. Results - Labs: Hemoglobin A1c 5.5% Discussion Notes I discussed the patient's current issues including the painful armpit cyst and its recent drainage, recommending consistent application of warm compresses and starting a Doxycycline course. We reviewed the importance of administering a tetanus shot, given the current skin infection and the timeline since the last vaccine. Discussions covered optimizing diabetic management, as her latest A1c is well controlled at 5.5%. For constipation, a recommendation was made to try MiraLax. Information was provided about maintaining regular eye exams and reiteration of the current therapeutic regimen for Herpes Simplex Virus outbreaks. We reinforced the need for follow-up if conditions worsen or change unexpectedly. Patient was given time to ask questions. All questions were answered to their satisfaction. Assessment and Plan 1. Armpit Cyst with drainage - Doxycycline 100 mg bid x 10 days. - Apply warm compresses. - Tetanus vaccine administered. - RTO edu provided 2. Constipation - Start MiraLax, increase fiber intake. - If the pain in Left side cont or does not improve, asked her to reach out 3. Type 2 Diabetes Mellitus - Maintain diet control, monitor glucose. - DM eye exam report requested 4 Asthma - Monitor condition, increase exercise. - cont inhalers 5. Herpes Simplex Virus - Continue Valacyclovir as needed. 6. Overactive Bladder - Ensure Vesicare adherence. Patient Instructions - Take prescribed antibiotics (Doxycycline) as directed for the next 10 days. - Apply warm, wet compresses to the cyst area regularly. - Receive a tetanus shot today for added skin protection. - Start taking MiraLax to alleviate constipation. - Stay hydrated and increase dietary fibers. - If symptoms persist or worsen, contact us for further evaluation. - Follow up on eye health next year as scheduled. - Keep up with exercise to improve breathing endurance. - Adhere to current medications, including Valacyclovir as needed for outbreaks. - RTO 1 year CPE, sooner PRN Consent Consent for the administration of the tetanus vaccine was obtained verbally from the patient after discussing the risks and benefits, including the prevention of tetanus in case of skin infections. No adverse reactions expected. Consent for MiraLax use was also given, with agreement that it might help alleviate constipation without significant side effects. Patient was informed and verbally consented to the use of an ambient scribe for clinic note documentation during this visit. An additional 20 minutes was spent addressing the problem(s) noted at todays visit. This includes time spent before the visit reviewing the chart, time spent during the visit, and time spent after the visit on documentation reviewing laboratory results, diagnostic imaging, medications, performing a medically necessary evaluation, counseling on diagnoses, care coordination, ordering appropriate tests, ordering appropriate medications, review of tests performed by other providers, reporting test results with the patient, communication with other healthcare providers. [facility] Medical History Asthma, moderate persistent, poorly-controlled Environmental allergies DM type 2, controlled, with complication Fibromyalgia Iron deficiency Vitamin D deficiency Migraine headache Microscopic hematuria De Quervain's tenosynovitis Anxiety and depression Surgical History History of cervical biopsy History of bilateral salpingectomy History of endometrial ablation History of dilatation and curettage History of laparoscopy Family History Father Diabetes HTN (hypertension) Mother Depression Chronic mental illness Diabetes Maternal Grandmother HTN (hypertension) Paternal Grandmother Alzheimer disease Brother Cancer Other No family history of mental disorder Social History Household Members: Children Housing: House Are you a primary care center manager to a significant other at home: No Do you presently have visiting nurse or other home services: No 75 years or older and lives alone: No Alcohol intake: current Alcohol intake frequency: holidays/special occasions only Patient Tobacco Use Status: Never used Tobacco e-Cigarette/Vaping Use: Currently Using Second Hand Smoke Exposure: No service: No Current occupational status: employed 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 1. Little interest or pleasure in doing things: several days 2. Feeling down, depressed, or hopeless: several days 3. Trouble falling or staying asleep, or sleeping too much: several days 4. Feeling tired or having little energy: several days 5. Poor appetite or overeating: several days 6. Feeling bad about yourself - or that you are a failure or have let yourself or your family down: not at all 7. Trouble concentrating on things, such as reading the newspaper or watching television: several days 8. Moving or speaking so slowly that other people could have noticed. Or the opposite - being so fidgety or restless that you have been moving around a lot more than usual: not at all 9. Thoughts that you would be better off or of hurting yourself in some way: not at all Total score: 6 Depression Screening Interpretation: Positive Depression Screening Follow-up: Existing condition and In treatment Depression Screening Done: Yes 37788 - PHQ-9 Billing: Yes Source: Developed by Drs. Sunil Hernandez, Shasha Decker, Gaudencio Villarreal and colleagues, with an educational troy from [employer]. Thrive Questionnaire Date Thrive assessed: 08/27/25 I am a: Patient What is your living situation today?: I have a steady place to live Within the past 12 months, did the food you bought not last and you didn't have the money to get more?: I choose not to answer this question Within the past 12 months, did you worry whether your food would run out before you got money to buy more?: Sometimes True Do you have trouble paying for medicines?: No Do you have trouble getting transportation to medical appointments?: No Do you have trouble paying your heating and electricity bill?: No Do you have trouble taking care of your child, family member or friend?: No Do you have trouble with day-to-day activities such as bathing, preparing meals, shopping, managing finances, etc.?: Yes Are you currently unemployed and looking for a job?: Yes Are you interested in more education?: Yes Please select the resources that you would like help with: Food, Utilities, Daily support and Job search/training Currently or been in a relationship where the following occur: No concerns reported THRIVE Score: 1 AUDIT C Alcohol Use Questionnaire (AUDIT-C) 1. How often do you have a drink containing alcohol?: Never Total Score: 0 Score Reviewed/Action Taken: Yes DANIEL-7 AMB Questionnaire DANIEL-7 Date DANIEL - 7 assessed: 08/27/25 Feeling nervous, anxious, or on edge: 1 = Several days Not being able to stop or control worryin = Several days Worrying too much about different things: 1 = Several days Trouble relaxin = Several days Being so restless that it is hard to sit still: 1 = Several days Becoming easily annoyed or irritable: 1 = Several days Feeling afraid as if something awful might happen: 0 = Not at all Total DANIEL-7 score (0-4 normal; 5-9 mild; 10-14 moderate; 15-21 severe): 6 Source: Developed by Drs. Sunil Hernandez, Shasha Decker, Gaudencio Villarreal and colleagues, with an educational troy from [employer]. DANIEL-7 Assessment Billing DANIEL-7 Assessment Tool: DANIEL-7 Assessment 98818 ACT Questionnaire In the past 4 weeks, how much of the time did your asthma keep you from getting as much done at work, school or at home?: None of the time During the past 4 weeks, how often have you had shortness of breath?: Not at all During the past 4 weeks, how often did your asthma symptoms wake you up at night or earlier than usual in the morning?: Not at all During the past 4 weeks, how often have you had to use your rescue inhaler or nebulizer medication?: Not at all How would you rate your asthma control during the past 4 weeks?: Completely controlled ACT Interpretation: Negative Score: 25 Physical exam (Primary Care) Vital Signs: Last Vital Signs Temp 97.2 F 08/27/25 13:37 Pulse 68 08/27/25 13:37 Resp 12 08/27/25 13:37 BP 98/66 08/27/25 13:37 Pulse Ox 99 08/27/25 13:37 Oxygen Delivery Method Room Air 08/27/25 13:37 BMI result Body Mass Index 36.1 Tobacco/Smoking Status: Tobacco use Status Tobacco use date assessed 08/27/25 08/27/25 13:35 Patient Tobacco Use Status Never used Tobacco 08/27/25 13:35 e-Cigarette/Vaping Use Currently Using 08/27/25 13:35 PHQ-9: PHQ-9 Score PHQ-9: Total score 6 08/27/25 14:24 Depression Screening Interpretation: Positive Depression Screening Follow-up: Existing condition and In treatment Thrive Assessment: Date of Thrive Assessment Date Thrive assessed 08/27/25 08/27/25 13:35 Currently or been in a relationship where the following occur: No concerns reported Office Procedures Diabetic Foot Exam Details: normal monofilament and vibratory sensations bilat G9226 - Diabetic Foot Exam Results AMB Hemoglobin A1c AMB Hemoglobin A1c 5.5 % Last Edit by Kamilla Hernández MA on 08/27/25 13:47 Immunizations Boostrix Tdap 2.5 Lf unit-8 mcg-5 Lf/0.5 mL intramuscular syringe Performing Provider: TROY Gonzalez Performing Location: [facility] Family Medicine Administered by: Kamilla Hernández MA on 08/27/25 14:25 Dose Route Admin Location Dispensed Lot Number Expiration Date NDC Professor [employer] 0.5 mL IM Left Deltoid 0.5 mL [id number] 10/12/27 51570-186-13 [employer] Total Dispensed Waste 0.5 mL 0 % VIS Given Date VIS Provided VIS Publication Date 08/27/25 Single Vaccine 21 Eligibility Eligibility Date Funding Source Not [facility] Eligible 08/27/25 Private Results Reviewed Results Reviewed: Laboratory Last Values Hgb A1c (Clinic) 5.5 % (4.0-6.0) 08/27/25 13:42 Coding Level of Care Code Est Pt Level 3 (64912) Est Pt Prev Care 40-64y(88436) Diagnoses Encounter for general adult medical examination without abnormal findings Z00.00 DM type 2, controlled, with complication E11.8 Moderate episode of recurrent major depressive disorder F33.1 Major depression episode severity: moderate DANIEL (generalized anxiety disorder) F41.1 Vitamin D deficiency E55.9 Obesity (BMI 30-39.9) E66.9 Laboratory exam ordered as part of routine general medical examination Z00.00 Iron deficiency E61.1 Influenza vaccination declined Z28.21 Need for Tdap vaccination Z23 Abscess L02.91 Slow transit constipation K59.01 Constipation type: slow transit constipation Urinary frequency R35.0 Primary herpes simplex infection of lips B00.1 Fibromyalgia M79.7 Nonintractable episodic headache, unspecified headache type R51.9 Headache type: unspecified Headache chronicity pattern: episodic headache Intractability: not intractable Moderate persistent asthma without complication J45.40 Asthma complication type: uncomplicated CPT Codes Diabetic Foot Exam - CPT: G9226 - Diabetic Foot Exam ([id number]) Additional Codes Asthma Control Questionnaire - ACT Interpretation: Negative ([id number]) DANIEL-7 Assessment Billing - DANIEL-7 Assessment Tool: DANIEL-7 Assessment 34537 ([id number]) PHQ-9 - 32977 - PHQ-9 Billing: Yes ([id number]) Assessment & Plan Assessment & Plan (1) Encounter for general adult medical examination without abnormal findings: Onset Date: ~08/27/25 Code(s): Z00.00 - Encounter for general adult medical examination without abnormal findings Category: Medical (2) DM type 2, controlled, with complication: Code(s): E11.8 - Type 2 diabetes mellitus with unspecified complications Category: Medical (3) MDD (major depressive disorder), recurrent episode: Comment: Code(s): F33.9 - Major depressive disorder, recurrent, unspecified Category: Medical Qualifiers: Major depression episode severity: moderate Qualified Code(s): F33.1 - Major depressive disorder, recurrent, moderate (4) DANIEL (generalized anxiety disorder): Comment: Code(s): F41.1 - Generalized anxiety disorder Category: Medical (5) Vitamin D deficiency: Comment: Most recent vitamin-D level within normal limits obtained November of 2023. This is was sporadic use of the vitamin D3 50 mcg. There was no clinical need for her to take this. Therefore can be discontinued. Code(s): E55.9 - Vitamin D deficiency, unspecified Category: Medical (6) Obesity (BMI 30-39.9): Code(s): E66.9 - Obesity, unspecified Category: Medical (7) Laboratory exam ordered as part of routine general medical examination: Code(s): Z00.00 - Encounter for general adult medical examination without abnormal findings Category: Medical (8) Iron deficiency: Code(s): E61.1 - Iron deficiency Category: Medical (9) Influenza vaccination declined: Code(s): Z28.21 - Immunization not carried out because of patient refusal Category: Medical (10) Need for Tdap vaccination: Code(s): Z23 - Encounter for immunization Category: Medical (11) Abscess: Code(s): L02.91 - Cutaneous abscess, unspecified (12) Constipation: Code(s): K59.00 - Constipation, unspecified Category: Medical Qualifiers: Constipation type: slow transit constipation Qualified Code(s): K59.01 - Slow transit constipation (13) Urinary frequency: Code(s): R35.0 - Frequency of micturition Category: Medical (14) Primary herpes simplex infection of lips: Code(s): B00.1 - Herpesviral vesicular dermatitis Category: Medical (15) Fibromyalgia: Comment: Uncontrolled. Code(s): M79.7 - Fibromyalgia Category: Medical (16) Headache: Code(s): R51.9 - Headache, unspecified Category: Medical Qualifiers: Headache type: unspecified Headache chronicity pattern: episodic headache Intractability: not intractable Qualified Code(s): R51.9 - Headache, unspecified (17) Moderate persistent asthma: Code(s): J45.40 - Moderate persistent asthma, uncomplicated Category: Medical Qualifiers: Asthma complication type: uncomplicated Qualified Code(s): J45.40 - Moderate persistent asthma, uncomplicated Plan . Orders: Orders Microalbumin, Random (w Creat) Today E11.8 - Type 2 diabetes mellitus with unspecified complications Comprehensive Met. Panel Today E11.8 - Type 2 diabetes mellitus with unspecified complications, E55.9 - Vitamin D deficiency, unspecified, E66.9 - Obesity, unspecified, Z00.00 - Encounter for general adult medical examination without abnormal findings Lipid Panel Today E11.8 - Type 2 diabetes mellitus with unspecified complications, E55.9 - Vitamin D deficiency, unspecified, E66.9 - Obesity, unspecified, Z00.00 - Encounter for general adult medical examination without abnormal findings Vitamin B12 and Folate Today E11.8 - Type 2 diabetes mellitus with unspecified complications, E55.9 - Vitamin D deficiency, unspecified, E66.9 - Obesity, unspecified, Z00.00 - Encounter for general adult medical examination without abnormal findings IRON PROFILE Today E61.1 - Iron deficiency MM tomosynthesis screening BI Today Z12.31 - Encounter for screening mammogram for malignant neoplasm of breast AMB Hemoglobin A1c Today E11.8 - Type 2 diabetes mellitus with unspecified complications, Z13.9 - Encounter for screening, unspecified TSH reflex Free T4 Today E11.8 - Type 2 diabetes mellitus with unspecified complications, E55.9 - Vitamin D deficiency, unspecified, E66.9 - Obesity, unspecified, Z00.00 - Encounter for general adult medical examination without abnormal findings Vitamin D 25-OH Total Today E11.8 - Type 2 diabetes mellitus with unspecified complications, E55.9 - Vitamin D deficiency, unspecified, E66.9 - Obesity, unspecified, Z00.00 - Encounter for general adult medical examination without abnormal findings TDaP Immunization Today Z23 - Encounter for immunization Medications: New polyethylene glycol 3350 (Miralax) 17 grams PO DAILY 238 grams 12RF mecobalamin (vitamin B12) (B12 Active) 1,000 mcg PO DAILY 90 tabs 3RF doxycycline hyclate 100 mg PO BID 20 caps 0RF 10 days Discontinued milnacipran (Savella) Discontinued Reason: Patient no longer taking 12.5 mg PO BID 30 days 60 tabs 0RF pain M79.7 - Fibromyalgia Patient Instructions: Health screenings for women You should visit your health care provider from time to time, even if you are healthy. The purpose of these visits is to: Screen for medical issues Assess your risk for future medical problems Encourage a healthy lifestyle Update vaccinations and other preventive care services Help you get to know your provider in case of an illness Information Even if you feel fine, you should still see your provider for regular checkups. These visits can help you avoid problems in the future. For example, the only way to find out if you have high blood pressure is to have it checked regularly. High blood sugar and high cholesterol levels also may not have any symptoms in the early stages. A simple blood test can check for these conditions. There are specific times when you should see your provider or receive specific health screenings. The [place] Preventive Services Task Force publishes a list of recommended screenings. Below are screening guidelines for women ages 18 to 39. BLOOD PRESSURE SCREENING Your blood pressure should be checked at least once every 3 to 5 years if: Your blood pressure is in the normal range (top number less than 120 mm Hg and bottom number less than 80 mm Hg) You don't have risk factors for high blood pressure Ask your provider if you need your blood pressure checked more often if: The top number is 120 to 129 mm Hg or the bottom number is 70 to 79 mm Hg You have diabetes, heart disease, kidney problems, are overweight, or have certain other health conditions You have a first-degree relative with high blood pressure You are Black You had high blood pressure during a If the top number is 130 mm Hg or greater or the bottom number is 80 mm Hg or greater, this is considered stage 1 hypertension. Schedule an appointment with your provider to learn how you can reduce your blood pressure. Watch for blood pressure screenings in your area. Ask your provider if you can stop in to have your blood pressure checked. BREAST CANCER SCREENING Experts do not agree about the benefits of breast self-exams in finding breast cancer or saving lives. Talk to your provider about what is best for you. A screening mammogram is not recommended for most women under age 40. Your provider may discuss and recommend mammograms, MRI scans, or ultrasounds if you have an increased risk for breast cancer, such as: A mother or sister who had breast cancer at a young age (most often starting screening earlier than the age the close relative was diagnosed) You carry a high-risk genetic marker CERVICAL CANCER SCREENING Cervical cancer screening should start at age 21 years unless your provider advises otherwise. After the first test: Women ages 21 through 29 should have a Pap test every 3 years. Exoprts do not agree on whether HPV testing is recommended for this age group. Women ages 30 through 65 should be screened with either a Pap test every 3 years or the HPV test every 5 years or both tests every 5 years (called cotesting ). Women who have been treated for precancer (cervical dysplasia) should continue to have Pap tests for 20 years after treatment or until age 65, whichever is longer. If you have had your uterus and cervix removed (total hysterectomy), and you have not been diagnosed with cervical cancer or precancer (high grade cervical neoplasia), you do not need cervical cancer screening. CHOLESTEROL SCREENING Cholesterol screening should begin at: Age 45 for women with no known risk factors for coronary heart disease Age 20 for women with known risk factors for coronary heart disease Repeat cholesterol screening should take place: Every 5 years for women with normal cholesterol levels More often if changes occur in lifestyle (including weight gain and diet) More often if you have diabetes, heart disease, kidney problems, or certain other conditions DIABETES SCREENING You should be screened for diabetes starting at age 35 and then repeated every 3 years if you have no risk factors for diabetes. Screening may need to start earlier and be repeated more often if you have other risk factors for diabetes, such as: You have a first degree relative with diabetes. You are overweight or have obesity. You have high blood pressure, prediabetes, or a history of heart disease. Screening for diabetes should be done if you are planning to become and you are overweight and have other risk factors such as high blood pressure. DENTAL EXAM Go to the dentist once or twice every year for an exam and cleaning. Your dentist will evaluate if you need more frequent visits. EYE EXAM Have an eye exam every 5 to 10 years before age 40. If you have vision problems, have an eye exam every 2 years or more often if recommended by your provider. You should have an eye exam that includes an examination of your retina (back of your eye) at least every year if you have diabetes. IMMUNIZATIONS Commonly needed vaccines include: Flu shot: get one every year. COVID-19 vaccine: ask your provider what is best for you. Tetanus-diphtheria and acellular pertussis (Tdap) vaccine: have one at or after age 19 as one of your tetanus-diphtheria vaccines if you did not receive it as an adolescent. Tetanus-diphtheria: have a booster (or Tdap) every 10 years. Varicella vaccine: receive 2 doses if you never had chickenpox or the varicella vaccine. Hepatitis B vaccine: receive 2, 3, or 4 doses, depending on your exact circumstances. Measles, mumps, and rubella (MMR) vaccine: receive 1 to 2 doses if you are not already immune to MMR. Your provider can tell you if you are immune. Ask your provider about the human papillomavirus (HPV) vaccine if: You have not received the HPV vaccine in the past You have not completed the full vaccine series (you should catch up on this shot) Ask your provider if you should receive other immunizations if you have certain health problems that increase your risk for some diseases such as pneumonia. INFECTIOUS DISEASE SCREENING Women who are sexually active should be screened for chlamydia and gonorrhea up until age 25. Women 25 years and older should be screened for chlamydia and gonorrhea if at high risk. Screening for hepatitis C: All adults ages 18 to 79 should get a one-time test for hepatitis C. people should be screened at every . Screening for human immunodeficiency virus (HIV): All people ages 15 to 65 should get a one-time test for HIV. Depending on your lifestyle and medical history, you may also need to be screened for infections such as syphilis and HIV, as well as other infections. PHYSICAL EXAM All adults should visit their provider from time to time, even if they are healthy. The purpose of these visits is to: Screen for disease Assess your risk of future medical problems Encourage a healthy lifestyle Update your vaccinations and other preventive care services Maintain a relationship with a provider in case of an illness Your height, weight, and BMI should be checked at every exam. During your exam, your provider may ask you about: Depression and anxiety Diet and exercise Alcohol and tobacco use Safety issues, such as using seat belts, smoke detectors, and intimate partner violence Your medicines and risk for interactions SKIN SELF-EXAM Your provider may check your skin for signs of skin cancer, especially if you're at high risk, such as if you: Have had skin cancer before Have close relatives with skin cancer Have a weakened immune system OTHER SCREENING Talk with your provider about colon cancer screening if you have a strong family history of colon cancer or polyps, or if you have had inflammatory bowel disease or polyps yourself. Routine bone density screening of women under 40 is not recommended.
--- OUTSIDE RECORDS SUMMARY | 2025-08-27 13:32 | XMS_ITS | Clinical Summary ---
Author Organization [address] [place] [address] [place] [phone] Phone Care Team Providers Care Electrician Maintenance Name Role Phone EdwarKamNarendra Rashmi VINCENT Primary Care Provider [phone] Allergies Active Allergy Reactions Criticality Noted Date [...] your loved ones. For example, child care provider or elderly care for an older adult? [...] Date Recorded What is your living situation? Unrecognized valu e 03/14/2025 Comments Unknown Sex and Gender Information [...] Health Maintenance Due Date Last Done Comments Breast Cancer Screening 1985 DTaP,Tdap,and Td Vaccines (1 - Tdap) 2004 Hepatitis B Vaccines (1 of 3 - 19+ 3-dose series) 2004 Cervical Cancer Screening: P ap Smear 2006 HPV Vaccines (1 - 3-dose SCD M series) 2012 HIV Screening 10/17/2022 Hepatitis C Screening 10/17/2022 [...] this topic Insurance HEALTH PLAN Care Teams Electrician Maintenance Relationship Specialty Start Date End Date Rashmi Dobbs FNP [address] [place] [id number] PCP - General Nurse Practitioner 12/14/24
[2025-08-27 13:37] VITALS: BP 98/66; PULSE 68; RESP 12; TEMP 36.2; O2SAT 99; BMI 36.1
== END 2025-08-27 14:42 | disposition home or self-care (01) ==
LOC: HO.HMCFM 13:31
PROVIDERS: PCP Nurse Practitioner Family; Visit Provider Nurse Practitioner Family
DX: Z00.00 Encounter for general adult medical examination without abnormal findings (principal); E11.8 Type 2 diabetes mellitus with unspecified complications; F33.1 Major depressive disorder, recurrent, moderate; F41.1 Generalized anxiety disorder; E55.9 Vitamin D deficiency, unspecified; E66.9 Obesity, unspecified; E61.1 Iron deficiency; Z28.21 Immunization not carried out because of patient refusal; Z23 Encounter for immunization; L02.91 Cutaneous abscess, unspecified; K59.01 Slow transit constipation; R35.0 Frequency of micturition

== ENCOUNTER 2025-08-27 14:25 | Outpatient (REF) | payer OTHER, SELFPAY | END 2025-08-27 14:26 | disposition home or self-care (01) | LOC: HO.WFDLDS 14:25 | PROVIDERS: Visit Provider Nurse Practitioner Family | DX: Z13.89 Encounter for screening for other disorder (principal) ==

== ENCOUNTER 2025-09-19 08:33 | Outpatient (AMB) | payer OTHER, SELFPAY ==
--- OUTSIDE RECORDS SUMMARY | 2025-09-19 08:47 | XMS_ITS | Clinical Summary ---
Author Organization [address] [place] [address] [place] [phone] Phone Care Team Providers Care Manager Strategy & Account Name Role Phone EdwarKamNarendra Rashmi VINCENT Primary Care Provider [phone] Allergies Active Allergy Reactions Criticality Noted Date [...] your loved ones. For example, child care associate teacher or elderly care for an older [...] this topic Insurance HEALTH PLAN Care Teams Manager Strategy & Account Relationship Specialty Start Date End Date Rashmi Dobbs FNP [address] [place] [address] PCP - General Nurse Practitioner 12/14/24
--- NOTE | 2025-09-19 10:46 | MHC.OFFVISWM ---
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 Allergies morphine (MORPHINE) Allergy (Intermediate, Verified 09/19/25 10:47) ITCHY oxycodone (From Percocet) Allergy (Intermediate, Verified 09/19/25 10:47) rash,upset stomach metronidazole Adverse Reaction (Intermediate, Verified 09/19/25 10:47) Headache and weakness ENVIRONMENTAL ALLERGIES Allergy (Mild, Uncoded 09/19/25 10:47) congestion Medication List - Last Reconciled 09/19/25 by Jadon Sloan MD albuterol sulfate 2.5 mg (3 mL) inhalation Q4-6H PRN albuterol sulfate 90 mcg/actuation 2 puffs inhalation Q6H PRN 1 month vyhpgcv-ycwtycjhmigla-ivwwdovp 250-250-65 mg (Excedrin Migraine) 2 tabs PO Q6H PRN blood-glucose meter (FreeStyle Sterling Lite kit) As directed budesonide-formoterol 80-4.5 mcg/actuation 2 puffs inhalation BID 30 days cetirizine 10 mg PO DAILY cholecalciferol (vitamin D3) 50 mcg PO DAILY diclofenac potassium 50 mg PO BID PRN fluocinolone 0.01% 1 appl topical DAILY fluticasone propionate 50 mcg/actuation 1 spray intranasal DAILY gabapentin 600 mg (2 x 300 mg) PO BEDTIME glucose 4 grams PO DIRECTED ketotifen fumarate 0.025%(0.035%) (Alaway) 1 drp ophthalmic (eye) BID PRN 1 month lidocaine 5% 1 patch topical DAILY mecobalamin (vitamin B12) (B12 Active) 1,000 mcg PO DAILY montelukast (Singulair) 10 mg PO DAILY 90 days polyethylene glycol 3350 (Miralax) 17 grams PO DAILY pseudoephedrine HCl mg PO sodium chloride 0.65% (Saline Mist) 2 sprays intranasal Q2H PRN solifenacin (Vesicare) 10 mg PO DAILY valacyclovir 2,000 mg (2 x 1 gram) PO Q12H HPI 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: Details: Start time: 10.40am, End time: 11.15am ?I spent 30 minutes speaking with the patient on the phone plus an additional 5 minutes reviewing and updating records for a total of 35 minutes HPI Comments Details: Previous weight loss efforts: diet and exercise Wakes up: 7am, Sleeps: 10pm Breakfast: skips Lunch: 1pm (rice cakes with egg) Dinner: 6-7pm (rice, beans, chicken, potatoes) Snacks: 4pm (cheese, chips) Exercise: none Beverages: Coffee: 1 cup/d (with almond creamer), Tea: Hot tea: 3-5/wk (plain), Soda: none, Juice: none, ETOH: none PFSH Medical History (Updated 09/19/25 @ 11:08 by Jadon Sloan MD) Fibromyalgia BMI 35.0-35.9,adult Asthma, moderate persistent, poorly-controlled Environmental allergies DM type 2, controlled, with complication Fibromyalgia Iron deficiency Vitamin D deficiency Migraine headache Microscopic hematuria De Quervain's tenosynovitis Anxiety and depression Surgical History History of cervical biopsy History of bilateral salpingectomy History of endometrial ablation History of dilatation and curettage History of laparoscopy Family History Father Diabetes HTN (hypertension) Mother Depression Chronic mental illness Diabetes Maternal Grandmother HTN (hypertension) Paternal Grandmother Alzheimer disease Brother Cancer Other No family history of mental disorder Social History Household Members: Children Housing: House Are you a primary wound care coordinator to a significant other at home: No Do you presently have visiting nurse or other home services: No 75 years or older and lives alone: No Alcohol intake: current Alcohol intake frequency: holidays/special occasions only Patient Tobacco Use Status: Never used Tobacco e-Cigarette/Vaping Use: Currently Using Second Hand Smoke Exposure: No service: No Current occupational status: employed 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, 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 Current occupational exposures/hazards: No Sexual orientation: Unable to collect Gender identity: Female and Unable to collect Cognitive needs: Yes (Forgetful, foggy memory) Hearing needs: No Vision needs: Yes Female Reproductive History Menstrual Age of Menarche: 10 Telehealth Telehealth Telehealth Platform: Telephone Location of provider rendering services: practice address Location of patient: address on file Patient Identification confirmed using: Name, : Yes Telehealth method: voice only Patient verbally consented to treatment: Yes Patient verbally consented to billing insurance company: Yes Patient informed of any privacy concerns related to visit: Yes Minutes spent on Phone/Video with Pt.: 35 Assessment & Plan Assessment & Plan (1) Obesity: Code(s): E66.9 - Obesity, unspecified Category: Medical Qualifiers: Obesity type: due to excess calories Obesity classification: adult class 2 (BMI 35 - 39.9) Serious obesity comorbidity presence: with serious comorbidity Body mass index: BMI 35.0-35.9 Qualified Code(s): E66.01 - Morbid (severe) obesity due to excess calories; Z68.35 - Body mass index [BMI] 35.0-35.9, adult Plan: 1. As we discussed, based on your present BMI you are approximately 65lbs overweight. In my opinion, for any weight loss strategy to be successful should have a high probability to help you lose at least 60lbs out of 65lbs of the extra weight you carry. We discussed in detail the available therapeutic options: 1) our lifestyle intervention program that has an average weight loss of 10% in 3 months.?Some patients continue it for longer and have lost over 50lbs but this is not common. Our lifestyle program can be provided by me. I will provide you with a link to use the marko if you choose to do so. We use protein shakes and protein bars to replace some of the meals of the day and cover your appetite better. We will decide together the exact combination. 2) Weight loss medications: these can be used in conjunction with our lifestyle program or you may choose to use them without following a lifestyle program from my program but your own. As we discussed, your insurance only the Phentermine pill. It is well tolerated and most common side effects include blood pressure elevation, dry mouth, difficulty sleeping and heart palpitations. We also discussed that you can self pay for the weight loss injections and the cost is $249 for the first month and $499 for any other month thereafter. These payments go to the drug company directly and not to us. As we discussed, this is not a jail solution, as most patients put all the weight back once they are off the medication. 3) We also discussed about the lap sleeve gastrectomy. In my opinion this is the best option to solve your problem based on your situation and should be used in conjunction with the two previous options. A good strategy to make this decision to proceed with surgery, as soon as you achieve a specific goal with the lifestyle intervention and medication options: to lose least 10% of your initial weight in 3 months. ?I emphasized the importance of close follow-up, adherence to instructions and good communication. The surgery does not replace the need to change your lifestlyle which is the cause of the obesity problem. The surgery provides the motivation to try again to change your lifestyle, it reduces the appetite and make the transition to a better lifestyle easier and doubles the amount of weight you would lose compared to doing the lifestyle change without the surgery. You will need to be on a liquid diet with protein shakes for 2 weeks before surgery to maximize weight loss and boost your nutritional status to recover better from surgery and also for the first two weeks after surgery to let the stomach heal before we introduce other foods. After the first 2 weeks we will introduce protein bars and soft foods like scrambled eggs, cottage cheese and yogurt and after the 6th week will introduce meat, fish and cooked vegetables in small amounts. Over time you should be able to eat everything in small amounts. Side effects like nausea, vomiting, heartburn or abdominal pain are not common in the practice unless you are not following in the practice. This operation requires lifetime commitment to following in our practice and communication with me. You will much less weight and experience side effects if you don?t communicate or not following in the practice. Complications are rare and in our practice is about 1/10 of the national average.
[2025-09-19 10:59] VITALS: BMI 35.8
== END 2025-09-19 11:15 | disposition home or self-care (01) ==
LOC: HO.HBS 08:33
PROVIDERS: PCP Nurse Practitioner Family; Visit Provider Surgery
DX: E66.01 Morbid (severe) obesity due to excess calories (principal); Z68.35 Body mass index [BMI] 35.0-35.9, adult
CPT/HCPCS: 99203

== ENCOUNTER 2025-09-28 10:41 | Outpatient (REF) | payer OTHER, SELFPAY ==
[2025-09-28 14:48] LABS: D Dimer High Sensitivity < 150 NG/ML
== END 2025-09-28 10:42 | disposition home or self-care (01) ==
LOC: HO.WFDLDS 10:41
PROVIDERS: PCP Nurse Practitioner Family; Visit Provider Nurse Practitioner Family
DX: M79.602 Pain in left arm (principal); E55.9 Vitamin D deficiency, unspecified; R07.89 Other chest pain; R07.9 Chest pain, unspecified; F41.9 Anxiety disorder, unspecified; M79.7 Fibromyalgia; F41.1 Generalized anxiety disorder; Z28.21 Immunization not carried out because of patient refusal
CPT/HCPCS: 36415; 85379; 93005; 96127; 99212

== ENCOUNTER 2025-09-28 10:41 | Outpatient (AMB) | payer OTHER, SELFPAY ==
--- NOTE | 2025-09-28 10:43 | A.OFFPC_ITS ---
Vital Signs 09/28/25 10:50 Height 5 ft 4 in Weight 210 lb BMI 36.0 BP 110/68 Blood Pressure Location Rt brachial Position Sitting Respiration 12 Pulse 78 Pulse Source Pulse Oximeter Temp 97.2 F Temp Source Oral Pulse Oximetry (%) 99 Oxygen Delivery Method Room Air Intake Visit Reasons: URI Intake Note: Routine follow up. Patient c/o left side chest px and radiating to left arm x 1 week Water Chaser Required: No Allergies morphine (MORPHINE) Allergy (Intermediate, Verified 09/28/25 10:58) ITCHY oxycodone (From Percocet) Allergy (Intermediate, Verified 09/28/25 10:58) rash,upset stomach metronidazole Adverse Reaction (Intermediate, Verified 09/28/25 10:58) Headache and weakness ENVIRONMENTAL ALLERGIES Allergy (Mild, Uncoded 09/28/25 10:44) congestion Medication List - Last Reconciled 09/28/25 by Rashmi Dobbs, PROCESSING SPECIALIST- albuterol sulfate 2.5 mg (3 mL) inhalation Q4-6H PRN albuterol sulfate 90 mcg/actuation 2 puffs inhalation Q6H PRN 1 month kdhasnn-dhiiufgnbgnmg-nyaawxid 250-250-65 mg (Excedrin Migraine) 2 tabs PO Q6H PRN blood-glucose meter (FreeStyle [place] Lite kit) As directed budesonide-formoterol 80-4.5 mcg/actuation 2 puffs inhalation BID 30 days cetirizine 10 mg PO DAILY cholecalciferol (vitamin D3) 50 mcg PO DAILY diclofenac potassium 50 mg PO BID PRN fluocinolone 0.01% 1 appl topical DAILY fluticasone propionate 50 mcg/actuation 1 spray intranasal DAILY gabapentin 600 mg (2 x 300 mg) PO BEDTIME glucose 4 grams PO DIRECTED ketotifen fumarate 0.025%(0.035%) ([place]) 1 drp ophthalmic (eye) BID PRN 1 month lidocaine 5% 1 patch topical DAILY mecobalamin (vitamin B12) (B12 Active) 1,000 mcg PO DAILY montelukast (Singulair) 10 mg PO DAILY 90 days polyethylene glycol 3350 (Miralax) 17 grams PO DAILY pseudoephedrine HCl mg PO sodium chloride 0.65% (Saline Mist) 2 sprays intranasal Q2H PRN solifenacin (Vesicare) 10 mg PO DAILY valacyclovir 2,000 mg (2 x 1 gram) PO Q12H Tobacco use date assessed: 09/28/25 Dental Screening Dental Screen Date: 09/28/25 Did you have a dental visit in the last 12 months?: Yes Did you have a dental problem in the last 6 months where you did not have access to dental care?: No Was dental information given to patient?: Patient has dentist HPI HPI Comments History of Present Illness Details 40 year-old female with vitamin-D defici ency, diabetes type 2, generalized anxiety disorder, major depressive disorder, microscopic hematuria, fibromyalgia, moderate persistent asthma, varicose veins of the lower extremities, the iron-deficiency anemia, morbid obesity, migrain e headache Social: lives w/ dtr. Unemployed Fhx: No changes Surgery: No changes Health Maintenance Declines flu, pcv Tdap 08/27/25 Pap UTD Diabetic eye exam done in 2023 Dr Paresh Peralta ordered first one today Specialists: Counselor - not currently ff'd declined @ this time. DAIRY SPECIALIST Rheum Pulm * Vasc PaIN MGMT Urology History of Present Illness The patient is a 40-year-old female presenting with left-sided chest pain that radiates to her left arm. Chest Pain: - The patient reports that her left-side d chest pain started about a week and a half ago while she was on a plane traveling to see her mother. - The pain is described as affecting the left side of her chest and radiating to her entire left arm, making it difficult to lift. - The pain is intermittent and has becom e more frequent. - It is exacerbated by stress and anxiet y and improves with relaxation and calmness. - Associated symptoms include sweating a nd shortness of breath. - The patient denies nausea or vomiting with the pain. Anxiety: - The patient has a history of anxiety, which she identifies as a trigger for her current chest pain. Fibromyalgia: - The patient has a past medical history of fibromyalgia. Past Medical History - Diabetes mellitus - Anxiety - Depression - Fibromyalgia - Iron deficiency anemia - Morbid obesity - Migraine headaches Review of Systems - Cardiovascular: Reports intermittent l eft-sided chest pain radiating to the left arm and associated diaphoresis. - Respiratory: Reports trouble breathing with chest pain. - Gastrointestinal: Denies nausea or vom iting. - Neurological: Reports a history of magan imelda but denies new headaches associated with the chest pain. - Musculoskeletal: Reports arm pain matt ng it difficult to lift the left arm. - Peripheral Vascular: Reports occasiona l leg swelling at the end of the day, which she describes as her baseline. - Psychiatric: Reports feeling stressed and having anxiety, which worsens her pain. Physical Exam General: Well developed, well nourished, in no acute distress. Appears stated age. Head: Normocephalic, atraumatic. Eyes: Pupils are equal, round and reactive to light and accommodation. Conjunctivae are clear. Vision grossly normal. Lungs: Clear to auscultation bilaterally. No rales, rhonchi or wheeze noted. Good air flow in all gupta. Chest: reproducible chest pain over L anterior chest Heart: Regular rate and rhythm. No murmurs, click, rubs or gallops are noted. Musculoskeletal: Joints are nontender, without swelling, redness, or effusions. Pulses: Peripheral pulses are equal and palpable bilaterally. Extremities: No clubbing, cyanosis. Left arm neurovasc intact. FROM. Psych: Mood and affect appropriate. Results - EKG: NSR - D Dimer pending Medical Decision Making The patient is a 40-year-old female with a history of fibromyalgia, anxiety, and morbid obesity presenting with left-sided chest pain that radiates to her arm. Her symptoms are intermittent, exacerbated by stress, and reproducible with palpation, suggesting a non-cardiac etiology. An in-office EKG was reassuring. To complete the workup for chest pain, a D-dimer will be checked to rule out a pulmonary embolism, although clinical suspicion is low based on the exam. The current clinical picture is most consistent with musculoskeletal pain, likely a manifestation of her known fibromyalgia and exacerbated by her anxiety. Plan 1. Chest Pain - An EKG performed in the office was malik covarrubias. - A D-dimer lab test will be ordered to rule out a pulmonary embolism, although the physical exam does not suggest this diagnosis. - The pain is likely a result of fibromy algia and anxiety. - The patient is advised to follow up if the chest pain worsens. 2. Anxiety - The patient's anxiety is noted as an e xacerbating factor for her current chest pain. - Addressing stress and anxiety is consi dered a component of managing her symptoms. 3. Fibromyalgia - The current chest pain is assessed as likely being a manifestation of the patient's fibromyalgia. Patient Instructions - An EKG, which is a tracing of your hea rt, was done today and the result was reassuring. - We will check a blood test to rule out a blood clot in your lungs, though we do not think you have one based on your exam. - Your chest pain is likely caused by yo ur fibromyalgia and anxiety. - Please follow up if your chest pain ge ts worse. Consent Patient was informed and verbally consented to the use of an ambient scribe for clinic note documentation during this visit. Total time spent caring for the patient today was 30 minutes. This includes time spent before the visit reviewing the chart, time spent during the visit, and time spent after the visit on documentation, reviewing laboratory results, diagnostic imaging, medications, performing a medically necessary evaluation, counseling on diagnoses, care coordination, ordering appropriate tests, ordering appropriate medications, review of tests performed by other providers, reporting test results with the patient, communication with other healthcare providers. [facility] Medical History (Updated 09/28/25 @ 11:37 by Rashmi Dobbs, [facility]) Anxiety and depression Asthma, moderate persistent, poorly-controlled BMI 35.0-35.9,adult De Quervain's tenosynovitis DM type 2, controlled, with complication Environmental allergies Fibromyalgia Fibromyalgia Iron deficiency Microscopic hematuria Migraine headache Vitamin D deficiency Surgical History History of bilateral salpingectomy History of cervical biopsy History of dilatation and curettage History of endometrial ablation History of laparoscopy Family History Father Diabetes HTN (hypertension) Mother Depression Chronic mental illness Diabetes Maternal Grandmother HTN (hypertension) Paternal Grandmother Alzheimer disease Brother Cancer Other No family history of mental disorder Social History Household Members: Children Housing: House Are you a primary career resource specialist to a significant other at home: No Do you presently have visiting nurse or other home services: No 75 years or older and lives alone: No Alcohol intake: current Alcohol intake frequency: holidays/special occasions only Patient Tobacco Use Status: Never used Tobacco e-Cigarette/Vaping Use: Currently Using Second Hand Smoke Exposure: No service: No Current occupational status: employed 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 1. Little interest or pleasure in doing things: not at all 2. Feeling down, depressed, or hopeless: not at all 3. Trouble falling or staying asleep, or sleeping too much: not at all 4. Feeling tired or having little energy: not at all 5. Poor appetite or overeating: not at all 6. Feeling bad about yourself - or that you are a failure or have let yourself or your family down: not at all 7. Trouble concentrating on things, such as reading the newspaper or watching television: not at all 8. Moving or speaking so slowly that other people could have noticed. Or the opposite - being so fidgety or restless that you have been moving around a lot more than usual: not at all 9. Thoughts that you would be better off or of hurting yourself in some way: not at all Total score: 0 Depression Screening Interpretation: Negative Depression Screening Done: Yes 99773 - PHQ-9 Billing: Yes Source: Developed by Drs. Sunil Hernandez, Shasha Decker, Gaudencio Villarreal and colleagues, with an educational troy from [employer]. Thrive Questionnaire Date Thrive assessed: 09/28/25 I am a: Patient What is your living situation today?: I have a steady place to live Within the past 12 months, did the food you bought not last and you didn't have the money to get more?: I choose not to answer this question Within the past 12 months, did you worry whether your food would run out before you got money to buy more?: Sometimes True Do you have trouble paying for medicines?: No Do you have trouble getting transportation to medical appointments?: No Do you have trouble paying your heating and electricity bill?: No Do you have trouble taking care of your child, family member or friend?: No Do you have trouble with day-to-day activities such as bathing, preparing meals, shopping, managing finances, etc.?: Yes Are you currently unemployed and looking for a job?: Yes Are you interested in more education?: Yes Currently or been in a relationship where the following occur: No concerns reported THRIVE Score: 1 DANIEL-7 AMB Questionnaire DANIEL-7 Date DANIEL - 7 assessed: 09/28/25 Feeling nervous, anxious, or on edge: 0 = Not at all Not being able to stop or control worryin = Not at all Worrying too much about different things: 0 = Not at all Trouble relaxin = Not at all Being so restless that it is hard to sit still: 0 = Not at all Becoming easily annoyed or irritable: 0 = Not at all Feeling afraid as if something awful might happen: 0 = Not at all Total DANIEL-7 score (0-4 normal; 5-9 mild; 10-14 moderate; 15-21 severe): 0 Source: Developed by Drs. Sunil Hernandez, Shasha Decker, Gaudencio Villarreal and colleagues, with an educational troy from [employer]. DANIEL-7 Assessment Billing DANIEL-7 Assessment Tool: DANIEL-7 Assessment 61569 Physical exam (Primary Care) Vital Signs: Last Vital Signs Temp 97.2 F 09/28/25 10:50 Pulse 78 09/28/25 10:50 Resp 12 09/28/25 10:50 BP 110/68 09/28/25 10:50 Pulse Ox 99 09/28/25 10:50 Oxygen Delivery Method Room Air 09/28/25 10:50 BMI result Body Mass Index 36.0 Tobacco/Smoking Status: Tobacco use Status Tobacco use date assessed 09/28/25 09/28/25 10:46 Patient Tobacco Use Status Never used Tobacco 09/28/25 10:46 e-Cigarette/Vaping Use Currently Using 09/28/25 10:46 PHQ-9: PHQ-9 Score PHQ-9: Total score 0 09/28/25 10:46 Depression Screening Interpretation: Negative Thrive Assessment: Date of Thrive Assessment Date Thrive assessed 09/28/25 09/28/25 10:46 Currently or been in a relationship where the following occur: No concerns reported Office Procedures EKG 61553-[id number], Complete Coding Level of Care Code Est Pt Level 4 (26949) Complex EM visit Add On G2211 Diagnoses Left-sided chest wall pain R07.89 Left arm pain M79.602 Fibromyalgia M79.7 Influenza vaccination declined Z28.21 DANIEL (generalized anxiety disorder) F41.1 CPT Codes EKG - CPT: 56539-Weunsjtxwqqdbyenm, Complete ([id number]) Additional Codes DANIEL-7 Assessment Billing - DANIEL-7 Assessment Tool: DANIEL-7 Assessment 46330 ([id number]) PHQ-9 - 09931 - PHQ-9 Billing: Yes ([id number]) Assessment & Plan Assessment & Plan (1) Left-sided chest wall pain: Code(s): R07.89 - Other chest pain (2) Left arm pain: Code(s): M79.602 - Pain in left arm (3) Fibromyalgia: Comment: Uncontrolled. Code(s): M79.7 - Fibromyalgia Category: Medical (4) Influenza vaccination declined: Onset Date: ~09/28/25 Code(s): Z28.21 - Immunization not carried out because of patient refusal Category: Medical (5) DANIEL (generalized anxiety disorder): Comment: Code(s): F41.1 - Generalized anxiety disorder Category: Medical Plan . Orders: Orders D Dimer High Sensitivity Today R07.9 - Chest pain, unspecified
[2025-09-28 10:50] VITALS: BP 110/68; PULSE 78; RESP 12; TEMP 36.2; O2SAT 99; BMI 36.0
== END 2025-09-28 11:34 | disposition home or self-care (01) ==
LOC: HO.HMCFM 10:42
PROVIDERS: PCP Nurse Practitioner Family; Visit Provider Nurse Practitioner Family
DX: R07.89 Other chest pain (principal); M79.602 Pain in left arm; M79.7 Fibromyalgia; Z28.21 Immunization not carried out because of patient refusal; F41.1 Generalized anxiety disorder